=== PATIENT | male | born 1950 | race Caucasian/White ===

== ENCOUNTER 2017-11-21 17:46 | Inpatient (IN) | payer MEDICARE, OTHER ==
[2017-11-21] MEDS ORDERED: Metoprolol Tartrate 5 MG/5 ML VIAL ONE (17:58)
[2017-11-21 18:24] LABS: INR-International Normal Ratio 1.1; PTT 35.6 SEC (22.9-36.1)
[2017-11-21] MEDS ORDERED: Diltiazem 125 MG/25 ML ONE ×2 (18:25→18:27)
--- NOTE | 2017-11-21 18:33 | RAD ---
PORTABLE CHEST: 11/21/17 COMPARISON: 08/02/10 study. HISTORY: Chest pain. Heart size is upper limits of normal. There are atherosclerotic changes of the aorta. The lungs are c lear of infiltrates. IMPRESSION: No active intrathoracic disease. POS: [facility]
[2017-11-21 18:38] LABS: ALT (SGPT) 19 U/L (8-55); AST (SGOT) 17 U/L (5-34); Albumin 3.7 g/dL (3.4-4.8); Alkaline Phosphatase 105 U/L (40-150); Anion Gap 19 mmol/L (10-20); BUN (Urea Nitrogen) 19 mg/dL (8.4-25.7); Bilirubin, Total 0.6 mg/dL (0.2-1.2); CK (CPK) 73 U/L (30-200); Calc. Creatinine Clearance 0 mL/min (70-130); Calcium 9.2 mg/dL (7.8-10.44); Carbon Dioxide 23 mmol/L (23-31); Chloride 102 mmol/L (98-107); Estimated GFR-MDRD 56; Globulin 3.7 g/dL (2.4-3.5); Glucose 327 mg/dL (80-115); Lipase 14 U/L (8-78); Protein, Total 7.4 g/dL (5.8-8.1); Sodium 140 mmol/L (136-145)
[2017-11-21 18:39] LABS: CKMB 3.2 ng/mL (0-6.6); Troponin I 0.228 ng/mL (< 0.028)
[2017-11-21 18:54] LABS: #Basophils 0.1 thou/uL (0.0-0.2); #Lymphocytes 1.1 thou/uL (1.20-3.40); #Monocytes 0.7 thou/uL (0.11-0.59); #Neutrophils 6.7 thou/uL (1.40-6.50); %Basophils 0.7 % (0.0-1.0); %Eosinophils 0.1 % (0.0-10.0); %Lymphocytes 12.4 % (21.0-51.0); %Monocytes 7.9 % (0.0-10.0); %Neutrophils 78.8 % (42.0-75.0); Hemoglobin 12.4 g/dL (14.0-18.0); Mean Corpuscular HGB CONC 30.5 g/dL (32.0-36.0); Mean Corpuscular Hemoglobin 25.6 pg (27.0-31.0); Mean Corpuscular Volume 83.7 fl (80.0-94.0); Mean Platelet Volume 9.3 fL (7.4-10.4); Platelet Count 277 thou/uL (130-400); Red Blood Cell (RBC) Count 4.87 mill/uL (4.70-6.10); White Blood Cell (WBC) Count 8.5 thou/uL (4.8-10.8)
[2017-11-21] MEDS ORDERED: Enoxaparin Sodium 100 MG/ML SYRINGE ONE (19:31)
[2017-11-21] MEDS ORDERED: Diltiazem HCl 125 MG, Admixture Fee 1 EACH in Sodium Chloride 0.9% 100 ML IVPB SCH (21:30)
[2017-11-21] MEDS ORDERED: Ondansetron ODT 4 MG TAB SL PRN (21:31)
[2017-11-21] MEDS ORDERED: Acetaminophen 325 MG TAB PO PRN (21:31)
[2017-11-21] MEDS ORDERED: Ondansetron HCl/PF 4 MG/2 ML Vial IVP PRN (21:31)
[2017-11-21] MEDS ORDERED: Digoxin 0.5 MG/2 ML AMP SLOW IVP SCH ×2 (21:45→22:03)
[2017-11-21] MEDS ORDERED: Dextrose 50% Abboject 50 ML SYRINGE SLOW IVP PRN (22:03)
[2017-11-21] MEDS ORDERED: cloNIDine 0.1 MG TAB PO PRN (22:03)
[2017-11-21] MEDS ORDERED: hydrALAZINE 20 MG/ML VIAL SLOW IVP PRN (22:03)
[2017-11-21] MEDS ORDERED: Diltiazem 125 MG in Sodium Chloride 0.9% 100 ML IVPB SCH (22:03)
[2017-11-21] MEDS ORDERED: Ondansetron ODT 4 MG TAB PO PRN (22:03)
[2017-11-21] MEDS ORDERED: Furosemide 40 MG/4 ML VIAL SLOW IVP SCH (22:03)
[2017-11-21] MEDS ORDERED: Dextrose 5% in Water 1,000 ML IV PRN (22:03)
[2017-11-22] MEDS ORDERED: Digoxin 0.5 MG/2 ML AMP SLOW IVP SCH (00:15)
--- NOTE | 2017-11-22 03:04 | HP ---
DATE OF ADMISSION: 11/21/2017 PRIMARY CARE PHYSICIAN: Dr. Augusto Mcwilliams. CHIEF COMPLAINT: Shortness of breath and leg swelling. HISTORY OF PRESENT ILLNESS: This is a 67-year-old male who presented to the [facility] and transferred from Urgent Care after presenting with increasing shortness of br eath over the last 3 days. Patient states this began on 11/19/2017, progressing and worse with lying flat or ambulating. Patient admits to a CHF exacerbation approximately 12 years prior to this evalu ation with lower extremity swelling treated with IV Lasix. Patient states no specific cause was note d, but did not undergo any coronary angiogram at that time. Patient was treated with carvedilol, diu retic therapy, and aspirin and has been doing fairly well since this time. Patient does state he mohamud es aspirin 81 mg daily, but denied any other change to his chronic medication regimen. Patient denie d any fever, chills, or exposure history. Increased alcohol intake or recent surgeries. Patient den ied any specific chest pain, but does admit to a dry cough and shortness of breath with some wheezing . Patient attempted to relieve the symptoms by resting, but when the shortness of breath increased, his prompted him to seek medical attention. In the emergency room, patient underwent general ev aluation with chest imaging showing evidence of pulmonary edema. EKG showed atrial fibrillation with rapid ventricular response with heart rates in the 160s. Patient received subcutaneous Lovenox in a ddition initiated on the Cardizem infusion at 15 mg per hour. Patient also received Lopressor 5 mg x 1 dose, intravenous normal saline, and aspirin 324 mg. Patient was transferred to the intermediate c are unit for further evaluation. PAST MEDICAL HISTORY: 1. Diabetes mellitus, type 2. 2. Hypertension. 3. History of questionable congestive heart failure, unknown type. 4. Question of hyperthyroidism. 5. Arthritis. PAST SURGICAL HISTORY: 1. Status post appendectomy. 2. Status post left knee surgery. CURRENT MEDICATIONS: List will need to be obtained by family, patient is unsure of all the medicatio ns. ALLERGIES: No known drug allergies. FAMILY HISTORY: Multiple family members with coronary artery disease and congestive heart failure wi th 4 brothers requiring pacemakers. SOCIAL HISTORY: Patient is and resides in [place], [place]. Retired. Drinks socially approxima tely 2 times per month. No smoking or illicit drug use. REVIEW OF SYSTEMS: The following complete review of systems was otherwise negative, except as stated per HPI: Constitutional: Weight loss or gain, ability to conduct usual activities. Skin: Rash, itching. Eyes: Double vision, pain. ENT/Mouth: Nose bleeding, neck stiffness, pain, tenderness. Cardiovascular: Palpitations, dyspnea on exertion, orthopnea. Respiratory: Shortness of breath, wheezing, cough, hemoptysis, fever, or night sweats. Gastrointestinal: Poor appetite, abdominal pain, heartburn, nausea, vomiting, constipation, or diarr hea. Genitourinary: Urgency, frequency, dysuria, nocturia. Musculoskeletal: Pain, swelling. Neurologic/Psychiatric: Anxiety, depression. Allergy/Immunologic: Skin rash, bleeding tendency. PHYSICAL EXAMINATION: VITAL SIGNS: At the time of admission, blood pressure 124/74, pulse 166, respiratory rate 22, temper ature 97.8 degrees Fahrenheit, O2 saturation 99% on 2 liters per minute by nasal cannula. GENERAL APPEARANCE: This is a 67-year-old male, alert and oriented x3, pleasant, in mild-t o-moderate respiratory distress. HEENT: Pupils are equal, round, and reactive to light and accommodation. Extraocular muscles are in tact. No scleral icterus, no conjunctival injection. Nares patent. OP is clear. Teeth in good rep air. NECK: Supple. No cervical adenopathy, no thyromegaly, no carotid bruits, no JVD appreciated. Cervi nba spine with full active and passive range of motion. No meningeal signs noted. CHEST: Basilar crackles noted. CARDIOVASCULAR: S1, S2 with irregular rate and rhythm. Heart sounds distant. ABDOMEN: Rounded, soft, nontender, nondistended. Bowel sounds are positive in all four quadrants. There is no hepatosplenomegaly, no abdominal bruits, no rebound or guarding appreciated. EXTREMITIES: Warm and dry with fair turgor. Pitting edema to the mid shins bilaterally. Pulses are palpable distally at the dorsalis pedis, posterior tibial, and popliteal arteries bilaterally. Capi llary refill less than 2 seconds. NEUROLOGIC: Cranial nerves II-XII are grossly intact. No focal or lateralizing signs appreciated. PERTINENT LABORATORY AND X-RAY FINDINGS: Basic metabolic profile within normal limits. Glucose rang ed between 221-327, calcium 9.2. LFTs within normal limits. Troponin I ranged between 0.220 to 0.22 8. BNP 556. TSH 0.27. CBC showed a white blood cell count of 8.5, hemoglobin 12, hematocrit 41, pl atelet count 277 with 79% neutrophils. PT 14.0, INR 1.1. Portable chest x-ray dated 11/21/2017 show ed mild pulmonary edema. EKG dated 11/21/2017 by my interpretation shows atrial fibrillation with ra pid ventricular response, heart rates in the 160s. Attenuated R waves noted in the precordial leads. Normal axis. No acute ST-T wave changes appreciated. ASSESSMENT AND PLAN: 1. New-onset atrial fibrillation with rapid ventricular response. Patient will be admitted to the i ntermediate care unit. Continue Cardizem infusion at 15 mg per hour. Add digoxin 0.5 mg IV x1 now, may repeat 0.25 mg if heart rate remains greater than 120. Consider amiodarone infusion if rate is n ot controlled on prior regimen. Check 2D transthoracic echocardiogram. Consult Cardiology service i n the a.m. Check magnesium and free T4 level. Continue Lovenox 100 mg subcutaneously q.12 hours. I nitial Lovenox dose given in the emergency room. Continue aspirin 81 mg p.o. daily. 2. Acute congestive heart failure secondarily to #1. Exact type unclear. Check 2D transthoracic ec hocardiogram for ejection fraction and valvular function. See #1 above. Continue Lasix 40 mg IV q.1 2 hours with an additional 40 mg IV x1 now. 3. Elevated troponin I, suspect secondarily to #1 and a demand ischemic state. Continue serial trop onin I evaluation. Consult Cardiology Service in the a.m. Continue aspirin 81 mg p.o. daily. 4. Diabetes mellitus, type 2. Confirm home diabetic regimen. Insulin sliding scale for reflexive c overage. ADA diet. 5. Question of hyperthyroidism. Check free T4 level in the a.m. Confirm home regimen of exogenous thyroid replacement. 6. Prophylaxis. Sequential compression devices while in bed. Pepcid 20 mg p.o. b.i.d. 7. Code status is FULL. Surrogate medical decision maker is patient's spouse.
[2017-11-22] MEDS ORDERED: Amiodarone HCl 150 MG, Admixture Fee 1 EACH in Dextrose 5% in Water 100 ML IVPB SCH ×3 (04:00)
[2017-11-22] MEDS: Amiodarone In Dextrose 200 ML IVPB SCH ×3 (04:11→22:00)
[2017-11-22 04:12] LABS: Troponin I 0.221 ng/mL (< 0.028)
[2017-11-22 04:48] LABS: ALT (SGPT) 17 U/L (8-55); AST (SGOT) 13 U/L (5-34); Albumin 3.5 g/dL (3.4-4.8); Alkaline Phosphatase 83 U/L (40-150); Anion Gap 11 mmol/L (10-20); BUN (Urea Nitrogen) 17 mg/dL (8.4-25.7); Bilirubin, Total 0.6 mg/dL (0.2-1.2); Calc. Creatinine Clearance 112 mL/min (70-130); Calcium 9.1 mg/dL (7.8-10.44); Carbon Dioxide 26 mmol/L (23-31); Chloride 105 mmol/L (98-107); Estimated GFR-MDRD 72; Globulin 3.5 g/dL (2.4-3.5); Glucose 122 mg/dL (80-115); Magnesium 1.9 mg/dL (1.6-2.6); Sodium 138 mmol/L (136-145)
[2017-11-22 05:26] LABS: Band 2 % (5-11); Hemoglobin 11.9 g/dL (14.0-18.0); Lymphocytes 5 % (21-51); MDiff Complete? YES; Mean Corpuscular HGB CONC 32.3 g/dL (32.0-36.0); Mean Corpuscular Hemoglobin 27.5 pg (27.0-31.0); Mean Platelet Volume 8.9 fL (7.4-10.4); Monocytes 8 % (0-10); Neutrophil 84 % (42-75); PLT Morphology Comment Appears Adequate; Platelet Count 242 thou/uL (130-400); RBC Distribution Width 15.8 % (11.5-14.5); RBC Morphology Normal; Red Blood Cell (RBC) Count 4.34 mill/uL (4.70-6.10); White Blood Cell (WBC) Count 6.7 thou/uL (4.8-10.8)
[2017-11-22] MEDS: Ondansetron HCl/PF 4 MG/2 ML Vial IVP PRN ×2 (06:05→18:20)
[2017-11-22] MEDS: Furosemide 40 MG/4 ML VIAL SLOW IVP SCH ×2 (06:05→13:30)
[2017-11-22] MEDS: Levothyroxine Sodium 100 MCG TAB PO SCH (08:15)
[2017-11-22] MEDS: Aspirin 81 mg Enteric Coated Tablet PO SCH (08:15)
[2017-11-22] MEDS: metFORMIN XR 500 MG TAB PO SCH ×2 (08:15→18:14)
[2017-11-22] MEDS: Liothyronine Sodium 5 MCG TAB PO SCH ×2 (08:16→20:28)
[2017-11-22] MEDS: Pregabalin 75 MG CAP PO SCH ×2 (08:26→20:28)
[2017-11-22] MEDS ORDERED: FLU VACC TS2017-18 (>65YR) 0.5 ML SYRINGE IM ONE (09:00)
[2017-11-22] MEDS ORDERED: Enoxaparin Sodium 100 MG/ML SYRINGE SC SCH (09:00)
[2017-11-22] MEDS: Glimepiride 2 MG TAB PO SCH (09:12)
[2017-11-22] MEDS: Pioglitazone HCl 15 MG TAB PO SCH (09:14)
[2017-11-22] MEDS: Famotidine 20 MG TAB PO SCH ×2 (09:14→20:28)
[2017-11-22] MEDS: Anastrozole 1 MG TAB PO SCH (09:14)
--- NOTE | 2017-11-22 12:53 | PDOC.PN ---
- Subjective Encounter Start Date: 11/22/17 Encounter Start Time: 12:51 Subjective: seen and examined with no new complaint - Objective Resuscitation Status: Resuscitation Status FULL:Full Resuscitation Vital Signs & Weight: Vital Signs (12 hours) Temp Pulse Resp BP Pulse Ox 11/22/17 12:00 149 H 159/93 H 100 11/22/17 11:00 99.4 F 131 H 21 H 150/102 H 95 11/22/17 10:00 141 H 168/95 H 11/22/17 09:00 148 H 130/70 11/22/17 08:13 136 H 154/110 H 11/22/17 08:00 100.9 F H 137 H 20 174/68 H 97 11/22/17 03:33 99.7 F H 134 H 18 142/74 H 97 Weight Weight 245 lb 9.6 oz I&O: 11/21/17 11/22/17 11/23/17 06:59 06:59 06:59 Intake Total 968 Output Total 980 350 Balance -12 350 Result Diagrams: 11/22/17 04:10 11/22/17 04:10 Additional Labs: Accuchecks 11/22/17 11/22/17 11/21/17 10:49 05:42 21:11 POC Glucose 112 H 115 H 221 H Phys Exam - Physical Examination Constitutional: NAD HEENT: PERRLA, moist MMs, sclera anicteric, TM's clear Neck: no nodes, no JVD, supple, full ROM Respiratory: no wheezing, no rales, no rhonchi, clear to auscultation bilateral Cardiovascular: RRR, no significant murmur, no rub, irregular Gastrointestinal: non-tender, no distention, positive bowel sounds Musculoskeletal: pulses present, edema present Dx/Plan (1) New onset a-fib Code(s): I48.91 - UNSPECIFIED ATRIAL FIBRILLATION Status: Acute (2) CHF (congestive heart failure) Code(s): I50.9 - HEART FAILURE, UNSPECIFIED Status: Acute (3) Hypothyroidism Code(s): E03.9 - HYPOTHYROIDISM, UNSPECIFIED Status: Acute (4) Hypertension Code(s): I10 - ESSENTIAL (PRIMARY) HYPERTENSION Status: Acute - Plan plan discussed w/ family, PT/OT, social work lecturer Cardiology eval pending -: On cardizem gtt -: Pulmonary eval pending * .
[2017-11-22] MEDS ORDERED: Furosemide 100 MG/10 ML VIAL SLOW IVP SCH (13:45)
[2017-11-22] MEDS ORDERED: Furosemide 40 MG/4 ML VIAL SLOW IVP SCH (14:00)
[2017-11-22] MEDS ORDERED: Diltiazem 125 MG in Sodium Chloride 0.9% 100 ML IVPB SCH (14:15)
[2017-11-22] MEDS ORDERED: Metoprolol Tartrate 5 MG/5 ML VIAL IVP SCH ×2 (14:45→16:30)
--- NOTE | 2017-11-22 15:41 | RAD ---
CHEST ONE VIEW: History: Chest pain. Comparison: 11-21-17 FINDINGS: Cardiac silhouette is magnified and upper limits of normal in size. Pulmonary vasculature is now engo rged with patchy bilateral perihilar and bibasilar infiltrates. Mediastinum is midline with aortic c alcifications. No evidence of pneumothorax. php developer leads overlie the chest. IMPRESSION: Developing pulmonary edema. POS: [facility]
--- NOTE | 2017-11-22 18:18 | CON ---
DATE OF CONSULTATION: 11/22/2017 SUBJECTIVE: Jose Carlos Villatoro is a 67-year-old gentleman who was admitted last night with shortness of breath for several days duration. He was found to be in congestive heart failure and SVT, he is on an amiodarone drip. Here in the MICU for consult, long-term smoker, a pack a day, quit smoking 25 years ago. He had a sl eep study done in 2005 which I reviewed on the computer which showed sleep apnea. He has never had a machine. Most of his doctors are at [facility]. This morning, he said he is feeling better. There is no fever or chills. No prior history of TB, pn eumonia or bronchial asthma. PAST MEDICAL HISTORY: History of apparently diabetes, hyperlipidemia, high cholesterol, hypertension , CHF, appendix, orthopedic surgery, left knee surgery, and appears he has no significant etiol ogy in the past. MEDICATIONS: His list of medicine from home includes metformin twice a day, Lyrica, losartan 50, mox ifloxacin 200, insulin, Amaryl, Lasix, Zetia, Trulicity, Invokana, anastrozole. ALLERGIES: None. 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 REVIEW OF SYSTEMS: Ten point negative. PHYSICAL EXAMINATION: VITAL SIGNS: On examination, blood pressure 130/70, pulse 130, temperature 100.9, respirations 20. CHEST: Reveals decreased breath sounds, minimal crackles. CARDIAC: Normal S1-S2. No gallops. ABDOMEN: Soft. No masses. LABORATORY DATA AND IMAGING DATA: White count 6, hemoglobin and hematocrit 11 and 37, platelet count is normal, 84 segs. X-ray shows cardiomegaly, CHF. His troponin is elevated. His BNP is 555. Thyroid function was normal. IMPRESSION: 1. Dyspnea secondary to congestive heart failure. 2. Diabetes. 3. Sleep apnea, noncompliance. 4. Hypertension. 5. Hypothyroidism. PLAN: Agree with present treatment. Continue amiodarone. Await input from Cardiology. He probably needs a cardiac catheterization. Supportive care. We will follow while in the MICU.
--- NOTE | 2017-11-22 18:43 | PRG ---
DATE OF SERVICE: 11/22/2017 Mr. Villatoro remains short of breath. His heart rate is still 110/130. He has some expiratory wheezing. ASSESSMENT: 1. Congestive heart failure, likely systolic, acute on chronic. 2. Atrial fibrillation, extremely difficult to control rate. PLAN: We will need to proceed to cardioversion tomorrow. Hopefully can do a transesophageal echo fi rst, but he may not be able to tolerate the MANA due to the shortness of breath. If that is the case, we are going to have to go ahead and proceed with cardioversion if the patient is not tolerating atr ial fibrillation. The family understands there is some risk of stroke.
[2017-11-22] MEDS: Enoxaparin Sodium 120 MG/0.8 ML SYRINGE SC SCH (20:27)
[2017-11-22] MEDS: Cefepime 1 GM, Admixture Fee 1 EACH in Sterile Water 10 ML SLOW IVP SCH (20:27)
[2017-11-22] MEDS: Ezetimibe 10 MG TAB PO SCH (20:28)
[2017-11-22] MEDS: Acetaminophen 500 MG TAB PO PRN (20:32)
[2017-11-22] MEDS ORDERED: Losartan Potassium 25 MG TAB PO SCH (21:00)
[2017-11-22] MEDS ORDERED: Cefepime 1 GM in Sodium Chloride 0.9% 100 ML IVPB SCH (21:00)
--- NOTE | 2017-11-22 22:20 | CON ---
DATE OF CONSULTATION: 11/22/2017 REASON FOR CONSULTATION: Atrial fibrillation with a rapid rate. HISTORY OF PRESENT ILLNESS: Mr. Villatoro is a 67-year-old gentleman. He states he has a history of c ongestive heart failure. The patient states that about 10-12 years ago, he has told he had heart failure and was maintained on losartan and furosemide. He said Dr. Patterson was his physician at that point. The patient states that he was doing well up until just after Grandin started having shortness of b reath, came here to the emergency room yesterday, found to be in atrial fibrillation with a rapid rat e. He was started on intravenous Cardizem, but it did not control the rate well. This morning, he w as changed to intravenous amiodarone, but still rate was very rapid. The patient was extremely short of breath, currently no chest pain. The patient, as far as he knows, did not have blockage in his c oronary arteries at the time of the initial diagnosis. PAST MEDICAL HISTORY: 1. Diabetes. 2. Hypertension. 3. History of congestive heart failure, unknown type. PAST SURGICAL HISTORY: Appendectomy, knee surgery. MEDICATIONS: He is taking losartan and diuretic. ALLERGIES: None known. FAMILY HISTORY: Coronary disease and congestive heart failure. SOCIAL HISTORY: , resides in [place]. REVIEW OF SYSTEMS: CONSTITUTIONAL: No significant weight gain or loss. VISION: No changes. HEARING: No changes. PULMONARY: No cough or wheezing. GASTROINTESTINAL: No nausea, vomiting, diarrhea. SKIN: No rashes. NEUROLOGIC: No unilateral weakness or numbness. PSYCHIATRIC: No unusual depression or anxiety. HEMATOLOGIC: No unusual bruising. GENITOURINARY: No burning with urination. MUSCULOSKELETAL: No unusual joint pains. PHYSICAL EXAMINATION: GENERAL: A critically ill-appearing gentleman. VITAL SIGNS: On my arrival, his heart rate was 150, blood pressure was 140 systolic, respiratory rat e 30-40. Patient is in some distress. EYES: Sclerae nonicteric. Mouth mucous membranes moist. NECK: Supple, no lymphadenopathy. LUNGS: Expiratory wheezing and rales posteriorly. CARDIAC: Tachycardic and irregular. ABDOMEN: Soft, nontender. EXTREMITIES: No clubbing, cyanosis. There is some mild to moderate edema. SKIN: Warm and dry. PERTINENT LABORATORY: Creatinine 1.04. Troponin 0.221, glucose 115. The EKG revealed atrial fibrillation with a rapid ventricular response. Chest x-ray showed pulmonary vascular congestion. ASSESSMENT: 1. Congestive heart failure, probably systolic, acute on chronic. 2. Atrial fibrillation with a rapid rate. Rate as fast as 160 yesterday, still 150 even on amiodaro ne. PLAN: 1. Consider cardioversion, but the patient just ate and therefore cannot be done in a semi elective state. 2. Intravenous Cardizem was given. 3. Intravenous beta camilo given 4. Patient is beginning to feel better, heart rates close to 100, ultimately consideration for trans esophageal echo and cardioversion.
[2017-11-23] MEDS: Acetaminophen 500 MG TAB PO PRN (03:57)
[2017-11-23 04:38] LABS: Hemoglobin 11.2 g/dL (14.0-18.0); Platelet Count 229 thou/uL (130-400)
[2017-11-23] MEDS: Furosemide 40 MG/4 ML VIAL SLOW IVP SCH ×2 (05:35→14:40)
[2017-11-23] MEDS ORDERED: Diprivan 40 ML ONE (08:50)
[2017-11-23] MEDS ORDERED: Furosemide 20 MG/2 ML VIAL ONE (09:26)
[2017-11-23] MEDS ORDERED: Amiodarone 200 MG TAB PO SCH ×2 (09:30→10:00)
[2017-11-23] MEDS ORDERED: Losartan Potassium 25 MG TAB PO SCH (09:32)
[2017-11-23] MEDS ORDERED: Carvedilol 3.125 MG TAB PO SCH ×2 (09:45→10:00)
--- NOTE | 2017-11-23 09:59 | PRG ---
DATE OF SERVICE: 11/23/2017 SUBJECTIVE: Mr. Villatoro underwent cardioversion this morning, he is feeling better, his breathing be tter, still wheezing. PHYSICAL EXAMINATION: VITAL SIGNS: Blood pressure 121/77 before cardioversion, pulse is now in the 70s and sinus. LUNGS: Expiratory wheezing. CARDIAC: Normal S1 and normal S2. ABDOMEN: Soft, nontender. EXTREMITIES: No edema. ASSESSMENT: 1. Congestive heart failure with ejection fraction estimated in the 20s on transesophageal echocardi ography. Transthoracic echo is still pending. 2. Atrial fibrillation converted to sinus rhythm. PLAN: 1. Stop Cardizem. 2. Continue diuretics. 3. Increase losartan to 100 mg a day. 4. Transition to oral amiodarone. 5. [place] low dose carvedilol.
[2017-11-23] MEDS ORDERED: Furosemide 40 MG/4 ML VIAL SLOW IVP SCH (10:00)
[2017-11-23 10:38] LABS: Base Excess (BEa) -2.4 mEq/L (0 (+/-) 2.5); CO2 Tension 48.7 mmHg (35.0-45.0); Calcium, Ionized 1.1 mmol/L (1.12-1.30); Hemoglobin (Hb) 11.4 g/dL (14.0-18.0); O2 Tension (PaO2) 78.4 mmHg (80.0-100.0); pH, Arterial 7.31 (7.35-7.45)
[2017-11-23 10:39] LABS: ALV-art Gradient 119.565 (0-20); Puncture Site RRA
--- NOTE | 2017-11-23 10:53 | ECHO ---
TRANSESOPHAGEAL ECHOCARDIOGRAM DATE: 11/23/2017 INDICATION FOR PROCEDURE: A 67-year-old patient with new onset atrial fibrillation and congestive he art failure with decompensation, severe symptomatic atrial fibrillation with rapid ventricular respon se. He was advised to undergo a transesophageal echocardiogram to rule out evidence of intracardiac thrombi in the left atrium or left atrial appendage in anticipation of early electrical cardioversion . PROCEDURE: He was taken to the recovery area where he underwent short acting propofol without diffic ulties or complications. The transesophageal probe was easily passed down the distal esophagus. IMPRESSIONS: 1. No evidence of left atrial or left atrial appendage thrombus. He did have smoke formation in the left atrium and right atrium and also the left ventricle at times, but no evidence of left atrial or left atrial appendage thrombus. 2. Severe decrease in left ventricular systolic function. Ejection fraction is estimated at 20-25%. 3. Mild tricuspid valve regurgitation. 4. Mild to moderate mitral valve regurgitation. 5. Mild to moderate left atrial dilatation. The left atrium is estimated at approximately 4.5 cm. 6. Good flow in the left atrial appendage of approximately 0.5 meters per second. There were no difficulties or complications encountered. The patient tolerated the procedure well, a nd we will then proceed with a cardioversion of the patient. POS: [facility]
--- NOTE | 2017-11-23 10:57 | OP ---
DATE OF PROCEDURE: 11/23/2017 PROCEDURE: Cardioversion. DESCRIPTION OF PROCEDURE: The patient was brought to the recovery room in the fasting state. He was sedated. Transesophageal echo revealed no evidence of intracardiac thrombus. He was given 150 joul es direct current synchronized energy, did not convert to sinus rhythm, therefore he was given 200 kaushik ules direct current synchronized energy and converted to normal sinus rhythm. CONCLUSION: Successful cardioversion.
[2017-11-23] MEDS: Pioglitazone HCl 15 MG TAB PO SCH (11:20)
[2017-11-23] MEDS: Famotidine 20 MG TAB PO SCH ×2 (11:22→20:14)
[2017-11-23] MEDS: Levothyroxine Sodium 100 MCG TAB PO SCH (11:23)
[2017-11-23] MEDS: Liothyronine Sodium 5 MCG TAB PO SCH ×2 (11:23→20:13)
[2017-11-23] MEDS: metFORMIN XR 500 MG TAB PO SCH ×2 (11:24→16:35)
[2017-11-23] MEDS: Cefepime 1 GM, Admixture Fee 1 EACH in Sterile Water 10 ML SLOW IVP SCH ×2 (11:25→20:12)
[2017-11-23] MEDS: Anastrozole 1 MG TAB PO SCH (11:25)
[2017-11-23] MEDS: Aspirin 81 mg Enteric Coated Tablet PO SCH (11:25)
[2017-11-23] MEDS: Glimepiride 2 MG TAB PO SCH (11:25)
[2017-11-23] MEDS: Enoxaparin Sodium 120 MG/0.8 ML SYRINGE SC SCH ×2 (11:26→20:12)
[2017-11-23] MEDS: Pregabalin 75 MG CAP PO SCH ×2 (11:30→20:13)
[2017-11-23] MEDS ORDERED: Amiodarone HCl 450 MG, Admixture Fee 1 EACH in Dextrose 5% in Water 250 ML IVPB SCH ×3 (11:30)
--- NOTE | 2017-11-23 12:02 | PRG ---
DATE OF SERVICE: 11/23/2017 SUBJECTIVE: This patient underwent cardioversion earlier this morning afterwards he has developed so me respiratory distress. He is now back on the BiPAP machine. He is having some wheezing. PHYSICAL EXAMINATION: VITAL SIGNS: Temperature 97.5, pulse 107, respirations 21, blood pressure 176/83. HEENT: Unremarkable. NECK: No JVD. LUNGS: He has bilateral end expiratory wheezing. He has no crackles at the bases. CARDIAC: S1, S2 now regular, no murmur. ABDOMEN: Soft, nontender. EXTREMITIES: Trace edema. LABORATORY DATA: Hemoglobin 11, hematocrit 36.8, platelet count 229. Chemistry not done. ABG: pH 7.31, pCO2 of 48, pO2 78. Chest x-ray interpreted by myself shows flattened diaphragms, cardiomegaly . ASSESSMENT: 1. Acute respiratory failure, probably secondary to some congestive heart failure. 2. Question of reactive airway disease. 3. Sleep apnea. 4. Hypothyroidism. 5. Paroxysmal atrial fibrillation. PLAN: 1. Continue BiPAP. 2. Agree with the dose of steroids. 3. Start nebulization treatments.
[2017-11-23] MEDS ORDERED: Insulin Detemir 100 UNITS/ML 40 UNITS in Pre-Filled Syringe 1 EACH SC SCH (12:45)
--- NOTE | 2017-11-23 15:16 | RAD ---
UPRIGHT PORTABLE CHEST ONE VIEW: HISTORY: A 67-year-old male with congestive heart failure. COMPARISON: 11/22/2017 FINDINGS: Monitor leads overly the chest. Heart size is within normal limits. There is some mild bilateral va scular congestion with increased markings in the basis and costophrenic angle blunting. These change appear to be stable when compared to the 11/22/2017 study but are new when compared to the 8 study. There appears to be some potential minimal air density over the right costophrenic angle re gion, within the chest wall. this area has overlying artifact. This was raise concern for possible subcutaneous emphysema. There is no associated pneumothorax. IMPRESSION: Persistent bilateral vascular congestion with persistent bibasilar interstitial and alveolar pulmonar y parenchymal changes and costophrenic angle blunting, showing little change from 11/22/2017, evidenc e for lower lobe asymmetric edema or possibly bibasilar pneumonia or pneumonitis. Minimal air densit y overlying the right chest wall, near the costophrenic angle, possibly representing some subcutaneou s emphysema. No evidence of pneumothorax or other acute process. Followup of this is suggested. Findings were discussed with the patient's nurse (Nora), who indicated she would contact Dr. Powell in this regard at 11:18 a.m. CODE CR POS: [facility]
--- NOTE | 2017-11-23 15:37 | PDOC.PN ---
- Subjective Encounter Start Date: 11/23/17 Encounter Start Time: 15:00 Pt seen for followup re: atrial fibrillation. Reports SOBOE. Denies chest pain , palpitations, fever or chills. - Objective Resuscitation Status: Resuscitation Status FULL:Full Resuscitation MAR Reviewed: Yes Vital Signs & Weight: Vital Signs (12 hours) Temp Pulse Resp BP Pulse Ox 11/23/17 14:00 93 153/77 H 11/23/17 13:30 94 161/78 H 11/23/17 13:13 92 18 93 L 11/23/17 13:00 95 152/72 H 11/23/17 12:30 95 148/67 H 11/23/17 12:00 99 24 H 156/65 H 91 L 11/23/17 11:51 107 H 187/80 H 11/23/17 11:15 92 22 H 154/61 H 99 11/23/17 11:00 89 157/62 H 11/23/17 10:47 94 21 H 176/83 H 100 11/23/17 10:33 97.5 F L 107 H 30 H 162/92 H 99 11/23/17 10:31 107 H 11/23/17 10:15 114 H 32 H 142/86 H 89 L 11/23/17 07:55 132 H 121/77 11/23/17 07:38 97.8 F 114 H 24 H 96 11/23/17 07:00 97.8 F 114 H 24 H 143/70 H 96 11/23/17 03:53 100.1 F H 126 H 20 131/61 97 Weight Weight 250 lb 3.2 oz I&O: 11/22/17 11/23/17 11/24/17 06:59 06:59 06:59 Intake Total 968 2248.3 Output Total 980 2520 Balance -12 -912.7 Result Diagrams: 11/23/17 04:21 11/23/17 04:21 Additional Labs: Accuchecks 11/23/17 11/23/17 11/22/17 10:36 05:37 20:52 POC Glucose 166 H 176 H 235 H 11/22/17 16:31 POC Glucose 119 H EKG Reviewed by me: Yes (Tele: NSR) Phys Exam - Physical Examination Constitutional: NAD HEENT: moist MMs Neck: supple Respiratory: clear to auscultation bilateral Cardiovascular: RRR Gastrointestinal: soft Musculoskeletal: edema present Neurological: moves all 4 limbs Psychiatric: normal affect Dx/Plan (1) New onset a-fib Code(s): I48.91 - UNSPECIFIED ATRIAL FIBRILLATION Status: Acute (2) CHF (congestive heart failure) Code(s): I50.9 - HEART FAILURE, UNSPECIFIED Status: Chronic (3) Hypertension Code(s): I10 - ESSENTIAL (PRIMARY) HYPERTENSION Status: Chronic (4) Hypothyroidism Code(s): E03.9 - HYPOTHYROIDISM, UNSPECIFIED Status: Chronic - Plan out of bed/ambulate * . s/p cardioversion (after MANA). Monitor vital signs, titrate antihypertensives as needed. Continue synthroid. Review of Systems - Review of Systems Respiratory: SOB with Excertion. negative: Cough, Dry, Shortness of Breath, Hemoptysis, Pleuritic Pain, Sputum, Wheezing Cardiovascular: negative: chest pain, palpitations, orthopnea, paroxysmal nocturnal dyspnea, edema, light headedness - Medications/Allergies Allergies/Adverse Reactions: Allergies Allergy/AdvReac Type Severity Reaction Status Date / Time No Allergy Information Allergy Verified 11/21/17 21:57 Available Medications: Current Medications Acetaminophen (Tylenol) 1,000 mg PO Q6H PRN PRN Reason: Headache/Fever or Mild Pain Last Admin: 11/23/17 03:57 Dose: 1,000 mg Albuterol/Ipratropium (Duoneb) 3 ml NEB [id number] [facility] Last Admin: 11/23/17 13:13 Dose: 3 ml Amiodarone HCl (Cordarone) [address] [facility] Anastrozole (Arimidex) [address] [facility] Last Admin: 11/23/17 11:25 Dose: 1 mg Aspirin (Ecotrin) [address] [facility] Last Admin: 11/23/17 11:25 Dose: 81 mg Carvedilol (Coreg) 3.125 mg PO BID-WM [facility] Clonidine (Catapres) 0.1 mg PO Q4H PRN PRN Reason: Systolic BP > 180 Dextrose/Water (Dextrose 50%) 25 gm SLOW IVP PRN PRN PRN Reason: Hypoglycemia Ezetimibe (Zetia) [address] [facility] Last Admin: 11/22/17 20:28 Dose: 10 mg Enoxaparin Sodium (Lovenox) 120 mg SC 0900,2100 [facility] Last Admin: 11/23/17 11:26 Dose: 120 mg Famotidine (Pepcid) [address] [facility] Last Admin: 11/23/17 11:22 Dose: 20 mg Furosemide (Lasix) 40 mg SLOW IVP 0600,1400 [facility] Last Admin: 11/23/17 14:40 Dose: 40 mg Glimepiride (Amaryl) 2 mg PO DAILY-AC [facility] Last Admin: 11/23/17 11:25 Dose: 2 mg Glucagon (Glucagon) 1 mg IM PRN PRN PRN Reason: Hypoglycemia Hydralazine HCl (Apresoline) 10 mg SLOW IVP Q4H PRN PRN Reason: Systolic BP > 180 Dextrose/Water (D5w) 1,000 mls @ 0 mls/hr IV .Q0M PRN; As Directed PRN Reason: Hypoglycemia Cefepime HCl 1 gm/Miscellaneous Medication 1 each/ Sterile Water 10 mls @ 120 mls/hr SLOW IVP BID [facility] Last Admin: 11/23/17 11:25 Dose: 10 mls Insulin Detemir 40 units/ (Miscellaneous Medication) 0.4 mls @ 0 mls/hr SC DAILY [facility] Insulin Human Lispro (Humalog) 0 units SC .MODERATE SLIDING SC PRN PRN Reason: Moderate Correctional Scale Insulin Human Lispro (Humalog) 0 units SC .BEDTIME SLIDING SC PRN PRN Reason: Bedtime Correctional Scale Levothyroxine Sodium (Synthroid) [address] [facility] Last Admin: 11/23/17 11:23 Dose: 200 mcg Liothyronine Sodium (Cytomel) [address] [facility] Last Admin: 11/23/17 11:23 Dose: 5 mcg Losartan Potassium (Cozaar) [address] [facility] Metformin HCl (Glucophage Xr) 750 mg PO BID-[facility] Last Admin: 11/23/17 11:24 Dose: 750 mg Methylprednisolone Sodium Succinate (Solu-Medrol) [address] [facility] Last Admin: 11/23/17 10:48 Dose: 40 mg Ondansetron HCl (Zofran Odt) 4 mg PO Q6H PRN PRN Reason: Nausea/Vomiting Ondansetron HCl (Zofran) 4 mg IVP Q6H PRN PRN Reason: Nausea/Vomiting Last Admin: 11/22/17 18:20 Dose: 4 mg Canagliflozin [ Invokana] 300 Mg Tablet [address] [facility] Last Admin: 11/23/17 11:30 Dose: 1 each Pregabalin (Lyrica) [address] [facility] Last Admin: 11/23/17 11:30 Dose: Not Given
[2017-11-23] MEDS: Carvedilol 3.125 MG TAB PO SCH (16:36)
[2017-11-23] MEDS: HumaLOG 300 UNITS/3 ML VIAL SC PRN ×2 (16:36→20:24)
[2017-11-23] MEDS: Amiodarone 200 MG TAB PO SCH (20:14)
[2017-11-23] MEDS: Ezetimibe 10 MG TAB PO SCH (20:14)
[2017-11-24] MEDS: Levothyroxine Sodium 100 MCG TAB PO SCH (05:44)
[2017-11-24] MEDS: Furosemide 40 MG/4 ML VIAL SLOW IVP SCH (05:44)
[2017-11-24] MEDS: HumaLOG 300 UNITS/3 ML VIAL SC PRN ×4 (05:44→20:45)
[2017-11-24] MEDS: Glimepiride 2 MG TAB PO SCH (08:29)
[2017-11-24] MEDS: Carvedilol 3.125 MG TAB PO SCH ×2 (08:30→16:59)
[2017-11-24] MEDS: metFORMIN XR 500 MG TAB PO SCH ×2 (08:31→16:58)
[2017-11-24] MEDS: Amiodarone 200 MG TAB PO SCH ×2 (08:32→19:58)
[2017-11-24] MEDS: Anastrozole 1 MG TAB PO SCH (08:33)
[2017-11-24] MEDS: Aspirin 81 mg Enteric Coated Tablet PO SCH (08:33)
[2017-11-24] MEDS: Cefepime 1 GM, Admixture Fee 1 EACH in Sterile Water 10 ML SLOW IVP SCH ×2 (08:33→19:59)
[2017-11-24] MEDS: Liothyronine Sodium 5 MCG TAB PO SCH ×2 (08:34→19:58)
[2017-11-24] MEDS: Famotidine 20 MG TAB PO SCH ×2 (08:34→19:58)
[2017-11-24] MEDS: Pregabalin 75 MG CAP PO SCH ×2 (08:36→19:57)
[2017-11-24] MEDS: Enoxaparin Sodium 120 MG/0.8 ML SYRINGE SC SCH (08:44)
[2017-11-24] MEDS ORDERED: Furosemide 40 MG TAB PO SCH (09:00)
[2017-11-24] MEDS ORDERED: Insulin Detemir 100 UNITS/ML 40 UNITS in Pre-Filled Syringe 1 EACH SC SCH (09:00)
--- NOTE | 2017-11-24 09:51 | PRG ---
DATE OF SERVICE: 11/24/2017 SUBJECTIVE: Mr. Villatoro is feeling better today. Still having some trouble breathing, but it is imp roved. His creatinine yesterday was 1.22. PHYSICAL EXAMINATION: VITAL SIGNS: Blood pressure today is still high at 156/73 and pulse is 76, it is sinus, it is 80 on the monitor. LUNGS: Clear of any rales. He does have expiratory wheezing. CARDIAC: Normal S1 and S2. ASSESSMENT: 1. Congestive heart failure, ejection fraction 25%-30%. 2. Atrial fibrillation, maintaining sinus rhythm. 3. Hypertension. PLAN: 1. We will change from losartan to lisinopril. Continue diuretic therapy. 2. He is on low dose Coreg due to wheezing. 3. We will likely need a LifeVest before he goes home. 4. We will likely need cardiac catheterization before he goes home to see if he has coronary disease and if he does so, consideration for this being done radially should be given in view of his anticoa gulation.
[2017-11-24] MEDS: Sacubitril 49 MG/Valsartan 51 MG TABLET PO SCH ×2 (10:07→19:58)
--- NOTE | 2017-11-24 11:47 | PRG ---
DATE OF SERVICE: 11/24/2017 SUBJECTIVE: He feels better today. He has not used the BiPAP earlier this morning. OBJECTIVE: VITAL SIGNS: Temperature 97.1, pulse 76, respirations 22, 100% on 3 liters, blood pressure 156/73. HEENT: Unremarkable. NECK: No JVD. CHEST: Clear. No wheezing audible. Few crackles in the bases. CARDIAC: S1 and S2 regular. ABDOMEN: Soft. EXTREMITIES: No edema. ASSESSMENT: 1. Acute respiratory failure, probably related to congestive heart failure. 2. Question of concurrent reactive airway disease. 3. Obstructive sleep apnea. 4. Hypothyroidism. 5. Paroxysmal atrial fibrillation. PLAN: 1. Continue nebulization treatments. 2. Hopefully, he is over his need for BiPAP. 3. Currently on low dose steroids that hopefully can be stopped in the next day or two.
--- NOTE | 2017-11-24 13:03 | PDOC.PN ---
- Subjective Encounter Start Date: 11/24/17 Encounter Start Time: 09:20 Pt seen for followup re: shortness of breath. Reports SOB at rest and with exertion. Denies chest pain. No fever, chills or cough. - Objective Resuscitation Status: Resuscitation Status FULL:Full Resuscitation Vital Signs & Weight: Vital Signs (12 hours) Temp Pulse Resp BP Pulse Ox 11/24/17 11:56 97.3 F L 80 20 138/65 97 11/24/17 08:08 80 16 11/24/17 07:59 97.1 F L 76 20 100 11/24/17 07:49 97.1 F L 76 20 156/73 H 97 11/24/17 06:00 79 18 143/64 H 100 11/24/17 04:00 98.0 F 75 16 127/55 L 99 11/24/17 02:00 81 17 123/53 L 99 Weight Weight 242 lb 6 oz I&O: 11/23/17 11/24/17 11/25/17 06:59 06:59 06:59 Intake Total 2248.3 3044.8 Output Total 2520 4325 Balance -271.7 -1280.2 Result Diagrams: 11/23/17 04:21 11/23/17 04:21 Additional Labs: Accuchecks 11/24/17 11/23/17 11/23/17 05:44 20:20 16:26 POC Glucose 229 H 246 H 338 H Phys Exam - Physical Examination Constitutional: NAD HEENT: moist MMs Neck: supple Bibasal crackles Cardiovascular: RRR Gastrointestinal: soft Neurological: moves all 4 limbs Psychiatric: normal affect Skin: no rash Dx/Plan (1) Shortness of breath Code(s): R06.02 - SHORTNESS OF BREATH Status: Acute (2) CHF (congestive heart failure) Code(s): I50.9 - HEART FAILURE, UNSPECIFIED Status: Chronic (3) Hypertension Code(s): I10 - ESSENTIAL (PRIMARY) HYPERTENSION Status: Chronic (4) Hypothyroidism Code(s): E03.9 - HYPOTHYROIDISM, UNSPECIFIED Status: Chronic (5) New onset a-fib Code(s): I48.91 - UNSPECIFIED ATRIAL FIBRILLATION Status: Resolved - Plan out of bed/ambulate * . Continue IV diuretics. Plan for possible cardiac cath noted. Plan for Life Vest prior to discharge. Continue steroids, bronchodilators. s/p cardioversion. Review of Systems - Review of Systems Respiratory: Shortness of Breath, SOB with Excertion. negative: Cough, Dry, Hemoptysis, Pleuritic Pain, Sputum, Wheezing Cardiovascular: negative: chest pain, palpitations, orthopnea, paroxysmal nocturnal dyspnea, edema, light headedness - Medications/Allergies Allergies/Adverse Reactions: Allergies Allergy/AdvReac Type Severity Reaction Status Date / Time No Allergy Information Allergy Verified 11/21/17 21:57 Available Medications: Current Medications Acetaminophen (Tylenol) 1,000 mg PO Q6H PRN PRN Reason: Headache/Fever or Mild Pain Last Admin: 11/23/17 03:57 Dose: 1,000 mg Albuterol/Ipratropium (Duoneb) 3 ml NEB [id number] [facility] Last Admin: 11/24/17 08:08 Dose: 3 ml Amiodarone HCl (Cordarone) 400 mg PO BID [facility] Last Admin: 11/24/17 08:32 Dose: 400 mg Anastrozole (Arimidex) 1 mg PO DAILY [facility] Last Admin: 11/24/17 08:33 Dose: 1 mg Aspirin (Ecotrin) 81 mg PO DAILY [facility] Last Admin: 11/24/17 08:33 Dose: 81 mg Carvedilol (Coreg) 3.125 mg PO BID-WM [facility] Last Admin: 11/24/17 08:30 Dose: 3.125 mg Clonidine (Catapres) 0.1 mg PO Q4H PRN PRN Reason: Systolic BP > 180 Dextrose/Water (Dextrose 50%) 25 gm SLOW IVP PRN PRN PRN Reason: Hypoglycemia Ezetimibe (Zetia) 10 mg PO HS [facility] Last Admin: 11/23/17 20:14 Dose: 10 mg Enoxaparin Sodium (Lovenox) 100 mg SC 0900,2100 [facility] Famotidine (Pepcid) 20 mg PO BID [facility] Last Admin: 11/24/17 08:34 Dose: 20 mg Furosemide (Lasix) 40 mg PO 0900,1400 [facility] Glimepiride (Amaryl) 2 mg PO DAILY-AC [facility] Last Admin: 11/24/17 08:29 Dose: 2 mg Glucagon (Glucagon) 1 mg IM PRN PRN PRN Reason: Hypoglycemia Hydralazine HCl (Apresoline) 10 mg SLOW IVP Q4H PRN PRN Reason: Systolic BP > 180 Dextrose/Water (D5w) 1,000 mls @ 0 mls/hr IV .Q0M PRN; As Directed PRN Reason: Hypoglycemia Cefepime HCl 1 gm/Miscellaneous Medication 1 each/ Sterile Water 10 mls @ 120 mls/hr SLOW IVP BID [facility] Last Admin: 11/24/17 08:33 Dose: 10 mls Insulin Detemir 40 units/ (Miscellaneous Medication) 0.4 mls @ 0 mls/hr SC DAILY [facility] Last Admin: 11/24/17 08:40 Dose: 0.4 mls Insulin Human Lispro (Humalog) 0 units SC .MODERATE SLIDING SC PRN PRN Reason: Moderate Correctional Scale Last Admin: 11/24/17 12:37 Dose: 6 unit Insulin Human Lispro (Humalog) 0 units SC .BEDTIME SLIDING SC PRN PRN Reason: Bedtime Correctional Scale Last Admin: 11/23/17 20:24 Dose: 2 unit Levothyroxine Sodium (Synthroid) 200 mcg PO 0600 [facility] Last Admin: 11/24/17 05:44 Dose: 200 mcg Liothyronine Sodium (Cytomel) 5 mcg PO BID [facility] Last Admin: 11/24/17 08:34 Dose: 5 mcg Metformin HCl (Glucophage Xr) 750 mg PO BID-[facility] Last Admin: 11/24/17 08:31 Dose: 750 mg Methylprednisolone Sodium Succinate (Solu-Medrol) 40 mg IVP DAILY [facility] Last Admin: 11/24/17 08:35 Dose: 40 mg Ondansetron HCl (Zofran Odt) 4 mg PO Q6H PRN PRN Reason: Nausea/Vomiting Ondansetron HCl (Zofran) 4 mg IVP Q6H PRN PRN Reason: Nausea/Vomiting Last Admin: 11/22/17 18:20 Dose: 4 mg Canagliflozin [ Invokana] 300 Mg Tablet 1 each PO QAM [facility] Last Admin: 11/24/17 08:36 Dose: 1 each Pregabalin (Lyrica) 150 mg PO BID [facility] Last Admin: 11/24/17 08:36 Dose: 150 mg Sacubitril/Valsartan (Entresto 49 Mg-51 Mg Tablet) 1 tab PO BID [facility] Last Admin: 11/24/17 10:07 Dose: 1 tab
[2017-11-24] MEDS: Furosemide 40 MG TAB PO SCH (14:19)
[2017-11-24] MEDS: Ezetimibe 10 MG TAB PO SCH (19:58)
[2017-11-24] MEDS: Enoxaparin Sodium 100 MG/ML SYRINGE SC SCH (19:58)
[2017-11-25 04:20] LABS: Hemoglobin 11.2 g/dL (14.0-18.0); Platelet Count 250 thou/uL (130-400)
[2017-11-25 04:52] LABS: Anion Gap 13 mmol/L (10-20); BUN (Urea Nitrogen) 30 mg/dL (8.4-25.7); Calc. Creatinine Clearance 110 mL/min (70-130); Calcium 8.8 mg/dL (7.8-10.44); Carbon Dioxide 30 mmol/L (23-31); Chloride 101 mmol/L (98-107); Estimated GFR-MDRD 72; Glucose 155 mg/dL (80-115); Potassium 3.6 mmol/L (3.5-5.1); Sodium 140 mmol/L (136-145)
[2017-11-25] MEDS: Levothyroxine Sodium 100 MCG TAB PO SCH (05:19)
[2017-11-25] MEDS: metFORMIN XR 500 MG TAB PO SCH ×2 (08:38→16:55)
[2017-11-25] MEDS: Glimepiride 2 MG TAB PO SCH (08:38)
[2017-11-25] MEDS: Carvedilol 3.125 MG TAB PO SCH (08:38)
[2017-11-25] MEDS: Anastrozole 1 MG TAB PO SCH (08:39)
[2017-11-25] MEDS: Aspirin 81 mg Enteric Coated Tablet PO SCH (08:39)
[2017-11-25] MEDS: Cefepime 1 GM, Admixture Fee 1 EACH in Sterile Water 10 ML SLOW IVP SCH (08:39)
[2017-11-25] MEDS: Amiodarone 200 MG TAB PO SCH ×2 (08:39→20:41)
[2017-11-25] MEDS: Furosemide 40 MG TAB PO SCH ×2 (08:40→16:27)
[2017-11-25] MEDS: Enoxaparin Sodium 100 MG/ML SYRINGE SC SCH ×2 (08:40→20:41)
[2017-11-25] MEDS: Liothyronine Sodium 5 MCG TAB PO SCH ×2 (08:40→20:41)
[2017-11-25] MEDS: Famotidine 20 MG TAB PO SCH ×2 (08:40→20:41)
[2017-11-25] MEDS: INSULIN GLARGINE SC SCH (08:41)
[2017-11-25] MEDS: Pregabalin 75 MG CAP PO SCH ×2 (08:42→20:41)
[2017-11-25] MEDS ORDERED: Lisinopril 20 MG TAB PO SCH (09:00)
[2017-11-25] MEDS: Sacubitril 49 MG/Valsartan 51 MG TABLET PO SCH ×2 (11:09→20:41)
[2017-11-25] MEDS ORDERED: guaiFENesin ER 600 MG TAB PO SCH (12:00)
[2017-11-25] MEDS: HumaLOG 300 UNITS/3 ML VIAL SC PRN ×2 (12:00→16:59)
--- NOTE | 2017-11-25 13:19 | PRG ---
DATE OF SERVICE: 11/25/2017 SUBJECTIVE: He feels better today. He had no acute complaints. OBJECTIVE: VITAL SIGNS: Temperature 98.5, pulse 80, respirations 20, O2 sat 98% on 2 liters, and blood pressure 150/65. HEENT: Unremarkable. NECK: No JVD. CHEST: Clear. CARDIAC: S1 and S2, regular and sinus. ABDOMEN: Soft. EXTREMITIES: No edema. LABORATORY DATA: Hematocrit 36.5, platelet count 250. Sodium 140, potassium 3.6, chloride 101, CO2 of 30, BUN 30, creatinine 1.0, and glucose 155. ASSESSMENT: 1. Paroxysmal atrial fibrillation, now status post cardioversion. 2. Bronchospasm, which is improved. 3. Obstructive sleep apnea. 4. Hypothyroidism. PLAN: He can be transferred out to the telemetry floor. I will go ahead and stop his steroids, sinc e it seems to be adversely affecting his blood sugars, and he is no longer experiencing bronchospasm. Hopefully, he can go home soon.
--- NOTE | 2017-11-25 14:39 | PDOC.PN ---
- Subjective Encounter Start Date: 11/25/17 Encounter Start Time: 10:20 Pt seen for followup re: shortness of berath. Reports dyspnea is bstter. Cough +, minimal sputum. - Objective Resuscitation Status: Resuscitation Status FULL:Full Resuscitation MAR Reviewed: Yes Vital Signs & Weight: Vital Signs (12 hours) Temp Pulse Resp BP Pulse Ox 11/25/17 12:02 80 20 98 11/25/17 12:00 98.5 F 84 18 150/65 H 93 L 11/25/17 08:37 74 16 11/25/17 08:00 98.2 F 68 17 143/74 H 99 11/25/17 07:51 97.9 F 70 20 95 11/25/17 04:00 97.9 F 70 20 150/73 H 98 Weight Weight 241 lb 8 oz I&O: 11/24/17 11/25/17 11/26/17 06:59 06:59 06:59 Intake Total 3044.8 2610 Output Total 4325 2850 Balance -1280.2 -240 Result Diagrams: 11/25/17 03:28 11/25/17 03:28 Additional Labs: Accuchecks 11/25/17 11/25/17 11/24/17 11:40 05:03 20:39 POC Glucose 388 H 146 H 324 H 11/24/17 11/24/17 16:59 10:42 POC Glucose 356 H 271 H EKG Reviewed by me: Yes (Tele: NSR) Phys Exam - Physical Examination Constitutional: NAD HEENT: moist MMs Neck: supple Respiratory: wheezing present Cardiovascular: RRR Gastrointestinal: soft Neurological: moves all 4 limbs Psychiatric: normal affect, A&O x 3 Skin: no rash Dx/Plan (1) Shortness of breath Code(s): R06.02 - SHORTNESS OF BREATH Status: Acute (2) CHF (congestive heart failure) Code(s): I50.9 - HEART FAILURE, UNSPECIFIED Status: Chronic (3) Hypertension Code(s): I10 - ESSENTIAL (PRIMARY) HYPERTENSION Status: Chronic (4) Hypothyroidism Code(s): E03.9 - HYPOTHYROIDISM, UNSPECIFIED Status: Chronic (5) New onset a-fib Code(s): I48.91 - UNSPECIFIED ATRIAL FIBRILLATION Status: Resolved - Plan * . Continue bronchodilators. Continue IV furosemide. Pt will likely need Life Vest and/or cardiac cath prior to discharge. Add guaifenesin. Review of Systems - Review of Systems Respiratory: Cough, Sputum. negative: Dry, Shortness of Breath, Hemoptysis, SOB with Excertion, Pleuritic Pain, Wheezing Cardiovascular: negative: chest pain, palpitations, orthopnea, paroxysmal nocturnal dyspnea, edema, light headedness - Medications/Allergies Allergies/Adverse Reactions: Allergies Allergy/AdvReac Type Severity Reaction Status Date / Time No Allergy Information Allergy Verified 11/21/17 21:57 Available Medications: Current Medications Acetaminophen (Tylenol) 1,000 mg PO Q6H PRN PRN Reason: Headache/Fever or Mild Pain Last Admin: 11/23/17 03:57 Dose: 1,000 mg Albuterol/Ipratropium (Duoneb) 3 ml NEB [id number] [facility] Last Admin: 11/25/17 12:02 Dose: 3 ml Amiodarone HCl (Cordarone) 400 mg PO BID [facility] Last Admin: 11/25/17 08:39 Dose: 400 mg Anastrozole (Arimidex) 1 mg PO DAILY [facility] Last Admin: 11/25/17 08:39 Dose: 1 mg Aspirin (Ecotrin) 81 mg PO DAILY [facility] Last Admin: 11/25/17 08:39 Dose: 81 mg Carvedilol (Coreg) 3.125 mg PO BID-[facility] Last Admin: 11/25/17 08:38 Dose: 3.125 mg Clonidine (Catapres) 0.1 mg PO Q4H PRN PRN Reason: Systolic BP > 180 Dextrose/Water (Dextrose 50%) 25 gm SLOW IVP PRN PRN PRN Reason: Hypoglycemia Ezetimibe (Zetia) 10 mg PO HS [facility] Last Admin: 11/24/17 19:58 Dose: 10 mg Enoxaparin Sodium (Lovenox) 100 mg SC 0900,2100 [facility] Last Admin: 11/25/17 08:40 Dose: 100 mg Famotidine (Pepcid) 20 mg PO BID [facility] Last Admin: 11/25/17 08:40 Dose: 20 mg Furosemide (Lasix) 40 mg PO 0900,1400 [facility] Last Admin: 11/25/17 08:40 Dose: 40 mg Glimepiride (Amaryl) 2 mg PO DAILY-AC [facility] Last Admin: 12/31/17 08:38 Dose: 2 mg Glucagon (Glucagon) 1 mg IM PRN PRN PRN Reason: Hypoglycemia Guaifenesin (Mucinex) 600 mg PO Q12H PRN PRN Reason: congestion Hydralazine HCl (Apresoline) 10 mg SLOW IVP Q4H PRN PRN Reason: Systolic BP > 180 Dextrose/Water (D5w) 1,000 mls @ 0 mls/hr IV .Q0M PRN; As Directed PRN Reason: Hypoglycemia Cefepime HCl 1 gm/Miscellaneous Medication 1 each/ Sterile Water 10 mls @ 120 mls/hr SLOW IVP BID [facility] Last Admin: 11/25/17 08:39 Dose: 10 mls Insulin Human Lispro (Humalog) 0 units SC .MODERATE SLIDING SC PRN PRN Reason: Moderate Correctional Scale Last Admin: 11/25/17 12:00 Dose: 10 unit Insulin Human Lispro (Humalog) 0 units SC .BEDTIME SLIDING SC PRN PRN Reason: Bedtime Correctional Scale Last Admin: 11/24/17 20:45 Dose: 4 unit Levothyroxine Sodium (Synthroid) 200 mcg PO 0600 [facility] Last Admin: 11/25/17 05:19 Dose: 200 mcg Liothyronine Sodium (Cytomel) 5 mcg PO BID [facility] Last Admin: 11/25/17 08:40 Dose: 5 mcg Metformin HCl (Glucophage Xr) 750 mg PO BID-[facility] Last Admin: 11/25/17 08:38 Dose: 750 mg Ondansetron HCl (Zofran Odt) 4 mg PO Q6H PRN PRN Reason: Nausea/Vomiting Ondansetron HCl (Zofran) 4 mg IVP Q6H PRN PRN Reason: Nausea/Vomiting Last Admin: 11/22/17 18:20 Dose: 4 mg Canagliflozin [ Invokana] 300 Mg Tablet 1 each PO QAM [facility] Last Admin: 11/25/17 08:41 Dose: 1 each Dulaglutide [ (Trulicity]) 0 each SC Sa [facility] Last Admin: 11/24/17 19:59 Dose: 1 each Insulin Glargine [ (Toujeo Solostar]) 0 each SC QAM [facility] Last Admin: 11/25/17 08:41 Dose: 40 each Pregabalin (Lyrica) 150 mg PO BID [facility] Last Admin: 11/25/17 08:42 Dose: 150 mg Sacubitril/Valsartan (Entresto 49 Mg-51 Mg Tablet) 1 tab PO BID [facility] Last Admin: 11/25/17 11:09 Dose: 1 tab
[2017-11-25] MEDS: Carvedilol 6.25 MG TAB PO SCH (16:28)
[2017-11-25] MEDS: Ezetimibe 10 MG TAB PO SCH (20:41)
[2017-11-26] MEDS: Levothyroxine Sodium 100 MCG TAB PO SCH (05:58)
[2017-11-26] MEDS: HumaLOG 300 UNITS/3 ML VIAL SC PRN ×3 (05:58→17:03)
[2017-11-26] MEDS: Glimepiride 2 MG TAB PO SCH (09:05)
[2017-11-26] MEDS: Carvedilol 6.25 MG TAB PO SCH ×2 (09:05→17:01)
[2017-11-26] MEDS: metFORMIN XR 500 MG TAB PO SCH ×2 (09:05→17:02)
[2017-11-26] MEDS: Anastrozole 1 MG TAB PO SCH (09:06)
[2017-11-26] MEDS: Amiodarone 200 MG TAB PO SCH ×2 (09:06→20:08)
[2017-11-26] MEDS: Aspirin 81 mg Enteric Coated Tablet PO SCH (09:06)
[2017-11-26] MEDS: Cefdinir 300 MG CAP PO SCH (09:06)
[2017-11-26] MEDS: Liothyronine Sodium 5 MCG TAB PO SCH ×2 (09:07→20:09)
[2017-11-26] MEDS: INSULIN GLARGINE SC SCH (09:07)
[2017-11-26] MEDS: Furosemide 40 MG TAB PO SCH ×2 (09:07→15:41)
[2017-11-26] MEDS: Famotidine 20 MG TAB PO SCH ×2 (09:07→20:08)
[2017-11-26] MEDS: Enoxaparin Sodium 100 MG/ML SYRINGE SC SCH ×2 (09:07→20:08)
[2017-11-26] MEDS: Pregabalin 75 MG CAP PO SCH ×2 (09:08→20:09)
[2017-11-26] MEDS: Sacubitril 49 MG/Valsartan 51 MG TABLET PO SCH ×2 (09:09→20:08)
[2017-11-26] MEDS: guaiFENesin ER 600 MG TAB PO PRN ×2 (09:15→20:08)
--- NOTE | 2017-11-26 15:55 | PDOC.PN ---
- Subjective Encounter Start Date: 11/26/17 Encounter Start Time: 11:20 Pt seen for followup re: Dyspnea. Reports feeling better. No chest pain. Slept better. - Objective Resuscitation Status: Resuscitation Status FULL:Full Resuscitation MAR Reviewed: Yes Vital Signs & Weight: Vital Signs (12 hours) Temp Pulse Resp BP Pulse Ox 11/26/17 13:10 72 15 11/26/17 12:00 98.6 F 86 20 161/89 H 91 L 11/26/17 08:55 99 11/26/17 08:52 69 16 99 11/26/17 07:55 97.9 F 66 18 170/73 H 99 11/26/17 07:18 97.4 F L 67 20 98 11/26/17 04:00 97.4 F L 67 20 155/76 H 100 Weight Weight 238 lb 6.4 oz I&O: 11/25/17 11/26/17 11/27/17 06:59 06:59 06:59 Intake Total 2610 2320 Output Total 2850 4100 Balance -240 -1780 Result Diagrams: 11/28/17 04:33 11/29/17 04:47 Additional Labs: Accuchecks 11/26/17 11/26/17 11/25/17 11:17 05:58 20:23 POC Glucose 253 H 285 H 200 H 11/25/17 16:28 POC Glucose 422 H EKG Reviewed by me: Yes (Tele: NSR) Phys Exam - Physical Examination Obese HEENT: moist MMs Neck: supple Respiratory: clear to auscultation bilateral Cardiovascular: RRR Gastrointestinal: soft Neurological: moves all 4 limbs Psychiatric: normal affect Skin: no rash Dx/Plan (1) Shortness of breath Code(s): R06.02 - SHORTNESS OF BREATH Status: Acute (2) CHF (congestive heart failure) Code(s): I50.9 - HEART FAILURE, UNSPECIFIED Status: Chronic (3) Hypertension Code(s): I10 - ESSENTIAL (PRIMARY) HYPERTENSION Status: Chronic (4) Hypothyroidism Code(s): E03.9 - HYPOTHYROIDISM, UNSPECIFIED Status: Chronic (5) New onset a-fib Code(s): I48.91 - UNSPECIFIED ATRIAL FIBRILLATION Status: Resolved - Plan * . Dyspnea better. Continue diuretics. Plan for Life Vest +/- cath study prior to discharge. Review of Systems - Review of Systems Respiratory: SOB with Excertion. negative: Cough, Dry, Shortness of Breath, Hemoptysis, Pleuritic Pain, Sputum, Wheezing Cardiovascular: negative: chest pain, palpitations, orthopnea, paroxysmal nocturnal dyspnea, edema, light headedness - Medications/Allergies Allergies/Adverse Reactions: Allergies Allergy/AdvReac Type Severity Reaction Status Date / Time No Known Allergies Allergy Unverified 11/28/17 03:05 Medications: Current Medications Acetaminophen (Tylenol) 1,000 mg PO Q6H PRN PRN Reason: Headache/Fever or Mild Pain Last Admin: 11/23/17 03:57 Dose: 1,000 mg Albuterol/Ipratropium (Duoneb) 3 ml NEB [id number] [facility] Last Admin: 11/26/17 13:10 Dose: 3 ml Amiodarone HCl (Cordarone) 400 mg PO BID [facility] Last Admin: 11/26/17 09:06 Dose: 400 mg Anastrozole (Arimidex) 1 mg PO DAILY [facility] Last Admin: 11/26/17 09:06 Dose: 1 mg Aspirin (Ecotrin) 81 mg PO DAILY [facility] Last Admin: 11/26/17 09:06 Dose: 81 mg Carvedilol (Coreg) 6.25 mg PO BID-WM [facility] Last Admin: 11/26/17 09:05 Dose: 6.25 mg Cefdinir (Omnicef) 600 mg PO DAILY [facility] Last Admin: 11/26/17 09:06 Dose: 600 mg Clonidine (Catapres) 0.1 mg PO Q4H PRN PRN Reason: Systolic BP > 180 Dextrose/Water (Dextrose 50%) 25 gm SLOW IVP PRN PRN PRN Reason: Hypoglycemia Ezetimibe (Zetia) 10 mg PO HS [facility] Last Admin: 11/25/17 20:41 Dose: 10 mg Enoxaparin Sodium (Lovenox) 100 mg SC 0900,2100 [facility] Last Admin: 11/26/17 09:07 Dose: 100 mg Famotidine (Pepcid) 20 mg PO BID [facility] Last Admin: 11/26/17 09:07 Dose: 20 mg Furosemide (Lasix) 40 mg PO 0900,1400 [facility] Last Admin: 11/26/17 15:41 Dose: 40 mg Glimepiride (Amaryl) 2 mg PO DAILY-AC [facility] Last Admin: 11/26/17 09:05 Dose: 2 mg Glucagon (Glucagon) 1 mg IM PRN PRN PRN Reason: Hypoglycemia Guaifenesin (Mucinex) 600 mg PO Q12H PRN PRN Reason: congestion Last Admin: 11/26/17 09:15 Dose: 600 mg Hydralazine HCl (Apresoline) 10 mg SLOW IVP Q4H PRN PRN Reason: Systolic BP > 180 Dextrose/Water (D5w) 1,000 mls @ 0 mls/hr IV .Q0M PRN; As Directed PRN Reason: Hypoglycemia Insulin Human Lispro (Humalog) 0 units SC .BEDTIME SLIDING SC PRN PRN Reason: Bedtime Correctional Scale Last Admin: 11/24/17 20:45 Dose: 4 unit Insulin Human Lispro (Humalog) 0 units SC .AGGRESSIVE SLIDING PRN; Protocol PRN Reason: AGGRESSIVE SLIDING SCALE Last Admin: 11/26/17 11:21 Dose: 9 unit Levothyroxine Sodium (Synthroid) 200 mcg PO 0600 [facility] Last Admin: 11/26/17 05:58 Dose: 200 mcg Liothyronine Sodium (Cytomel) 5 mcg PO BID [facility] Last Admin: 11/26/17 09:07 Dose: 5 mcg Metformin HCl (Glucophage Xr) 750 mg PO BID-[facility] Last Admin: 11/26/17 09:05 Dose: 750 mg Ondansetron HCl (Zofran Odt) 4 mg PO Q6H PRN PRN Reason: Nausea/Vomiting Ondansetron HCl (Zofran) 4 mg IVP Q6H PRN PRN Reason: Nausea/Vomiting Last Admin: 11/22/17 18:20 Dose: 4 mg Canagliflozin [ Invokana] 300 Mg Tablet 1 each PO QAM [facility] Last Admin: 11/26/17 09:07 Dose: 1 each Dulaglutide [ (Trulicity]) 0 each SC Sa [facility] Last Admin: 11/24/17 19:59 Dose: 1 each Insulin Glargine [ (Toujeo Solostar]) 0 each SC QAM [facility] Last Admin: 11/26/17 09:07 Dose: 1 each Pregabalin (Lyrica) 150 mg PO BID [facility] Last Admin: 11/26/17 09:08 Dose: 150 mg Sacubitril/Valsartan (Entresto 49 Mg-51 Mg Tablet) 1 tab PO BID [facility] Last Admin: 11/26/17 09:09 Dose: 1 tab
--- NOTE | 2017-11-26 17:26 | PDOC.CTH ---
<Lisa Edward - Last Filed: 11/26/17 17:53> Cardiology Progress Note - Subjective The pt seen and examined. No overnight events. No cardiac complaints. The pt exercises without any difficulties with RA. - Objective Vital Signs Temp Pulse Resp BP Pulse Ox 11/26/17 15:53 97.6 F 70 20 150/74 H 90 L 11/26/17 13:10 72 15 11/26/17 12:00 98.6 F 86 20 161/89 H 91 L 11/26/17 08:55 99 11/26/17 08:52 69 16 99 11/26/17 07:55 97.9 F 66 18 170/73 H 99 11/26/17 07:18 97.4 F L 67 20 98 Weight 238 lb 6.4 oz 11/25/17 11/26/17 11/27/17 06:59 06:59 06:59 Intake Total 2610 2320 Output Total 2850 4100 Balance -240 -1780 - Physical Examination General/Neuro: alert & oriented x3 Neck: no JVD present Lungs: other: (diminished at bases; intermittent product cough) Heart: RRR Abdomen: soft Extremities: other: (No edema) - Telemetry Telemetry Rhythm: SR 60s - Labs Result Diagrams: 11/25/17 03:28 11/25/17 03:28 Troponin/CKMB CK-MB (CK-2) 3.2 ng/mL (0-6.6) 11/21/17 18:00 Troponin I 0.221 ng/mL (< 0.028) H 11/22/17 00:30 - Assessment/Plan 1. New onset Afib with RVR w/ S/p MANA and Cardioversion on 11/23/17 - remains SR with Amiodarone 400mg PO BID; 2. Chronic systolic HF - EF 20-25%; on Entresto 49/51mg BID; stable with RA; cont. monitor; Prior to Discharge, the pt may undergo cardiac cath for decreased EF and Afib; The pt will d/c home with LifeVest 3. HTN - stable with current medication 4. DM type 2 - managed by PCP 5. Hypothyroidism - TSH showed Hyperthyroidism; may beneficial to adjust thyroid medication; managed by PCP MAR reviewed * Plan for Life Vest +/- cath study prior to discharge Review of Systems - Review of Systems Constitutional: reports: no symptoms reported EENTM: reports: no symptoms reported Respiratory: reports: cough, other (productive cough) ABD/GI: reports: no symptoms reported : reports: no symptoms reported Musculoskeletal: reports: no symptoms reported <Estiven Koehler - Last Filed: 11/26/17 19:53> Cardiology Progress Note - Objective Vital Signs Temp Pulse Resp BP Pulse Ox 11/26/17 19:30 97.5 F L 73 22 H 159/84 H 92 L 11/26/17 19:13 71 16 11/26/17 15:53 97.6 F 70 20 150/74 H 90 L 11/26/17 13:10 72 15 11/26/17 12:00 98.6 F 86 20 161/89 H 91 L 11/26/17 08:55 99 11/26/17 08:52 69 16 99 11/26/17 07:55 97.9 F 66 18 170/73 H 99 Weight 238 lb 6.4 oz 11/25/17 11/26/17 11/27/17 06:59 06:59 06:59 Intake Total 2610 2320 1500 Output Total 2850 4100 2300 Balance -240 -1780 -800 - Labs Result Diagrams: 11/25/17 03:28 11/25/17 03:28 Troponin/CKMB CK-MB (CK-2) 3.2 ng/mL (0-6.6) 11/21/17 18:00 Troponin I 0.221 ng/mL (< 0.028) H 11/22/17 00:30 - Assessment/Plan Pt. was seen and eval. by me. I agree with the A/P by the TRAFFIC POLICE OFFICER. Pt. prob. should have a cardiac cath prior to d/c. The pulmonary status is still not back to his baseline. I suspect he will be able to undergo a cath in the next few days.
[2017-11-26] MEDS ORDERED: Furosemide 20 MG/2 ML VIAL SLOW IVP SCH (19:15)
[2017-11-26] MEDS: Ezetimibe 10 MG TAB PO SCH (20:08)
--- NOTE | 2017-11-26 22:59 | PRG ---
DATE OF SERVICE: 11/26/2017 SERVICE: Pulmonary Medicine. INTERVAL HISTORY: The patient is breathing comfortably this afternoon. He denies any current fevers , chills, nausea or vomiting. He does have a coughing and brings up a little bit of pale yellow sput um. Outside of this, he feels that his breathing is much improved. He is using BiPAP on a nightly b asis, but last night, he can only tolerate for roughly 2-3 hours before he had to rip the thing off b ecause of dry mouth. Outside of this, there has been no interval change in his condition. He remain s in normal sinus rhythm. PHYSICAL EXAMINATION: VITAL SIGNS: Afebrile, pulse 70, blood pressure 150/74, respirations 20, saturation 90% on 2 liters nasal cannula. GENERAL: Patient is awake, alert, in no apparent distress. LUNGS: Decreased air entry. There are crackles present. I do not appreciate any rhonchi, but there is a prolonged expiratory phase. No wheezing. HEART: Normal rate, regular. ABDOMEN: Soft, nontender, nondistended. Bowel sounds are positive. MUSCULOSKELETAL: No cyanosis or clubbing. There is trace pitting in the bilateral lower extremities . NEUROLOGIC: Grossly nonfocal. LABORATORY DATA: Blood sugars ranged from 201-422. ASSESSMENT: 1. Acute hypoxic respiratory failure. 2. Atrial fibrillation, paroxysmal, return in normal sinus rhythm. 3. Obstructive sleep apnea. 4. Hypothyroidism. PLAN: The patient remains stable for transition out of [facility] to the telemetry unit. We will continue his nebulized medication. I will provide him with one dose of Lasix. His volume overload may be co ntributing to his bronchoconstriction. From a purely respiratory perspective, if he is off oxygen to , it would be reasonable to transition him home if Cardiology signs off.
[2017-11-27] MEDS: Levothyroxine Sodium 100 MCG TAB PO SCH (05:44)
[2017-11-27] MEDS: HumaLOG 300 UNITS/3 ML VIAL SC PRN ×2 (05:46→16:57)
[2017-11-27 05:56] LABS: #Lymphocytes 1.3 thou/uL (1.20-3.40); #Monocytes 0.6 thou/uL (0.11-0.59); #Neutrophils 2.5 thou/uL (1.40-6.50); %Basophils 0.3 % (0.0-1.0); %Eosinophils 0.3 % (0.0-10.0); %Lymphocytes 29.9 % (21.0-51.0); %Monocytes 14.1 % (0.0-10.0); %Neutrophils 55.4 % (42.0-75.0); Hemoglobin 12.1 g/dL (14.0-18.0); Mean Corpuscular HGB CONC 30.8 g/dL (32.0-36.0); Mean Corpuscular Hemoglobin 26.2 pg (27.0-31.0); Mean Platelet Volume 9.2 fL (7.4-10.4); Platelet Count 235 thou/uL (130-400); RBC Distribution Width 15.1 % (11.5-14.5); Red Blood Cell (RBC) Count 4.63 mill/uL (4.70-6.10); White Blood Cell (WBC) Count 4.5 thou/uL (4.8-10.8)
[2017-11-27 06:13] LABS: Anion Gap 13 mmol/L (10-20); BUN (Urea Nitrogen) 21 mg/dL (8.4-25.7); Calc. Creatinine Clearance 95 mL/min (70-130); Calcium 8.9 mg/dL (7.8-10.44); Carbon Dioxide 34 mmol/L (23-31); Chloride 95 mmol/L (98-107); Estimated GFR-MDRD 63; Glucose 382 mg/dL (80-115); Potassium 3.6 mmol/L (3.5-5.1); Sodium 138 mmol/L (136-145)
[2017-11-27] MEDS: Glimepiride 2 MG TAB PO SCH (08:22)
[2017-11-27] MEDS: Anastrozole 1 MG TAB PO SCH (08:23)
[2017-11-27] MEDS: Carvedilol 6.25 MG TAB PO SCH ×2 (08:23→16:53)
[2017-11-27] MEDS: Amiodarone 200 MG TAB PO SCH ×2 (08:23→20:46)
[2017-11-27] MEDS: metFORMIN XR 500 MG TAB PO SCH ×2 (08:23→16:53)
[2017-11-27] MEDS: Aspirin 81 mg Enteric Coated Tablet PO SCH (08:23)
[2017-11-27] MEDS: Famotidine 20 MG TAB PO SCH ×2 (08:24→20:46)
[2017-11-27] MEDS: Cefdinir 300 MG CAP PO SCH (08:24)
[2017-11-27] MEDS: Liothyronine Sodium 5 MCG TAB PO SCH ×2 (08:24→20:46)
[2017-11-27] MEDS: Enoxaparin Sodium 100 MG/ML SYRINGE SC SCH ×2 (08:24→20:46)
[2017-11-27] MEDS: Furosemide 40 MG TAB PO SCH ×2 (08:24→14:37)
[2017-11-27] MEDS: INSULIN GLARGINE SC SCH (08:25)
[2017-11-27] MEDS: guaiFENesin ER 600 MG TAB PO PRN (08:26)
[2017-11-27] MEDS: Sacubitril 49 MG/Valsartan 51 MG TABLET PO SCH ×2 (08:26→21:16)
[2017-11-27] MEDS: Pregabalin 75 MG CAP PO SCH ×2 (08:26→20:46)
--- NOTE | 2017-11-27 08:50 | PDOC.CTH ---
<Lisa Edward - Last Filed: 11/27/17 13:21> Cardiology Progress Note - Subjective The pt seen and examined. No overnight events. No cardiac complaints. He reported that he can take deep breath better without coughing. - Objective Vital Signs Temp Pulse Resp BP Pulse Ox 11/27/17 08:07 88 16 11/27/17 08:00 97.7 F 69 22 H 154/71 H 91 L 11/27/17 07:33 98.0 F 78 20 92 L 11/27/17 03:50 98.0 F 78 20 155/86 H 93 L 11/27/17 00:30 72 17 Weight 235 lb 1 oz 11/26/17 11/27/17 11/28/17 06:59 06:59 06:59 Intake Total 2320 2700 Output Total 4100 6150 Balance -1780 -3450 - Physical Examination General/Neuro: alert & oriented x3 Neck: no JVD present Lungs: other: (exp. wheezing ) Heart: RRR Abdomen: soft Extremities: other: (No edema) - Telemetry Telemetry Rhythm: SR - Labs Result Diagrams: 11/27/17 04:28 11/27/17 04:28 Troponin/CKMB CK-MB (CK-2) 3.2 ng/mL (0-6.6) 11/21/17 18:00 Troponin I 0.221 ng/mL (< 0.028) H 11/22/17 00:30 - Assessment/Plan 1. New onset Afib with RVR w/ S/p MANA and Cardioversion on 11/23/17 - remains SR with Amiodarone 400mg PO BID; 2. Chronic systolic HF - EF 20-25%; on Entresto 49/51mg BID; stable with RA; cont. monitor; Another Echo was taking and the result is pending at this moment ; Prior to Discharge, the pt may undergo cardiac cath for decreased EF and Afib ; The pt will d/c home with LifeVest 3. HTN - stable with current medication 4. DM type 2 - managed by PCP 5. Hypothyroidism - TSH showed Hyperthyroidism; managed by PCP MAR reviewed * Plan for Life Vest prior to discharge * Cardiac cath tomorrow; The pt was explained about the procedure and the risk of the procedures, including, but not limited to hemorrhage, infection, thrombosis, perforation of the catheter, CVA, VA, and . The pt reported that he is not allergic to Iodine. After the explanation, the pt voiced understanding and agreed to proceed the procedure possible tomorrow. Review of Systems - Review of Systems Constitutional: reports: no symptoms reported EENTM: reports: no symptoms reported Respiratory: reports: no symptoms reported Cardiac (ROS): reports: no symptoms reported ABD/GI: reports: no symptoms reported : reports: no symptoms reported <Estiven Koehler - Last Filed: 11/27/17 16:21> Cardiology Progress Note - Objective Vital Signs Temp Pulse Resp BP BP Pulse Ox 11/27/17 13:33 68 15 11/27/17 12:00 97.9 F 66 20 132/69 94 L 11/27/17 08:07 88 16 11/27/17 08:00 97.7 F 69 22 H 154/71 H 91 L 11/27/17 07:33 98.0 F 78 20 92 L Weight 235 lb 1 oz 11/26/17 11/27/17 11/28/17 06:59 06:59 06:59 Intake Total 2320 2700 Output Total 4100 6150 Balance -1780 -3450 - Labs Result Diagrams: 11/27/17 04:28 11/27/17 04:28 Troponin/CKMB CK-MB (CK-2) 3.2 ng/mL (0-6.6) 11/21/17 18:00 Troponin I 0.221 ng/mL (< 0.028) H 11/22/17 00:30 - Assessment/Plan Pt. seen and eval. by me. I agree with the A/P by the ENVIRONMENTAL PROGRAMS SPECIALIST.I discussed the cath procedure indication and risks. plan for AM.
[2017-11-27] MEDS ORDERED: Communication Order-Pharmacy FS SCH (13:30)
--- NOTE | 2017-11-27 19:14 | PDOC.PN ---
- Subjective Encounter Start Date: 11/27/17 Encounter Start Time: 10:00 Pt seen for followup re: shortness of breath. Reports feeling better. No chest pain. Shortness of breath is better. - Objective Resuscitation Status: Resuscitation Status FULL:Full Resuscitation MAR Reviewed: Yes Vital Signs & Weight: Vital Signs (12 hours) Temp Pulse Resp BP BP Pulse Ox 11/27/17 13:33 68 15 11/27/17 12:00 97.9 F 66 20 132/69 94 L 11/27/17 08:07 88 16 11/27/17 08:00 97.7 F 69 22 H 154/71 H 91 L 11/27/17 07:33 98.0 F 78 20 92 L Weight Weight 235 lb 1 oz I&O: 11/26/17 11/27/17 11/28/17 06:59 06:59 06:59 Intake Total 2320 2700 1400 Output Total 4100 6150 2700 Balance -1780 -3450 -1300 Result Diagrams: 11/27/17 04:28 11/27/17 04:28 Additional Labs: Accuchecks 11/27/17 11/27/17 11/27/17 16:51 11:25 05:46 POC Glucose 285 H 119 H 359 H 11/26/17 20:08 POC Glucose 174 H EKG Reviewed by me: Yes (Tele: NSR) Phys Exam - Physical Examination Obese HEENT: moist MMs, oral pharynx no lesions Neck: supple Respiratory: clear to auscultation bilateral Cardiovascular: RRR Gastrointestinal: soft Neurological: moves all 4 limbs Psychiatric: normal affect Dx/Plan (1) Shortness of breath Code(s): R06.02 - SHORTNESS OF BREATH Status: Acute (2) CHF (congestive heart failure) Code(s): I50.9 - HEART FAILURE, UNSPECIFIED Status: Chronic (3) Hypertension Code(s): I10 - ESSENTIAL (PRIMARY) HYPERTENSION Status: Chronic (4) Hypothyroidism Code(s): E03.9 - HYPOTHYROIDISM, UNSPECIFIED Status: Chronic (5) New onset a-fib Code(s): I48.91 - UNSPECIFIED ATRIAL FIBRILLATION Status: Resolved - Plan * . Continue diuretics. For cath tomorrow. Will likely need Life Vest prior to discharge. Awaiting Tele bed. Review of Systems - Review of Systems Respiratory: SOB with Excertion. negative: Cough, Dry, Shortness of Breath, Hemoptysis, Pleuritic Pain, Sputum, Wheezing Cardiovascular: negative: chest pain, palpitations, orthopnea, paroxysmal nocturnal dyspnea, edema, light headedness - Medications/Allergies Allergies/Adverse Reactions: Allergies Allergy/AdvReac Type Severity Reaction Status Date / Time No Allergy Information Allergy Verified 11/21/17 21:57 Available Medications: Current Medications Acetaminophen (Tylenol) 1,000 mg PO Q6H PRN PRN Reason: Headache/Fever or Mild Pain Last Admin: 11/23/17 03:57 Dose: 1,000 mg Albuterol/Ipratropium (Duoneb) 3 ml NEB [id number] [facility] Last Admin: 11/27/17 13:33 Dose: 3 ml Amiodarone HCl (Cordarone) 400 mg PO BID [facility] Last Admin: 11/27/17 08:23 Dose: 400 mg Anastrozole (Arimidex) 1 mg PO DAILY [facility] Last Admin: 11/27/17 08:23 Dose: 1 mg Aspirin (Ecotrin) 81 mg PO DAILY [facility] Last Admin: 11/27/17 08:23 Dose: 81 mg Carvedilol (Coreg) 6.25 mg PO BID-[facility] Last Admin: 11/27/17 16:53 Dose: 6.25 mg Cefdinir (Omnicef) 600 mg PO DAILY [facility] Last Admin: 11/27/17 08:24 Dose: 600 mg Clonidine (Catapres) 0.1 mg PO Q4H PRN PRN Reason: Systolic BP > 180 Dextrose/Water (Dextrose 50%) 25 gm SLOW IVP PRN PRN PRN Reason: Hypoglycemia Ezetimibe (Zetia) 10 mg PO HS [facility] Last Admin: 11/26/17 20:08 Dose: 10 mg Enoxaparin Sodium (Lovenox) 100 mg SC 0900,2100 [facility] Stop: 11/27/17 23:59 Last Admin: 11/27/17 08:24 Dose: 100 mg Famotidine (Pepcid) 20 mg PO BID [facility] Last Admin: 11/27/17 08:24 Dose: 20 mg Furosemide (Lasix) 40 mg PO 0900,1400 [facility] Last Admin: 11/27/17 14:37 Dose: 40 mg Glimepiride (Amaryl) 2 mg PO DAILY-AC [facility] Last Admin: 11/27/17 08:22 Dose: 2 mg Glucagon (Glucagon) 1 mg IM PRN PRN PRN Reason: Hypoglycemia Guaifenesin (Mucinex) 600 mg PO Q12H PRN PRN Reason: congestion Last Admin: 11/27/17 08:26 Dose: 600 mg Hydralazine HCl (Apresoline) 10 mg SLOW IVP Q4H PRN PRN Reason: Systolic BP > 180 Dextrose/Water (D5w) 1,000 mls @ 0 mls/hr IV .Q0M PRN; As Directed PRN Reason: Hypoglycemia Insulin Human Lispro (Humalog) 0 units SC .BEDTIME SLIDING SC PRN PRN Reason: Bedtime Correctional Scale Last Admin: 11/24/17 20:45 Dose: 4 unit Insulin Human Lispro (Humalog) 0 units SC .AGGRESSIVE SLIDING PRN; Protocol PRN Reason: AGGRESSIVE SLIDING SCALE Last Admin: 11/27/17 16:57 Dose: 9 unit Levothyroxine Sodium (Synthroid) 200 mcg PO 0600 [facility] Last Admin: 11/27/17 05:44 Dose: 200 mcg Liothyronine Sodium (Cytomel) 5 mcg PO BID [facility] Last Admin: 11/27/17 08:24 Dose: 5 mcg Metformin HCl (Glucophage Xr) 750 mg PO BID-[facility] Last Admin: 11/27/17 16:53 Dose: 750 mg Miscellaneous Information (Communication Order-Pharmacy) 0 each FS ONE [facility] Stop: 11/27/17 23:59 Ondansetron HCl (Zofran Odt) 4 mg PO Q6H PRN PRN Reason: Nausea/Vomiting Ondansetron HCl (Zofran) 4 mg IVP Q6H PRN PRN Reason: Nausea/Vomiting Last Admin: 11/22/17 18:20 Dose: 4 mg Canagliflozin [ Invokana] 300 Mg Tablet 1 each PO QAM [facility] Last Admin: 11/27/17 08:25 Dose: 1 each Dulaglutide [ (Trulicity]) 0 each SC Sa [facility] Last Admin: 11/24/17 19:59 Dose: 1 each Insulin Glargine [ (Toujeo Solostar]) 0 each SC QAM [facility] Last Admin: 11/27/17 08:25 Dose: 1 each Pregabalin (Lyrica) 150 mg PO BID [facility] Last Admin: 11/27/17 08:26 Dose: 150 mg Sacubitril/Valsartan (Entresto 49 Mg-51 Mg Tablet) 1 tab PO BID [facility] Last Admin: 11/27/17 08:26 Dose: 1 tab
[2017-11-27] MEDS: Ezetimibe 10 MG TAB PO SCH (20:46)
[2017-11-28 05:06] LABS: #Lymphocytes 1.6 thou/uL (1.20-3.40); #Monocytes 0.7 thou/uL (0.11-0.59); #Neutrophils 3.7 thou/uL (1.40-6.50); %Basophils 0.3 % (0.0-1.0); %Eosinophils 0.8 % (0.0-10.0); %Lymphocytes 26.4 % (21.0-51.0); %Monocytes 11.2 % (0.0-10.0); %Neutrophils 61.2 % (42.0-75.0); Hemoglobin 12.3 g/dL (14.0-18.0); Mean Corpuscular HGB CONC 31.8 g/dL (32.0-36.0); Mean Corpuscular Hemoglobin 26.9 pg (27.0-31.0); Mean Corpuscular Volume 84.6 fl (80.0-94.0); Mean Platelet Volume 8.9 fL (7.4-10.4); Platelet Count 248 thou/uL (130-400); RBC Distribution Width 14.9 % (11.5-14.5); Red Blood Cell (RBC) Count 4.57 mill/uL (4.70-6.10)
[2017-11-28 05:21] LABS: ALT (SGPT) 22 U/L (8-55); AST (SGOT) 19 U/L (5-34); Albumin 2.8 g/dL (3.4-4.8); Alkaline Phosphatase 68 U/L (40-150); Anion Gap 15 mmol/L (10-20); BUN (Urea Nitrogen) 23 mg/dL (8.4-25.7); Bilirubin, Total 0.3 mg/dL (0.2-1.2); Calc. Creatinine Clearance 84 mL/min (70-130); Calcium 9.3 mg/dL (7.8-10.44); Carbon Dioxide 31 mmol/L (23-31); Chloride 96 mmol/L (98-107); Estimated GFR-MDRD 55; Globulin 3.3 g/dL (2.4-3.5); Glucose 400 mg/dL (80-115); Potassium 4.2 mmol/L (3.5-5.1); Protein, Total 6.1 g/dL (5.8-8.1); Sodium 138 mmol/L (136-145)
[2017-11-28] MEDS: Sacubitril 49 MG/Valsartan 51 MG TABLET PO SCH ×2 (06:28→21:23)
[2017-11-28] MEDS: Aspirin 81 mg Enteric Coated Tablet PO SCH (06:28)
[2017-11-28] MEDS: Levothyroxine Sodium 100 MCG TAB PO SCH (06:28)
[2017-11-28] MEDS: Famotidine 20 MG TAB PO SCH ×2 (06:29→21:23)
[2017-11-28] MEDS: Carvedilol 6.25 MG TAB PO SCH ×2 (06:29→16:27)
[2017-11-28] MEDS: Furosemide 40 MG TAB PO SCH ×2 (06:29→14:30)
[2017-11-28] MEDS: Cefdinir 300 MG CAP PO SCH (06:29)
[2017-11-28] MEDS: Amiodarone 200 MG TAB PO SCH ×2 (06:29→21:23)
[2017-11-28] MEDS: Anastrozole 1 MG TAB PO SCH (06:29)
[2017-11-28] MEDS: Liothyronine Sodium 5 MCG TAB PO SCH ×2 (06:30→21:23)
[2017-11-28] MEDS: Pregabalin 75 MG CAP PO SCH ×2 (06:30→21:24)
[2017-11-28] MEDS ORDERED: Verapamil 5 MG/2 ML VIAL ONE (07:47)
[2017-11-28] MEDS ORDERED: Heparin 10,000 UNITS/1 ML VIAL ONE (07:47)
[2017-11-28] MEDS ORDERED: Nitroglycerin 100MG/250ML BOT 250 ML ONE (07:47)
[2017-11-28] MEDS: metFORMIN XR 500 MG TAB PO SCH ×2 (07:57→15:17)
[2017-11-28] MEDS ORDERED: DULAGLUTIDE SC SCH (09:00)
[2017-11-28] MEDS ORDERED: traMADol HCl 50 MG TAB PO PRN (09:18)
[2017-11-28] MEDS ORDERED: Acetaminophen/Codeine 30-300mg Tablet PO PRN ×2 (09:18)
[2017-11-28] MEDS ORDERED: Nitroglycerin 0.4 MG TAB (25 Tab Bottle) SL PRN (09:18)
[2017-11-28] MEDS ORDERED: Sodium Chloride 0.9% 200 ML IV SCH (09:18)
[2017-11-28] MEDS: Glimepiride 2 MG TAB PO SCH (10:04)
[2017-11-28] MEDS: INSULIN GLARGINE SC SCH (10:05)
--- NOTE | 2017-11-28 10:31 | PDOC.PN ---
- Subjective Encounter Start Date: 11/28/17 Encounter Start Time: 10:30 Subjective: resting comfortably, denies cp or sob - Objective Resuscitation Status: Resuscitation Status FULL:Full Resuscitation MAR Reviewed: Yes Vital Signs & Weight: Vital Signs (12 hours) Temp Pulse Resp BP BP BP Pulse Ox 11/28/17 08:00 97.8 F 74 18 149/73 H 90 L 11/28/17 06:29 150/75 H 11/28/17 04:50 98.1 F 72 20 150/75 H 92 L 11/28/17 01:30 74 16 Weight Weight 232 lb 6 oz I&O: 11/27/17 11/28/17 11/29/17 06:59 06:59 06:59 Intake Total 2700 2240 Output Total 4281 4730 Balance -9732 -3286 Result Diagrams: 11/28/17 04:33 11/28/17 04:33 Additional Labs: Accuchecks 11/28/17 11/27/17 11/27/17 06:32 20:46 16:51 POC Glucose 290 H 129 H 285 H 11/27/17 11:25 POC Glucose 119 H Phys Exam - Physical Examination Constitutional: NAD HEENT: PERRLA, moist MMs, sclera anicteric Neck: supple, full ROM Respiratory: no wheezing, no rhonchi, clear to auscultation bilateral Cardiovascular: RRR Gastrointestinal: soft, non-tender, no distention Musculoskeletal: no edema, pulses present Neurological: non-focal, moves all 4 limbs Psychiatric: normal affect, A&O x 3 Skin: no rash Dx/Plan (1) CHF (congestive heart failure) Code(s): I50.9 - HEART FAILURE, UNSPECIFIED Status: Chronic (2) Hypertension Code(s): I10 - ESSENTIAL (PRIMARY) HYPERTENSION Status: Chronic (3) New onset a-fib Code(s): I48.91 - UNSPECIFIED ATRIAL FIBRILLATION Status: Resolved - Plan cont current plan of care s/p cardioversion. possible cath today per cards. awaiting lifevest. * .
[2017-11-28] MEDS ORDERED: Iopamidol 370 76% 100 ML VIAL ONE (11:12)
[2017-11-28] MEDS: HumaLOG 300 UNITS/3 ML VIAL SC PRN ×2 (11:51→18:07)
[2017-11-28] MEDS: Ezetimibe 10 MG TAB PO SCH (21:23)
[2017-11-29] MEDS: Levothyroxine Sodium 100 MCG TAB PO SCH (05:58)
[2017-11-29] MEDS: HumaLOG 300 UNITS/3 ML VIAL SC PRN ×2 (06:02→11:25)
[2017-11-29 06:31] LABS: Anion Gap 14 mmol/L (10-20); BUN (Urea Nitrogen) 19 mg/dL (8.4-25.7); Calc. Creatinine Clearance 96 mL/min (70-130); Calcium 9.1 mg/dL (7.8-10.44); Carbon Dioxide 30 mmol/L (23-31); Chloride 97 mmol/L (98-107); Estimated GFR-MDRD 64; Glucose 247 mg/dL (80-115); Potassium 3.3 mmol/L (3.5-5.1); Sodium 138 mmol/L (136-145)
[2017-11-29] MEDS: Sacubitril 49 MG/Valsartan 51 MG TABLET PO SCH (08:12)
[2017-11-29] MEDS: Liothyronine Sodium 5 MCG TAB PO SCH (08:12)
[2017-11-29] MEDS: metFORMIN XR 500 MG TAB PO SCH (08:12)
[2017-11-29] MEDS: Aspirin 81 mg Enteric Coated Tablet PO SCH (08:12)
[2017-11-29] MEDS: Carvedilol 6.25 MG TAB PO SCH (08:12)
[2017-11-29] MEDS: Cefdinir 300 MG CAP PO SCH (08:13)
[2017-11-29] MEDS: Pregabalin 75 MG CAP PO SCH (08:13)
[2017-11-29] MEDS: Furosemide 40 MG TAB PO SCH ×2 (08:14→14:27)
[2017-11-29] MEDS: Famotidine 20 MG TAB PO SCH (08:14)
[2017-11-29] MEDS: Anastrozole 1 MG TAB PO SCH (08:14)
[2017-11-29] MEDS: Amiodarone 200 MG TAB PO SCH (08:14)
[2017-11-29] MEDS: Glimepiride 2 MG TAB PO SCH (08:14)
[2017-11-29] MEDS: INSULIN GLARGINE SC SCH (08:19)
--- NOTE | 2017-11-29 08:53 | PDOC.CTH ---
<Lisa Edward - Last Filed: 11/29/17 09:37> Cardiology Progress Note - Subjective The pt seen and examined. No overnight events. No cardiac complaints. He denied SOB, dizziness, or other cardiac complaints. - Objective Vital Signs Temp Pulse Resp BP BP Pulse Ox 11/29/17 08:12 152/76 H 11/29/17 07:52 97.9 F 76 20 155/76 H 93 L 11/29/17 04:00 97.8 F 70 18 154/76 H 92 L 11/29/17 00:22 72 18 90 L 11/29/17 00:00 97.3 F L 68 18 149/71 H 94 L Weight 232 lb 6 oz 11/28/17 11/29/17 11/30/17 06:59 06:59 06:59 Intake Total 2240 550 Output Total 4725 1250 Balance -2485 -700 - Physical Examination General/Neuro: alert & oriented x3 Lungs: CTA Heart: RRR Abdomen: soft Extremities: other: (No edema) - Telemetry Telemetry Rhythm: SR - Labs Result Diagrams: 11/28/17 04:33 11/29/17 04:47 Troponin/CKMB CK-MB (CK-2) 3.2 ng/mL (0-6.6) 11/21/17 18:00 Troponin I 0.221 ng/mL (< 0.028) H 11/22/17 00:30 - Assessment/Plan 1. New onset Afib with RVR w/ S/p MANA and Cardioversion on 11/23/17 - remains SR with Amiodarone 400mg PO BID since 11/23/17; Change Amiodarone to 200mg BID from tonight; cont. monitor 2. Chronic systolic HF - EF 20-25%; on Entresto 49/51mg BID; stable with RA; S/ p cardiac cath on 11/28/17; the result is not up to the pt's medical record at this moment; cont. monitor; The pt will d/c home with LifeVest 3. HTN - stable with current medication 4. DM type 2 - managed by PCP 5. Hypothyroidism - TSH showed Hyperthyroidism; managed by PCP MAR reviewed * Plan for LifeVest prior to discharge * Change Amiodarone to 200mg BID from tonight * From Cardiac standpoint, the pt is stable to d/c home with LifeVest. The pt will f/u with Dr Powell's office within 1-2 wks. Review of Systems - Review of Systems Constitutional: reports: no symptoms reported EENTM: reports: no symptoms reported Respiratory: reports: no symptoms reported Cardiac (ROS): reports: no symptoms reported ABD/GI: reports: no symptoms reported : reports: no symptoms reported Musculoskeletal: reports: no symptoms reported Skin: reports: no symptoms reported <Estiven Koehler - Last Filed: 11/29/17 10:08> Cardiology Progress Note - Objective Vital Signs Temp Pulse Resp BP BP Pulse Ox 11/29/17 08:12 152/76 H 11/29/17 07:52 97.9 F 76 20 155/76 H 93 L 11/29/17 04:00 97.8 F 70 18 154/76 H 92 L 11/29/17 00:22 72 18 90 L 11/29/17 00:00 97.3 F L 68 18 149/71 H 94 L Weight 224 lb 11/28/17 11/29/17 11/30/17 06:59 06:59 06:59 Intake Total 2240 550 Output Total 4725 1250 Balance -2485 -700 - Labs Result Diagrams: 11/28/17 04:33 11/29/17 04:47 Troponin/CKMB CK-MB (CK-2) 3.2 ng/mL (0-6.6) 11/21/17 18:00 Troponin I 0.221 ng/mL (< 0.028) H 11/22/17 00:30 - Assessment/Plan Pt. seen and eval. I agree with the A/P by the CARPET WEAVER. He was found to have CAD by cath yesterday. He will continue medical treatment and f/u with Dr. Powell in the next couple weeks to discuss possible PTCA/ stent to the Lcx-OM branch. This is not the etiiology of his decr. EF and CMY. He has a nonischemic CMY. It is possible this may be related to the earlier afib. and RVR. Hopefully the EF will improve with medical management.
[2017-11-29] MEDS ORDERED: Clopidogrel Bisulfate 75 MG TAB PO SCH (11:15)
[2017-11-29 11:43] VITALS: BP 129/73; TEMP 97.7
[2017-11-29 13:43] VITALS: BMI 36.1
[2017-11-29] MEDS ORDERED: Amiodarone 200 MG TAB PO SCH (21:00)
--- NOTE | 2017-11-30 06:17 | DIS ---
DATE OF ADMISSION: 11/21/2017 DATE OF DISCHARGE: 11/29/2017 DIAGNOSES AT THE TIME OF ADMISSION: 1. New onset atrial fibrillation with rapid ventricular response. 2. Acute congestive heart failure secondary to new onset atrial fibrillation with rapid ventricular response. 3. Elevated troponin I, felt to be demand ischemia state. 4. Diabetes mellitus type 2. DIAGNOSES AT THE TIME OF DISCHARGE: 1. New onset atrial fibrillation with rapid ventricular response with status post transesophageal ec hocardiography and cardioversion on 11/23/2017. 2. Chronic systolic congestive heart failure with ejection fraction of 20% to 25% of the left ventri greyson, status post cardiac catheterization on 11/28/2017. 3. Hypertension. 4. Diabetes mellitus type 2. 5. Hypothyroidism. 6. Two-vessel coronary artery disease. 7. Arthritis. CONSULTANTS: 1. Dr. Gracia Powell, Cardiology Service. 2. Dr. Koehler, Cardiology Service. 3. Dr. Raman Frazier, Pulmonary Service. 4. Dr. Neumann, Pulmonary Service. PROCEDURE: Cardiac catheterization and cardioversion. HOSPITAL COURSE: The patient was a 67-year-old male, who presented to the [facility] from urgent care after presenting with increased shortness of breath over the last 3 days prior to this admission. The problems started approximately 11/19/2017 and progressively got worse with lying flat or ambulation. Apparently, he had CHF exacerbation approximately 12 years ago, but he did not have coronary angiogram at that time. The patient denied any fever, chills, exposure history, increased alcohol intake or recent surgeries. He denied any specific chest pain. In the e mergency room, he was evaluated and chest imaging showed evidence of pulmonary edema. EKG showed atr ial fibrillation with rapid ventricular response with heart rates in the 160s. The patient received Lovenox and he was started on Cardizem infusion at 15 mg per hour. Also, he received Lopressor 5 mg 1 dose intravenous fluids of normal saline and aspirin 324 mg. He was transferred to [facility]. The digo elaina was added to control his rate and 2D echo was requested along with cardiac consultation. The pat ient was seen by position classification specialist, Dr. Powell, who recommended cardioversion since he was tried on multip le medications including amiodarone and he did not convert to normal sinus rhythm, so cardioversion w as done. He was continued on amiodarone and stayed in normal sinus rhythm. Prior to the cardioversi on, he had MANA, which showed left ventricular ejection fraction down to 20% to 25% with no evidence o f left atrial or left atrial appendage thrombus. He did have smoke formation in the left atrium and right atrium and also the left ventricle at times, but no evidence of left atrial or left atrial appe ndage thrombus. Because of congestive heart failure, his was stopped and he was started on Ent alena and he was continued on amiodarone. Also, because of some suspicion of infectious process in h is lungs, he was seen by deaf interpreter, who decided to put him on Omnicef 600 mg once a day. He was getting diuresed with Lasix and was given Coreg 6.25 mg twice a day. Also, he underwent cardiac cath eterization, which showed 2-vessel coronary artery disease, mild plaque in the proximal LAD, no steno sis in RCA which is small and nondominant and as I mentioned above, his LVEF was estimated 20% to 25% . He stayed in sinus rhythm post-cardioversion. Today, he was fitted with LifeVest and he is doing well. He was seen, examined and evaluated before his discharge. His blood pressure is 129/73, pulse is 99, temperature is 97.7, respiratory rate is 21, and O2 saturation is 98% on room air. He is dis charged home. MEDICATIONS AT THE TIME OF DISCHARGE: Amiodarone 200 mg twice a day, carvedilol 6.25 mg twice a day, cefdinir 600 mg 6 capsules, clopidogrel 75 mg once a day, Combivent 2 puffs q.i.d., and Entresto 49/ 51 mg tablets 1 tablet twice a day. Also, he will continue his anastrozole 1 mg once a day, aspirin 81 mg once a day, Invokana 300 mg tablet once a day. He will be on Plavix 75 mg once a day, Trulicit y 1.5 mg/0.5 mL pen one dose every 7 days, Zetia 10 mg once a day, furosemide 40 mg once a day, Amary l 1 mg once a day, Toujeo 40 units subcutaneously daily, levothyroxine 200 mcg every morning, liothyr onine 5 mcg twice a day, metformin will be resumed at 750 twice a day extended release formulation. Also, he will be on pregabalin, which is Lyrica 150 mg twice a day and Entresto as mentioned above. He is going to follow up with Dr. Powell in 2 weeks and with his primary care physician in 1 week. Justin estevez is going to wear the LifeVest and the patient was seen and examined before his discharge. Discharge time is more than 30 minutes.
[2017-11-30] MEDS ORDERED: Clopidogrel Bisulfate 75 MG TAB PO SCH (09:00)
== END 2017-11-29 16:58 | disposition home or self-care (01) | DRG 286 ==
LOC: SCSER 17:46 → IMCU/EMU 19:17 → UNDODISIN 11-29 16:07
PROVIDERS: ADMIT Family Medicine; ATTEND Family Medicine
PROC: 5A2204Z Restoration of Cardiac Rhythm, Single (ICD-10-PCS; 2017-11-23)
PROC: 4A023N7 Measurement of Cardiac Sampling and Pressure, Left Heart, Percutaneous Approach (ICD-10-PCS; principal; 2017-11-28)
PROC: B2111ZZ Fluoroscopy of Multiple Coronary Arteries using Low Osmolar Contrast (ICD-10-PCS; 2017-11-28)
PROC: B2161ZZ Fluoroscopy of Right and Left Heart using Low Osmolar Contrast (ICD-10-PCS; 2017-11-28)
DX: I48.0 Paroxysmal atrial fibrillation (principal); J96.01 Acute respiratory failure with hypoxia; I50.23 Acute on chronic systolic (congestive) heart failure; I24.8 Other forms of acute ischemic heart disease; I47.1 Supraventricular tachycardia; I11.0 Hypertensive heart disease with heart failure; E03.9 Hypothyroidism, unspecified; E11.9 Type 2 diabetes mellitus without complications; M19.90 Unspecified osteoarthritis, unspecified site; G47.33 Obstructive sleep apnea (adult) (pediatric); I25.10 Atherosclerotic heart disease of native coronary artery without angina pectoris; J98.01 Acute bronchospasm; Z79.82 Long term (current) use of aspirin; Z91.19 Patient's noncompliance with other medical treatment and regimen; Z82.49 Family history of ischemic heart disease and other diseases of the circulatory system
CPT/HCPCS: 36415; 36416; 71010; 80048; 80053; 82550; 82553; 82565; 82805; 83690; 83735; 83880; 84439; 84443; 84484; 85007; 85014; 85018; 85025; 85027; 85049; 85610; 85730; 90471; 90682; 92960; 93005; 93306; 93312; 93458; 93798; 94640; 94660; 94760; 96365; 96366; 96372; 96375; A4216; C1769; G0008; J0282; J0692; J1644; J1650; J1815; J1940; J2704; J7050; J7070; J7620; Q2036

== ENCOUNTER 2017-12-17 04:45 | Inpatient (IN) | payer MEDICARE ==
[2017-12-17] MEDS ORDERED: Dextrose 50% Abboject 50 ML SYRINGE ONE (04:55)
[2017-12-17] MEDS ORDERED: Ondansetron HCl/PF 4 MG/2 ML Vial ONE (04:57)
[2017-12-17] MEDS ORDERED: Lorazepam 2 MG/ML VIAL ONE (04:57)
[2017-12-17] MEDS ORDERED: Fentanyl 100 MCG/2 ML VIAL ONE (04:57)
[2017-12-17 06:10] LABS: #Eosinphils 0.2 thou/uL (0.0-0.7); #Monocytes 0.6 thou/uL (0.11-0.59); #Neutrophils 6.3 thou/uL (1.40-6.50); %Basophils 0.4 % (0.0-1.0); %Eosinophils 2.3 % (0.0-10.0); %Lymphocytes 12.5 % (21.0-51.0); %Monocytes 7.3 % (0.0-10.0); %Neutrophils 77.4 % (42.0-75.0); Hemoglobin 12.6 g/dL (14.0-18.0); Mean Corpuscular HGB CONC 31.5 g/dL (32.0-36.0); Mean Corpuscular Hemoglobin 26.5 pg (27.0-31.0); Mean Corpuscular Volume 84.2 fl (80.0-94.0); Mean Platelet Volume 9.1 fL (7.4-10.4); Platelet Count 239 thou/uL (130-400); RBC Distribution Width 15.5 % (11.5-14.5); Red Blood Cell (RBC) Count 4.75 mill/uL (4.70-6.10); White Blood Cell (WBC) Count 8.2 thou/uL (4.8-10.8)
[2017-12-17 06:25] LABS: INR-International Normal Ratio 0.9; PTT 31.6 SEC (22.9-36.1); Prothrombin Time 12.6 SEC (12.0-14.7)
[2017-12-17] MEDS ORDERED: Dextrose 5% in Water 1,000 ML IV PRN ×2 (06:28→15:22)
[2017-12-17] MEDS ORDERED: Dextrose 50% Abboject 50 ML SYRINGE SLOW IVP PRN ×2 (06:28→15:22)
[2017-12-17] MEDS ORDERED: HYDROcodone/Acetaminophen 10/325 mg Tablet PO PRN ×2 (06:28)
[2017-12-17 06:33] LABS: ALT (SGPT) 15 U/L (8-55); AST (SGOT) 14 U/L (5-34); Albumin 3.3 g/dL (3.4-4.8); Alkaline Phosphatase 69 U/L (40-150); Anion Gap 14 mmol/L (10-20); BUN (Urea Nitrogen) 17 mg/dL (8.4-25.7); Bilirubin, Total 0.5 mg/dL (0.2-1.2); Calc. Creatinine Clearance 0 mL/min (70-130); Calcium 8.9 mg/dL (7.8-10.44); Carbon Dioxide 24 mmol/L (23-31); Chloride 105 mmol/L (98-107); Estimated GFR-MDRD 69; Globulin 3.1 g/dL (2.4-3.5); Glucose 147 mg/dL (80-115); Lipase 32 U/L (8-78); Potassium 4.4 mmol/L (3.5-5.1); Protein, Total 6.4 g/dL (5.8-8.1); Sodium 139 mmol/L (136-145)
[2017-12-17 06:34] LABS: CKMB 1.2 ng/mL (0-6.6); Troponin I Less than 0.010 ng/mL (< 0.028)
[2017-12-17] MEDS ORDERED: traMADol HCl 50 MG TAB PO PRN (07:05)
[2017-12-17] MEDS ORDERED: Acetaminophen 325 MG TAB PO SCH (07:15)
--- NOTE | 2017-12-17 07:44 | HP ---
DATE OF SERVICE: 12/17/2017 TRAUMA ACTIVATION: Not applicable. HISTORY OF PRESENT ILLNESS: This is a 67-year-old male with recent hospitalization at our facility f or new onset atrial fibrillation with RVR, CHF exacerbation and cardiomyopathy who presented to [facility] ER status post fall. Per patient, he felt as though he was hypoglycemic and tried to walk into the kitchen, at which point he thinks he tripped and fell. The patient was found by spouse lying on the floor. He had immediate onset of right ankle pain and deformity. He was evaluated in the emerg ency room and found to have a right trimalleolar fracture. Additionally, he was hypoglycemic with a blood sugar of 68. Per family, the patient has been "not acting right" since his previous hospitaliz ation. They state that at times he appears more fatigued than usual and is having intermittent confu fuad. There are no aggravating or alleviating factors. They do not know what his blood sugars are a t this time. They deny any evidence of any focal deficit. PAST MEDICAL HISTORY: Significant for cardiomyopathy, CHF, diabetes, atrial fibrillation with RVR, h ypertension, hyperlipidemia, and hypothyroidism. HOME MEDICATIONS: Include amiodarone 200 mg p.o. b.i.d., anastrozole 1 tab p.o. daily, aspirin 81 mg p.o. daily, Invokana 1 tab p.o. daily, Coreg 6.25 p.o. b.i.d., Plavix 75 mg p.o. daily, Trulicity, Z etia, Lasix, glimepiride, insulin Glargine 40 units daily, Combivent q.i.d., Synthroid 200 mcg p.o. d aily, metformin dose unknown b.i.d., Lyrica b.i.d., Entresto 49 mg/51 mg tab p.o. b.i.d. PAST SURGICAL HISTORY: Significant for appendectomy and left knee surgery as a child. SOCIAL HISTORY: Lives at home with . Ambulates independently. Endorses occasional alcohol use. Remote tobacco history, quit approximately 25 years ago. Denies illicit drug use. REVIEW OF SYSTEMS: Negative except as indicated in the HPI. PHYSICAL EXAMINATION: VITAL SIGNS: On evaluation, heart rate 61, blood pressure 115/68, respiratory rate 14, O2 sat 95% on 2 liters. GENERAL: Well-built male in no acute distress, resting in bed, somewhat drowsy, recently received co nscious sedation for procedure. HEAD: Normocephalic, atraumatic. EYES: Pupils were PERRL. Extraocular movements were intact. NECK: Supple. Trachea is midline. CHEST/PULMONARY: Atraumatic. No tenderness to palpation. Normal work of breathing, symmetric rise. The patient is wearing a LifeVest. LUNGS: Sounds distant, but clear to auscultation bilaterally. CARDIOVASCULAR: Regular rate and rhythm, no obvious murmurs, rubs or gallops. GASTROINTESTINAL: Abdomen is soft, nontender, nondistended. BACK: Being reported as within normal limits. EXTREMITIES: Bilateral upper extremities within normal limits. Right lower extremity splint clean, dry, and intact. Neurovascularly intact distal to the side of his injury. Left lower extremity with in normal limits. Pulses are 2+ in bilateral upper extremities and left lower extremity. NEUROLOGIC: GCS is 15. No focal deficit is noted. LABORATORY DATA: Sodium 139, potassium 4.4, chloride 105, carbon dioxide 24, BUN 17, creatinine 1.08 , glucose 147. AST and ALT within normal limits. Troponin less than 0.010. BNP 120.5, INR 0.9. WB C 8.2, hemoglobin 12.6, hematocrit 40.0, platelet count 239. RADIOGRAPHIC FINDINGS: EKG, sinus rhythm with a first degree heart block and nonspecific ST changes. ASSESSMENT: 1. Status post mechanical fall. 2. Right ankle fracture. 3. Acute traumatic pain. 4. Cardiomyopathy with an EF of 20%-25%. 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 5. Recent hospitalization for new onset atrial fibrillation with rapid ventricular response, current ly in sinus rhythm. 6. Diabetes with hypoglycemia. 7. History of hypertension. 8. History of hyperlipidemia. 9. Hypothyroidism. PLAN: Admit to Trauma Services. Case discussed with the ER physician who has talked to Orthopedic S urgery. Patient had an appointment with Cardiology this a.m. We will obtain Cardiology consult for followup given patient's LifeVest status. The patient should be n.p.o. for now. We will add urinaly sis and CT of the head, given patient's and family's concern for altered mental status and possible h ead trauma earlier this morning. Perioperative pain management. Postoperative PT and OT. Plans for admission were discussed with the patient and family who were at bedside. All questions were answer ed at the time of this dictation. Trauma attending to be notified of admission.
--- NOTE | 2017-12-17 08:04 | RAD ---
SINGLE VIEW OF THE CHEST: COMPARISON: 11/23/17. HISTORY: Preoperative radiograph. FINDINGS: A single view of the chest shows an enlarged but stable cardiomediastinal silhouette. There is no ev idence of consolidation, mass, or pleural effusion. IMPRESSION: No evidence of acute cardiopulmonary disease. POS: OFF
--- NOTE | 2017-12-17 08:05 | RAD ---
TWO VIEWS OF THE RIGHT ANKLE: COMPARISON: 12/17/17 at 4:55 a.m. HISTORY: Fracture dislocation of the right ankle. FINDINGS: Two views of the right ankle show reduction of the previously seen dislocation of the tibiotalar join t. There are fractures of the medial malleolus and distal fibula. An overlying splint obscures fine bony and soft tissue detail. IMPRESSION: Bimalleolar right ankle fracture. POS: OFF
--- NOTE | 2017-12-17 08:42 | RAD ---
TWO VIEWS OF THE RIGHT ANKLE: COMPARISON: None. HISTORY: Trauma to the right ankle with pain and deformity. FINDINGS: Two views of the right ankle show a spiral fracture of the distal fibula. There is subluxation of th e tibiotalar joint. There is a fracture of the medial malleolus. Surrounding soft tissue swelling i s seen. Vascular calcifications are present. IMPRESSION: Bimalleolar fracture dislocation of the right ankle as above. POS: OFF
--- NOTE | 2017-12-17 10:19 | CON ---
DATE OF CONSULTATION: 12/17/2017 CARDIOLOGY CONSULTATION REASON FOR CONSULTATION: Preoperative evaluation. HISTORY OF PRESENT ILLNESS: Mr. Jose Carlos Villatoro is a pleasant 67-year-old gentleman with history of a trial fibrillation, cardiomyopathy and single vessel coronary disease. Mr. Villatoro is 67 years of age. He was recently admitted to the hospital with congestive heart failu re. At this time, he was found to have severely depressed left ventricular function and atrial fibri llation with a rapid ventricular response. Ultimately, he was cardioverted after transesophageal ech o showed no thrombus. Cardiac catheterization was done, which showed single vessel coronary disease, but did not appear to be the etiology of his cardiomyopathy. The patient was released home on aspir in and Plavix as well as amiodarone. Unfortunately, the patient apparently got hypoglycemic, early t his morning got up and stumbled and fell and broke his ankle. He will need his ankle repaired. He i s not having chest pain or pressure. He is breathing fine now, otherwise has been doing well. MEDICATIONS PRIOR TO ADMISSION: He is on, 1. Insulin. 2. Aspirin. 3. Plavix. 4. Coreg 6.25 mg twice a day. 5. Trulicity. 6. Zetia. 7. Lasix. 8. Combivent. 9. Entresto. The patient is not on anticoagulants. PAST SURGICAL HISTORY: Previous appendectomy. SOCIAL HISTORY: Lives at home with his . Occasional alcohol. REVIEW OF SYSTEMS: CONSTITUTIONAL: No significant weight gain or loss. VISION: No changes. HEARING: No changes. PULMONARY: No cough or wheezing. GASTROINTESTINAL: No nausea, vomiting, diarrhea. SKIN: No rashes. NEUROLOGIC: No unilateral weakness or numbness. PSYCHIATRIC: No unusual depression or anxiety. PHYSICAL EXAMINATION: GENERAL: A pleasant 67-year-old man in no distress. VITAL SIGNS: Blood pressure was recorded 115/68 and pulse was 60. HEENT: Eyes, sclerae nonicteric. Mouth mucous branch moist. NECK: Supple. No lymphadenopathy. LUNGS: Clear, no wheezing, rales or rhonchi. CARDIAC: Normal S1, normal S2. There is no murmur, rub or gallop. ABDOMEN: Soft, nontender. EXTREMITIES: No clubbing, cyanosis or edema. SKIN: Warm and dry. PERTINENT LABORATORY AND X-RAY FINDINGS: Troponin less than 0.010, potassium is 4.4; glucose was 68, but he says his blood sugar was in the 30s last night apparently after he fell; BNP 120. Chest x-ra y shows no evidence of congestive heart failure. EKG, sinus rhythm. ASSESSMENT: 1. Atrial fibrillation, now in sinus rhythm. 2. Diabetes with episodes of hypoglycemia. 3. Coronary artery disease, single vessel. 4. Congestive heart failure as mentioned is stable, does not appear to be in heart failure. PLAN: 1. Okay to proceed to surgery. I would recommend taking the LifeVest off intraoperatively and repla cing it postoperatively. 2. Continue other medications unchanged. The patient is in acceptable risk for surgery, does not ap pear to be in heart failure and is in normal sinus rhythm. 3. Also recommend consultation with the Hospitalist Sound Service to see if the medicines can be adj usted for his diabetes as he is having hypoglycemic episodes.
--- NOTE | 2017-12-17 10:31 | CT ---
PRELIMINARY REPORT/[facility]/EMERGENCY AFTER HOURS PROCEDURE: EXAM: CT Head Without Intravenous Contrast CLINICAL HISTORY: 67 years old, male; Injury or trauma; Fall; Initial encounter; Concussion / head injury; Consciousnes s not specified; Additional info: Additional history obtained from ems, 67 yo m presents to ed C/O r ankle pain. Pt states that he felt his blood sugar getting low this morning so was walking to kitchen to get juice and rolled his r ankle. Ems reports obvious deformity to r ankle on their arrival so pl aced splint. Initial blood sugar in low 40s then increased to 75 after pt drank juice. Pt states he w ears a life vest for chf. Last po yesterday evening. TECHNIQUE: Axial computed tomography images of the head/brain without intravenous contrast. COMPARISON: No relevant prior studies available. FINDINGS: Brain: Mild volume loss No hemorrhage. Mild white matter disease. No edema. Ventricles: Unremarkable. No ventriculomegaly. Bones/joints: Unremarkable. No acute fracture. Soft tissues: Unremarkable. Sinuses: Unremarkable as visualized. No acute sinusitis. Mastoid air cells: Unremarkable as visualized. No mastoid effusion. IMPRESSION: No intracranial hemorrhage.Please see discussion above. Thank you for allowing us to participate in the care of your patient. Dictated and Authenticated by: Raymond Gee MD 12/17/2017 6:58 AM Central Time ([place] & [place]) FINAL REPORT NONCONTRAST CT OF THE BRAIN: INDICATION: A 67-year-old male status post fall with head injury. FINDINGS: Agree with the preliminary report provided. No acute intracranial hemorrhage is evident. There are areas of paraventricular and subcortical white matter hypodensity likely related to mild chronic smal l-vessel white matter ischemic change. Septum pellucidum and third ventricle are midline. The skull and extracranial soft tissues are within normal limits. IMPRESSION: No acute intracranial abnormality. POS: TPC
--- NOTE | 2017-12-17 10:31 | CON ---
DATE OF CONSULTATION: 12/17/2017 CHIEF COMPLAINT: Right ankle pain. HISTORY OF PRESENT ILLNESS: Jose Carlos is a 67-year-old male, who became hypoglycemic late last night. He was trying to go to the kitchen to get orange juice when he lost balance and fell. He twisted his ankle. He sustained a fracture dislocation of the right ankle. [facility] He was in the hospital recently for atrial fibrillation with RVR as well as CHF exacer bation. He was started on a blood thinner. He was also placed on a LifeVest. Since admission, he h as had several episodes of hypoglycemia. Usually orange juice has corrected these, but this time he did fall. His ankle was reduced in the emergency department. He has been splinted. PAST MEDICAL HISTORY: Cardiomyopathy, CHF, atrial fibrillation, hypertension, hyperlipidemia, diabet es, hypothyroidism. PAST SURGICAL HISTORY: Appendectomy, previous left knee arthroscopic surgery. SOCIAL HISTORY: The patient lives independently. He denies tobacco, alcohol, or drug use. REVIEW OF SYSTEMS: Positive for right ankle pain, otherwise negative for 10-point review of systems. PHYSICAL EXAMINATION: VITAL SIGNS: Stable. Patient is afebrile. GENERAL: He is alert and oriented, in no apparent distress. HEENT: Normocephalic, atraumatic. RESPIRATORY: Breathing comfortably. ABDOMEN: Soft, nontender, and nondistended. MUSCULOSKELETAL: The right ankle was splinted. He has 2 second capillary refill. He is able flex a nd extend the foot and toes. Sensation is intact in the foot. IMAGES: X-rays of the right ankle demonstrate a displaced bimalleolar ankle fracture, dislocation yuen s been reduced into a good position. IMPRESSION: Right ankle fracture dislocation in a patient with recent atrial fibrillation and multip le cardiac problems. PLAN: At this point, the patient will be admitted to the hospital. He will need cardiac consultatio n for preoperative management. He will need to have his diabetes medications addressed given that he has sustained the injury from a hypoglycemic episode. He will elevate the limb. He will have pain control. He will be n.p.o. at midnight with plans for surgery tomorrow. We will give him today to stephanie estevez medically optimized for surgery. Risks have been reviewed in detail. Risks do include complicatio ns with anesthesia as well as complications from the ankle including wound dehiscence, infection, georgiana dware failure, nonunion, malunion, and others. He wants to proceed.
[2017-12-17] MEDS: Acetaminophen 500 MG TAB PO SCH ×2 (10:53→15:19)
[2017-12-17] MEDS: Famotidine/PF 20 mg/2ml Vial SLOW IVP SCH ×2 (10:54→20:56)
[2017-12-17] MEDS: traMADol HCl 50 MG TAB PO PRN ×2 (11:10→16:54)
[2017-12-17] MEDS: Sodium Chloride 0.9% 1,000 ML IV SCH (11:14)
[2017-12-17] MEDS ORDERED: CEFAZOLIN/Water 2 GM/20 ML SYRINGE SLOW IVP SCH (12:00)
[2017-12-17] MEDS: Morphine 5 MG/ML SYRINGE SLOW IVP PRN ×3 (12:33→20:49)
[2017-12-17] MEDS: HumaLOG 300 UNITS/3 ML VIAL SC PRN ×2 (12:42→16:56)
[2017-12-17] MEDS ORDERED: DULAGLUTIDE 1.5 MG/0.5 ML SC SCH (15:45)
[2017-12-17] MEDS ORDERED: Furosemide 40 MG TAB PO SCH (16:30)
[2017-12-17] MEDS: Carvedilol 6.25 MG TAB PO SCH (16:54)
--- NOTE | 2017-12-17 16:54 | PRG ---
DATE OF SERVICE: 12/17/2017 SUBJECTIVE: The patient is hospital day #1 status post ground level fall in which he sustained the r ight trimalleolar fracture with significant displacement which was subsequently reduced in the emerge ncy room. The patient was evaluated by Orthopedics and the plan will be to make the patient n.p.o. a fter midnight and take him to the operating room tomorrow. The patient was also reviewed by Dr. Marlen hair, the patient's primary pest control worker and he was given medical clearance with his recommendations an d was consulted for preoperative and postoperative recommendations. PHYSICAL EXAMINATION: GENERAL: The patient is resting comfortably in the emergency room bed. He is alert and oriented x3. Lowber coma scale is 15. HEENT: Unremarkable. LUNGS: Clear to auscultation bilaterally. HEART: Regular rate and rhythm. LUNGS: Clear to auscultation bilaterally. ABDOMEN: Soft, flat, and nontender with active bowel sounds. EXTREMITIES: Neurovascularly intact x4. Right lower extremity is in a clean, dry splint. Capillary refill is less than 3 seconds. LABORATORY DATA: There are no new labs or radiographs reviewed this morning. ASSESSMENT AND PLAN: 1. Status post ground level fall. 2. Right trimalleolar fracture. 3. Acute traumatic pain. 4. Cardiomyopathy with ejection fraction of 20-25%. 5. Multiple comorbidities. Plan will be to admit the patient to the surgical floor. We will have the patient have a diet tonigh t, in the midnight he will be made n.p.o. Postoperatively, we will plan on discharging the patient m ost likely to rehabilitation considering his comorbidities. The evaluation and examination was done with Dr. Kenney this morning during rounds.
[2017-12-17] MEDS: Ondansetron HCl/PF 4 MG/2 ML Vial IVP PRN (16:58)
[2017-12-17 17:30] VITALS: BMI 37.1
[2017-12-17] MEDS: Scopolamine 1.5 mg/72 hour Patch TD SCH (20:52)
[2017-12-17] MEDS: Liothyronine Sodium 5 MCG TAB PO SCH (20:56)
[2017-12-17] MEDS: Amiodarone 200 MG TAB PO SCH (20:56)
[2017-12-17] MEDS ORDERED: Pregabalin 75 MG CAP PO PRN (21:00)
[2017-12-17] MEDS: Metoclopramide HCl 10 MG/2 ML VIAL IVP PRN (21:51)
[2017-12-17] MEDS: Sacubitril 49 MG/Valsartan 51 MG TABLET PO SCH (22:50)
[2017-12-18] MEDS: Morphine 5 MG/ML SYRINGE SLOW IVP PRN ×2 (01:02→06:07)
[2017-12-18] MEDS: Ondansetron HCl/PF 4 MG/2 ML Vial IVP PRN (01:22)
--- NOTE | 2017-12-18 02:08 | PRG ---
DATE OF SERVICE: 12/17/2017 SUBJECTIVE: This is a 67-year-old male status post ground-level fall with right ankle fracture. The patient was cleared by Cardiology for surgery earlier today, plans for operative intervention to his injury tomorrow. Upon my evaluation, the patient's only complaint was nausea which occurred after p atient was transitioned from the lying position to the sitting position. OBJECTIVE: Vital signs, reviewed and stable. The patient is afebrile. The patient is resting in bed, in no acu te distress. Breathing is nonlabored. Orthopedic dressing is clean, dry and intact. ASSESSMENT AND PLAN: As documented in daily progress note. Continue care as ordered. Continue to m onitor. N.p.o. after midnight. We will add Reglan for nausea not controlled with Zofran as well as a scopolamine patch given nausea associated with movement status post fall.
[2017-12-18] MEDS: Sodium Chloride 0.9% 1,000 ML IV SCH ×2 (02:21→12:23)
[2017-12-18] MEDS: Acetaminophen 500 MG TAB PO SCH ×4 (02:26→17:02)
[2017-12-18] MEDS: Levothyroxine Sodium 100 MCG TAB PO SCH (05:28)
[2017-12-18 05:36] LABS: #Basophils 0.1 thou/uL (0.0-0.2); #Eosinphils 0.1 thou/uL (0.0-0.7); #Lymphocytes 1.1 thou/uL (1.20-3.40); #Monocytes 0.9 thou/uL (0.11-0.59); #Neutrophils 4.6 thou/uL (1.40-6.50); %Basophils 0.8 % (0.0-1.0); %Eosinophils 0.8 % (0.0-10.0); %Monocytes 13.6 % (0.0-10.0); %Neutrophils 68.9 % (42.0-75.0); Hemoglobin 11.4 g/dL (14.0-18.0); Mean Corpuscular HGB CONC 30.8 g/dL (32.0-36.0); Mean Corpuscular Hemoglobin 26.3 pg (27.0-31.0); Mean Corpuscular Volume 85.4 fl (80.0-94.0); Platelet Count 206 thou/uL (130-400); RBC Distribution Width 15.7 % (11.5-14.5); Red Blood Cell (RBC) Count 4.35 mill/uL (4.70-6.10); White Blood Cell (WBC) Count 6.7 thou/uL (4.8-10.8)
[2017-12-18 05:54] LABS: Anion Gap 12 mmol/L (10-20); BUN (Urea Nitrogen) 14 mg/dL (8.4-25.7); Calc. Creatinine Clearance 98 mL/min (70-130); Calcium 8.5 mg/dL (7.8-10.44); Carbon Dioxide 28 mmol/L (23-31); Chloride 101 mmol/L (98-107); Estimated GFR-MDRD 66; Glucose 162 mg/dL (80-115); Magnesium 2.1 mg/dL (1.6-2.6); Phosphorus 4.3 mg/dL (2.3-4.7); Potassium 4.7 mmol/L (3.5-5.1); Sodium 136 mmol/L (136-145)
[2017-12-18] MEDS: Metoclopramide HCl 10 MG/2 ML VIAL IVP PRN (06:08)
[2017-12-18 06:15] LABS: Bilirubin Negative (Negative); Blood, Urine Negative (Negative); Clarity CLEAR (Clear); Glucose, Urine (Dipstick) >=1000 mg/dL (Negative); Leukocyte Negative (Negative); Nitrite Negative (Negative); Protein, Urine (Dipstick) Negative (Neg-Trace); Urobilinogen 0.2 mg/dL (0.2-1.0); pH, Urine 6.5 (5.0-9.0)
[2017-12-18] MEDS: Anastrozole 1 MG TAB PO SCH (08:27)
[2017-12-18] MEDS: Ezetimibe 10 MG TAB PO SCH (08:27)
[2017-12-18] MEDS: Amiodarone 200 MG TAB PO SCH ×2 (08:27→21:53)
[2017-12-18] MEDS: CANAGLIFLOZIN 300 MG PO SCH (08:28)
[2017-12-18] MEDS: Liothyronine Sodium 5 MCG TAB PO SCH ×2 (08:28→21:52)
[2017-12-18] MEDS: Glimepiride 2 MG TAB PO SCH (08:28)
[2017-12-18] MEDS: Sacubitril 49 MG/Valsartan 51 MG TABLET PO SCH ×2 (08:29→21:52)
[2017-12-18] MEDS ORDERED: FLU VACC TS2017-18 (>65YR) 0.5 ML SYRINGE IM ONE (09:00)
[2017-12-18] MEDS ORDERED: Prevnar 13-Val Conj/PF 0.5 ML SYRINGE IM ONE (09:00)
[2017-12-18] MEDS ORDERED: Fentanyl 100 MCG/2 ML VIAL SLOW IVP PRN (09:26)
[2017-12-18] MEDS: Carvedilol 6.25 MG TAB PO SCH ×2 (09:52→18:11)
[2017-12-18] MEDS: Furosemide 40 MG TAB PO SCH (09:52)
[2017-12-18] MEDS: Acetaminophen 1,000 MG in Premix Bag 1 BAG IVPB SCH ×2 (12:22→18:11)
[2017-12-18] MEDS: Famotidine/PF 20 mg/2ml Vial SLOW IVP SCH ×2 (12:28→21:52)
[2017-12-18] MEDS ORDERED: Bupivacaine HCl 0.5%/Epinephrine 1:200,000/PF 30 ml Vial ONE (12:29)
[2017-12-18] MEDS ORDERED: Bupivacaine PF 0.5% 30 ML VIAL ONE (12:29)
[2017-12-18] MEDS ORDERED: Ropivacaine 0.5% HCl/PF (150 MG/30 ML VIAL) ONE (12:29)
[2017-12-18] MEDS ORDERED: Ondansetron HCl/PF 4 MG/2 ML Vial ONE (12:34)
[2017-12-18] MEDS ORDERED: ePHEDrine/0.9% NaCl/PF SYRINGE 50 mg/10 ml ONE (12:34)
[2017-12-18] MEDS ORDERED: Succinylcholine Chloride 20 MG/ML 10 ml SYRINGE FS ONE (12:34)
[2017-12-18] MEDS ORDERED: Propofol 200 MG/20 ML VIAL ONE (12:34)
[2017-12-18] MEDS ORDERED: Fentanyl 100 MCG/2 ML VIAL ONE ×3 (13:06→13:42)
[2017-12-18] MEDS ORDERED: Ropivacaine 0.2% HCl/PF 20 ML ONE (13:37)
[2017-12-18] MEDS ORDERED: Midazolam HCl 2 mg/2 ml Vial ONE (13:37)
[2017-12-18] MEDS ORDERED: traMADol HCl 50 MG TAB PO PRN (14:46)
[2017-12-18] MEDS ORDERED: Promethazine HCl 25 MG/ML VIAL IM PRN (14:46)
[2017-12-18] MEDS ORDERED: Ondansetron HCl/PF 4 MG/2 ML Vial IVP PRN ×2 (14:46→16:39)
[2017-12-18] MEDS ORDERED: Ketorolac Tromethamine 30 MG/ML VIAL IVP PRN (14:46)
[2017-12-18] MEDS ORDERED: Ropivacaine 0.2% 550 ML 550 ML NERVE BLCK SCH (14:46)
[2017-12-18] MEDS ORDERED: Fentanyl 100 MCG/2 ML VIAL IV PRN (14:46)
[2017-12-18] MEDS ORDERED: CEFAZOLIN/Water 2 GM/20 ML SYRINGE SLOW IVP SCH (15:45)
--- NOTE | 2017-12-18 15:48 | OP ---
DATE OF OPERATION: 12/18/2017 OPERATION: Open reduction internal fixation of right trimalleolar ankle of right. PREOPERATIVE DIAGNOSIS: Displaced right trimalleolar ankle fracture. POSTOPERATIVE DIAGNOSIS: Displaced right trimalleolar ankle fracture. COMPLICATIONS: None. ESTIMATED BLOOD LOSS: Minimal. SURGEON: Truman Rodriguez M.D. SPRAY UNIT FEEDER: Paco Ying PA-C. ANESTHESIA: General. IMPLANTS: One-third tubular Synthes plate with multiple nonlocking screws. INDICATIONS: Mr. Villatoro is a 67-year-old male who fell. He sustained a fracture of the right ankle . He was indicated for open reduction internal fixation of the right ankle to restore stability, pro mote healing, and prevent complications. Risks have been reviewed and have been deemed to be accepta ble. He wanted to proceed. Mr. Villatoro was identified in the preoperative holding area. His correct extremity was marked. He w as carried to the operating room. He was positioned supine. General anesthesia was induced. A mult idisciplinary timeout was performed. The right lower extremity was prepped and draped in sterile fas hion. We began the procedure with a lateral approach to the distal fibula. We dissected down through the s ubcutaneous tissues to the bony level. The bone was exposed including the underlying fracture. The fracture was reduced using reduction clamp and held with a K-wire. We then placed a one-third tubula r plate along the lateral cortex of the bone. Multiple screws were placed proximal and distal to the fracture applying rigid fixation. We took x-ray images confirming reduction and placement. At this point, we moved to the medial ankle. We dissected down through the subcutaneous tissues and exposed the medial malleolar fracture. At this point, we again held this with a K-wire. We then rikki jeanne two 4.0 mm cancellous screws across the fracture site at the medial malleolus. This held our fra cture in a reduced position. At this point, we took final images including lateral view and stress view. We took final x-rays and then irrigated. We closed with 0 Vicryl, 2-0 Vicryl, and nylon for the skin. A sterile dressing wa s applied. A splint was placed. The patient was taken to the recovery room in good condition withou t complication.
--- NOTE | 2017-12-18 16:23 | RAD ---
INTRAOPERATIVE FLUOROSCOPY: History: Ankle fracture. Comparison: 12-17-17 FINDINGS: Intraoperative fluoroscopy provided for surgeon. There is interval placement of side plate and screws at the distal tibia as well as two screws involving the medial malleolus. Alignment in near anatomic . IMPRESSION: Intraoperative fluoroscopy as above. POS: SANTANA
[2017-12-18] MEDS ORDERED: Non-Formulary Medication 1 EACH PO PRN (16:39)
[2017-12-18] MEDS ORDERED: Promethazine HCl 25 MG/ML VIAL IM/IV PRN (16:39)
[2017-12-18] MEDS: Hydrocortisone Sod Succ/PF 100 mg/2 ml Vial IVP SCH ×2 (17:02→18:11)
[2017-12-18] MEDS ORDERED: Docusate 100 MG CAP PO SCH (18:00)
[2017-12-18] MEDS ORDERED: Senokot 8.6 MG TAB PO SCH (18:00)
--- NOTE | 2017-12-18 18:48 | PRG ---
DATE OF SERVICE: 12/18/2017 ATTENDING PHYSICIAN: Dr. Lv Kenney. This is Franca Yi, nurse practitioner dictating a daily progress note for Dr. Lv Kenney. SUBJECTIVE: The patient is hospital day #2, status post ground level fall in which he sustained a ri ght trimalleolar fracture. That fracture was reduced in the emergency room and he was admitted to [facility] surgical floor. There are plans for him to go to surgery for fixation of the fracture today. He w as seen on rounds this morning, sitting in bed. Family is at bedside. He states that the pain has b een moderately well controlled. He has been n.p.o. after midnight. He was cleared by his cardiologi st to go to the operating room today. OBJECTIVE: VITAL SIGNS: Temperature 98.0, pulse 66, respirations 18, O2 sat 99% on 2 liters, blood pressure 107 /67. GENERAL: Well-nourished, well-appearing male in no acute distress, lying in bed. HEENT: Atraumatic, normocephalic. LUNGS: Respirations even and unlabored. No respiratory distress. CARDIOVASCULAR: Regular rate and rhythm. ABDOMEN: Soft, nontender, nondistended. EXTREMITIES: Right lower extremity with splint in place. Cap refill brisk in all extremities. Neur ovascular intact all extremities. LABORATORY DATA: CBC: WBC 6.7, RBC 4.35, hemoglobin 11.4, hematocrit 37.1, platelets 206. Chemistr y: Sodium 136, potassium 4.7, chloride 101, carbon dioxide 28, BUN 14, creatinine 1.11, glucose 162. ASSESSMENT: 1. Status post ground level fall. 2. Right trimalleolar fracture. 3. Acute traumatic pain. 4. History of cardiomyopathy with ejection fraction of 20% to 25%. 5. Current use of LifeVest. PLAN: 1. Continue n.p.o. this morning. 2. To operating room today with Orthopedics. 3. Continue IV Tylenol. 4. Deep venous thrombosis prophylaxis when cleared by Orthopedic Surgery. 5. Physical and Occupational Therapy consult. 6. Case management for discharge planning. The patient was seen and examined with Dr. Kenney, who ag claude with the assessment and plan.
[2017-12-18] MEDS ORDERED: Acetaminophen 500 MG TAB PO PRN (20:38)
--- NOTE | 2017-12-18 22:53 | PRG ---
DATE OF SERVICE: 12/18/2017 SUBJECTIVE: This is 67-year-old male, status post ground level fall with right ankle fracture. The patient was cleared by Cardiology. For surgery, he is postop day #0 from ORIF, right trimalleolar fr acture of the ankle. OBJECTIVE: At this time, vitals are stable. Patient is resting comfortably. He is afebrile. ASSESSMENT AND PLAN: As documented in daily progress note. Continue care as ordered. Continue to m onitor at this time and tomorrow, we will recheck deep venous thrombosis prophylaxis, PT/OT and disch arge planning.
[2017-12-19] MEDS: Hydrocortisone Sod Succ/PF 100 mg/2 ml Vial IVP SCH ×3 (00:30→12:12)
[2017-12-19] MEDS: HumaLOG 300 UNITS/3 ML VIAL SC PRN ×4 (00:30→18:02)
[2017-12-19] MEDS: Acetaminophen 500 MG TAB PO SCH ×5 (00:30→23:07)
[2017-12-19] MEDS: Levothyroxine Sodium 100 MCG TAB PO SCH (06:58)
[2017-12-19] MEDS: Amiodarone 200 MG TAB PO SCH ×2 (08:24→21:59)
[2017-12-19] MEDS: Furosemide 40 MG TAB PO SCH (08:24)
[2017-12-19] MEDS: Carvedilol 6.25 MG TAB PO SCH ×2 (08:24→17:57)
[2017-12-19] MEDS: Ezetimibe 10 MG TAB PO SCH (08:24)
[2017-12-19] MEDS: Liothyronine Sodium 5 MCG TAB PO SCH ×2 (08:24→21:59)
[2017-12-19] MEDS: Anastrozole 1 MG TAB PO SCH (08:25)
[2017-12-19] MEDS: Famotidine/PF 20 mg/2ml Vial SLOW IVP SCH (08:25)
[2017-12-19] MEDS: Glimepiride 2 MG TAB PO SCH (08:26)
[2017-12-19] MEDS: CANAGLIFLOZIN 300 MG PO SCH (08:27)
[2017-12-19] MEDS: Sacubitril 49 MG/Valsartan 51 MG TABLET PO SCH ×2 (08:27→21:59)
[2017-12-19] MEDS: HYDROcodone/Acetaminophen 10/325 mg Tablet PO PRN ×3 (08:45→22:09)
[2017-12-19] MEDS ORDERED: Senokot 8.6 MG TAB PO SCH (09:00)
[2017-12-19] MEDS ORDERED: Docusate 100 MG CAP PO SCH (09:00)
[2017-12-19] MEDS ORDERED: Insulin Glargine,Hum.Rec.Anlog [Toujeo Solostar] SC SCH (12:00)
[2017-12-19] MEDS ORDERED: Hydrocortisone Sod Succ/PF 100 mg/2 ml Vial IVP SCH (12:00)
--- NOTE | 2017-12-19 12:02 | PRG ---
DATE OF SERVICE: 12/19/2017 SUBJECTIVE: Mr. Villatoro is postoperative day #1, status post open reduction internal fixation of rig ht trimalleolar ankle fracture. The patient reports adequate pain control. His blood glucose has been quite labile overnight ranging from a little hypoglycemic to suprahypoglycemic. The patient denies any nausea or vomiting. Denies any syncope, dyspnea, or chest pain. He has remained with a Sacha coma scale of 15 through this a dmission. OBJECTIVE: VITAL SIGNS: Current vital signs includes blood pressure 132/70, pulse 71, respiratory rate is 16, m aximum temperature in the last 24 hours is 98.5 degrees Fahrenheit, oxygen saturation is 96% on room air. HEENT: Reveals normocephalic and atraumatic. Pupils equal, round, react to light and accommodation. CARDIOVASCULAR: Heart reveals regular rate and rhythm. No murmurs or gallops auscultated. LUNGS: Clear to auscultation bilaterally. Breathing is regular and unlabored. ABDOMEN: Soft, nontender, nondistended. Bowel sounds in all four quadrants appear normoactive. [facility] lower extremity is immobilized in a long splint. EXTREMITIES: Otherwise, the patient has a 2+ radial and pedal pulses present. NEUROLOGIC: Reveals no focal deficits present. PERTINENT LABORATORY FINDINGS: Includes fingerstick blood glucose, which has ranged between upper 90 s to high 390. IMPRESSION: 1. Postoperative day #1, status post open reduction and internal fixation right ankle fracture. 2. Acute hypoglycemia. 3. History of type 2 diabetes mellitus. PLAN: 1. We will resume prehospitalization insulin regimen. Continue to monitor the patient's glucose. 2. Initiate physical and occupational therapy in anticipation for discharge once the patient is hemo dynamically stable and pain is adequately controlled.
[2017-12-19] MEDS: traMADol HCl 50 MG TAB PO PRN (12:13)
[2017-12-19] MEDS: Famotidine 20 MG TAB PO SCH ×2 (12:17→21:59)
[2017-12-20] MEDS: HumaLOG 300 UNITS/3 ML VIAL SC PRN ×4 (00:55→21:07)
[2017-12-20] MEDS: Hydrocortisone Sod Succ/PF 100 mg/2 ml Vial IVP SCH ×2 (00:55→12:06)
--- NOTE | 2017-12-20 06:31 | PRG ---
DATE OF SERVICE: 12/19/2017 SUBJECTIVE: This is a 67-year-old male status post ground-level fall with right ankle fracture. The patient was cleared by Cardiology for surgery. He is postop day #1 from ORIF, right trimalleolar fr acture of the ankle. OBJECTIVE: At this time, vitals are stable. The patient is resting comfortably. He is afebrile. He has had wide swings in his post-op glucose checks. ASSESSMENT AND PLAN: Continue care as detailed in the progress note in the a.m. Continue to monitor . We will reassess in a.m., discharge planning.
[2017-12-20] MEDS: Acetaminophen 500 MG TAB PO SCH ×3 (06:45→17:32)
[2017-12-20] MEDS: Levothyroxine Sodium 100 MCG TAB PO SCH (06:46)
[2017-12-20] MEDS: HYDROcodone/Acetaminophen 10/325 mg Tablet PO PRN ×2 (06:46→21:04)
[2017-12-20] MEDS ORDERED: Ibuprofen 600 MG TAB PO PRN (08:25)
[2017-12-20] MEDS: Anastrozole 1 MG TAB PO SCH (09:37)
[2017-12-20] MEDS: Sacubitril 49 MG/Valsartan 51 MG TABLET PO SCH ×2 (09:37→21:06)
[2017-12-20] MEDS: Amiodarone 200 MG TAB PO SCH ×2 (09:37→21:05)
[2017-12-20] MEDS: Clopidogrel Bisulfate 75 MG TAB PO SCH (09:37)
[2017-12-20] MEDS: metFORMIN XR 500 MG TAB PO SCH ×2 (09:37→17:32)
[2017-12-20] MEDS: Famotidine 20 MG TAB PO SCH ×2 (09:37→21:05)
[2017-12-20] MEDS: Senokot 8.6 MG TAB PO SCH (09:38)
[2017-12-20] MEDS: Ezetimibe 10 MG TAB PO SCH (09:39)
[2017-12-20] MEDS: Docusate 100 MG CAP PO SCH (09:39)
[2017-12-20] MEDS: Glimepiride 2 MG TAB PO SCH (09:39)
[2017-12-20] MEDS: Carvedilol 6.25 MG TAB PO SCH ×2 (09:39→17:32)
[2017-12-20] MEDS: Liothyronine Sodium 5 MCG TAB PO SCH ×2 (09:39→21:06)
[2017-12-20] MEDS: Furosemide 40 MG TAB PO SCH (09:39)
[2017-12-20] MEDS: Insulin Glargine,Hum.Rec.Anlog [Toujeo Solostar] SC SCH (09:46)
[2017-12-20] MEDS: CANAGLIFLOZIN 300 MG PO SCH (09:46)
[2017-12-20] MEDS: traMADol HCl 50 MG TAB PO PRN (17:31)
--- NOTE | 2017-12-20 18:32 | PRG ---
DATE OF SERVICE: 12/20/2017 ATTENDING PHYSICIAN: Dr. Lv Kenney. SUBJECTIVE: Mr. Villatoro is a 67-year-old male postoperative day #2 status post ORIF of right trimall eolar ankle fracture. He has remained stable on the surgical floor. The pain has been well controll ed. Blood glucose was elevated yesterday significantly; however, with a change in medication yesterd ay, his blood pressure has returned to a more normal level. OBJECTIVE: VITAL SIGNS: Blood pressure 122/66, pulse 61, respirations 14, O2 sat 95%, temperature 98.1. GENERAL: Well-developed, well-nourished male, lying in bed, in no acute distress. HEENT: Atraumatic, normocephalic. CARDIOVASCULAR: Regular rate and rhythm. Heart sounds normal. PULMONARY: Bilateral breath sounds clear. No respiratory distress. ABDOMEN: Soft, nontender, nondistended. EXTREMITIES: Right lower extremity with a splint in place. Cap refill brisk. Neurovascular intact in all extremities. NEUROLOGIC: GCS 15. Alert and oriented x3. PERTINENT LABORATORY DATA: Fingerstick blood glucose high of 473 yesterday, down to 146 this morning . ASSESSMENT: 1. A 67-year-old male status post ground level fall. 2. Right ankle fracture. 3. Status post open reduction internal fixation right ankle fracture. 4. History of type 2 diabetes with blood sugar fluctuation. PLAN: 1. Continue prehospitalization insulin regimen. 2. Ensure consistent carbohydrate diet. 3. Continue physical and occupational therapy. 4. Case management consulted for discharge planning. The patient has been screened for rehab; [facility], we are pending insurance approval. 5. Continue regular aspirin and Plavix. 6. Pepcid for peptic ulcer disease prophylaxis. The patient was seen and examined with Dr. Kenney, who agrees with the assessment and plan.
[2017-12-20] MEDS: Scopolamine 1.5 mg/72 hour Patch TD SCH (21:06)
[2017-12-21] MEDS: Hydrocortisone Sod Succ/PF 100 mg/2 ml Vial IVP SCH ×3 (00:01→23:43)
--- NOTE | 2017-12-21 01:01 | PRG ---
DATE OF SERVICE: 12/20/2017 ATTENDING PHYSICIAN: Lv Kenney DO SUBJECTIVE: A 67-year-old male postoperative day #2 status post ORIF of right ankle fracture. No ne w complaint. Fever remained stable at this time, but I was concerned his glucose is elevated and is irregular on point of care testing. OBJECTIVE: VITAL SIGNS: Stable. Glucose has remained erratic. Physical exam is unremarkable as detailed in previous progress note. ASSESSMENT AND PLAN: Continue with care plan as stated in the progress note in the morning. Continu e to monitor. Continue care plan. Discharge planning is pending.
[2017-12-21] MEDS: Levothyroxine Sodium 100 MCG TAB PO SCH (05:48)
[2017-12-21] MEDS: HumaLOG 300 UNITS/3 ML VIAL SC PRN ×4 (05:49→21:56)
[2017-12-21] MEDS: Acetaminophen 500 MG TAB PO SCH ×5 (05:49→23:43)
[2017-12-21] MEDS ORDERED: Bisacodyl 10 MG SUPP PR PRN (08:15)
[2017-12-21] MEDS: Carvedilol 6.25 MG TAB PO SCH ×2 (08:33→16:33)
[2017-12-21] MEDS: metFORMIN XR 500 MG TAB PO SCH ×2 (08:33→16:32)
[2017-12-21] MEDS: Amiodarone 200 MG TAB PO SCH ×2 (08:34→20:40)
[2017-12-21] MEDS: Clopidogrel Bisulfate 75 MG TAB PO SCH (08:34)
[2017-12-21] MEDS: Furosemide 40 MG TAB PO SCH (08:35)
[2017-12-21] MEDS: Famotidine 20 MG TAB PO SCH ×2 (08:35→20:40)
[2017-12-21] MEDS: Senokot 8.6 MG TAB PO SCH (08:35)
[2017-12-21] MEDS: Docusate 100 MG CAP PO SCH (08:35)
[2017-12-21] MEDS: Ezetimibe 10 MG TAB PO SCH (08:36)
[2017-12-21] MEDS: Liothyronine Sodium 5 MCG TAB PO SCH ×2 (08:36→20:39)
[2017-12-21] MEDS: Glimepiride 2 MG TAB PO SCH (08:36)
[2017-12-21] MEDS: CANAGLIFLOZIN 300 MG PO SCH (08:36)
[2017-12-21] MEDS: Sacubitril 49 MG/Valsartan 51 MG TABLET PO SCH ×2 (08:38→20:39)
[2017-12-21] MEDS: Anastrozole 1 MG TAB PO SCH (08:38)
[2017-12-21] MEDS: Insulin Glargine,Hum.Rec.Anlog [Toujeo Solostar] SC SCH (08:45)
--- NOTE | 2017-12-21 17:44 | PRG ---
DATE OF SERVICE: 12/21/2017 SUBJECTIVE: Mr. Villatoro is postoperative day #3 status post ORIF of right trimalleolar ankle fractur e. The patient reports adequate pain control. Nerve block pump remains in place. Blood glucose con tinues to remain elevated and varying significantly at times. Home insulin regimen was added 2 days ago. The patient reports noncompliance with a diabetic diet. OBJECTIVE: VITAL SIGNS: Temperature 98.7, pulse 59, respirations 16, O2 sat 96%, blood pressure 139/73. GENERAL: Well-developed, well-nourished male, lying in bed, in no acute distress. HEENT: Atraumatic, normocephalic. CARDIOVASCULAR: Regular rate and rhythm. Heart sounds normal. CHEST: Lungs clear bilaterally. RESPIRATORY: Even unlabored. ABDOMEN: Soft, nontender, nondistended. EXTREMITIES: Right lower leg and foot with a splint in place. No trauma noted in other three extrem ities. Neurovascularly intact. Cap refill brisk in all extremities. NEUROLOGIC: GCS 15. Alert and oriented x3. LABORATORY DATA: Glucose on a.m. labs 162, point of care testing ranges from 177-317. ASSESSMENT: 1. Postoperative day #2, status post open reduction internal fixation right ankle fracture. 2. Labile blood glucose. Home insulin regimen restarted. PLAN: 1. Continue physical and occupational therapy. 2. Continue to monitor the patient's blood glucose. Ensure that the patient is on consistent carboh ydrate diet. Record any food brought in from outside. 3. Case management for discharge planning. Anticipate patient will discharge to rehabilitation. In surance pending. The patient was seen and examined with Dr. Kenney who agrees with the assessment and plan.
[2017-12-21] MEDS: HYDROcodone/Acetaminophen 10/325 mg Tablet PO PRN (20:42)
--- NOTE | 2017-12-21 23:40 | PRG ---
DATE OF SERVICE: 12/21/2017 SUBJECTIVE: Mr. Villatoro is doing well postoperatively. Still having some trouble ambulating, but ot herwise okay. OBJECTIVE: VITAL SIGNS: Blood pressure 129/71, pulse 70 and regular. LUNGS: Clear. CARDIAC: Normal S1, normal S2. ABDOMEN: Soft, nontender. EXTREMITIES: No edema. ASSESSMENT: 1. Previous atrial fibrillation, rhythm remains regular. 2. Cardiomyopathy, has LifeVest in place. 3. Single vessel coronary artery disease. 4. Recent fracture. PLAN: He really should be anticoagulated with his history of paroxysmal atrial fibrillation, which r equired cardioversion. We will start Eliquis, stop Plavix. We will wait until Sunday to start him o n the Eliquis. He is being monitored now for the LifeVest. I have not been informed of any dysrhyth mias at home anytime from a cardiac standpoint.
--- NOTE | 2017-12-22 00:16 | PRG ---
DATE OF SERVICE: 12/21/2017 ATTENDING PHYSICIAN: Lv Kenney DO SUBJECTIVE: A 67-year-old male postoperative day #3 status post ORIF of the right ankle fracture. N o new complaint. He is having erratic blood sugar counts that we are attempting to control. Dischar ge disposition pending right now. OBJECTIVE: VITAL SIGNS: Stable. Glucose has remained up and down. Physical exam is unremarkable from daytime progress note. ASSESSMENT AND PLAN: Continue with care plan as stated in the progress note. Continue to monitor. Discharge planning is pending.
[2017-12-22] MEDS: Acetaminophen 500 MG TAB PO SCH ×3 (06:22→16:43)
[2017-12-22] MEDS: Levothyroxine Sodium 100 MCG TAB PO SCH (06:23)
[2017-12-22] MEDS: HumaLOG 300 UNITS/3 ML VIAL SC PRN ×3 (06:24→16:37)
[2017-12-22] MEDS: Ezetimibe 10 MG TAB PO SCH (08:31)
[2017-12-22] MEDS: metFORMIN XR 500 MG TAB PO SCH ×2 (08:31→16:36)
[2017-12-22] MEDS: Carvedilol 6.25 MG TAB PO SCH ×2 (08:32→16:37)
[2017-12-22] MEDS: Liothyronine Sodium 5 MCG TAB PO SCH ×2 (08:32→20:52)
[2017-12-22] MEDS: Famotidine 20 MG TAB PO SCH ×2 (08:32→20:52)
[2017-12-22] MEDS: Amiodarone 200 MG TAB PO SCH ×2 (08:32→20:52)
[2017-12-22] MEDS: Furosemide 40 MG TAB PO SCH (08:32)
[2017-12-22] MEDS: CANAGLIFLOZIN 300 MG PO SCH (08:33)
[2017-12-22] MEDS: Docusate 100 MG CAP PO SCH (08:33)
[2017-12-22] MEDS: Insulin Glargine,Hum.Rec.Anlog [Toujeo Solostar] SC SCH (08:35)
[2017-12-22] MEDS: Sacubitril 49 MG/Valsartan 51 MG TABLET PO SCH ×2 (08:37→20:52)
[2017-12-22] MEDS: Senokot 8.6 MG TAB PO SCH (08:38)
[2017-12-22] MEDS: traMADol HCl 50 MG TAB PO PRN (08:45)
[2017-12-22] MEDS: Anastrozole 1 MG TAB PO SCH (08:47)
[2017-12-22] MEDS: Glimepiride 2 MG TAB PO SCH (10:13)
[2017-12-22] MEDS: HYDROcodone/Acetaminophen 10/325 mg Tablet PO PRN ×3 (11:22→20:51)
[2017-12-22] MEDS: Hydrocortisone Sod Succ/PF 100 mg/2 ml Vial IVP SCH (11:23)
--- NOTE | 2017-12-22 15:15 | EKG ---
Test Reason : PRE OP Blood Pressure : / mmHG Vent. Rate : 061 BPM Atrial Rate : 061 BPM P-R Int : 202 ms QRS Dur : 112 ms QT Int : 464 ms P-R-T Axes : 062 021 067 degrees QTc Int : 467 ms Normal sinus rhythm Low voltage QRS Cannot rule out Anterior infarct , age undetermined Abnormal ECG Confirmed by JEREMY ACE, ESTELA ([id number]), news assignment editor KELLY GUY ([id number]) on 12/22/2017 3:14:40 PM Referred By: Confirmed By:ESTELA LUNA MD
--- NOTE | 2017-12-22 15:35 | PRG ---
DATE OF SERVICE: 12/22/2017 ATTENDING PHYSICIAN: Dr. Lv Kenney. SUBJECTIVE: Mr. Villatoro is postoperative day #4 status post ORIF of right trimalleolar ankle fracture. The patient reports adequate pain control. Nerve block pump had been now removed. Blood glucose has remained elevated, but is trending down slightly. Blood glucose in last 24 hours ranged from 177-273. OBJECTIVE: VITAL SIGNS: Blood pressure 150/71, temperature 98.3, pulse 63, respirations 16 , O2 sat 96%. GENERAL: Well-developed, well-nourished male sitting on the edge of bed. No acute distress. PULMONARY: Bilateral breath sounds clear. No respiratory distress. CARDIOVASCULAR: Heart sounds normal. Regular rate and rhythm. ABDOMEN: Soft, nontender, nondistended. EXTREMITIES: Right lower leg and foot with splint in place. Neurovascularly intact. Cap refill brisk. NEUROLOGIC: GCS of 15. Awake, alert and oriented x3. ASSESSMENT AND PLAN: 1. Postoperative day #4, status post open reduction and internal fixation right ankle fracture. 2. Dr. Powell following for Cardiology. The patient to start on Eliquis tomorrow. 3. Case management following for discharge planning. Patient reports that [facility] has called him and stated he is accepted to rehabilitation. PLAN: 1. Continue physical and occupational therapy. 2. Start Eliquis as per Dr. Powell's orders. 3. Case management following discharge planning. We will discharge to rehab when bed available. The patient was reviewed with Dr. Kenney who agrees with the assessment and plan of care. [facility] HOSPITALFrancesco
--- NOTE | 2017-12-23 00:44 | PRG ---
DATE OF SERVICE: 12/17/2017 SUBJECTIVE: This is a 67-year-old male post op day #4, status post ORIF with right ankle fracture. No new complaints . Discharge disposition pending right now. OBJECTIVE: VITAL SIGNS: Stable. Physical exam is unremarkable from daytime progress note. ASSESSMENT AND PLAN: Continue with care plan as stated in the progress note. Continue to monitor pe nding discharge plan. We will resume on Sunday.
[2017-12-23] MEDS: Acetaminophen 500 MG TAB PO SCH ×4 (00:49→17:12)
[2017-12-23] MEDS: Hydrocortisone Sod Succ/PF 100 mg/2 ml Vial IVP SCH ×2 (00:50→12:39)
[2017-12-23] MEDS: HYDROcodone/Acetaminophen 10/325 mg Tablet PO PRN ×5 (00:54→21:42)
[2017-12-23] MEDS: Levothyroxine Sodium 100 MCG TAB PO SCH (05:27)
[2017-12-23] MEDS: Carvedilol 6.25 MG TAB PO SCH ×2 (07:48→17:15)
[2017-12-23] MEDS: metFORMIN XR 500 MG TAB PO SCH ×2 (07:48→17:15)
[2017-12-23] MEDS: Anastrozole 1 MG TAB PO SCH (08:10)
[2017-12-23] MEDS: Amiodarone 200 MG TAB PO SCH ×2 (08:10→21:42)
[2017-12-23] MEDS: Apixaban 5 MG TAB PO SCH ×2 (08:10→21:42)
[2017-12-23] MEDS: Docusate 100 MG CAP PO SCH (08:10)
[2017-12-23] MEDS: Liothyronine Sodium 5 MCG TAB PO SCH ×2 (08:11→21:42)
[2017-12-23] MEDS: Ezetimibe 10 MG TAB PO SCH (08:11)
[2017-12-23] MEDS: Glimepiride 2 MG TAB PO SCH (08:11)
[2017-12-23] MEDS: Famotidine 20 MG TAB PO SCH ×2 (08:11→21:42)
[2017-12-23] MEDS: Furosemide 40 MG TAB PO SCH (08:11)
[2017-12-23] MEDS: Senokot 8.6 MG TAB PO SCH (08:12)
[2017-12-23] MEDS: Sacubitril 49 MG/Valsartan 51 MG TABLET PO SCH ×2 (08:12→21:42)
[2017-12-23] MEDS: CANAGLIFLOZIN 300 MG PO SCH (08:17)
[2017-12-23] MEDS: Insulin Glargine,Hum.Rec.Anlog [Toujeo Solostar] SC SCH (08:18)
[2017-12-23] MEDS: HumaLOG 300 UNITS/3 ML VIAL SC PRN ×3 (15:10→21:39)
--- NOTE | 2017-12-23 16:32 | PRG ---
DATE OF SERVICE: 12/23/2017 ATTENDING PHYSICIAN: Dr. Lv Kenney. SUBJECTIVE: Mr. Villatoro is postoperative day #5, status post open reduction and internal fixation of right trimalleolar ankle fracture. ON-Q nerve block was discontinued one day ago. The patient repo rts adequate pain control. Blood glucose has remained elevated ranging from 151-255 over the past 24 hours. OBJECTIVE: VITAL SIGNS: Temperature 97.7, pulse 59, respirations 18, O2 sat 96%, blood pressure 137/70. GENERAL: Well-developed, well-nourished male lying in bed. No acute distress. HEENT: Atraumatic, normocephalic. PULMONARY: Bilateral breath sounds clear. No respiratory distress. CARDIOVASCULAR: Regular rate and rhythm. ABDOMEN: Soft, nontender, and nondistended. EXTREMITIES: Right lower leg and foot with splint in place. Neurovascularly intact. Cap refill cristian sk. NEUROLOGIC: GCS of 15. Awake, alert, and oriented x3. ASSESSMENT: 1. Postoperative day #5, status post open reduction and internal fixation of right ankle fracture. 2. Dr. Powell following for Cardiology. The patient was started on Eliquis per Dr. Powell's daughte rs. 3. Case management is following for discharge planning. We will discharge to rehab when bed is [facility]. The patient was reviewed with Dr. Kenney who agrees with the assessment and plan of care.
[2017-12-23] MEDS: Scopolamine 1.5 mg/72 hour Patch TD SCH (21:41)
[2017-12-24] MEDS: Acetaminophen 500 MG TAB PO SCH ×5 (01:34→22:19)
[2017-12-24] MEDS: Hydrocortisone Sod Succ/PF 100 mg/2 ml Vial IVP SCH (01:34)
[2017-12-24] MEDS: HYDROcodone/Acetaminophen 10/325 mg Tablet PO PRN ×4 (03:36→22:22)
[2017-12-24] MEDS: Levothyroxine Sodium 100 MCG TAB PO SCH (06:50)
[2017-12-24] MEDS: CANAGLIFLOZIN 300 MG PO SCH (09:31)
[2017-12-24] MEDS: Docusate 100 MG CAP PO SCH (09:32)
[2017-12-24] MEDS: Senokot 8.6 MG TAB PO SCH (09:32)
[2017-12-24] MEDS: Ezetimibe 10 MG TAB PO SCH (09:32)
[2017-12-24] MEDS: Amiodarone 200 MG TAB PO SCH ×2 (09:32→22:20)
[2017-12-24] MEDS: Sacubitril 49 MG/Valsartan 51 MG TABLET PO SCH ×2 (09:32→22:20)
[2017-12-24] MEDS: Apixaban 5 MG TAB PO SCH ×2 (09:32→22:19)
[2017-12-24] MEDS: Liothyronine Sodium 5 MCG TAB PO SCH ×2 (09:32→22:19)
[2017-12-24] MEDS: Glimepiride 2 MG TAB PO SCH (09:32)
[2017-12-24] MEDS: Famotidine 20 MG TAB PO SCH ×2 (09:32→22:20)
[2017-12-24] MEDS: metFORMIN XR 500 MG TAB PO SCH ×2 (09:33→16:28)
[2017-12-24] MEDS: Anastrozole 1 MG TAB PO SCH (09:33)
[2017-12-24] MEDS: Furosemide 40 MG TAB PO SCH (09:33)
[2017-12-24] MEDS: Carvedilol 6.25 MG TAB PO SCH ×2 (09:33→16:27)
[2017-12-24] MEDS: Bisacodyl 10 MG SUPP PR SCH (09:34)
[2017-12-24] MEDS: Insulin Glargine,Hum.Rec.Anlog [Toujeo Solostar] SC SCH (09:34)
--- NOTE | 2017-12-24 10:37 | PRG-2 ---
DATE OF SERVICE: 12/24/2017 ATTENDING PHYSICIAN: Dr. Lv Kenney SUBJECTIVE: Mr. Villatoro is postop day #6 status post ORIF of a right ankle fracture. The patient reports pain control is adequate. Blood glucoses since admission have been elevated as high as 473 on 12/19/2017, however, as of the last 24 hours, blood glucose has been 160-220. On further discussion with the patient he is typically not controlled while he does take normally glyburide, Toujeo, Trulicity and metformin. While here he has only been on glimepiride and metformin and his Toujeo as he Trulicity is not available here. He did miss his most recent dose which he typically takes on . However, the patient states he has been out for some time due to insurance issues. His blood pressures have been generally controlled, 130s/70s with a few blood pressures 140s/70s. OBJECTIVE: VITAL SIGNS: Temperature is 98.1, pulse is 60, respiratory rate is 18, O2 sat is 96 on room air, blood pressure 148/76. GENERAL: Well-developed, well-nourished, lying in bed in no acute distress. HEENT: Atraumatic, normocephalic. RESPIRATORY: Breath sounds are clear. No respiratory distress. CARDIOVASCULAR: Regular rate and rhythm. ABDOMEN: Soft, nontender, nondistended. EXTREMITIES: Right lower leg with a splint in place. Neurovascularly intact. Cap refill is brisk. NEUROLOGIC: GCS of 15. Awake, alert and oriented x3. ASSESSMENT: 1. Postop day #6 status post open reduction internal fixation right ankle. 2. Dr. Powell is following for Cardiology. The patient has been started on Eliquis. 3. Case management is following for discharge planning. Currently the patient is stable for discharge; however, pending placement at rehab. The plan has been reviewed with Dr. Kenney and he agrees with the assessment and plan. [facility]
[2017-12-24] MEDS: HumaLOG 300 UNITS/3 ML VIAL SC PRN ×2 (12:11→17:40)
[2017-12-25] MEDS: Levothyroxine Sodium 100 MCG TAB PO SCH (06:36)
[2017-12-25] MEDS: HumaLOG 300 UNITS/3 ML VIAL SC PRN ×3 (06:36→21:36)
[2017-12-25] MEDS: Acetaminophen 500 MG TAB PO SCH ×3 (07:22→18:36)
[2017-12-25] MEDS: CANAGLIFLOZIN 300 MG PO SCH ×2 (10:40→10:44)
[2017-12-25] MEDS: Senokot 8.6 MG TAB PO SCH (10:44)
[2017-12-25] MEDS: Insulin Glargine,Hum.Rec.Anlog [Toujeo Solostar] SC SCH ×2 (10:44→14:40)
[2017-12-25] MEDS: Sacubitril 49 MG/Valsartan 51 MG TABLET PO SCH ×2 (10:44→21:33)
[2017-12-25] MEDS: Liothyronine Sodium 5 MCG TAB PO SCH ×2 (10:44→21:33)
[2017-12-25] MEDS: Docusate 100 MG CAP PO SCH (10:45)
[2017-12-25] MEDS: Ezetimibe 10 MG TAB PO SCH (10:45)
[2017-12-25] MEDS: Glimepiride 2 MG TAB PO SCH (10:45)
[2017-12-25] MEDS: Famotidine 20 MG TAB PO SCH ×2 (10:45→21:45)
[2017-12-25] MEDS: Furosemide 40 MG TAB PO SCH ×2 (10:45→10:49)
[2017-12-25] MEDS: Anastrozole 1 MG TAB PO SCH (10:46)
[2017-12-25] MEDS: Apixaban 5 MG TAB PO SCH ×3 (10:46→21:33)
[2017-12-25] MEDS: Bisacodyl 10 MG SUPP PR SCH (10:46)
[2017-12-25] MEDS: Amiodarone 200 MG TAB PO SCH ×2 (10:46→21:33)
[2017-12-25] MEDS: metFORMIN XR 500 MG TAB PO SCH ×2 (10:46→18:06)
[2017-12-25] MEDS: Carvedilol 6.25 MG TAB PO SCH ×2 (10:46→18:07)
[2017-12-25] MEDS ORDERED: Magnesium Citrate 300 ML BOT PO SCH (12:00)
[2017-12-25] MEDS: HYDROcodone/Acetaminophen 10/325 mg Tablet PO PRN ×2 (14:47→21:35)
--- NOTE | 2017-12-25 15:08 | PRG-2 ---
DATE OF SERVICE: 12/25/2017 ATTENDING PHYSICIAN: Lv Kenney DO SUBJECTIVE: Mr. Villatoro is postop day #7 status post ORIF of right trimalleolar ankle fracture. The patient reports pain control is adequate. Blood glucoses on admission have been elevated into the 4 70s. Most recently, blood glucose has been 180s to 210. He is not currently taking all the medicati ons he is written for, specifically Trulicity; however, he has been out of his home as well. Blood p ressures have been generally controlled since admission, into the 140s. OBJECTIVE: VITAL SIGNS: Temperature 98.0, pulse 64, respiratory rate 16, oxygen saturation 95% on room air, blo od pressure 148/82. GENERAL: Well-developed and well-nourished, no acute distress. HEENT: Atraumatic, normocephalic. RESPIRATORY: Breath sounds clear. No respiratory distress. CARDIOVASCULAR: Regular rate and rhythm. ABDOMEN: Soft, tender, nondistended. EXTREMITIES: Right lower leg has a splint in place. Neurovascularly intact. Capillary refill is br isk. NEUROLOGIC: Awake, alert, and oriented x3. GCS 15. ASSESSMENT: 1. Postop day 7, status post open reduction internal fixation of right ankle. 2. Constipation. 3. Paroxysmal atrial fibrillation. 4. Cardiomyopathy. PLAN: 1. Cardiology continue followup for atrial fibrillation and cardiac history. The patient has LifeVe st in place. The patient has been started on Eliquis. 2. Constipation. We will start magnesium citrate today. 3. Case management is following for discharge planning. Was denied placement into rehab due to insu florencio. We will attempt to get placement in a senior living facility. This patient was seen with and reviewed by Dr. Kenney who agrees with the assessment and plan.
--- NOTE | 2017-12-25 22:44 | PRG ---
DATE OF SERVICE: 12/25/2017 SUBJECTIVE: This is a 67-year-old gentleman with multiple medical comorbidities postop day 7 status post ORIF of the right ankle. The patient states pain has been controlled. He localizes no complaints this evening. OBJECTIVE: VITAL SIGNS: Reviewed and stable. The patient is afebrile. GENERAL: Resting in bed in on acute distress. LUNGS: Breathing is nonlabored. EXTREMITIES: Orthopedics dressing is clean, dry and intact. ASSESSMENT AND PLAN: As documented in daily progress note. Currently, waiting senior living facility acceptance. Continue care as ordered. Continue to monitor. Await eventual disposition. KHALIF
[2017-12-26] MEDS: Acetaminophen 500 MG TAB PO SCH ×2 (00:21→05:25)
[2017-12-26] MEDS: Levothyroxine Sodium 100 MCG TAB PO SCH (05:25)
[2017-12-26 08:36] VITALS: BP 117/74; TEMP 98.3
[2017-12-26] MEDS: Famotidine 20 MG TAB PO SCH (09:41)
[2017-12-26] MEDS: Senokot 8.6 MG TAB PO SCH (09:41)
[2017-12-26] MEDS: Sacubitril 49 MG/Valsartan 51 MG TABLET PO SCH (09:41)
[2017-12-26] MEDS: Furosemide 40 MG TAB PO SCH (09:41)
[2017-12-26] MEDS: Anastrozole 1 MG TAB PO SCH (09:41)
[2017-12-26] MEDS: Docusate 100 MG CAP PO SCH (09:41)
[2017-12-26] MEDS: Ezetimibe 10 MG TAB PO SCH (09:41)
[2017-12-26] MEDS: metFORMIN XR 500 MG TAB PO SCH (09:41)
[2017-12-26] MEDS: Glimepiride 2 MG TAB PO SCH (09:41)
[2017-12-26] MEDS: Carvedilol 6.25 MG TAB PO SCH (09:42)
[2017-12-26] MEDS: Apixaban 5 MG TAB PO SCH (09:42)
[2017-12-26] MEDS: Amiodarone 200 MG TAB PO SCH (09:42)
[2017-12-26] MEDS: CANAGLIFLOZIN 300 MG PO SCH (09:42)
[2017-12-26] MEDS: Liothyronine Sodium 5 MCG TAB PO SCH (09:42)
[2017-12-26] MEDS: Insulin Glargine,Hum.Rec.Anlog [Toujeo Solostar] SC SCH (09:46)
--- NOTE | 2017-12-27 14:45 | DIS ---
DATE OF ADMISSION: 12/17/2017 DATE OF DISCHARGE: 12/26/2017 ADMISSION DIAGNOSES: 1. Status post ground level fall. 2. Right trimalleolar fracture. 3. Acute traumatic pain. 4. Cardiomyopathy with ejection fraction of 20-25%. 5. Diabetes with hypoglycemia. 6. History of hypertension. 7. History of hyperlipidemia. 8. Hypothyroidism. CONSULTATIONS: Orthopedics, Dr. Rodriguez. PROCEDURES: Open reduction internal fixation of right ankle fracture. SUMMARY: The patient is a 67-year-old man who was reportedly at home when he tripped and e xperienced immediate right ankle pain. Patient was brought to the Emergency Department, evaluated, e xamined and noted to have the above injuries. Patient would require cardiac clearance due to his sig nificant cardiac history to include requiring to wear a LifeVest. The patient would be cleared for s urgery, he would undergo his above orthopedic procedure and tolerate this well. The patient will spe nd the next several days awaiting insurance approval for rehab placement which eventually would ha [facility]. At time of discharge, the patient was cardiovascularly stable. He was tolerating a diet. His pa in was controlled and he was working with physical and occupational therapy. The patient will follow up with his cardiovascular invasive specialist as directed and will follow up with Orthopedics in 2 weeks, sooner as jerica erickson
== END 2017-12-26 11:30 | DRG 493 ==
LOC: ERS 04:45 → ERHOLD 05:53 → SURG B 10:46
PROVIDERS: ADMIT Specialist; ATTEND Specialist
PROC: 0QSJ04Z Reposition Right Fibula with Internal Fixation Device, Open Approach (ICD-10-PCS; principal; 2017-12-18)
PROC: 0QSG04Z Reposition Right Tibia with Internal Fixation Device, Open Approach (ICD-10-PCS; 2017-12-18)
PROC: 3E0T3BZ Introduction of Anesthetic Agent into Peripheral Nerves and Plexi, Percutaneous Approach (ICD-10-PCS; 2017-12-18)
PROC: 3E0T33Z Introduction of Anti-inflammatory into Peripheral Nerves and Plexi, Percutaneous Approach (ICD-10-PCS; 2017-12-18)
DX: S82.851A Displaced trimalleolar fracture of right lower leg, initial encounter for closed fracture (principal); I42.9 Cardiomyopathy, unspecified; E11.649 Type 2 diabetes mellitus with hypoglycemia without coma; I48.91 Unspecified atrial fibrillation; W18.30XA Fall on same level, unspecified, initial encounter; Y92.010 Kitchen of single-family (private) house as the place of occurrence of the external cause; I10 Essential (primary) hypertension; E78.5 Hyperlipidemia, unspecified; E03.9 Hypothyroidism, unspecified; Z79.01 Long term (current) use of anticoagulants; Z79.4 Long term (current) use of insulin; K59.00 Constipation, unspecified; I48.0 Paroxysmal atrial fibrillation; I25.10 Atherosclerotic heart disease of native coronary artery without angina pectoris; E11.65 Type 2 diabetes mellitus with hyperglycemia
CPT/HCPCS: 27818; 36415; 36416; 70450; 71045; 76001; 80048; 80053; 81003; 82533; 82553; 83690; 83735; 83880; 84100; 84484; 85025; 85610; 85730; 93005; 96361; 96374; 96375; J2270; A4306; C1713; G0390; G8978-GP-CM; G8979-GP-CK; G8987-GO-CK; G8988-GO-CI; J0131; J0670; J1720; J1885; J2060; J2250; J2405; J2550; J2704; J2765; J2795; J3010; P9045; S0020; S0028

== ENCOUNTER 2018-03-21 06:16 | Day surgery (SDC) | payer MEDICARE ==
[2018-03-20 13:39] VITALS: BMI 33.5
[2018-03-21] MEDS ORDERED: PROPOFOL 20 ML ONE (07:07)
[2018-03-21 08:12] LABS: Hemoglobin 7.2 g/dL (14.0-18.0); Mean Corpuscular HGB CONC 30.2 g/dL (32.0-36.0); Mean Corpuscular Hemoglobin 21.2 pg (27.0-31.0); Mean Corpuscular Volume 70.1 fl (80.0-94.0); Mean Platelet Volume 9.6 fL (7.4-10.4); Platelet Count 324 thou/uL (130-400); RBC Distribution Width 16.4 % (11.5-14.5); Red Blood Cell (RBC) Count 3.39 mill/uL (4.70-6.10); White Blood Cell (WBC) Count 4.7 thou/uL (4.8-10.8)
[2018-03-21 08:31] LABS: Anion Gap 11 mmol/L (10-20); BUN (Urea Nitrogen) 25 mg/dL (8.4-25.7); Calc. Creatinine Clearance 80 mL/min (70-130); Calcium 8.7 mg/dL (7.8-10.44); Carbon Dioxide 28 mmol/L (23-31); Chloride 105 mmol/L (98-107); Estimated GFR-MDRD 57; Glucose 226 mg/dL (80-115); Potassium 4.6 mmol/L (3.5-5.1); Sodium 139 mmol/L (136-145)
[2018-03-21] MEDS ORDERED: Sodium Ferric Gluconate 250 MG, Admixture Fee 1 EACH in Sodium Chloride 0.9% 250 ML 250 ML IVPB SCH (09:15)
--- NOTE | 2018-03-21 10:08 | PRG ---
DATE OF SERVICE: 03/21/2018 SUBJECTIVE: Mr. Villatoro underwent transesophageal echo today. There is no evidence of thrombus at t he left ventricular apex. However, it was noted that he has severe anemia which is a new finding. H emoglobin 7.2. The patient is on Plavix as well as Eliquis. Fortunately, he is maintaining sinus rhythm. ASSESSMENT: 1. Cardiomyopathy, scheduled for defibrillator implantation next week. 2. No evidence of any thrombus. 3. Paroxysmal atrial fibrillation with maintaining sinus rhythm. 4. Iron deficiency anemia, almost certainly gastrointestinal blood loss. MCV is extremely low at 70 . PLAN: 1. Give intravenous iron. 2. Start oral iron. 3. We will stop Eliquis. 4. Continue Plavix. 5. At some point, we will likely need stent implantation in the obtuse marginal branch. We will hol d off on that for now. Would like him to have the defibrillator implantation and improve the anemia. At some point, we will need upper endoscopy prior to intervention to make sure dual antiplatelet dr hidalgo are okay.
--- NOTE | 2018-03-21 12:51 | ECHO ---
TRANSESOPHAGEAL ECHOCARDIOGRAM: DATE OF PROCEDURE: 03/21/18 INDICATION: This is a 67-year-old gentleman with cardiomyopathy and mitral regurgitation. DESCRIPTION OF PROCEDURE: The patient was taken to the PACU. The patient was sedated by anesthesiology. A transesophageal probe was placed in the distal esophagus and stomach. Echocardiographic images were obtained. The transesophageal probe was removed. FINDINGS: 1. Severe decrease in left systolic function. 2. Left ventricle is moderately dilated. 3. Left atrial enlargement. 4. Moderate mitral regurgitation. 5. Mild tricuspid regurgitation. 6. No thrombus is noted in the left ventricular apex. 7. Atherosclerotic debris in the descending aorta. IMPRESSION: No formed thrombus in the left atrial appendage.
[2018-03-21] MEDS ORDERED: PROPOFOL 200 MG/20 ML VIAL ONE (13:02)
== END 2018-03-21 12:17 | disposition home or self-care (01) ==
LOC: CCL 06:16
PROVIDERS: ATTEND Internal Medicine Cardiovascular Disease
PROC: B24BZZ4 Ultrasonography of Heart with Aorta, Transesophageal (ICD-10-PCS; principal; 2018-03-21)
DX: I25.10 Atherosclerotic heart disease of native coronary artery without angina pectoris (principal); I11.0 Hypertensive heart disease with heart failure; I50.22 Chronic systolic (congestive) heart failure; I48.0 Paroxysmal atrial fibrillation; I42.9 Cardiomyopathy, unspecified; I34.0 Nonrheumatic mitral (valve) insufficiency; D50.9 Iron deficiency anemia, unspecified; E03.9 Hypothyroidism, unspecified; E78.00 Pure hypercholesterolemia, unspecified; E11.9 Type 2 diabetes mellitus without complications; Z95.1 Presence of aortocoronary bypass graft; Z79.4 Long term (current) use of insulin; Z79.02 Long term (current) use of antithrombotics/antiplatelets; Z79.01 Long term (current) use of anticoagulants; Z79.899 Other long term (current) drug therapy
CPT/HCPCS: 36415; 36416; 80048; 85027; 93312; 96374; J2704; J2916; J7050

== ENCOUNTER 2018-05-01 20:50 | Inpatient (IN) | payer MEDICARE ==
--- NOTE | 2018-05-01 21:32 | RAD ---
CHEST ONE VIEW: 05/01/18 HISTORY: Congestion and dyspnea. COMPARISON: 11/27/17. FINDINGS: Atherosclerosis of the aorta. Normal cardiac silhouette. The pulmonary vessels and hilum are normal. The visualized costophrenic angles are clear. Lungs are hyperinflated. Chronic changes are suspected. Bibasilar infiltrates may be present. No pneumothorax or osseous abnormalities. IMPRESSION: 1. Hyperinflation. COPD. 2. Bibasilar interstitial opacities which may represent infiltrate. Continued surveillance is re commended. POS: SANTANAH
[2018-05-01 21:39] LABS: #Monocytes 0.4 thou/uL (0.11-0.59); #Neutrophils 1.8 thou/uL (1.40-6.50); %Basophils 0.8 % (0.0-1.0); %Eosinophils 0.9 % (0.0-10.0); %Lymphocytes 30.6 % (21.0-51.0); %Monocytes 11.7 % (0.0-10.0); %Neutrophils 56.1 % (42.0-75.0); Anisocytosis SLIGHT = 6-15 cells (100X) (0-5/hpf); Elliptocytes SLIGHT = 2-5 cells (100X) (0-1/hpf); MDiff Complete? YES; Mean Corpuscular HGB CONC 31.1 g/dL (32.0-36.0); Mean Corpuscular Volume 80.2 fl (80.0-94.0); Mean Platelet Volume 10.8 fL (7.4-10.4); Platelet Count 209 thou/uL (130-400); RBC Distribution Width 23.2 % (11.5-14.5); Red Blood Cell (RBC) Count 4.41 mill/uL (4.70-6.10); White Blood Cell (WBC) Count 3.2 thou/uL (4.8-10.8)
[2018-05-01 21:43] LABS: ALT (SGPT) 12 U/L (8-55); AST (SGOT) 15 U/L (5-34); Albumin 3.8 g/dL (3.4-4.8); Alkaline Phosphatase 106 U/L (40-150); Anion Gap 13 mmol/L (10-20); BUN (Urea Nitrogen) 17 mg/dL (8.4-25.7); Bilirubin, Total 0.2 mg/dL (0.2-1.2); Calc. Creatinine Clearance 0 mL/min (70-130); Calcium 8.7 mg/dL (7.8-10.44); Carbon Dioxide 28 mmol/L (23-31); Chloride 103 mmol/L (98-107); Estimated GFR-MDRD 57; Globulin 3.1 g/dL (2.4-3.5); Glucose 280 mg/dL (80-115); Potassium 3.9 mmol/L (3.5-5.1); Protein, Total 6.9 g/dL (5.8-8.1); Sodium 140 mmol/L (136-145)
[2018-05-01 21:55] LABS: CKMB 1.7 ng/mL (0-6.6); Troponin I Less than 0.010 ng/mL (< 0.028)
[2018-05-01] MEDS ORDERED: cefTRIAXone\\ROCEPHIN 1 GM VIAL ONE (22:04)
--- NOTE | 2018-05-02 00:34 | PDOC.FPRHP ---
- History of Present Illness Chief Complaint: SOB History of Present Illness: Patient comes in with SOB that has been worsening for about 3 days. He has had orthopnea during this time as well as a non-productive cough. He states he has had subjective fever as well as chills. He got acutely worse last night, he states he was coughing more frequently and could not sleep. He denies dyspnea on exertion, states he could walk around the grocery store w/o difficulty. He has been participating in cardiac rehab without complications. He states Dr. Powell recommended the patient have a defibrillator placed, but he canceled the procedure because he wanted to work with cardiac rehab to strengthen his heart first. ED Course: duoneb, steroids rocephin - Allergies/Adverse Reactions Allergies Allergy/AdvReac Type Severity Reaction Status Date / Time No Known Allergies Allergy Verified 05/02/18 01:23 - Home Medications Medication Instructions Recorded Confirmed Type Anastrozole 1 tab PO DAILY 11/21/17 05/02/18 History Canagliflozin [Invokana] 1 tab PO QAM 11/21/17 05/02/18 History Ezetimibe 1 tab PO DAILY 11/21/17 05/02/18 History Furosemide 1 tab PO DAILY 11/21/17 05/02/18 History Glimepiride [Amaryl] 1 tab PO DAILY 11/21/17 05/02/18 History Insulin Glargine,Hum.Rec.Anlog 40 units SC DAILY 11/21/17 05/02/18 History [Toujeannieo Solostar] Levothyroxine Sodium 200 mcg PO DAILY 11/21/17 05/02/18 History Liothyronine Sodium 5 mcg PO BID 11/21/17 05/02/18 History Pregabalin [Lyrica] 1 capsule PO BID PRN 11/21/17 05/02/18 History Amiodarone [Cordarone] 200 mg PO BID #60 tab 11/29/17 05/02/18 Rx Carvedilol [Coreg] 6.25 mg PO BID-WM #60 tab 11/29/17 05/02/18 Rx Clopidogrel Bisulfate [Plavix] 75 mg PO DAILY #30 tab 11/29/17 05/02/18 Rx Sacubitril/Valsartan 49/51 1 tab PO BID #60 tab 11/29/17 05/02/18 Rx [Entresto 49 mg-51 mg Tablet] metFORMIN HCl [Metformin HCl ER] 1 tab PO BID #0 11/29/17 05/02/18 Rx Insulin Lispro Protamin/Lispro 10 units SC PRN PRN 12/17/17 05/02/18 History [HumaLOG Mix 50/50 Vial] Apixaban [Eliquis] 5 mg PO BID tab 12/26/17 05/02/18 Rx - History PMHx: CHF, DM, hypothyroidism, HLD, HTN, a fib PSHx: Knee, appendectomy FHx: non- contributory Social: 25 pack -year history, quit 20 years ago, no alcohol or drugs - Review of Systems General: reports: fever/chills, night sweats, fatigue ENT: reports: nasal congestion Respiratory: reports: cough, shortness of breath Cardiovascular: denies: chest pain, palpitation Gastrointestinal: denies: nausea, vomiting, diarrhea Genitourinary: denies: dysuria Skin: denies: rashes, itching Musculoskeletal: denies: pain, arthritis/arthralgias Neurological: denies: numbness, weakness Psychological: denies: anxiety, depression - Vital signs BP: 160/77 HR: 77 RR: 20 Tmax: 99.5 Pox: 94% on RA Wt: 103.3 kg - Physical Exam Constitutional: NAD, awake, alert and oriented HEENT: normocephalic and atraumatic, PERRLA Neck: supple Heart: RRR, normal S1/S2 Lungs: no respiratory distress -Lungs: diffuse expiratory wheezes, considerable wheezes on forced expiration, mild rales throughout, no retractions, no increased respiratory rate Abdomen: soft, non-tender, bowel sounds present Musculoskeletal: normal structure, ROM grossly normal Neurological: no focal deficit, CN II-XII intact Skin: no rash/lesions, capillary refill <2 seconds Heme/Lymphatic: no unusual bruising or bleeding FMR H&P: Results - Labs Result Diagrams: 05/02/18 02:54 05/02/18 02:54 Lab results: WBC 3.2 thou/uL (4.8-10.8) L 05/01/18 21:05 Hgb 11.0 g/dL (14.0-18.0) L 05/01/18 21:05 Hct 35.4 % (42.0-52.0) L 05/01/18 21:05 MCV 80.2 fl (80.0-94.0) 05/01/18 21:05 Plt Count 209 thou/uL (130-400) 05/01/18 21:05 Neutrophils % 56.1 % (42.0-75.0) 05/01/18 21:05 Sodium 140 mmol/L (136-145) 05/01/18 21:05 Potassium 3.9 mmol/L (3.5-5.1) 05/01/18 21:05 Chloride 103 mmol/L (98-107) 05/01/18 21:05 Carbon Dioxide 28 mmol/L (23-31) 05/01/18 21:05 BUN 17 mg/dL (8.4-25.7) 05/01/18 21:05 Creatinine 1.27 mg/dL (0.6-1.3) 05/01/18 21:05 Glucose 280 mg/dL (80-115) H 05/01/18 21:05 Calcium 8.7 mg/dL (7.8-10.44) 05/01/18 21:05 Total Bilirubin 0.2 mg/dL (0.2-1.2) 05/01/18 21:05 AST 15 U/L (5-34) 05/01/18 21:05 ALT 12 U/L (8-55) 05/01/18 21:05 Alkaline Phosphatase 106 U/L (40-150) 05/01/18 21:05 CK-MB (CK-2) 1.7 ng/mL (0-6.6) 05/01/18 21:05 B-Natriuretic Peptide 254.0 pg/mL (0-100) H 05/01/18 21:05 Serum Total Protein 6.9 g/dL (5.8-8.1) 05/01/18 21:05 Albumin 3.8 g/dL (3.4-4.8) 05/01/18 21:05 FMR H&P: A/P - Problem List (1) Atrial fibrillation Current Visit: Yes Status: Acute Code(s): I48.91 - UNSPECIFIED ATRIAL FIBRILLATION (2) Shortness of breath Current Visit: No Status: Acute Code(s): R06.02 - SHORTNESS OF BREATH (3) CHF (congestive heart failure) Current Visit: No Status: Chronic Code(s): I50.9 - HEART FAILURE, UNSPECIFIED (4) Hypertension Current Visit: No Status: Chronic Code(s): I10 - ESSENTIAL (PRIMARY) HYPERTENSION (5) Hypothyroidism Current Visit: No Status: Chronic Code(s): E03.9 - HYPOTHYROIDISM, UNSPECIFIED - Plan # Bilateral CAP - CXR shows hyperinflation indicative of COPD, interstitial infiltrates bilaterally - Rocephin, azithromycin - O2 as needed for O2 >90% - prednisone 40mg PO - Duoneb q4 PRN - check procal # CHF - Cath Oct 2017 shows EF 20-25% - Cards recs from February rec defibrillator and eventual stent - does not seem to be fluid overloaded at this time - check [facility], home dose of lasix 40 PO - consider courtesy call to Dr. Powell to let him know patient is here # Prolonged Qtc - 501 in Ed - placing patient on Azithromycin - patient is on Amio at home - check EKG in AM # DM - home meds - SSI # HTN - home meds # Hx of CAD - Home ASA and plavix # Anemia - Hgb much improved from february - 7.2-11.0 - GI bleed was strong consideration at that time - not complaining of darkened or blood stools Dispo: > 48 hours FMR H&P: Upper Level - Pertinent history 67 yo M with PMH of DM2, HTN, HLD, CHF presenting with 3 days of worsening cough. Denies any fevers/chills, but states his cough has been getting worse recently. Has been productive of clear-whitish sputum. Endorses rhinorrhea and congestion. No known sick contacts. - Pertinent findings PE: T: 99.0 P: 71 BP: 147/70 RR: 20 93% on RA Gen: [place] male in NAD HEENT: PERRL, EOMI, MMM, no lymphadenopathy or thyromegaly CV: RRR no murmurs, distal pulses intact Pulm: scattered rhonchi in bilateral lung de santiago Abd: soft, NT/ND, BS present, no masses or distention Ext: no cyanosis or edema MSK: ZHONG well, no joint or muscle pain or swelling Neuro: CN 2-12 intact, normal sensation Skin: no rashes or lesions Psych: A&O x3, appropriate in conversation - Plan Date/Time: 05/02/18 0034 67 yo M here with cough. 1) Bilateral CAP: Admit to medical, continue broad spectrum abx. F/u blood cultures. Continue duonebs prn, O2 prn. Check procal. 2) CHF: euvolemic currently, monitor I/Os, continue coreg. 3) HTN: continue amlodipine 4) DM2: continue metformin, glimepiride, invokana, humalog 5) CAD: continue plavix 6) hypothroid: continue levothyroxine 7) anemia: likely 2/2 chronic disease I, [Mario Velarde], have evaluated this patient and agree with findings/plan as outlined by manager of internal resident. Pertinent changes/additions are listed here. Attending Addendum - Attending Addendum Date/Time: 05/02/18 1031 I personally evaluated the patient and discussed the management with Dr. Long. I agree with the History, Examination, Assessment and Plan documented above with any addition or exceptions noted below. The patient presented with a 3 day history of cough and shortness of breath. Pt was admitted for community acquired pneumonia. Patient has a mildly elevated bnp and known CHF. He also has a 25 pack year smoking history though he did quit many years ago. On physical exam the patient has diffuse wheezing with decreased air movement. He is tachypnic and O2 sats on room air during my exam were 88%. He is being treat with rocephin and azithromycin. Will repeat 2 view chest xr this afternoon to better evaluate for pneumonia. Current cxr suggests pneumonia and copd. He will be treated with steroids and duonebs as well. May also give additional lasix as he has some lower extremity pitting edema as well.
[2018-05-02 01:28] VITALS: BMI 35.6
[2018-05-02] MEDS ORDERED: Ondansetron ODT 4 MG TAB PO PRN (01:57)
[2018-05-02] MEDS ORDERED: Pregabalin 75 MG CAP PO PRN (02:19)
[2018-05-02] MEDS ORDERED: Dextrose 50% Abboject 50 ML SYRINGE SLOW IVP PRN (02:21)
[2018-05-02] MEDS ORDERED: Dextrose 5% in Water 1,000 ML IV PRN (02:21)
[2018-05-02] MEDS: Acetaminophen 325 MG TAB PO PRN ×2 (02:54→21:13)
[2018-05-02] MEDS: Azithromycin 500 MG in Sodium Chloride 0.9% 250 ML 250 ML IVPB SCH (03:25)
[2018-05-02 03:49] LABS: Anion Gap 14 mmol/L (10-20); BUN (Urea Nitrogen) 17 mg/dL (8.4-25.7); Calc. Creatinine Clearance 122 mL/min (70-130); Calcium 8.4 mg/dL (7.8-10.44); Carbon Dioxide 23 mmol/L (23-31); Chloride 107 mmol/L (98-107); Estimated GFR-MDRD 87; Glucose 112 mg/dL (80-115); Potassium 3.9 mmol/L (3.5-5.1); Sodium 140 mmol/L (136-145)
[2018-05-02 04:11] LABS: #Eosinphils 0.1 thou/uL (0.0-0.7); #Lymphocytes 0.7 thou/uL (1.20-3.40); #Monocytes 0.6 thou/uL (0.11-0.59); #Neutrophils 3.2 thou/uL (1.40-6.50); %Basophils 0.3 % (0.0-1.0); %Eosinophils 1.2 % (0.0-10.0); %Lymphocytes 15.9 % (21.0-51.0); %Monocytes 12.7 % (0.0-10.0); %Neutrophils 69.9 % (42.0-75.0); Anisocytosis SLIGHT = 6-15 cells (100X) (0-5/hpf); Elliptocytes SLIGHT = 2-5 cells (100X) (0-1/hpf); Hemoglobin 10.8 g/dL (14.0-18.0); MDiff Complete? YES; Mean Corpuscular HGB CONC 30.9 g/dL (32.0-36.0); Mean Corpuscular Hemoglobin 25.3 pg (27.0-31.0); Mean Corpuscular Volume 81.7 fl (80.0-94.0); Mean Platelet Volume 10.9 fL (7.4-10.4); Ovalocytes SLIGHT = 2-5 cells (100X) (0-1/hpf); Platelet Count 205 thou/uL (130-400); RBC Distribution Width 23.4 % (11.5-14.5); Red Blood Cell (RBC) Count 4.28 mill/uL (4.70-6.10); White Blood Cell (WBC) Count 4.6 thou/uL (4.8-10.8)
[2018-05-02] MEDS: Levothyroxine Sodium 100 MCG TAB PO SCH (05:42)
[2018-05-02] MEDS ORDERED: INSULIN GLARGINE HUM REC ANLOG 40 UNIT SC SCH (09:00)
[2018-05-02] MEDS ORDERED: CANAGLIFLOZIN 300 MG PO SCH (09:00)
[2018-05-02] MEDS ORDERED: cefTRIAXone\\ROCEPHIN 1 GM in Sodium Chloride 0.9% 100 ML IVPB SCH (10:00)
--- NOTE | 2018-05-02 10:36 | PQF ---
CLINICAL DOCUMENTATION IMPROVEMENT CLARIFICATION FORM: ICD-10 Updated PLEASE DO AN ADDENDUM TO THE PROGRESS NOTE WITH ANY DOCUMENTATION UPDATES OR ADDITIONS AND CARRY THROUGH TO DC SUMMARY. THANK YOU. DATE: 05/03/18 ATTN : DR. VENTURA Please exercise your independent, professional judgment in responding to the clarification form. Clinical indicators are provided on the bottom of this form for your review Please check appropriate box(s): CHRONIC HEART FAILURE: A. TYPE: [ ] Systolic / HFrEF [ ] Diastolic / HFpEF [ ] Combined Systolic / Diastolic [ ] Other diagnosis [ ] Unable to determine For continuity of documentation, please document condition throughout progress notes and discharge summary. Thank You. CLINICAL INDICATORS - SIGNS / SYMPTOMS / LABS H&P: "CHF. CATH OCT 2017 SHOWS EF 20-25%" BNP 254 RISKS: H/O CHF H/O HTN AFIB TREATMENT: TELEMETRY MONITORING COREG LASIX THANK YOU, PETE (This form is maintained as a part of the permanent medical record) 2014 [employer] All Rights Reserved CLAUDIA [email or web address] Office: [phone] [facility] [facility]IVERSIDE HOSPITALFrancesco
[2018-05-02] MEDS: predniSONE 20 MG TAB PO SCH (10:41)
[2018-05-02] MEDS: Amiodarone 200 MG TAB PO SCH ×2 (10:42→21:01)
[2018-05-02] MEDS: Carvedilol 6.25 MG TAB PO SCH ×2 (10:42→17:42)
[2018-05-02] MEDS: metFORMIN XR 500 MG TAB PO SCH ×3 (10:42→21:01)
[2018-05-02] MEDS: Clopidogrel Bisulfate 75 MG TAB PO SCH (10:42)
[2018-05-02] MEDS: Apixaban 5 MG TAB PO SCH ×2 (10:42→21:01)
[2018-05-02] MEDS: Furosemide 40 MG TAB PO SCH (10:43)
[2018-05-02] MEDS: Sacubitril 49 MG/Valsartan 51 MG TABLET PO SCH ×2 (10:43→21:01)
[2018-05-02] MEDS: Insulin Glargine 40 UNITS in Pre-Filled Syringe 1 EACH SC SCH (11:12)
--- NOTE | 2018-05-02 13:19 | RAD ---
CHEST 2 VIEWS: HISTORY: Chest pain. COMPARISON: 05/01/18. FINDINGS: Cardiac silhouette and pulmonary vasculature are unremarkable. Lungs are hyperinflated. Ill-defined infiltrate at the left base partially obscures the left hemidiaphragm. Blunting of each costophreni c angle. Mediastinum midline with aortic calcification. IMPRESSION: 1. Left basilar infiltrate. Clinical correlation regarding other signs and symptoms of left basilar pneumonitis is required. Small bilateral pleural effusions. 2. Chronic obstructive pulmonary disease. 3. Atherosclerosis. POS: [facility]
[2018-05-02] MEDS ORDERED: Furosemide 20 MG TAB PO SCH (14:15)
[2018-05-02] MEDS ORDERED: Furosemide 40 MG TAB PO SCH (14:15)
[2018-05-02] MEDS: HumaLOG 300 UNITS/3 ML VIAL SC PRN ×2 (17:43→21:55)
--- NOTE | 2018-05-02 20:19 | PDOC.EVN ---
Event Note - Event Note Event Note: stopped by to check on patient NAD, Patient states he is feeling well now, occassionally gets short of breath at end of neb interval On exam, very mild expiratory wheezes, moving air well Will switch nebs to q4 scheduled q2 PRN jenna
[2018-05-02] MEDS: cefTRIAXone\\ROCEPHIN 1 GM in Sodium Chloride 0.9% 100 ML IVPB SCH (21:03)
[2018-05-03] MEDS: Azithromycin 500 MG in Sodium Chloride 0.9% 250 ML 250 ML IVPB SCH (04:15)
[2018-05-03 04:57] LABS: Anion Gap 16 mmol/L (10-20); BUN (Urea Nitrogen) 18 mg/dL (8.4-25.7); Calc. Creatinine Clearance 93 mL/min (70-130); Carbon Dioxide 24 mmol/L (23-31); Chloride 102 mmol/L (98-107); Estimated GFR-MDRD 66; Glucose 308 mg/dL (80-115); Potassium 3.8 mmol/L (3.5-5.1); Sodium 138 mmol/L (136-145)
--- NOTE | 2018-05-03 05:34 | PDOC.FM ---
- Subjective Subjective: Patient is again feeling SOB this morning. Yesterday morning was switched to Q2H duonebs due to worsening SOB and tachypnea. He did much better during the afternoon and into the night. Night team checked on him and switched duonebs back to Q4H due to his improvement. Again this morning is SOB with spacing out duonebs. He is still requiring oxygen this am. He denies fever/chills and continues to have an appetite with normal urination. - Objective MAR Reviewed: Yes Vital Signs & Weight: Vital Signs (12 hours) Temp Pulse Resp BP BP BP Pulse Ox 05/03/18 04:00 97.8 F 97 17 138/65 94 L 05/03/18 03:44 94 26 H 92 L 05/03/18 01:59 84 22 H 05/02/18 23:31 98.4 F 77 13 119/59 L 91 L 05/02/18 22:16 79 16 05/02/18 21:00 98.7 F 71 21 H 144/70 H 95 05/02/18 20:00 98.7 F 71 21 H 95 05/02/18 18:29 83 16 93 L Weight Weight 100.346 kg I&O: 05/01/18 05/02/18 05/03/18 06:59 06:59 06:59 Intake Total 700 Balance 700 Result Diagrams: 05/03/18 03:58 05/03/18 03:58 <Cassia Vigil - Last Filed: 05/03/18 16:03> - Objective Vital Signs & Weight: Vital Signs (12 hours) Temp Pulse Resp BP Pulse Ox 05/04/18 08:00 97.8 F 75 19 05/04/18 07:50 97.8 F 75 12 151/73 H 95 05/04/18 07:35 95 05/04/18 07:30 75 12 05/04/18 05:02 16 05/04/18 04:00 98.0 F 75 20 145/72 H 93 L 05/04/18 03:00 74 16 05/04/18 00:42 75 12 05/04/18 00:00 98.4 F 80 18 123/58 L 91 L 05/03/18 22:38 70 16 Weight Weight 102.285 kg I&O: 05/03/18 05/04/18 05/05/18 06:59 06:59 06:59 Intake Total 970 1960 Output Total 4000 Balance 970 -2039 Result Diagrams: 05/04/18 03:52 05/04/18 03:52 <Aide Martinez - Last Filed: 05/04/18 09:27> Phys Exam - Physical Examination Constitutional: NAD HEENT: moist MMs facial flushing inspiratory and expiratory wheezing throughout, poor air movement Cardiovascular: RRR, no significant murmur Gastrointestinal: soft, non-tender Musculoskeletal: pulses present trace edema Neurological: moves all 4 limbs Psychiatric: A&O x 3 <Cassia Vigil - Last Filed: 05/03/18 16:03> Dx/Plan (1) Shortness of breath Code(s): R06.02 - SHORTNESS OF BREATH Status: Acute (2) COPD exacerbation Code(s): J44.1 - CHRONIC OBSTRUCTIVE PULMONARY DISEASE W (ACUTE) EXACERBATION Status: Acute (3) Community acquired pneumonia Code(s): J18.9 - PNEUMONIA, UNSPECIFIED ORGANISM Status: Acute (4) CHF (congestive heart failure) Code(s): I50.9 - HEART FAILURE, UNSPECIFIED Status: Chronic (5) Diabetes mellitus Code(s): E11.9 - TYPE 2 DIABETES MELLITUS WITHOUT COMPLICATIONS Status: Acute (6) Afib Code(s): I48.91 - UNSPECIFIED ATRIAL FIBRILLATION Status: Acute (7) Hyperlipidemia Code(s): E78.5 - HYPERLIPIDEMIA, UNSPECIFIED Status: Acute (8) Hypertension Code(s): I10 - ESSENTIAL (PRIMARY) HYPERTENSION Status: Chronic (9) Hypothyroidism Code(s): E03.9 - HYPOTHYROIDISM, UNSPECIFIED Status: Chronic - Plan Plan: Acute Hypoxic Respiratory Failure - likely multifactorial cause. - Evidence of PNA on CXR being treated with Rocephin and Azithromycin, will d/c Azithromycin d/t QT prolongation and start Doxycycline. Blood cx and sputum cx pending. - Hx of CHF, elevated BNP, but clinically not overloaded. Received extra dose of lasix yesterday afternoon d/t CXR showing possible effusion - 25 pack year smoking hx, no formal dx of COPD, but likely d/t CXR and improvement with duonebs - continue duonevs q2h, prednisone and Abx - strict IO's - with possible PNA and technically meeting Sepsis criteria, will give gentle 500ml bolus - continue O2 as needed COPD, possible - will add ICS - will need PFT's on an outpatient basis to confirm dx CHF - last echo with EF 20-25% - follows with Dr. Powell - continue home lasix and coreg Afib - apparently was suggested to him to get internal defibrillator but wanted to try cardiac rehab first - on eliquis, continue - rate controlled with amiodarone, continue QT prolongation - EKG with recent QTc of 408 - d/c azithromycin Hypothyroidism - continue home synthroid HLD - not currently on statin per my records - check FLP DM - takes Invokana and Metformin at home, continue Metformin - will give lantus and SSI here - BS wnl Code Status: Full DVT PPx: Eliquis <Cassia Vigil - Last Filed: 05/03/18 16:03> (1) Atrial fibrillation Code(s): I48.91 - UNSPECIFIED ATRIAL FIBRILLATION Status: Acute (2) Shortness of breath Code(s): R06.02 - SHORTNESS OF BREATH Status: Acute (3) CHF (congestive heart failure) Code(s): I50.9 - HEART FAILURE, UNSPECIFIED Status: Chronic (4) Hypertension Code(s): I10 - ESSENTIAL (PRIMARY) HYPERTENSION Status: Chronic (5) Hypothyroidism Code(s): E03.9 - HYPOTHYROIDISM, UNSPECIFIED Status: Chronic <Aide Martinez - Last Filed: 05/04/18 09:27> Attending Addendum - Attending Addendum Date/Time: 05/03/18 [id number] I personally evaluated the patient and discussed the management with Dr. Vigil. I agree with the History, Examination, Assessment and Plan documented above with any addition or exceptions noted below. The patient is still hypoxic off oxygen. Will continue nebs q 2hrs. Will continue IV rocephin and change azithromycin to doxycycline due to prolonged QTc. Consulting pulmonology for additional recommendations. <Aide Martinez - Last Filed: 05/04/18 09:27>
[2018-05-03 05:40] LABS: #Lymphocytes 0.9 thou/uL (1.20-3.40); #Monocytes 0.6 thou/uL (0.11-0.59); #Neutrophils 4.7 thou/uL (1.40-6.50); %Basophils 0.1 % (0.0-1.0); %Eosinophils 0.3 % (0.0-10.0); %Lymphocytes 14.8 % (21.0-51.0); %Monocytes 9.8 % (0.0-10.0); %Neutrophils 75.1 % (42.0-75.0); Anisocytosis SLIGHT = 6-15 cells (100X) (0-5/hpf); Hemoglobin 12.2 g/dL (14.0-18.0); Hypochromia SLIGHT = 6-15 cells (100X) (0-5/hpf); MDiff Complete? YES; Mean Corpuscular HGB CONC 29.7 g/dL (32.0-36.0); Mean Corpuscular Hemoglobin 24.4 pg (27.0-31.0); Mean Platelet Volume 6.3 fL (7.4-10.4); Microcytosis SLIGHT = 6-15 cells (100X) (0-5/hpf); Platelet Count 191 thou/uL (130-400); RBC Distribution Width 23.3 % (11.5-14.5); Red Blood Cell (RBC) Count 5.02 mill/uL (4.70-6.10); White Blood Cell (WBC) Count 6.3 thou/uL (4.8-10.8)
[2018-05-03] MEDS: Levothyroxine Sodium 100 MCG TAB PO SCH (06:07)
[2018-05-03] MEDS: Amiodarone 200 MG TAB PO SCH ×2 (08:45→19:50)
[2018-05-03] MEDS: predniSONE 20 MG TAB PO SCH (08:45)
[2018-05-03] MEDS: Furosemide 40 MG TAB PO SCH (08:45)
[2018-05-03] MEDS: Apixaban 5 MG TAB PO SCH ×2 (08:45→19:50)
[2018-05-03] MEDS: metFORMIN XR 500 MG TAB PO SCH ×3 (08:45→19:51)
[2018-05-03] MEDS: Carvedilol 6.25 MG TAB PO SCH ×2 (08:45→16:44)
[2018-05-03] MEDS: Insulin Glargine 40 UNITS in Pre-Filled Syringe 1 EACH SC SCH (08:46)
[2018-05-03] MEDS: Sacubitril 49 MG/Valsartan 51 MG TABLET PO SCH ×2 (08:46→19:50)
[2018-05-03] MEDS: Clopidogrel Bisulfate 75 MG TAB PO SCH (08:49)
[2018-05-03] MEDS: Benzonatate 100 MG CAP PO PRN ×3 (09:56→19:50)
[2018-05-03] MEDS: Acetaminophen 325 MG TAB PO PRN (10:07)
[2018-05-03] MEDS ORDERED: Sodium Chloride 0.9% 500 ML IV SCH (10:30)
[2018-05-03] MEDS: HumaLOG 300 UNITS/3 ML VIAL SC PRN ×2 (11:39→17:23)
--- NOTE | 2018-05-03 11:55 | CON ---
DATE OF CONSULTATION: 05/03/2018 This is a pleasant 67-year-old gentleman who was admitted to the hospital with shortness of breath. He was admitted on 05/01/2018. He has been using neb treatments every 2 hours because of marked coug justin, wheezing and dyspnea. Pulmonary was consulted. His symptoms have been getting progressively worse ever since October. He has a known history of cardiomyopathy. He says on most days prior to his recent illness, he could walk at least half a block without getting markedly short of breath. He smoked a pack a day for 20 years, though he quit smoking almost 25 years ago. He has a previous history of pneumonia, but no hi story of TB or asthma. 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 PAST MEDICAL HISTORY: Cardiomyopathy, diabetes, hyperlipidemia, high cholesterol, hypertension, hypo thyroidism. PAST SURGICAL HISTORY: Appendix, orthopedic surgery, left knee, recent broken ankle. ALCOHOL: Alcohol minimal. TOBACCO: Tobacco as noted. ALLERGIES: None. MEDICATIONS FROM HOME: Includes Eliquis 5 twice a day, anastrozole 1 tablet a day, amiodarone 200 tw ice a day, Zetia 1 a day, Plavix 75, Coreg 6.25 twice a day, Invokana 1 a day, insulin Amaryl 1 table t, Lasix 1, Synthroid 200 a day, Lyrica 1 capsule and metformin 1 a day. REVIEW OF SYSTEMS: Otherwise unremarkable. PHYSICAL EXAMINATION: VITAL SIGNS: Sats are 95 on 2 liters, temperature 99, pulse 80, respiration 24, blood pressure is 14 6/69. CHEST: Chest revealed decreased breath sounds without any wheezing. CARDIAC: Normal S1, S2, no gallops. ABDOMEN: Soft. LABORATORY: Unremarkable. Chest x-ray was unremarkable. IMPRESSION: 1. 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 2. Former smoker, probably chronic obstructive pulmonary disease. 3. Atrial fibrillation. PLAN: He is on adequate medication. I have added Dulera and Pulmicort. I will follow. Consider non-invasive ventilation at night time. We will discuss and follow.
[2018-05-03] MEDS: Budesonide 0.5 MG/2 ML NEB INH SCH (18:14)
[2018-05-03] MEDS: Mometasone/Formoterol 120 PUFF INHALER INH SCH (18:32)
[2018-05-03] MEDS: Doxycycline 100 MG CAP PO SCH (19:50)
[2018-05-03] MEDS: cefTRIAXone\\ROCEPHIN 1 GM in Sodium Chloride 0.9% 100 ML IVPB SCH (21:13)
[2018-05-04 04:33] LABS: #Lymphocytes 1.1 thou/uL (1.20-3.40); #Monocytes 0.5 thou/uL (0.11-0.59); %Eosinophils 0.2 % (0.0-10.0); %Lymphocytes 29.2 % (21.0-51.0); %Monocytes 14.5 % (0.0-10.0); %Neutrophils 55.2 % (42.0-75.0); Hemoglobin 10.9 g/dL (14.0-18.0); Mean Corpuscular HGB CONC 30.6 g/dL (32.0-36.0); Mean Corpuscular Volume 81.6 fl (80.0-94.0); Platelet Count 198 thou/uL (130-400); RBC Distribution Width 22.9 % (11.5-14.5); Red Blood Cell (RBC) Count 4.36 mill/uL (4.70-6.10); White Blood Cell (WBC) Count 3.6 thou/uL (4.8-10.8)
[2018-05-04 04:58] LABS: Anion Gap 11 mmol/L (10-20); BUN (Urea Nitrogen) 16 mg/dL (8.4-25.7); Calc. Creatinine Clearance 117 mL/min (70-130); Calcium 8.5 mg/dL (7.8-10.44); Carbon Dioxide 28 mmol/L (23-31); Chloride 103 mmol/L (98-107); Estimated GFR-MDRD 86; Glucose 285 mg/dL (80-115); Potassium 3.5 mmol/L (3.5-5.1); Sodium 138 mmol/L (136-145)
--- NOTE | 2018-05-04 05:03 | PDOC.FM ---
- Subjective Subjective: Patient again is doing about the same. He does report breathing improved with q2h duonebs but continues to have SOB and wheezing all the time. He denies pain. No acute events overnight. He has been weaned off O2. - Objective MAR Reviewed: Yes Vital Signs & Weight: Vital Signs (12 hours) Temp Pulse Resp BP Pulse Ox 05/04/18 04:00 98.0 F 75 20 145/72 H 93 L 05/04/18 03:00 74 16 05/04/18 00:42 75 12 05/04/18 00:00 98.4 F 80 18 123/58 L 91 L 05/03/18 22:38 70 16 05/03/18 21:00 69 16 05/03/18 20:00 97.6 F 70 16 05/03/18 19:48 97.6 F 70 16 149/70 H 92 L 05/03/18 18:32 85 12 92 L 05/03/18 18:12 75 16 93 L Weight Weight 100.346 kg I&O: 05/02/18 05/03/18 05/04/18 06:59 06:59 06:59 Intake Total 232 207 5154 Output Total 3000 Balance 700 970 -1540 Result Diagrams: 05/04/18 03:52 05/04/18 03:52 <Cassia Vigil - Last Filed: 05/04/18 09:37> - Objective Vital Signs & Weight: Vital Signs (12 hours) Temp Pulse Resp BP Pulse Ox 05/04/18 08:00 97.8 F 75 19 05/04/18 07:50 97.8 F 75 12 151/73 H 95 05/04/18 07:35 95 05/04/18 07:30 75 12 05/04/18 05:02 16 05/04/18 04:00 98.0 F 75 20 145/72 H 93 L 05/04/18 03:00 74 16 05/04/18 00:42 75 12 05/04/18 00:00 98.4 F 80 18 123/58 L 91 L 05/03/18 22:38 70 16 Weight Weight 102.285 kg I&O: 05/03/18 05/04/18 05/05/18 06:59 06:59 06:59 Intake Total 970 1960 Output Total 4000 Balance 970 -2040 Result Diagrams: 05/04/18 03:52 05/04/18 03:52 <Aide Martinez - Last Filed: 05/04/18 10:02> Phys Exam - Physical Examination Constitutional: NAD sitting up in bed, speaking in short sentences HEENT: moist MMs wheezing throughout, increased work of breathing, poor air movement Cardiovascular: RRR, no significant murmur Gastrointestinal: soft, non-tender 1+ pitting edema in b/l legs to mid calf Neurological: moves all 4 limbs Psychiatric: normal affect, A&O x 3 Skin: cap refill <2 seconds <Cassia Vigil - Last Filed: 05/04/18 09:37> Dx/Plan (1) Shortness of breath Code(s): R06.02 - SHORTNESS OF BREATH Status: Acute (2) COPD exacerbation Code(s): J44.1 - CHRONIC OBSTRUCTIVE PULMONARY DISEASE W (ACUTE) EXACERBATION Status: Acute (3) Community acquired pneumonia Code(s): J18.9 - PNEUMONIA, UNSPECIFIED ORGANISM Status: Acute (4) CHF (congestive heart failure) Code(s): I50.9 - HEART FAILURE, UNSPECIFIED Status: Chronic (5) Diabetes mellitus Code(s): E11.9 - TYPE 2 DIABETES MELLITUS WITHOUT COMPLICATIONS Status: Acute (6) Afib Code(s): I48.91 - UNSPECIFIED ATRIAL FIBRILLATION Status: Acute (7) Hyperlipidemia Code(s): E78.5 - HYPERLIPIDEMIA, UNSPECIFIED Status: Acute (8) Hypertension Code(s): I10 - ESSENTIAL (PRIMARY) HYPERTENSION Status: Chronic (9) Hypothyroidism Code(s): E03.9 - HYPOTHYROIDISM, UNSPECIFIED Status: Chronic - Plan Plan: Acute Hypoxic Respiratory Failure - likely multifactorial cause. - Evidence of PNA on CXR being treated with Rocephin and Doxycycline. Blood cx and sputum cx pending. - Hx of CHF, elevated BNP, but clinically not overloaded. CXR pending - 25 pack year smoking hx, no formal dx of COPD, but likely d/t CXR and improvement with duonebs - continue duonebs q2h, prednisone and Abx - strict IO's - pending CXR, consider another small bolus - continue O2 as needed COPD, possible - continue ICS and dulera - will need PFT's on an outpatient basis to confirm dx - Pulm following, appreciate recs CHF - last echo with EF 20-25% - follows with Dr. Powell - continue home lasix and coreg Afib - apparently was suggested to him to get internal defibrillator but wanted to try cardiac rehab first - on eliquis, continue - rate controlled with amiodarone, continue QT prolongation - EKG with recent QTc of 408 - d/c azithromycin (05/03) Hypothyroidism - continue home synthroid HLD - not currently on statin per my records - check FLP DM - takes Invokana and Metformin at home, continue Metformin - will give lantus and SSI here - BS elevated, change to aggressive SSI Code Status: Full DVT PPx: Eliquis <Cassia Vigil - Last Filed: 05/04/18 09:37> (1) Atrial fibrillation Code(s): I48.91 - UNSPECIFIED ATRIAL FIBRILLATION Status: Acute (2) Shortness of breath Code(s): R06.02 - SHORTNESS OF BREATH Status: Acute (3) CHF (congestive heart failure) Code(s): I50.9 - HEART FAILURE, UNSPECIFIED Status: Chronic (4) Hypertension Code(s): I10 - ESSENTIAL (PRIMARY) HYPERTENSION Status: Chronic (5) Hypothyroidism Code(s): E03.9 - HYPOTHYROIDISM, UNSPECIFIED Status: Chronic <Aide Martinez - Last Filed: 05/04/18 10:02> Attending Addendum - Attending Addendum Date/Time: 05/04/18 1001 I personally evaluated the patient and discussed the management with Dr. Vigil. I agree with the History, Examination, Assessment and Plan documented above with any addition or exceptions noted below. The patient notes that he feels better with his frequent duonebs however he still have shortness of breath and wheezing. Will continue antibiotics, nebs, steroids. <Aide Martinez - Last Filed: 05/04/18 10:02>
[2018-05-04] MEDS: Levothyroxine Sodium 100 MCG TAB PO SCH (05:15)
[2018-05-04] MEDS: Budesonide 0.5 MG/2 ML NEB INH SCH ×2 (07:30→19:22)
[2018-05-04] MEDS: Mometasone/Formoterol 120 PUFF INHALER INH SCH ×2 (07:50→19:20)
[2018-05-04] MEDS: predniSONE 20 MG TAB PO SCH (07:53)
[2018-05-04] MEDS: Benzonatate 100 MG CAP PO PRN ×3 (07:54→21:15)
[2018-05-04] MEDS: Carvedilol 6.25 MG TAB PO SCH ×2 (07:54→17:17)
[2018-05-04] MEDS: Doxycycline 100 MG CAP PO SCH ×2 (09:23→21:15)
[2018-05-04] MEDS: Clopidogrel Bisulfate 75 MG TAB PO SCH (09:23)
[2018-05-04] MEDS: Apixaban 5 MG TAB PO SCH ×2 (09:23→21:15)
[2018-05-04] MEDS: Sacubitril 49 MG/Valsartan 51 MG TABLET PO SCH ×2 (09:23→21:15)
[2018-05-04] MEDS: metFORMIN XR 500 MG TAB PO SCH ×3 (09:23→21:15)
[2018-05-04] MEDS: Amiodarone 200 MG TAB PO SCH ×2 (09:23→21:15)
[2018-05-04] MEDS: Ezetimibe 10 MG TAB PO SCH (09:23)
[2018-05-04] MEDS: Insulin Glargine 40 UNITS in Pre-Filled Syringe 1 EACH SC SCH (09:24)
[2018-05-04] MEDS: Furosemide 40 MG TAB PO SCH (09:24)
[2018-05-04] MEDS: HumaLOG 300 UNITS/3 ML VIAL SC PRN ×2 (11:37→17:16)
[2018-05-04] MEDS ORDERED: guaiFENesin 100 MG/5 ML UDCUP PO PRN (12:53)
--- NOTE | 2018-05-04 13:35 | RAD ---
CHEST 2 VIEWS: HISTORY: Chest pain. Pneumonia. COMPARISON: 05/02/18. FINDINGS: Cardiac silhouette unremarkable. Mediastinum midline with aortic calcification. Lungs are hyperinfl ated with flattening of each hemidiaphragm. Minimal atelectasis at the lung bases. No lobar consoli dation, pneumothorax, or pleural fluid. teletypesetter monitor leads overlie the chest. IMPRESSION: 1. Interval clearing of left basilar infiltrate. No new abnormalities. 2. Chronic obstructive pulmonary disease. POS: [facility]
[2018-05-04] MEDS: Diabetic Tussin 200 MG/10 ML UDCUP PO PRN ×3 (13:36→21:15)
--- NOTE | 2018-05-04 14:02 | PRG ---
DATE OF SERVICE: 05/04/2018 SUBJECTIVE: This morning, he said he is still short of breath, coughing, still no Cardiology input. OBJECTIVE: VITAL SIGNS: Sats are 90% on room air, respirations 18, temperature 98, blood pressure 150/73. CHEST: Reveals there is no wheezing. CARDIAC: Normal S1, S2, no gallops. ABDOMEN: Soft, without any masses. LABORATORY DATA: White count 3.6, H&H is 10 and 35, platelet count is 198. Electrolytes are normal. IMPRESSION: Dyspnea, most of it appears to be cardiac asthma, baseline bronchospasm. PLAN: Continue Dulera, neb treatments, steroids. Decrease the frequency of his nebs to q.4 hours. Await input from Cardiology.
[2018-05-04] MEDS: Acetaminophen 325 MG TAB PO PRN (19:18)
[2018-05-04] MEDS: cefTRIAXone\\ROCEPHIN 1 GM in Sodium Chloride 0.9% 100 ML IVPB SCH (21:14)
[2018-05-05] MEDS: Diabetic Tussin 200 MG/10 ML UDCUP PO PRN ×4 (03:44→22:51)
[2018-05-05 04:29] LABS: #Lymphocytes 1.2 thou/uL (1.20-3.40); #Monocytes 0.4 thou/uL (0.11-0.59); #Neutrophils 2.1 thou/uL (1.40-6.50); %Basophils 0.3 % (0.0-1.0); %Eosinophils 0.5 % (0.0-10.0); %Lymphocytes 31.6 % (21.0-51.0); %Monocytes 11.7 % (0.0-10.0); %Neutrophils 55.9 % (42.0-75.0); Hemoglobin 11.3 g/dL (14.0-18.0); Mean Corpuscular HGB CONC 30.6 g/dL (32.0-36.0); Mean Corpuscular Hemoglobin 25.4 pg (27.0-31.0); Mean Corpuscular Volume 82.9 fl (80.0-94.0); Mean Platelet Volume 11.7 fL (7.4-10.4); Platelet Count 198 thou/uL (130-400); RBC Distribution Width 22.8 % (11.5-14.5); Red Blood Cell (RBC) Count 4.46 mill/uL (4.70-6.10); White Blood Cell (WBC) Count 3.7 thou/uL (4.8-10.8)
[2018-05-05 05:17] LABS: Anion Gap 12 mmol/L (10-20); BUN (Urea Nitrogen) 14 mg/dL (8.4-25.7); Calc. Creatinine Clearance 116 mL/min (70-130); Calcium 8.7 mg/dL (7.8-10.44); Carbon Dioxide 25 mmol/L (23-31); Chloride 103 mmol/L (98-107); Estimated GFR-MDRD 83; Glucose 364 mg/dL (80-115); Potassium 3.8 mmol/L (3.5-5.1); Sodium 136 mmol/L (136-145)
[2018-05-05] MEDS: Levothyroxine Sodium 100 MCG TAB PO SCH (05:26)
[2018-05-05] MEDS: HumaLOG 300 UNITS/3 ML VIAL SC PRN ×3 (05:51→22:59)
[2018-05-05] MEDS: Budesonide 0.5 MG/2 ML NEB INH SCH ×2 (06:37→18:54)
[2018-05-05] MEDS: Mometasone/Formoterol 120 PUFF INHALER INH SCH ×2 (06:37→18:55)
--- NOTE | 2018-05-05 06:39 | PDOC.FM ---
- Subjective Subjective: Patient reports he is doing better this morning although still has audible wheezing and some respiratory difficulty. Overall, though, has made much improvement, tolerating q4h duonebs. No acute events overnight. - Objective MAR Reviewed: Yes Vital Signs & Weight: Vital Signs (12 hours) Temp Pulse Resp BP Pulse Ox 05/05/18 04:04 92 L 05/05/18 03:40 97.6 F 73 18 137/67 92 L 05/05/18 00:10 93 L 05/04/18 20:00 97.7 F 69 16 05/04/18 19:23 93 L 05/04/18 19:22 93 L 05/04/18 19:20 97.7 F 69 16 131/67 93 L Weight Weight 103.982 kg I&O: 05/03/18 05/04/18 05/05/18 06:59 06:59 06:59 Intake Total 970 1960 1510 Output Total 4000 4200 Balance 970 -2039 Result Diagrams: 05/05/18 03:51 05/05/18 03:51 <Cassia Vigil - Last Filed: 05/05/18 09:33> - Objective Vital Signs & Weight: Vital Signs (12 hours) Temp Pulse Resp BP Pulse Ox 05/05/18 14:13 76 16 92 L 05/05/18 12:20 98.1 F 73 16 150/74 H 90 L 05/05/18 10:10 74 16 94 L 05/05/18 08:00 97.7 F 76 16 163/81 H 94 L 05/05/18 06:36 75 14 95 05/05/18 04:04 92 L Weight Weight 103.982 kg I&O: 05/04/18 05/05/18 05/06/18 06:59 06:59 06:59 Intake Total 1960 1510 Output Total 4000 4200 Balance -2039 Result Diagrams: 05/05/18 03:51 05/05/18 03:51 <Aide Martinez - Last Filed: 05/05/18 15:52> Phys Exam - Physical Examination Constitutional: NAD diffuse wheezing Cardiovascular: RRR systolic murmur trace edema Neurological: moves all 4 limbs Psychiatric: A&O x 3 <Cassia Vigil - Last Filed: 05/05/18 09:33> Dx/Plan (1) Shortness of breath Code(s): R06.02 - SHORTNESS OF BREATH Status: Acute (2) COPD exacerbation Code(s): J44.1 - CHRONIC OBSTRUCTIVE PULMONARY DISEASE W (ACUTE) EXACERBATION Status: Acute (3) Community acquired pneumonia Code(s): J18.9 - PNEUMONIA, UNSPECIFIED ORGANISM Status: Acute (4) CHF (congestive heart failure) Code(s): I50.9 - HEART FAILURE, UNSPECIFIED Status: Chronic (5) Diabetes mellitus Code(s): E11.9 - TYPE 2 DIABETES MELLITUS WITHOUT COMPLICATIONS Status: Acute (6) Afib Code(s): I48.91 - UNSPECIFIED ATRIAL FIBRILLATION Status: Acute (7) Hyperlipidemia Code(s): E78.5 - HYPERLIPIDEMIA, UNSPECIFIED Status: Acute (8) Hypertension Code(s): I10 - ESSENTIAL (PRIMARY) HYPERTENSION Status: Chronic (9) Hypothyroidism Code(s): E03.9 - HYPOTHYROIDISM, UNSPECIFIED Status: Chronic - Plan Plan: Acute Hypoxic Respiratory Failure - likely multifactorial cause. - Evidence of PNA on CXR being treated with Rocephin and Doxycycline. Blood cx and sputum cx negative at 48h - Hx of CHF, elevated BNP, but clinically not overloaded. CXR with no signs of fluid overload. Continue home lasix - 25 pack year smoking hx, no formal dx of COPD, but likely d/t CXR and improvement with duonebs - continue duonebs q4h, prednisone and Abx - strict IO's - continue O2 as needed COPD, possible - continue ICS and dulera - will need PFT's on an outpatient basis to confirm dx - Pulm following, appreciate recs CHF - last echo with EF 20-25% - follows with Dr. Powell - continue home lasix and coreg Afib - apparently was suggested to him to get internal defibrillator but wanted to try cardiac rehab first - on eliquis, continue - rate controlled with amiodarone, continue QT prolongation - EKG with recent QTc of 408 - d/c azithromycin (05/03) Hypothyroidism - continue home synthroid HLD - not currently on statin per my records - check FLP DM - Takes toujeo at home as well as Metformin, invokana, and glymepiride - continue lantus, metformin, and SSI - restart home glymepiride with BS being quite elevated - elevation liekly 2/2 steroid treatment Code Status: Full DVT PPx: Eliquis <Cassia Vigil - Last Filed: 05/05/18 09:33> (1) Atrial fibrillation Code(s): I48.91 - UNSPECIFIED ATRIAL FIBRILLATION Status: Acute (2) Shortness of breath Code(s): R06.02 - SHORTNESS OF BREATH Status: Acute (3) CHF (congestive heart failure) Code(s): I50.9 - HEART FAILURE, UNSPECIFIED Status: Chronic (4) Hypertension Code(s): I10 - ESSENTIAL (PRIMARY) HYPERTENSION Status: Chronic (5) Hypothyroidism Code(s): E03.9 - HYPOTHYROIDISM, UNSPECIFIED Status: Chronic <Aide Martinez - Last Filed: 05/05/18 15:52> Attending Addendum - Attending Addendum Date/Time: 05/05/18 1551 I personally evaluated the patient and discussed the management with Dr. Vigil. I agree with the History, Examination, Assessment and Plan documented above with any addition or exceptions noted below. The patient is slowly improving. He is off O2 this morning. Will continue steroids and antibiotics. Anticipate discharge in next 1-2 days. <Aide Martinez - Last Filed: 05/05/18 15:52>
[2018-05-05] MEDS: Sacubitril 49 MG/Valsartan 51 MG TABLET PO SCH ×2 (08:03→22:50)
[2018-05-05] MEDS: Liothyronine Sodium 5 MCG TAB PO SCH ×2 (08:03→22:50)
[2018-05-05] MEDS: Insulin Glargine 40 UNITS in Pre-Filled Syringe 1 EACH SC SCH (08:03)
[2018-05-05] MEDS: Apixaban 5 MG TAB PO SCH ×2 (08:04→22:49)
[2018-05-05] MEDS: predniSONE 20 MG TAB PO SCH (08:04)
[2018-05-05] MEDS: Amiodarone 200 MG TAB PO SCH ×2 (08:04→22:49)
[2018-05-05] MEDS: Clopidogrel Bisulfate 75 MG TAB PO SCH (08:05)
[2018-05-05] MEDS: Doxycycline 100 MG CAP PO SCH ×2 (08:05→22:50)
[2018-05-05] MEDS: Carvedilol 6.25 MG TAB PO SCH ×2 (08:05→17:40)
[2018-05-05] MEDS: Ferrous Sulfate 325 MG TAB PO SCH ×2 (08:05→22:50)
[2018-05-05] MEDS: Ezetimibe 10 MG TAB PO SCH (08:05)
[2018-05-05] MEDS: Glimepiride 2 MG TAB PO SCH (08:05)
[2018-05-05] MEDS: Furosemide 40 MG TAB PO SCH (08:05)
[2018-05-05] MEDS: metFORMIN XR 500 MG TAB PO SCH ×3 (08:06→22:53)
[2018-05-05] MEDS ORDERED: FERROUS SULFATE PO SCH (09:00)
[2018-05-05] MEDS ORDERED: Glimepiride 2 MG TAB PO SCH (09:00)
[2018-05-05] MEDS: Benzonatate 100 MG CAP PO PRN ×3 (09:58→22:57)
--- NOTE | 2018-05-05 12:17 | PRG ---
DATE OF SERVICE: 05/05/2018 SUBJCETIVE: This morning, he is doing better, less cough, less shortness of breath. OBJECTIVE: VITAL SIGNS: Sats are 90% on room air, respiration 16, temperature 97, blood pressure is 163/81. CHEST: Still minimal wheezing. CARDIAC: Normal S1, S2, no gallops. ABDOMEN: Soft, no masses. LABORATORY DATA: White count is normal at 3.7, H&H is 11 and 37. Electrolytes are normal. IMPRESSION: 1. Congestive heart failure. 2. Chronic obstructive pulmonary disease. 2. Bronchitis. PLAN: I agree with oral antibiotics, oral steroids. If he appears stable, he can be discharged home on present medication. X-ray looks relatively stable.
[2018-05-06] MEDS: metFORMIN XR 500 MG TAB PO SCH ×3 (03:51→15:39)
[2018-05-06] MEDS: Diabetic Tussin 200 MG/10 ML UDCUP PO PRN ×3 (04:00→13:30)
--- NOTE | 2018-05-06 06:13 | PDOC.FM ---
- Subjective Subjective: Patient is feeling much better although still is not able to talk in long sentences without getting winded. No acute events overnight. - Objective MAR Reviewed: Yes Vital Signs & Weight: Vital Signs (12 hours) Temp Pulse Resp BP Pulse Ox 05/06/18 04:00 97.7 F 67 18 151/83 H 94 L 05/06/18 03:40 95 05/06/18 01:00 78 16 91 L 05/05/18 23:16 95 05/05/18 21:00 98.8 F 74 18 152/76 H 91 L 05/05/18 20:00 98.8 F 74 18 92 L 05/05/18 18:55 95 05/05/18 18:53 95 Weight Weight 103.982 kg I&O: 05/04/18 05/05/18 05/06/18 06:59 06:59 06:59 Intake Total 1960 1510 1080 Output Total 4000 4200 8107 Balance -6548 -0470 -9757 Result Diagrams: 05/05/18 03:51 05/05/18 03:51 Phys Exam - Physical Examination Constitutional: NAD cannot speak in full sentences, but appearing much better HEENT: moist MMs rhonchi at R base and scatter wheezing, improved from yesterday Cardiovascular: RRR, no significant murmur Gastrointestinal: soft trace edema Neurological: moves all 4 limbs Dx/Plan (1) Shortness of breath Code(s): R06.02 - SHORTNESS OF BREATH Status: Acute (2) COPD exacerbation Code(s): J44.1 - CHRONIC OBSTRUCTIVE PULMONARY DISEASE W (ACUTE) EXACERBATION Status: Acute (3) Community acquired pneumonia Code(s): J18.9 - PNEUMONIA, UNSPECIFIED ORGANISM Status: Acute (4) CHF (congestive heart failure) Code(s): I50.9 - HEART FAILURE, UNSPECIFIED Status: Chronic (5) Diabetes mellitus Code(s): E11.9 - TYPE 2 DIABETES MELLITUS WITHOUT COMPLICATIONS Status: Acute (6) Afib Code(s): I48.91 - UNSPECIFIED ATRIAL FIBRILLATION Status: Acute (7) Hyperlipidemia Code(s): E78.5 - HYPERLIPIDEMIA, UNSPECIFIED Status: Acute (8) Hypertension Code(s): I10 - ESSENTIAL (PRIMARY) HYPERTENSION Status: Chronic (9) Hypothyroidism Code(s): E03.9 - HYPOTHYROIDISM, UNSPECIFIED Status: Chronic - Plan Plan: Acute Hypoxic Respiratory Failure - likely multifactorial cause. - Evidence of PNA on CXR. Transition to PO Cefdinir and Doxycycline. Blood cx and sputum cx negative at 48h - Hx of CHF, elevated BNP, but clinically not overloaded. Today exhibits 1kg weight gain and lung sounds with rhonchi, will give extra dose of lasix. - 25 pack year smoking hx, no formal dx of COPD, but likely d/t CXR and improvement with duonebs - continue duonebs q4h, prednisone and Abx - strict IO's - continue O2 as needed - overall improving, will likely d/c today or tomorrow COPD, possible - continue ICS and dulera - will need PFT's on an outpatient basis to confirm dx - Pulm following, appreciate recs CHF - last echo with EF 20-25% - follows with Dr. Powell - continue home lasix and coreg Afib - apparently was suggested to him to get internal defibrillator but wanted to try cardiac rehab first - on eliquis, continue - rate controlled with amiodarone, continue QT prolongation - EKG with recent QTc of 408 - d/c azithromycin (05/03) Hypothyroidism - continue home synthroid HLD - continue home ezetimibe DM - Takes toujeo at home as well as Metformin, invokana, and glymepiride - continue lantus, metformin, and SSI - continue glymepiride with BS being quite elevated - elevation liekly 2/2 steroid treatment Code Status: Full DVT PPx: Eliquis Dispo: likely d/c home later today or tomorrow on PO abx and steroids with COPD meds and close F/U
[2018-05-06] MEDS: Glimepiride 2 MG TAB PO SCH (06:15)
[2018-05-06] MEDS: Levothyroxine Sodium 100 MCG TAB PO SCH (06:15)
[2018-05-06] MEDS ORDERED: cefTRIAXone\\ROCEPHIN 1 GM in Sodium Chloride 0.9% 100 ML IVPB SCH (06:30)
[2018-05-06] MEDS: Budesonide 0.5 MG/2 ML NEB INH SCH ×2 (06:41→19:21)
[2018-05-06] MEDS: Mometasone/Formoterol 120 PUFF INHALER INH SCH ×2 (06:42→19:19)
[2018-05-06] MEDS: Furosemide 40 MG TAB PO SCH (08:32)
[2018-05-06] MEDS: Doxycycline 100 MG CAP PO SCH (08:32)
[2018-05-06] MEDS: Amiodarone 200 MG TAB PO SCH (08:32)
[2018-05-06] MEDS: Liothyronine Sodium 5 MCG TAB PO SCH (08:32)
[2018-05-06] MEDS: Ezetimibe 10 MG TAB PO SCH (08:32)
[2018-05-06] MEDS: Clopidogrel Bisulfate 75 MG TAB PO SCH (08:32)
[2018-05-06] MEDS: Apixaban 5 MG TAB PO SCH (08:32)
[2018-05-06] MEDS: Ferrous Sulfate 325 MG TAB PO SCH (08:32)
[2018-05-06] MEDS: predniSONE 20 MG TAB PO SCH (08:32)
[2018-05-06] MEDS: Carvedilol 6.25 MG TAB PO SCH ×2 (08:32→17:13)
[2018-05-06] MEDS: Sacubitril 49 MG/Valsartan 51 MG TABLET PO SCH (08:33)
[2018-05-06] MEDS: Insulin Glargine 40 UNITS in Pre-Filled Syringe 1 EACH SC SCH (08:42)
[2018-05-06] MEDS: Benzonatate 100 MG CAP PO PRN ×2 (08:42→13:30)
[2018-05-06] MEDS: Acetaminophen 325 MG TAB PO PRN (08:46)
[2018-05-06] MEDS ORDERED: Furosemide 20 MG TAB PO SCH (09:15)
--- NOTE | 2018-05-06 09:21 | PRG ---
DATE OF SERVICE: 05/06/2018 This morning he is much better, less short of breath, less cough and wheezing. PHYSICAL EXAMINATION: VITAL SIGNS: Sats are 92% on room air, temperature 98, pulse 75, respirations 18, blood pressure 150 /81. CHEST: Chest revealed occasional wheeze. CARDIAC: Normal S1, S2, no gallops. ABDOMEN: Soft, no masses. IMPRESSION: 1. Chronic obstructive pulmonary disease exacerbation. 2. Bronchitis. PLAN: He can be discharged home on present treatment and Dulera, treatment with the steroids. We will follow while in the hospital.
[2018-05-06] MEDS: HumaLOG 300 UNITS/3 ML VIAL SC PRN ×2 (11:49→17:13)
--- NOTE | 2018-05-06 14:35 | ADD-PRG ---
DATE OF SERVICE: 05/06/2018 This is an addendum to the note of Dr. Cassia Vigil. Mr. Villatoro is a pleasant 67-year-old white male patient with a history of heart failure and EF of 20 %-25%. Over the last several days, he had become progressively more short of breath and has been adm itted for possible mild exacerbation of his heart failure versus COPD. He does not carry a formal di agnosis of COPD, but has a 25-30 pack year history of smoking, which he quit doing 2 decades ago. In the event, with some medication adjustments, he feels better, although he still cannot speak in comp lete sentences without becoming short of breath. We will readjust medications, continue to monitor a nd likely discharge tomorrow. Overall, he feels improved.
[2018-05-06 17:19] VITALS: BP 144/72; TEMP 98
[2018-05-06] MEDS ORDERED: Cefdinir 300 MG CAP PO SCH (21:00)
--- NOTE | 2018-05-08 14:50 | PQF ---
REGAN FOY KEN KARIMI [id number] [facility]256 [id number] CLINICAL DOCUMENTATION CLARIFICATION FORM: POST DISCHARGE Addendum to original discharge summary date: ____ Late entry note date: __ Please exercise your independent, professional judgment in responding to the clarification form. Clinical indicators are provided on the bottom of this form for your review Please check appropriate box(s): [ ] Aspiration Pneumonia [ ] Aspiration Bronchitis [ ] Empirically treating Gram Negative Pneumonia [ ] Empirically treating Anaerobic Pneumonia [ ] Pneumonia secondary to (specify organism / underlying disease) [ ] Simple Pneumonia (community acquired - nosocomial) [ ] Bronchopneumonia [ ] Pneumonia of unknown etiology [ ] Other diagnosis [ ] Unable to determine In addition, please specify: Present on Admission (POA): [ ] Yes [ ] No [ ] Unable to determine For continuity of documentation, please document condition throughout progress notes and discharge summary. Thank You. CLINICAL INDICATORS - SIGNS / SYMPTOMS / LABS , Chest pain, expectoration Elevated WBC SOB, Hypoxia, ABGs, O2 sats Pulmonary infiltrate / CXR results RISK FACTORS GERD Chronic lung disease Tobacco abuse HISTORY TREATMENTS: Antibiotics/antifungals Rocephin and azithromycin O2 therapy-nasal cannula Pulmonary consult (This form is maintained as a part of the permanent medical record) 2014 [employer]. All Rights Reserved Cyndee [email or web address] [phone] MTDFrancesco
== END 2018-05-06 19:57 | disposition home or self-care (01) | DRG 193 ==
LOC: ERS 20:50 → 2NO 22:59 → ERS 05-02 00:33
PROVIDERS: ADMIT Student in an Organized Health Care Education/Training Program; ATTEND Student in an Organized Health Care Education/Training Program
DX: J18.9 Pneumonia, unspecified organism (principal); J96.01 Acute respiratory failure with hypoxia; J44.0 Chronic obstructive pulmonary disease with (acute) lower respiratory infection; J44.1 Chronic obstructive pulmonary disease with (acute) exacerbation; I42.9 Cardiomyopathy, unspecified; I50.1 Left ventricular failure, unspecified; E11.9 Type 2 diabetes mellitus without complications; E78.5 Hyperlipidemia, unspecified; I45.81 Long QT syndrome; E03.9 Hypothyroidism, unspecified; I48.91 Unspecified atrial fibrillation; I11.0 Hypertensive heart disease with heart failure; I50.9 Heart failure, unspecified; I25.10 Atherosclerotic heart disease of native coronary artery without angina pectoris; D63.8 Anemia in other chronic diseases classified elsewhere; E11.65 Type 2 diabetes mellitus with hyperglycemia; T38.0X5A Adverse effect of glucocorticoids and synthetic analogues, initial encounter; Y92.239 Unspecified place in hospital as the place of occurrence of the external cause; Z90.49 Acquired absence of other specified parts of digestive tract; Z79.84 Long term (current) use of oral hypoglycemic drugs; Z87.891 Personal history of nicotine dependence; Z87.39 Personal history of other diseases of the musculoskeletal system and connective tissue; Z87.81 Personal history of (healed) traumatic fracture; Z79.82 Long term (current) use of aspirin; Z79.899 Other long term (current) drug therapy; Z79.02 Long term (current) use of antithrombotics/antiplatelets
CPT/HCPCS: 36415; 36416; 71045; 71046; 80048; 80053; 82553; 83735; 83880; 84145; 84484; 85025; 87040; 87070; 87205; 93005; 93010; 94640; 96374; J0456; J0696; J7050; J7506; J7620; J7626

== ENCOUNTER 2018-08-19 08:05 | Outpatient (CLI) | payer MEDICARE ==
[2018-08-19 09:22] LABS: ALT (SGPT) 15 U/L (8-55); AST (SGOT) 13 U/L (5-34); Albumin 3.6 g/dL (3.4-4.8); Alkaline Phosphatase 90 U/L (40-150); Anion Gap 11 mmol/L (10-20); BUN (Urea Nitrogen) 19 mg/dL (8.4-25.7); Bilirubin, Total 0.6 mg/dL (0.2-1.2); Calc. Creatinine Clearance 0 mL/min (70-130); Calcium 8.8 mg/dL (7.8-10.44); Carbon Dioxide 30 mmol/L (23-31); Chloride 104 mmol/L (98-107); Estimated GFR-MDRD 61; Globulin 3.2 g/dL (2.4-3.5); Glucose 89 mg/dL (80-115); Potassium 3.8 mmol/L (3.5-5.1); Protein, Total 6.8 g/dL (5.8-8.1); Sodium 141 mmol/L (136-145)
[2018-08-19 09:50] LABS: #Eosinphils 0.1 thou/uL (0.0-0.7); #Lymphocytes 0.8 thou/uL (1.20-3.40); #Monocytes 0.6 thou/uL (0.11-0.59); #Neutrophils 5.2 thou/uL (1.40-6.50); %Basophils 0.7 % (0.0-1.0); %Eosinophils 1.2 % (0.0-10.0); %Lymphocytes 12.4 % (21.0-51.0); %Monocytes 8.9 % (0.0-10.0); %Neutrophils 76.8 % (42.0-75.0); Anisocytosis SLIGHT = 6-15 cells (100X) (0-5/hpf); Hemoglobin 10.5 g/dL (14.0-18.0); MDiff Complete? YES; Mean Corpuscular Hemoglobin 23.6 pg (27.0-31.0); Mean Corpuscular Volume 78.5 fL (78.0-98.0); Mean Platelet Volume 9.7 fL (7.4-10.4); PLT Morphology Comment Appears Adequate; Platelet Count 288 thou/uL (130-400); Red Blood Cell (RBC) Count 4.46 mill/uL (4.70-6.10); White Blood Cell (WBC) Count 6.7 thou/uL (4.8-10.8)
--- NOTE | 2018-08-19 16:53 | EKG ---
Test Reason : Blood Pressure : / mmHG Vent. Rate : 063 BPM Atrial Rate : 063 BPM P-R Int : 202 ms QRS Dur : 112 ms QT Int : 488 ms P-R-T Axes : 072 055 058 degrees QTc Int : 499 ms Normal sinus rhythm Low voltage QRS Cannot rule out Anterior infarct (cited on or before 21-NOV-2017) Abnormal ECG When compared with ECG of 02-MAY-2018 06:25, No significant change was found Confirmed by NIMCO ACE, SSilvana (4) on 08/19/2018 4:52:58 PM Referred By: KINGS Confirmed By:DR. Maria Ines RINALDI MD
== END 2018-08-19 08:06 | disposition home or self-care (01) ==
LOC: LABBT 08:05
PROVIDERS: ATTEND Internal Medicine Cardiovascular Disease
DX: Z01.818 Encounter for other preprocedural examination (principal); I25.10 Atherosclerotic heart disease of native coronary artery without angina pectoris
CPT/HCPCS: 80053; 85025; 93005; 93010

== ENCOUNTER 2018-08-22 05:56 | Day surgery (SDC) | payer MEDICARE ==
[2018-08-19 08:40] VITALS: BMI 36.0
[2018-08-22] MEDS ORDERED: Diazepam 5 MG TAB ONE (06:32)
[2018-08-22] MEDS ORDERED: Dextrose 50% Abboject 50 ML SYRINGE ONE (06:32)
[2018-08-22] MEDS ORDERED: Heparin 10,000 UNITS/1 ML VIAL ONE (06:34)
[2018-08-22] MEDS ORDERED: Lidocaine 1% (PF) 30 ML VIAL ONE (06:35)
[2018-08-22] MEDS ORDERED: Midazolam HCl 2 mg/2 ml Vial ONE (07:12)
[2018-08-22] MEDS ORDERED: Fentanyl 100 MCG/2 ML VIAL ONE (07:13)
[2018-08-22] MEDS ORDERED: Nitroglycerin 100MG/250ML BOT 250 ML ONE (07:49)
[2018-08-22] MEDS ORDERED: Iopamidol 370 76% 100 ML VIAL ONE (10:53)
[2018-08-22] MEDS ORDERED: Iopamidol 370 76% 50 ML VIAL FS ONE (10:53)
--- NOTE | 2018-08-22 21:54 | DIS ---
Mr. Villatoro underwent cardiac catheterization today that revealed the followin. Left ventricular ejection fraction 20%. 2. LV pressure 126/24. 3. Left main is short, but no obstructive stenosis. 4. LAD 10% plaque. 5. Circumflex, left dominant. There is a marginal branch with a 60%-70% lesion, a long lesion. 6. Right coronary, nondominant. After reviewing the films, I did not think that stenting was appropriate in this situation. He does not have any chest pain and this does not appear to be the etiology of his left ventricular dysfuncti on. The patient previously had refused defibrillator implantation, but after further discussion, he agree d to that. Placing a stent at this point I think would be very problematic. I think the potential r isk outweighs the benefit. It looks to me like it would take at least a 25-mm stent and also the art evonne bends with every systolic contraction where the stenosis is. The patient was seen by Dr. Moreno today. He will arrange for outpatient defibrillator implantation. He will resume apixaban on the . The patient will come back and see me as an outpatient. We would like to increase his carvedilol dos e. For now, the carvedilol cannot be increased as the heart rate is 60 even at this dose. We would increase the carvedilol dose gradually and consider changing to Entresto, although he indicates his f inances are a problem. We asked him to go to some of the medicine website to see if he is a candidat e for patient assistance program.
--- NOTE | 2018-08-23 08:04 | PRG ---
DATE OF SERVICE: 08/22/2018 ELECTROPHYSIOLOGY FOLLOWUP NOTE SUBJECTIVE: Mr. Villatoro is here after a left heart catheterization. He was found to have an obtuse marginal lesion, which eventually was deemed not to be appropriate for revascularization. Rest of the coronary arteries are with minimal plaquing only. LVEF of 20%. Currently recovering well. No angina, no CHF like symptoms, although he is scored [place] [employer] class II-III functional status. No angina. Respiratory system otherwise unremarkable. PAST MEDICAL HISTORY: As above. The patient has a history of chronic CHF with 2D echo in November having LVEF of 20%, paroxysmal atrial fibrillation, currently suppressed with amiodarone, in sinus rhythm and elevated CHADS-VASc score, on Plavix, and hypothyroidism. SOCIAL AND FAMILY HISTORY: Reviewed. OBJECTIVE DATA: VITAL SIGNS: Blood pressure is 140/61, heart rate 64, respirations 12. The patient is afebrile. GENERAL: He is alert and oriented man, in no apparent distress. NECK: Supple. Jugular veins are not distended. CHEST: Coarse without crackles. CARDIOVASCULAR: Heart sounds are regular to rate and rhythm. No murmur or gallop. ABDOMEN: Benign. Bowel sounds positive. EXTREMITIES: Lower extremities without edema, clubbing or cyanosis. Pulses are adequate. NEUROLOGIC: The patient is nonfocal. MUSCULOSKELETAL: No joint deformity. SKIN: Without rash. IMAGING: The EKG telemetry strips reveal sinus rhythm, narrow QRS. LABORATORY DATA: Reviewed, revealing a white cell count of 6.7 on 08/19/2018, hemoglobin 10.5, platelet count is 288. The INR was 0.9 on 12/15/2017. On , sodium 141, potassium 3.8, BUN is 19, creatinine 1.2, glucose 199. AST 13 and ALT 15. ASSESSMENT AND PLAN: Mr. Villatoro is a pleasant 67-year-old man with a history of likely familiar dilated cardiomyopathy with minimal coronary artery disease as noted above on left heart catheterization today. He has had congestive heart failure like symptoms, currently [place] [employer] class II functional status. His LV has been suppressed despite adequate regimen for over 8 months. We discussed the pros and cons about the prophylactic ICD implant. Detailed the benefits also the risks including the pneumothorax, tampenade, edema, ICD function recalls. All questions were answered in the presence of his . At this point, they are agreeable to the procedure. We will schedule him to have this done as an outpatient. KHALIF
== END 2018-08-22 14:45 | disposition home or self-care (01) ==
LOC: CCL 05:56
PROVIDERS: ATTEND Internal Medicine Cardiovascular Disease
PROC: 4A023N7 Measurement of Cardiac Sampling and Pressure, Left Heart, Percutaneous Approach (ICD-10-PCS; principal; 2018-08-22)
PROC: B2111ZZ Fluoroscopy of Multiple Coronary Arteries using Low Osmolar Contrast (ICD-10-PCS; 2018-08-22)
DX: I25.10 Atherosclerotic heart disease of native coronary artery without angina pectoris (principal); E11.9 Type 2 diabetes mellitus without complications; I11.0 Hypertensive heart disease with heart failure; I50.22 Chronic systolic (congestive) heart failure; I48.0 Paroxysmal atrial fibrillation; E03.9 Hypothyroidism, unspecified; E78.00 Pure hypercholesterolemia, unspecified; Z79.4 Long term (current) use of insulin; Z79.01 Long term (current) use of anticoagulants; Z79.02 Long term (current) use of antithrombotics/antiplatelets; Z79.899 Other long term (current) drug therapy
CPT/HCPCS: 76942; 82962; 93458; C1769; 36416; 99152; 99153; J1644; J2001; J2250; J3010

== ENCOUNTER 2018-10-04 14:38 | Outpatient (CLI) | payer MEDICARE ==
--- NOTE | 2018-10-04 15:43 | ULT ---
BILATERAL TESTICULAR ULTRASOUND: HISTORY: Bilateral hydrocele. COMPARISON: FINDINGS: The right testicle measured 4.2 x 3.1 x 2.9 cm and the left testicle measures 4.3 x 3 x 2.5 cm. Both epididymi are normal. Left partially calcified epididymal appendix is seen measuring 6 mm. Moderate bilateral hydroceles. Adequate vascular flow to both testicles. No mass. IMPRESSION: Moderate bilateral hydroceles. POS: [facility]
== END 2018-10-04 14:39 | disposition home or self-care (01) ==
LOC: BICULT 14:38
PROVIDERS: ATTEND Urology
DX: N43.3 Hydrocele, unspecified (principal)
CPT/HCPCS: 76870; 93976

== ENCOUNTER 2018-10-14 11:06 | Outpatient (CLI) | payer MEDICARE ==
[2018-10-14 14:25] LABS: Hemoglobin 5.8 g/dL (14.0-18.0); INR-International Normal Ratio 1.2; Mean Corpuscular HGB CONC 28.3 g/dL (32.0-36.0); Mean Corpuscular Hemoglobin 19.6 pg (27.0-31.0); Mean Corpuscular Volume 69.1 fL (78.0-98.0); PTT 33.6 SEC (22.9-36.1); Platelet Count 273 thou/uL (130-400); Prothrombin Time 15.2 SEC (12.0-14.7); RBC Distribution Width 18.5 % (11.5-14.5); Red Blood Cell (RBC) Count 2.96 mill/uL (4.70-6.10); White Blood Cell (WBC) Count 4.7 thou/uL (4.8-10.8)
[2018-10-14 14:44] LABS: Bilirubin Negative (Negative); Blood, Urine Negative (Negative); Clarity CLEAR (Clear); Glucose, Urine (Dipstick) >=1000 mg/dL (Negative); Leukocyte Negative (Negative); Nitrite Negative (Negative); Protein, Urine (Dipstick) Negative (Neg-Trace); Specific Gravity, Urine 1.018 (1.002-1.036); Urobilinogen 0.2 mg/dL (0.2-1.0)
[2018-10-14 14:45] LABS: Anion Gap 14 mmol/L (10-20); BUN (Urea Nitrogen) 22 mg/dL (8.4-25.7); Calc. Creatinine Clearance 0 mL/min (70-130); Calcium 8.7 mg/dL (7.8-10.44); Carbon Dioxide 28 mmol/L (23-31); Chloride 101 mmol/L (98-107); Estimated GFR-MDRD 43; Glucose 336 mg/dL (80-115); Sodium 139 mmol/L (136-145)
[2018-10-14 14:48] LABS: Bacteria/HPF None Seen HPF (None Seen); Hyaline Casts/LPF 0-3 HYALINE CAST LPF (0-3 Hyaline); RBC/HPF 0-3 HPF (0-3); Squamous Epithelial None Seen HPF (0-3); WBC/HPF None Seen HPF (0-3)
== END 2018-10-14 11:07 | disposition home or self-care (01) ==
LOC: LABBT 11:06
PROVIDERS: ATTEND Urology
DX: Z01.818 Encounter for other preprocedural examination (principal); N43.3 Hydrocele, unspecified; N40.1 Benign prostatic hyperplasia with lower urinary tract symptoms; N52.01 Erectile dysfunction due to arterial insufficiency; I50.9 Heart failure, unspecified
CPT/HCPCS: 80048; 81001; 85027; 85610; 85730; 87086; 93005; 93010

== ENCOUNTER 2018-10-15 13:04 | Inpatient (IN) | payer MEDICARE ==
[2018-10-15 13:59] LABS: #Monocytes 0.6 thou/uL (0.11-0.59); #Neutrophils 4.8 thou/uL (1.40-6.50); %Basophils 0.6 % (0.0-1.0); %Eosinophils 0.7 % (0.0-10.0); %Lymphocytes 15.1 % (21.0-51.0); %Monocytes 8.8 % (0.0-10.0); %Neutrophils 74.9 % (42.0-75.0); Hemoglobin 5.8 g/dL (14.0-18.0); Mean Corpuscular HGB CONC 28.4 g/dL (32.0-36.0); Mean Corpuscular Hemoglobin 19.4 pg (27.0-31.0); Mean Corpuscular Volume 68.2 fL (78.0-98.0); Mean Platelet Volume 11.2 fL (7.4-10.4); Platelet Count 272 thou/uL (130-400); RBC Distribution Width 18.6 % (11.5-14.5); White Blood Cell (WBC) Count 6.4 thou/uL (4.8-10.8)
[2018-10-15 14:22] LABS: ALT (SGPT) 13 U/L (8-55); AST (SGOT) 12 U/L (5-34); Albumin 3.8 g/dL (3.4-4.8); Alkaline Phosphatase 78 U/L (40-150); Anion Gap 16 mmol/L (10-20); BUN (Urea Nitrogen) 26 mg/dL (8.4-25.7); Bilirubin, Total 0.3 mg/dL (0.2-1.2); CK (CPK) 60 U/L (30-200); Calc. Creatinine Clearance 0 mL/min (70-130); Calcium 8.6 mg/dL (7.8-10.44); Carbon Dioxide 27 mmol/L (23-31); Chloride 99 mmol/L (98-107); Estimated GFR-MDRD 36; Globulin 3.2 g/dL (2.4-3.5); Glucose 429 mg/dL (80-115); Sodium 138 mmol/L (136-145)
[2018-10-15 14:26] LABS: CKMB 1.9 ng/mL (0-6.6); Troponin I Less than 0.010 ng/mL (< 0.028)
[2018-10-15 16:37] LABS: Reticulocyte Count 1.7 % (0.5-1.5)
[2018-10-15 16:50] LABS: Iron Binding Capacity, Total 430 mcg/dL (261-462)
[2018-10-15 16:51] LABS: Iron 10 ug/dL (65-175)
[2018-10-15] MEDS ORDERED: Acetaminophen 325 MG TAB PO PRN (16:54)
[2018-10-15] MEDS ORDERED: Acetaminophen 650 MG Suppository PR PRN (16:54)
[2018-10-15] MEDS ORDERED: Dextrose 50% Abboject 50 ML SYRINGE SLOW IVP PRN (16:56)
[2018-10-15] MEDS ORDERED: Dextrose 5% in Water 1,000 ML IV PRN (16:56)
[2018-10-15] MEDS ORDERED: Sodium Chloride 0.9% 1,000 ML IV SCH (17:00)
--- NOTE | 2018-10-15 17:15 | HP ---
DATE OF ADMISSION: 10/15/2018 PRIMARY CARE PROVIDER: Augusto Mcwilliams M.D. CHIEF COMPLAINT: Generalized weakness. HISTORY OF PRESENT ILLNESS: Mr. Villatoro is a pleasant 67-year-old gentleman who was seen at [facility] on 10/15/2018. He was hospitalized at this facility towards the end of 10/2017. At that time, he was diagnosed with new onset atrial fibrillation and acute congestive heart failure. He was hospitalized again in 11/2017 for right ankle fracture following a fall. In 05/2018, he was admitted by the [facility] Resident Service for acute hypoxic respiratory failure secondary to bacterial pneumonia. He was subsequently seen by Cardiology Service in 07/2018. He had cardiac catheterization at that time and was found to have left ventricular ejection fraction of 20%. He did not receive a stent. He reports that he has been taking Plavix at least for the last year. He was supposed to follow up with Electrophysiology Service for an AICD placement and he says that the matter is still in the discussion. He was recently diagnosed with hydrocele. He was supposed to have surgery next week. He had blood work done as part of preop eval. He was found to have low hemoglobin and was advised by his primary care provider to go to the emergency room. He reports that he has been feeling tired over the last few weeks. He endorses shortness of breath with exertion and occasional lightheadedness. He denies any chest pain. He denies any fevers or chills. REVIEW OF SYSTEMS: All other systems reviewed and found to be negative. PAST MEDICAL HISTORY: Congestive heart failure, diabetes mellitus type 2, dyslipidemia, hypertension, hydrocele, atrial fibrillation, cardiomyopathy and hypothyroidism. PAST SURGICAL HISTORY: Appendectomy, left knee surgery and right ankle surgery. FAMILY HISTORY: Significant for prostate cancer in his father. SOCIAL HISTORY: He is an ex-smoker, having quit several years ago. He drinks alcohol occasionally. He denies any recreational drug use. He lives with his and son. ALLERGIES: No known drug allergies. CURRENT MEDICATIONS: Invokana 300 mg daily, glimepiride 2 mg daily, levothyroxine 200 mcg daily, anastrozole 1 mg daily, Lasix 40 mg daily, Plavix 75 mg daily, metformin 750 mg 2 times a day, Coreg 6.25 mg 2 times a day, amiodarone 200 mg 2 times a day, Lyrica 150 mg 2 times a day and Humalog 50/50 insulin 10 units 3 times a day. PHYSICAL EXAMINATION: GENERAL: Mr. Villatoro is awake and alert, not in acute distress. VITAL SIGNS: Blood pressure is 132/61, pulse 83, respiratory rate 18 and oxygen saturation 98% on room air. He is afebrile. EYES: No scleral icterus. The patient has conjunctival pallor. Lower eyelids are puffy. ENT: Moist mucosal membranes. No oropharyngeal erythema or exudates. NECK: Supple, nontender, trachea is midline. RESPIRATORY: Accessory muscles of breathing are not active. Chest wall movements are symmetric bilaterally. LUNGS: Clear to auscultation without wheeze, rhonchi or crepitations. CARDIOVASCULAR: S1 and S2 are heard, regular. Peripheral pulses palpable. No carotid bruit, no pericardial rub. ABDOMEN: Soft, distended, nontender, bowel sounds are heard, no hepatomegaly, no splenomegaly. NEUROLOGIC: Cranial nerves II-XII intact. Deep tendon reflexes are 2+. MUSCULOSKELETAL: Power is 5/5 in all 4 extremities. SKIN: No rashes or subcutaneous nodules. LYMPHATIC: No cervical lymphadenopathy. PSYCHIATRIC: The patient appears tired, oriented to person, place and time. LABORATORY DATA: Mr. Villatoro's labs and investigations were reviewed. He has a white count of 6400, microcytic anemia with hemoglobin 5.8, hemoglobin was 10.5 on 08/19/2018, normal platelet count, normal sodium, normal potassium, elevated blood urea nitrogen of 26, elevated creatinine of 1.90, last known creatinine 1.62 on 10/14/2018 and 1.54 on 10/03/2018 and normal troponin I. LFTs are unremarkable. He also had an echocardiogram, which shows normal sinus rhythm, no ST changes to suggest an acute coronary syndrome. ASSESSMENT AND PLAN: Mr. Villatoro is a pleasant 67-year-old gentleman who was seen at [facility] on 10/15/2018. His problem list includes: 1. Symptomatic anemia: Mr. Villatoro is presenting with symptomatic anemia, etiology unknown at this time. Emergency room physician reports that he did have fecal occult blood test that was negative. He will be admitted to the hospital for further management. He does report having colonoscopies and the last one was 5 years ago and he has been told by his primary care provider that he will likely have another one soon. I will request GI service consultation for opinion and help with management. We will also look for other etiologies of anemia, including iron studies, vitamin B12 and folate levels and TSH level. It is unclear why the patient is actually taking Arimidex. He confirms taking it but does not know why. 2. Diabetes mellitus type 2: We will resume the patient's home medications except nephrotoxic medications and start Accu-Cheks and insulin sliding scale. 3. Acute renal insufficiency: We will hold nephrotoxic medications, we will provide gentle hydration given his history of cardiomyopathy and recheck creatinine level. 4. Atrial fibrillation: Continue amiodarone. 5. Hypothyroidism: Continue Synthroid. Many thanks for allowing me to participate in your patient's care. Please feel free to contact me with any questions or concerns. LEVEL OF RISK: Moderate. LEVEL OF COMPLEXITY: Moderate. MTDD
[2018-10-15 18:00] LABS: Troponin I Less than 0.010 ng/mL (< 0.028)
[2018-10-15] MEDS ORDERED: Sodium Chloride 0.9% 10 ML ONE (20:14)
[2018-10-15] MEDS: HumaLOG 300 UNITS/3 ML VIAL SC PRN (20:59)
[2018-10-15 21:02] LABS: Troponin I Less than 0.010 ng/mL (< 0.028)
[2018-10-15] MEDS ORDERED: Furosemide 20 MG/2 ML VIAL SLOW IVP SCH (21:15)
[2018-10-15 23:22] VITALS: BMI 38.0
[2018-10-16] MEDS ORDERED: Morphine 2 MG/ML SYRINGE SLOW IVP SCH (00:15)
[2018-10-16 05:27] LABS: #Lymphocytes 0.8 thou/uL (1.20-3.40); #Monocytes 0.7 thou/uL (0.11-0.59); #Neutrophils 7.3 thou/uL (1.40-6.50); %Basophils 0.4 % (0.0-1.0); %Eosinophils 0.5 % (0.0-10.0); %Lymphocytes 9.5 % (21.0-51.0); %Monocytes 7.3 % (0.0-10.0); %Neutrophils 82.2 % (42.0-75.0); Mean Corpuscular Hemoglobin 21.8 pg (27.0-31.0); Mean Corpuscular Volume 72.5 fL (78.0-98.0); Mean Platelet Volume 11.4 fL (7.4-10.4); Platelet Count 254 thou/uL (130-400); RBC Distribution Width 20.7 % (11.5-14.5); Red Blood Cell (RBC) Count 3.68 mill/uL (4.70-6.10); White Blood Cell (WBC) Count 8.9 thou/uL (4.8-10.8)
[2018-10-16 05:47] LABS: Anion Gap 13 mmol/L (10-20); BUN (Urea Nitrogen) 19 mg/dL (8.4-25.7); Calc. Creatinine Clearance 100 mL/min (70-130); Calcium 8.6 mg/dL (7.8-10.44); Carbon Dioxide 26 mmol/L (23-31); Chloride 104 mmol/L (98-107); Estimated GFR-MDRD 64; Glucose 136 mg/dL (80-115); Potassium 3.4 mmol/L (3.5-5.1); Sodium 140 mmol/L (136-145)
[2018-10-16] MEDS ORDERED: Sacubitril 49 MG/Valsartan 51 MG TABLET PO SCH ×2 (09:00→09:30)
[2018-10-16] MEDS ORDERED: INSULIN GLARGINE HUM REC ANLOG 40 UNIT SQ SCH (09:00)
[2018-10-16] MEDS ORDERED: Amiodarone 200 MG TAB PO SCH (09:00)
--- NOTE | 2018-10-16 09:05 | CON ---
DATE OF CONSULTATION: 10/16/2018 REASON FOR CONSULTATION: Congestive heart failure, coronary artery disease, severe anemia, atrial fi brillation. HISTORY OF PRESENT ILLNESS: Mr. Villatoro is a very pleasant 67-year-old gentleman with the above list ed problems admitted with severe anemia. Mr. Villatoro recently has been found to have a hydrocele that will need surgery. As part of his evalu ation, he underwent blood testing which showed a severe anemia. He is admitted for therapy and trans fusion and other medical therapy. The patient initially was admitted to the hospital 10/2017. He had new onset atrial fibrillation wit h congestive heart failure. He had extremely rapid ventricular response. Ultimately, we were able to get him out of the atrial fibrillation and he was able to maintain sinus rhythm. He underwent cardiac catheterization and was found to have single vessel coronary disease an d obtuse marginal lesion. The patient wore a LifeVest for some time, then decided he did not wish to further wear the LifeVest. Defibrillator implantation was advised on multiple occasions. He unders tands he is at risk of sudden cardiac , but he has refused defibrillator implantation despite mu ltiple discussions. He underwent repeat catheterization recently and it was found that the obtuse marginal lesion is mode rate. It is a long lesion that would require a relatively long stent. Clearly it is not the source of his left ventricular dysfunction. At the time of catheterization reemphasized the need for defibr illator implantation, which he refuses and stent implantation was not done as it was not clear it wou ld improve his prognosis and he has no chest pain. The patient was found to be severely anemic at the present time as mentioned. He received 2 units of packed red blood cells last night. He said he had a very difficult night. He was up urinating much of the night and then this morning cannot lay down in the bed, he has to sit u p in the chair because he cannot breathe when he tries to lay flat. MEDICATIONS: There is some confusion. He does not know his medicines. The medicines that are list ed in our office are: 1. Amiodarone, it is listed 200 mg twice a day, but I believe he is taking once a day. 2. Entresto 97/103 twice a day. 3. Carvedilol twice a day. 4. Torsemide. 5. Plavix 75 mg a day. 6. Eliquis 5 mg twice a day. 7. He is not on aspirin. Again, there is some confusion. He does not know his medicines. He also has diabetes. He is on med icines for diabetes. ALLERGIES: None known. REVIEW OF SYSTEMS: CONSTITUTIONAL: Positive for some depression. VISION: No changes. HEARING: No changes. PULMONARY: Positive for shortness of breath. CARDIAC: Positive for shortness of breath. GASTROINTESTINAL: No nausea, vomiting, diarrhea. SKIN: No rashes. NEUROLOGIC: No unilateral weakness or numbness. PSYCHIATRIC: He tends to be depressed. PHYSICAL EXAMINATION: GENERAL: This is a pleasant 67-year-old man sitting up in the chair. VITAL SIGNS: Blood pressure is 135/62, pulse 85 regular. HEENT: Eyes; sclerae nonicteric. Mouth; mucous membranes moist. NECK: Supple, no lymphadenopathy. The neck veins are elevated. LUNGS: Bibasilar rales. CARDIOVASCULAR: Normal S1, normal S2. There is no murmur, rub or gallop. ABDOMEN: Soft, nontender. EXTREMITIES: No clubbing or cyanosis. There is mild edema. PERTINENT LABORATORY AND X-RAY FINDINGS: Potassium is 3.4, glucose 393. Hemoglobin has gone from 5. 8 to 8.0. ASSESSMENT: 1. Congestive heart failure, systolic, chronic, ejection fraction 20-25%. Refuses defibrillator imp lantation. 2. Coronary artery disease, single vessel. At this point, I believe medical therapy is his best opt ion in terms of the coronary disease for the reasons outlined above. 3. Anemia, probably slow gastrointestinal blood loss. 4. Paroxysmal atrial fibrillation, none documented that I know of since last October. PLAN: 1. Clarify the medication doses and see how much amiodarone he is actually taking. 2. Stop Eliquis at this point. 3. Stop Plavix at this point. 4. Intravenous furosemide. 5. Continuing Entresto and carvedilol. 6. Recommend waiting until tomorrow if needed for endoscopy, by that time most of the Eliquis will h ave worn off. It will be 4 half-lives. But today, there is still quite a bit of anticoagulation eff ect, by tomorrow the anticoagulant effect should be minimal to gone. 7. Replete potassium. We will follow with you during this admission.
[2018-10-16] MEDS ORDERED: Furosemide 40 MG/4 ML VIAL SLOW IVP SCH (09:30)
[2018-10-16] MEDS ORDERED: Potassium Chloride 20 MEQ TAB PO SCH ×2 (09:30→17:00)
[2018-10-16] MEDS ORDERED: Levothyroxine Sodium 100 MCG TAB PO SCH (09:30)
[2018-10-16] MEDS ORDERED: Insulin Glargine 32 UNITS in Pre-Filled Syringe 1 EACH SC SCH (10:00)
[2018-10-16] MEDS: Liothyronine Sodium 5 MCG TAB PO SCH (10:13)
[2018-10-16] MEDS: Ezetimibe 10 MG TAB PO SCH (10:16)
[2018-10-16] MEDS: Anastrozole 1 MG TAB PO SCH (10:16)
[2018-10-16] MEDS: Glimepiride 2 MG TAB PO SCH (10:17)
[2018-10-16] MEDS: Ipratropium Bromide 2.5 ml Neb NEB SCH ×2 (10:23→18:55)
[2018-10-16] MEDS: HumaLOG 300 UNITS/3 ML VIAL SC SCH ×2 (10:30→16:17)
--- NOTE | 2018-10-16 12:23 | PQF ---
DATE: 10-16-18 ATTN: DR. DIAMOND NOE Please exercise your independent, professional judgment in responding to the clarification form. Clinical indicators are provided on the bottom of this form for your review Please check appropriate box(s): [x ] Acute Renal Failure (ARF) / Acute Kidney Injury (JACEK) [ ] Insignificant Lab Values [ ] Other diagnosis [ ] Unable to determine In addition, please specify: Present on Admission (POA): [ x ] Yes [ ] No [ ] Unable to determine National Kidney Foundation Guidelines for CKD Staging Stage I Kidney damage with normal or increased GFR GFR > 90 Stage II Kidney damage with mildly decreased GFR GFR 60-89 Stage III Kidney damage with moderately decreased GFR GFR 30-59 Stage IV Kidney damage with severely decreased GFR GFR 16-29 Stage V Kidney failure GFR<15 ESRD End Stage Renal Disease On dialysis Acute Renal Failure/Acute Kidney Failure defined as: Increases in SCr by (>) 0.3 mg/dl within 48 hours OR- Increases in SCr by (>) 1.5 times baseline, known or presumed to have occurred within the prior 7 days OR- Urine volume < 0.5 ml/kg/hour for 6 hours (KDIGO supplement 2012 for RIFLE/CLOVIS criteria) For continuity of documentation, please document condition throughout progress notes and discharge summary. Thank You. CLINICAL INDICATORS - SIGNS / SYMPTOMS / LABS H&P: ACUTE RENAL INSUFFICIENCY. WE WILL HOLD NEPHROTOXIC MEDICATION, WE WILL PROVIDE GENTLE HYDRATION GIVEN HIS HISTORY OF CARDIOMYOPATHY AND RECHECK CREATININE LEVEL GFR: 10-15-18: 36 10-16-18: 64 CREATININE: 10-15-18: 1.90 10-16-18: 1.14 BUN: 10-15-18: 26 10-16-18: 19 RISK FACTORS: ER: HOME MEDS LASIX, CLOPIDOGREL, METFORMIN, COREG, AMIODARONE, LYRICA TREATMENTS: MAR: IVF (This form is maintained as a part of the permanent medical record) 2014 [employer]. All Rights Reserved CLAUDIA [email or web address] Office: [phone] KHALIF
--- NOTE | 2018-10-16 13:26 | PDOC.PN ---
- Subjective Encounter Start Date: 10/16/18 Encounter Start Time: 07:40 Pt seen for followup re: symptomatic anemia. Denies chest pain, shortness of breath at rest. Has SOBOE. - Objective Resuscitation Status: Resuscitation Status FULL:Full Resuscitation MAR Reviewed: Yes Vital Signs & Weight: Vital Signs (12 hours) Temp Pulse Resp BP BP Pulse Ox 10/16/18 11:00 97.6 F 82 18 128/61 96 10/16/18 10:23 71 14 97 10/16/18 07:58 99.6 F 85 21 H 135/62 96 10/16/18 04:37 99.2 F 89 20 140/63 95 Weight Weight 241 lb 4.8 oz I&O: 10/15/18 10/16/18 10/17/18 06:59 06:59 06:59 Intake Total 1582 Output Total 3225 Balance -1643 Result Diagrams: 10/16/18 04:41 10/16/18 04:41 Additional Labs: Accuchecks 10/16/18 10/16/18 10/15/18 11:09 05:30 20:38 POC Glucose 220 H 145 H 393 H EKG Reviewed by me: Yes (Tele: NSR) Phys Exam - Physical Examination Obese HEENT: moist MMs, sclera anicteric, oral pharynx no lesions, 2+ tonsils Neck: no nodes, no JVD, supple, full ROM Phillip crackles Cardiovascular: RRR, no rub S1, S2 Gastrointestinal: soft, non-tender, no distention, positive bowel sounds Musculoskeletal: edema present Neurological: moves all 4 limbs Psychiatric: normal affect, A&O x 3 Dx/Plan (1) Symptomatic anemia Code(s): D64.9 - ANEMIA, UNSPECIFIED Status: Acute Comment: workup in progress. Pt has iron deficiency, TIBC is towards the upper end of normal range , will start iron. Retic count mildly elevated. B12/folate normal. (2) Atrial fibrillation Code(s): I48.91 - UNSPECIFIED ATRIAL FIBRILLATION Status: Chronic Comment: hold anticoagulation (3) Diabetes mellitus Code(s): E11.9 - TYPE 2 DIABETES MELLITUS WITHOUT COMPLICATIONS Status: Chronic Comment: continue accuchecks, insulin sliding scale (4) Hyperlipidemia Code(s): E78.5 - HYPERLIPIDEMIA, UNSPECIFIED Status: Chronic Comment: continue statin (5) CHF (congestive heart failure) Code(s): I50.9 - HEART FAILURE, UNSPECIFIED Status: Chronic Qualifiers: Heart failure type: systolic Comment: continue furosemide as needed (6) Hypertension Code(s): I10 - ESSENTIAL (PRIMARY) HYPERTENSION Status: Chronic Comment: controlled (7) Hypothyroidism Code(s): E03.9 - HYPOTHYROIDISM, UNSPECIFIED Status: Chronic Comment: continue synthroid (8) Cardiomyopathy Code(s): I42.9 - CARDIOMYOPATHY, UNSPECIFIED Status: Chronic Comment: continue beta camilo and Entresto. Pt refused ICD. - Plan * . Review of Systems - Review of Systems Constitutional: weakness. negative: fever, chills, sweats, malaise Respiratory: SOB with Excertion. negative: Cough, Shortness of Breath, Pleuritic Pain, Wheezing Cardiovascular: negative: chest pain, palpitations, orthopnea, paroxysmal nocturnal dyspnea, edema, light headedness Gastrointestinal: negative: Nausea, Vomiting, Abdominal Pain, Diarrhea, Constipation, Melena, Hematochezia Genitourinary: negative: Dysuria, Frequency, Incontinence, Hematuria, Retention - Medications/Allergies Allergies/Adverse Reactions: Allergies Allergy/AdvReac Type Severity Reaction Status Date / Time No Known Allergies Allergy Verified 10/15/18 20:14 Medications: Current Medications Acetaminophen (Tylenol) 650 mg PO Q4H PRN PRN Reason: Headache/Fever/Mild Pain (1-3) Acetaminophen (Tylenol) 650 mg NE Q4H PRN PRN Reason: Headache/Fever/Mild Pain (1-3) Anastrozole (Arimidex) 1 mg PO [facility] Last Admin: 10/16/18 10:16 Dose: 1 mg Carvedilol (Coreg) 6.25 mg PO BID-[facility] Dextrose/Water (Dextrose 50%) 25 gm SLOW IVP PRN PRN PRN Reason: Hypoglycemia Ezetimibe (Zetia) 10 mg PO [facility] Last Admin: 10/16/18 10:16 Dose: 10 mg Glimepiride (Amaryl) 2 mg PO [facility] Last Admin: 10/16/18 10:17 Dose: 2 mg Glucagon (Glucagon) 1 mg IM PRN PRN PRN Reason: Hypoglycemia Dextrose/Water (D5w) 1,000 mls @ 0 mls/hr IV .Q0M PRN PRN Reason: Hypoglycemia Insulin Glargine 32 units/ (Miscellaneous Medication) 0.32 mls @ 0 mls/hr SC QAM [facility] Insulin Human Lispro (Humalog) 0 units SC .MILD SLIDING SCALE PRN PRN Reason: Mild Correctional Scale Last Admin: 10/15/18 20:59 Dose: 6 unit Insulin Human Lispro (Humalog) 10 units SC AC [facility] Last Admin: 10/16/18 10:30 Dose: Not Given Ipratropium [place] (Atrovent) 2.5 ml NEB A2DC-IE [facility] Last Admin: 10/16/18 10:23 Dose: 2.5 ml Levothyroxine Sodium (Synthroid) 200 mcg PO 0600 [facility] Liothyronine Sodium (Cytomel) 5 mcg PO QAM [facility] Last Admin: 10/16/18 10:13 Dose: 5 mcg Metformin HCl (Glucophage Xr) 750 mg PO BID-WM [facility] Mometasone Furoate/Formoterol Fumar (Dulera 200 Mcg/5 Mcg Inhaler) 2 puff INH BID-RT [facility] Canagliflozin [ (Invokana] 300 Mg) 0 each PO QAM [facility] Potassium Chloride (K-Dur) 40 meq PO 1700 [facility] Stop: 10/16/18 19:00 Pregabalin (Lyrica) 150 mg PO BID PRN PRN Reason: Pain Sacubitril/Valsartan (Entresto 49 Mg-51 Mg Tablet) 2 tab PO BID [facility] Sodium Chloride (Flush - Normal Saline) 10 ml IVF Q12HR [facility] Last Admin: 10/16/18 10:15 Dose: 10 ml Sodium Chloride (Flush - Normal Saline) 10 ml IVF PRN PRN PRN Reason: Saline Flush Last Admin: 10/16/18 00:37 Dose: 10 ml
[2018-10-16] MEDS ORDERED: Iron Sucrose Complex 200 MG in Sodium Chloride 0.9% 250 ML 250 ML IVPB SCH (13:30)
[2018-10-16] MEDS ORDERED: Iron, Sodium Ferric Gluconate 250 MG in Sodium Chloride 0.9% 100 ML IVPB SCH (14:30)
[2018-10-16] MEDS: metFORMIN XR 500 MG TAB PO SCH (16:02)
[2018-10-16] MEDS: Ferrous Sulfate 325 MG TAB PO SCH (16:02)
[2018-10-16] MEDS: Carvedilol 6.25 MG TAB PO SCH (16:03)
[2018-10-16] MEDS: Mometasone/Formoterol 120 PUFF INHALER INH SCH (19:01)
[2018-10-16] MEDS: Sacubitril 49 MG/Valsartan 51 MG TABLET PO SCH (21:41)
[2018-10-17] MEDS: Ipratropium Bromide 2.5 ml Neb NEB SCH ×4 (00:36→19:47)
--- NOTE | 2018-10-17 00:48 | CON ---
DATE OF CONSULTATION: 10/16/2018 REASON FOR CONSULTATION: Anemia of unknown origin. CONSULTING PHYSICIAN: Vidhya Melissa DO HISTORY OF PRESENT ILLNESS: The patient is a 67-year-old male with past medical history of diabetes, hyperlipidemia, hypertension, hypothyroidism, recent diagnosis of hydrocele, atrial fibrillation on chronic anticoagulation and congestive heart failure with an ejection fraction of approximately 20-25 %, presenting with complaints of increased tiredness and fatigue. The patient states that over the l ast 1-2 months, he has been experiencing increased fatigue and tiredness, associated with mild shortn ess of breath both on exertion and at rest. He was also recently diagnosed with a hydrocele per the Urology Service and as part of the workup related to the preop preparations, he was noted to have a s ignificantly decreased H&H when compared to previous. With this decreased H&H, his primary care orde red him to this and urged him to go to the hospital for further evaluation. Upon evaluation here in the hospital other than these stated symptoms as above, he denies any further symptoms. Currently, h e denies any nausea, vomiting, fevers, chills, abdominal pain, GI bleeding, constipation, diarrhea, o dynophagia, or dysphagia. He also denies any recent weight loss or changes in his medications; howev er, he does take extra strength Excedrin daily as well as a [facility] Arthritis formula roughly every other day in relation to his general aches and pains. He also does endorse some occasional episodes of epistaxis, characterized as minimal spotting on his pillow when he wakes up in the morning, but o jeanettewise denies any significant bleeding episodes. Of note, he states that his last colonoscopy was approximately 5 years ago with normal findings. He was recommended to repeat the colonoscopy in 5 years, primarily related to a family history of colon cancer in his father who was diagnosed at the age of 62 or 63. REVIEW OF SYSTEMS: A 10-category review of systems was obtained with all responses negative except f or the pertinent positives as listed in the HPI. PAST MEDICAL HISTORY: As per HPI. PAST SURGICAL HISTORY: Appendectomy, left knee surgery, right ankle surgery, cardiac catheterization . FAMILY HISTORY: States that his father was diagnosed with colon cancer in his early 60s. SOCIAL HISTORY: Currently denies any tobacco or illicit drug use. He does drink alcohol occasionall y. OUTPATIENT MEDICATIONS: Reviewed. ALLERGIES: No known drug allergies. PHYSICAL EXAMINATION: VITAL SIGNS: Temperature 97.5, pulse 78, blood pressure 133/64, respiratory rate 12, satting 98% on room air. GENERAL: The patient was lying in bed in no acute distress. He is alert and oriented x4. NECK: Supple. No cervical or supraclavicular lymphadenopathy noted. CARDIOVASCULAR: Regular rate and rhythm with no discernible murmurs, gallops, or rubs. LUNGS: Clear to auscultation bilaterally with some diminished breath sounds in the bilateral lower l obes. ABDOMEN: Normoactive bowel sounds, soft, nontender, nondistended. EXTREMITIES: No cyanosis or clubbing. Trace edema noted in the bilateral lower extremities to mid s hin. LABORATORY DATA: CBC with a white blood cell count of 8.9, hemoglobin 8, hematocrit 26.7, platelets 254,000, MCV 72.5, RDW 18.6. Chemistry with a sodium of 140, potassium 3.4, chloride 104, CO2 of 26, BUN 19, creatinine 1.14, glucose 136, AST 12, ALT 13, alkaline phosphatase 78, total bilirubin 0.3. Iron 10, TIBC 430. IMAGING DATA: No current GI imaging is available for review. ASSESSMENT AND PLAN: The patient is a 67-year-old male with past medical history of diabetes, hyperl ipidemia, hypertension, hydrocele, hypothyroidism, atrial fibrillation on chronic anticoagulation and congestive heart failure with an EF of 20-25%, presenting with symptomatic anemia. Symptomatic anemia: The patient is presenting with the progressive worsening of increased tiredness and fatigue that has been present for the last 1-2 months as well as increased shortness of breath on both exertion and mildly at rest. As part of the workup, he was noted to have a significantly decre ased H&H when compared to previous, concerning for possible bleeding source; however, he denies any o vert blood loss other than minimal epistaxis. Upon review of his labs, he does have a low iron, high TIBC, low MCV, and high RDW, all consistent with an iron deficiency anemia. Given his lack of overt blood loss, GI bleeding source is potentially an etiology for the current clinical picture, especial ly in light of active use of Plavix and Eliquis for chronic anticoagulation. He does have a history of colon cancer diagnosed in his father in his early 60s, but this does not an increased risk o f genetic/hereditary colon cancer in this patient primarily because it was diagnosed after the age of 62. Differential could include esophagitis, gastritis, arteriovenous malformation, Dieulafoy lesion , ischemic colitis, peptic ulcer disease, medication-induced gastritis or ulcers and/or possible GI m alignancy. RECOMMENDATIONS: 1. We would continue to trend H&H and transfuse as necessary to maintain an H&H of 06/15. 2. Continue to monitor clinically for signs of active gastrointestinal bleeding. 3. We would hold anticoagulation for now in light of impending upper and lower endoscopy. 4. We will plan for both EGD and colonoscopy on Sunday, given his recent administration of anticoagu lation medication and allow for time to medications to be properly metabolized prior to any int ervention. We will plan for EGD and colonoscopy on Sunday with GoLYTELY prep prior to the procedures . We will continue to follow. Please call with any questions.
[2018-10-17] MEDS: Levothyroxine Sodium 100 MCG TAB PO SCH (04:41)
[2018-10-17 05:11] LABS: Anion Gap 15 mmol/L (10-20); BUN (Urea Nitrogen) 16 mg/dL (8.4-25.7); Calc. Creatinine Clearance 102 mL/min (70-130); Calcium 8.9 mg/dL (7.8-10.44); Carbon Dioxide 22 mmol/L (23-31); Chloride 110 mmol/L (98-107); Estimated GFR-MDRD 66; Glucose 171 mg/dL (80-115); Potassium 3.9 mmol/L (3.5-5.1); Sodium 143 mmol/L (136-145)
[2018-10-17 05:16] LABS: #Eosinphils 0.1 thou/uL (0.0-0.7); #Lymphocytes 0.8 thou/uL (1.20-3.40); #Monocytes 0.7 thou/uL (0.11-0.59); #Neutrophils 5.6 thou/uL (1.40-6.50); %Basophils 0.7 % (0.0-1.0); %Eosinophils 0.9 % (0.0-10.0); %Lymphocytes 11.5 % (21.0-51.0); %Monocytes 9.4 % (0.0-10.0); %Neutrophils 77.6 % (42.0-75.0); Anisocytosis SLIGHT = 6-15 cells (100X) (0-5/hpf); Elliptocytes SLIGHT = 2-5 cells (100X) (0-1/hpf); Hypochromia SLIGHT = 6-15 cells (100X) (0-5/hpf); MDiff Complete? YES; Mean Corpuscular HGB CONC 29.1 g/dL (32.0-36.0); Mean Corpuscular Hemoglobin 21.3 pg (27.0-31.0); Mean Corpuscular Volume 73.2 fL (78.0-98.0); Mean Platelet Volume 11.6 fL (7.4-10.4); Platelet Count 253 thou/uL (130-400); RBC Distribution Width 20.9 % (11.5-14.5); Red Blood Cell (RBC) Count 3.76 mill/uL (4.70-6.10); White Blood Cell (WBC) Count 7.2 thou/uL (4.8-10.8)
[2018-10-17] MEDS: Mometasone/Formoterol 120 PUFF INHALER INH SCH ×2 (07:27→19:47)
[2018-10-17] MEDS: HumaLOG 300 UNITS/3 ML VIAL SC SCH ×3 (08:56→17:21)
[2018-10-17] MEDS: Ezetimibe 10 MG TAB PO SCH (08:57)
[2018-10-17] MEDS: Glimepiride 2 MG TAB PO SCH (08:57)
[2018-10-17] MEDS: Ferrous Sulfate 325 MG TAB PO SCH ×2 (08:57→17:18)
[2018-10-17] MEDS: metFORMIN XR 500 MG TAB PO SCH ×2 (08:57→17:16)
[2018-10-17] MEDS: Anastrozole 1 MG TAB PO SCH (08:58)
[2018-10-17] MEDS: Insulin Glargine 32 UNITS in Pre-Filled Syringe 1 EACH SC SCH (08:59)
[2018-10-17] MEDS: Liothyronine Sodium 5 MCG TAB PO SCH (09:00)
[2018-10-17] MEDS: Carvedilol 6.25 MG TAB PO SCH ×2 (09:01→17:18)
[2018-10-17] MEDS: Sacubitril 49 MG/Valsartan 51 MG TABLET PO SCH ×2 (09:01→20:06)
--- NOTE | 2018-10-17 13:14 | PRG ---
DATE OF SERVICE: 10/17/2018 REASON FOR CONSULTATION: Anemia of unknown origin. SUBJECTIVE: The patient states that he did well overnight with no acute events or problems during th at time. Currently, he is asymptomatic and denies nausea, vomiting, fevers, chills, abdominal pain, GI bleeding, odynophagia, or dysphagia. OBJECTIVE: VITAL SIGNS: Temperature 98, pulse 68, blood pressure 131/60, respiratory rate 16, satting 97% on ro om air. GENERAL: Patient is lying in bed in no acute distress. Alert and oriented x4. CARDIOVASCULAR: Regular rate and rhythm. LUNGS: Clear to auscultation bilaterally. ABDOMEN: Normoactive bowel sounds, soft, nontender, nondistended. EXTREMITIES: No cyanosis, clubbing, or edema. LABORATORY DATA: CBC with a white blood cell count of 7.2, hemoglobin 8, hematocrit 27.5, platelets 253. Chemistry with a sodium of 143, potassium 3.9, chloride 110, CO2 of 22, BUN 16, creatinine 1.12 , glucose 171. IMAGING DATA: No current GI imaging is available for review. ASSESSMENT AND PLAN: The patient is a 67-year-old male with past medical history of diabetes; hyperl ipidemia; hypertension; hydrocele; hypothyroidism; atrial fibrillation, on chronic anticoagulation (o n Plavix and Eliquis); and congestive heart failure with an ejection fraction of 20%-25%; presenting with symptomatic anemia. Symptomatic anemia. The patient is presenting with progressive worsening of increased tiredness and fatigue that had been present over the last 1-2 months that prompted him to seek healthcare assistanc e, related to recent abnormal labs. Upon review of his labs, he does have a low iron, high TIBC, low MCV, and high RDW all consistent with an iron deficiency anemia. The patient does not endorse any o vert gastrointestinal blood loss, but a GI bleeding source cannot be necessarily ruled out at this ti me given the iron deficiency anemia and family history of colon cancer in his father. RECOMMENDATIONS: 1. We would continue to trend H and H and transfuse as necessary to maintain an H and H of 7/21. 2. Continue to monitor clinically for signs of active gastrointestinal bleeding. 3. Continue to hold anticoagulation for now in light of impending upper and lower endoscopy. 4. We will plan for both EGD and colonoscopy tomorrow. The patient to be placed on clear liquid t and n.p.o. at midnight with GoLYTELY administration later on tonight. We will continue to follow. Please call with any questions.
--- NOTE | 2018-10-17 14:28 | PDOC.CTH ---
Cardiology Progress Note - Subjective No new issues. No anginal symptoms. - Objective Vital Signs Temp Pulse Resp BP BP BP BP 10/17/18 13:59 80 16 10/17/18 11:30 98 F 68 16 131/60 10/17/18 09:01 133/64 10/17/18 07:57 98.2 F 83 16 130/60 10/17/18 07:26 76 16 10/17/18 04:00 98.4 F 89 14 128/53 L Pulse Ox 10/17/18 13:59 97 10/17/18 11:30 97 10/17/18 09:01 10/17/18 07:57 93 L 10/17/18 07:26 98 10/17/18 04:00 94 L Weight 238 lb 1.6 oz 10/16/18 10/17/18 10/18/18 06:59 06:59 06:59 Intake Total 1582 1720 240 Output Total 3225 2500 Balance -1643 -780 240 - Physical Examination General/Neuro: alert & oriented x3, NAD Neck: no JVD present Lungs: CTA, unlabored respirations Heart: RRR Abdomen: NT/ND Extremities: + edema B (trace) - Telemetry Telemetry Rhythm: NSR - Labs Result Diagrams: 10/17/18 04:22 10/17/18 04:22 Troponin/CKMB CK-MB (CK-2) 1.9 ng/mL (0-6.6) 10/15/18 13:17 Troponin I Less than 0.010 ng/mL (< 0.028) 10/15/18 20:21 - Assessment/Plan 1. Acute on chronic systolic heart failure. 2. CAD, stable 3. Anemia, suspect slo GI bleed. 4. Paroxysmal afib PLAN: - Continue to hold Eliquis and plavix. - Continue IV lasix - EGD planned for Sunday.
--- NOTE | 2018-10-17 14:59 | PDOC.PN ---
- Subjective Encounter Start Date: 10/17/18 Encounter Start Time: 09:00 Pt seen for followup re: symptomatic anemia. Denies chest pain, shortness of breath, fevers or chills. - Objective Resuscitation Status: Resuscitation Status FULL:Full Resuscitation Vital Signs & Weight: Vital Signs (12 hours) Temp Pulse Resp BP BP BP BP 10/17/18 13:59 80 16 10/17/18 11:30 98 F 68 16 131/60 10/17/18 09:01 133/64 10/17/18 07:57 98.2 F 83 16 130/60 10/17/18 07:26 76 16 10/17/18 04:00 98.4 F 89 14 128/53 L Pulse Ox 10/17/18 13:59 97 10/17/18 11:30 97 10/17/18 09:01 10/17/18 07:57 93 L 10/17/18 07:26 98 10/17/18 04:00 94 L Weight Weight 238 lb 1.6 oz I&O: 10/16/18 10/17/18 10/18/18 06:59 06:59 06:59 Intake Total 1582 1720 240 Output Total 3225 2500 Balance -1643 -780 240 Result Diagrams: 10/17/18 04:22 10/17/18 04:22 Additional Labs: Accuchecks 10/17/18 10/17/18 10/16/18 10:47 05:33 20:29 POC Glucose 356 H 187 H 274 H 10/16/18 17:05 POC Glucose 326 H Phys Exam - Physical Examination Constitutional: NAD HEENT: moist MMs Neck: supple Respiratory: clear to auscultation bilateral Cardiovascular: RRR Gastrointestinal: soft Musculoskeletal: edema present Neurological: moves all 4 limbs Psychiatric: normal affect Dx/Plan (1) Symptomatic anemia Code(s): D64.9 - ANEMIA, UNSPECIFIED Status: Acute Comment: Pt to have bidirectional GI scopes tomorrow. Plavix and Eliquis are on hold. (2) Atrial fibrillation Code(s): I48.91 - UNSPECIFIED ATRIAL FIBRILLATION Status: Chronic Comment: Eliquis is on hold (3) Diabetes mellitus Code(s): E11.9 - TYPE 2 DIABETES MELLITUS WITHOUT COMPLICATIONS Status: Chronic Comment: on accuchecks, insulin sliding scale (4) Hyperlipidemia Code(s): E78.5 - HYPERLIPIDEMIA, UNSPECIFIED Status: Chronic Comment: on statin (5) CHF (congestive heart failure) Code(s): I50.9 - HEART FAILURE, UNSPECIFIED Status: Chronic Qualifiers: Heart failure type: systolic Comment: stable (6) Hypertension Code(s): I10 - ESSENTIAL (PRIMARY) HYPERTENSION Status: Chronic Comment: controlled (7) Hypothyroidism Code(s): E03.9 - HYPOTHYROIDISM, UNSPECIFIED Status: Chronic Comment: continue synthroid (8) Cardiomyopathy Code(s): I42.9 - CARDIOMYOPATHY, UNSPECIFIED Status: Chronic Comment: on beta camilo and Entresto. Pt refused ICD. - Plan * . Review of Systems - Review of Systems Respiratory: negative: Cough, Shortness of Breath, SOB with Excertion, Pleuritic Pain, Wheezing Cardiovascular: negative: chest pain, palpitations, orthopnea, paroxysmal nocturnal dyspnea, edema, light headedness - Medications/Allergies Allergies/Adverse Reactions: Allergies Allergy/AdvReac Type Severity Reaction Status Date / Time No Known Allergies Allergy Verified 10/15/18 20:14 Medications: Current Medications Acetaminophen (Tylenol) 650 mg PO Q4H PRN PRN Reason: Headache/Fever/Mild Pain (1-3) Acetaminophen (Tylenol) 650 mg [place] Q4H PRN PRN Reason: Headache/Fever/Mild Pain (1-3) Anastrozole (Arimidex) 1 mg PO [facility] Last Admin: 10/17/18 08:58 Dose: 1 mg Carvedilol (Coreg) 6.25 mg PO BID-[facility] Last Admin: 10/17/18 09:01 Dose: 6.25 mg Dextrose/Water (Dextrose 50%) 25 gm SLOW IVP PRN PRN PRN Reason: Hypoglycemia Ezetimibe (Zetia) 10 mg PO [facility] Last Admin: 10/17/18 08:57 Dose: 10 mg [facility]ous S[facility] ([facility]) [facility] Last Admin: 10/17/18 08:57 Dose: 325 mg Glimepiride (Amaryl) 2 mg PO [facility] Last Admin: 10/17/18 08:57 Dose: 2 mg Glucagon (Glucagon) 1 mg IM PRN PRN PRN Reason: Hypoglycemia Dextrose/Water (D5w) 1,000 mls @ 0 mls/hr IV .Q0M PRN PRN Reason: Hypoglycemia Insulin Glargine 32 units/ (Miscellaneous Medication) 0.32 mls @ 0 mls/hr SC QAM [facility] Last Admin: 10/17/18 08:59 Dose: Not Given Insulin Human Lispro (Humalog) 0 units SC .MILD SLIDING SCALE PRN PRN Reason: Mild Correctional Scale Last Admin: 10/15/18 20:59 Dose: 6 unit Insulin Human Lispro (Humalog) 10 units SC AC [facility] Last Admin: 10/17/18 11:28 Dose: 10 unit Ipratropium [place] (Atrovent) 2.5 ml NEB Q2GD-IL [facility] Last Admin: 10/17/18 13:59 Dose: 2.5 ml Levothyroxine Sodium (Synthroid) 200 mcg PO 0600 [facility] Last Admin: 10/17/18 04:41 Dose: 200 mcg Liothyronine Sodium (Cytomel) 5 mcg PO QAM [facility] Last Admin: 10/17/18 09:00 Dose: 5 mcg Metformin HCl (Glucophage Xr) 750 mg PO BID-WM [facility] Last Admin: 10/17/18 08:57 Dose: 750 mg Mometasone Furoate/Formoterol Fumar (Dulera 200 Mcg/5 Mcg Inhaler) 2 puff INH BID-RT [facility] Last Admin: 10/17/18 07:27 Dose: 2 puff Canagliflozin [ (Invokana] 300 Mg) 0 each PO QAM [facility] Polyethylene Glycol/Electrolytes (Golytely) 4,000 ml PO 1800 [facility] Stop: 10/17/18 23:59 Pregabalin (Lyrica) 150 mg PO BID PRN PRN Reason: Pain Sacubitril/Valsartan (Entresto 49 Mg-51 Mg Tablet) 2 tab PO BID [facility] Last Admin: 10/17/18 09:01 Dose: 2 tab Sodium Chloride (Flush - Normal Saline) 10 ml IVF Q12HR [facility] Last Admin: 10/17/18 09:02 Dose: 10 ml Sodium Chloride (Flush - Normal Saline) 10 ml IVF PRN PRN PRN Reason: Saline Flush Last Admin: 10/16/18 16:06 Dose: 10 ml
[2018-10-17] MEDS ORDERED: GoLYTELY 4,000 ml Bottle PO SCH (18:00)
[2018-10-18] MEDS: Ipratropium Bromide 2.5 ml Neb NEB SCH ×4 (00:49→19:29)
[2018-10-18] MEDS: Pregabalin 75 MG CAP PO PRN (04:43)
[2018-10-18] MEDS: Levothyroxine Sodium 100 MCG TAB PO SCH (04:43)
[2018-10-18 05:22] LABS: Anion Gap 16 mmol/L (10-20); BUN (Urea Nitrogen) 10 mg/dL (8.4-25.7); Calc. Creatinine Clearance 107 mL/min (70-130); Calcium 8.8 mg/dL (7.8-10.44); Carbon Dioxide 22 mmol/L (23-31); Chloride 105 mmol/L (98-107); Estimated GFR-MDRD 71; Glucose 183 mg/dL (80-115); Potassium 3.8 mmol/L (3.5-5.1); Sodium 139 mmol/L (136-145)
[2018-10-18 05:40] LABS: #Basophils 0.1 thou/uL (0.0-0.2); #Eosinphils 0.1 thou/uL (0.0-0.7); #Lymphocytes 0.9 thou/uL (1.20-3.40); #Monocytes 0.7 thou/uL (0.11-0.59); #Neutrophils 3.5 thou/uL (1.40-6.50); %Basophils 1.3 % (0.0-1.0); %Lymphocytes 17.5 % (21.0-51.0); %Monocytes 13.4 % (0.0-10.0); %Neutrophils 65.8 % (42.0-75.0); Anisocytosis SLIGHT = 6-15 cells (100X) (0-5/hpf); Hemoglobin 8.2 g/dL (14.0-18.0); Hypochromia SLIGHT = 6-15 cells (100X) (0-5/hpf); MDiff Complete? YES; Mean Corpuscular HGB CONC 29.8 g/dL (32.0-36.0); Mean Corpuscular Hemoglobin 21.5 pg (27.0-31.0); Mean Corpuscular Volume 72.4 fL (78.0-98.0); Mean Platelet Volume 11.5 fL (7.4-10.4); Microcytosis SLIGHT = 6-15 cells (100X) (0-5/hpf); Platelet Count 270 thou/uL (130-400); Polychromasia SLIGHT = 2-3 cells (100X) (0-2/hpf); RBC Distribution Width 21.1 % (11.5-14.5); Red Blood Cell (RBC) Count 3.79 mill/uL (4.70-6.10); White Blood Cell (WBC) Count 5.4 thou/uL (4.8-10.8)
[2018-10-18] MEDS: Mometasone/Formoterol 120 PUFF INHALER INH SCH ×2 (07:37→19:30)
[2018-10-18] MEDS: HumaLOG 300 UNITS/3 ML VIAL SC SCH ×3 (08:04→16:46)
[2018-10-18] MEDS: Carvedilol 6.25 MG TAB PO SCH ×2 (08:10→16:46)
[2018-10-18] MEDS: metFORMIN XR 500 MG TAB PO SCH ×2 (08:15→16:45)
[2018-10-18] MEDS: Ferrous Sulfate 325 MG TAB PO SCH ×2 (08:15→16:46)
[2018-10-18] MEDS: Glimepiride 2 MG TAB PO SCH (09:00)
[2018-10-18] MEDS: Insulin Glargine 32 UNITS in Pre-Filled Syringe 1 EACH SC SCH (09:00)
--- NOTE | 2018-10-18 11:29 | OP ---
DATE OF PROCEDURE: 10/18/2018 PROCEDURES PERFORMED: EGD with biopsy, colonoscopy (diagnostic). INDICATION FOR PROCEDURE: Iron deficiency anemia, anemia of unknown origin. DESCRIPTION OF PROCEDURE: After the risks and benefits of the procedures were explained to the patie nt including risk of bleeding, infection, perforation, reactions to anesthesia, aspiration and/or nieves n, informed consent was obtained. The patient was then taken to the endoscopy suite where deep sedat ion was administered via propofol and anesthesia support. Once adequate sedation was achieved, the s tandard gastroscope was introduced into the mouth with intubation of the esophagus, stomach and proxi mal small intestine with the findings listed below. Upon completion of this portion of the procedure , all equipment was removed and the bed was rotated approximately 180 degrees. After a digital recta l examination, the standard colonoscope was introduced into the rectum and advanced to the terminal i leum with some difficulty requiring manual abdominal pressure in order to facilitate passage of the s cope. The quality of the prep was poor in the right colon and with extensive irrigation and suctioni ng was converted to a fair prep, which was adequate for the evaluation of large mucosal lesions and a ctive/recent bleeding, but inadequate for the evaluation of fine mucosal lesions. The patient tolera erin the procedures well with no immediate perioperative complications. After the conclusion of the c olonoscopy, the patient was then taken to PACU in satisfactory condition. EGD FINDINGS: Esophagus: Normal appearing mucosa was seen in the proximal and mid esophagus, an irregular Z-line w as seen in the distal esophagus with small islands of salmon-colored mucosa, but none of them extendi ng more than 1 cm proximally from the GE junction. Per guidelines, these islands were not biopsied g iven the extremely low risk of progression to Brunner's and/or esophageal adenocarcinoma. Otherwise, there was no evidence of erosions, ulcerations, mass lesions or active/recent bleeding. Both the di aphragmatic pinch and GE junction were all seen at approximately 45 cm past the incisors. Stomach: Mild mucosal erythema was seen in the gastric cardia, fundus, body, greater curvature, antr um, and incisura. The erythema was mild and diffuse with no evidence of associated erosions or ulcer ations. Random biopsies were taken from the antrum, incisura, and body for evaluation of H. pylori s tatus. Otherwise, there were no erosions, ulcerations, mass lesions or active/recent bleeding seen d uring this portion of the exam. DUODENUM: Normal appearing mucosa was seen both in the duodenal bulb and second portion of the duode num. There was no evidence of erosions, ulcerations, mass lesions or active/recent bleeding. Random biopsies were taken from the bulb and second portion for evaluation of possible celiac disease. IMPRESSION: 1. Mild mucosal erythema seen throughout the entire stomach concerning for NSAID gastritis versus H. pylori infection. 2. Small mucosal islands of salmon-colored mucosa in the distal esophagus concerning for Brunner muc benito, but does not meet criteria for even biopsy at this time. COLONOSCOPY FINDINGS: Digital rectal exam: Normal external examination. COLON FINDINGS: Normal appearing mucosa was seen in the terminal ileum as well as at the ileocecal v alve and within the cecum. Within the right colon, there was a large amount of retained liquid and s estela-solid stool that despite aggressive irrigation and suctioning with copious amounts of sterile juan luis er was only able to be converted to fair prep. The prep was considered adequate for the evaluation o f large mucosal lesions and/or active/recent bleeding; however, it was inadequate for the evaluation of fine mucosal lesions less than 5 mm in size. Of the colonic mucosa seen (approximately 85%-90%), there was no normal appearing mucosa in the ascending, transverse, descending, sigmoid colons, and re ctum. Small internal hemorrhoids and hypertrophied anal papillae were seen on rectal retroflexion. IMPRESSION: 1. Poor colonic preparation converted to a fair colonic prep, but was still inadequate for the evalu ation of fine mucosal lesions. 2. Small internal hemorrhoids and hypertrophied anal papillae. 3. No etiology for iron deficiency anemia was seen during this examination. RECOMMENDATIONS: 1. We would continue to trend H and H and transfuse as necessary to maintain an H and H of 7/, whi le inpatient. 2. Continue to monitor clinically for signs of active gastrointestinal bleeding. 3. Given the fairly negative examinations today, would consider outpatient evaluation with capsule e ndoscopy for further evaluation of iron-deficiency anemia. 4. Agree with iron supplementation at this time. 5. We will follow up on the biopsy results and treat if H. pylori is positive. 6. Can restart the patient on anticoagulation within the next 24 hours, then can place the patient o n a cardiac diet. We will sign off at this time. Please call with any questions.
[2018-10-18] MEDS: Sacubitril 49 MG/Valsartan 51 MG TABLET PO SCH ×2 (11:53→20:38)
[2018-10-18] MEDS: Liothyronine Sodium 5 MCG TAB PO SCH (11:53)
[2018-10-18] MEDS: Anastrozole 1 MG TAB PO SCH (11:53)
[2018-10-18] MEDS: Ezetimibe 10 MG TAB PO SCH (11:53)
[2018-10-18] MEDS ORDERED: PROPOFOL 200 MG/20 ML VIAL ONE (12:02)
--- NOTE | 2018-10-18 13:22 | PDOC.PN ---
- Subjective Encounter Start Date: 10/18/18 Encounter Start Time: 10:00 Pt seen for followup re: symptomatic anemia. Had EGD and C-scope. Denies chest pain, shortness of breath, fevers or chills. - Objective Resuscitation Status: Resuscitation Status FULL:Full Resuscitation MAR Reviewed: Yes Vital Signs & Weight: Vital Signs (12 hours) Temp Pulse Resp BP BP Pulse Ox 10/18/18 12:22 77 16 94 L 10/18/18 12:00 98 F 80 16 109/51 L 96 10/18/18 07:05 97.9 F 70 16 142/67 H 96 10/18/18 04:00 98.9 F 71 18 151/65 H 95 Weight Weight 237 lb 1.6 oz I&O: 10/17/18 10/18/18 10/19/18 06:59 06:59 06:59 Intake Total 1720 1200 Output Total 2500 1000 Balance -780 200 Result Diagrams: 10/18/18 04:18 10/18/18 04:18 Additional Labs: Accuchecks 10/18/18 10/18/18 10/17/18 11:18 05:29 20:48 POC Glucose 227 H 206 H 215 H 10/17/18 16:33 POC Glucose 234 H EKG Reviewed by me: Yes (Tele: NSR) Phys Exam - Physical Examination Constitutional: NAD HEENT: moist MMs Neck: supple Respiratory: clear to auscultation bilateral Cardiovascular: RRR Gastrointestinal: soft Neurological: moves all 4 limbs Psychiatric: normal affect Dx/Plan (1) Symptomatic anemia Code(s): D64.9 - ANEMIA, UNSPECIFIED Status: Acute Comment: Pt had EGD and colonoscopy today, no significant findings. Plavix and Eliquis are on hold, will resume tomorrow. (2) Atrial fibrillation Code(s): I48.91 - UNSPECIFIED ATRIAL FIBRILLATION Status: Chronic Comment: Eliquis is on hold, will resume tomorrow. (3) Diabetes mellitus Code(s): E11.9 - TYPE 2 DIABETES MELLITUS WITHOUT COMPLICATIONS Status: Chronic Comment: continue accuchecks, insulin sliding scale (4) Hyperlipidemia Code(s): E78.5 - HYPERLIPIDEMIA, UNSPECIFIED Status: Chronic Comment: on statin (5) CHF (congestive heart failure) Code(s): I50.9 - HEART FAILURE, UNSPECIFIED Status: Chronic Qualifiers: Heart failure type: systolic Comment: stable (6) Hypertension Code(s): I10 - ESSENTIAL (PRIMARY) HYPERTENSION Status: Chronic Comment: controlled (7) Hypothyroidism Code(s): E03.9 - HYPOTHYROIDISM, UNSPECIFIED Status: Chronic Comment: on synthroid (8) Cardiomyopathy Code(s): I42.9 - CARDIOMYOPATHY, UNSPECIFIED Status: Chronic Comment: continue beta camilo and Entresto. - Plan * . Review of Systems - Review of Systems Respiratory: negative: Cough, Shortness of Breath, SOB with Excertion, Pleuritic Pain, Wheezing Cardiovascular: negative: chest pain, palpitations, orthopnea, paroxysmal nocturnal dyspnea, edema, light headedness - Medications/Allergies Allergies/Adverse Reactions: Allergies Allergy/AdvReac Type Severity Reaction Status Date / Time No Known Allergies Allergy Verified 10/15/18 20:14 Medications: Current Medications Acetaminophen (Tylenol) 650 mg PO Q4H PRN PRN Reason: Headache/Fever/Mild Pain (1-3) Acetaminophen (Tylenol) 650 mg NM Q4H PRN PRN Reason: Headache/Fever/Mild Pain (1-3) Anastrozole (Arimidex) 1 mg PO [facility] Last Admin: 10/18/18 11:53 Dose: 1 mg [facility] ([facility]) [facility] Last Admin: 10/18/18 08:10 Dose: Not Given Dextrose/Water (Dextrose 50%) 25 gm SLOW IVP PRN PRN PRN Reason: Hypoglycemia Ezetimibe (Zetia) 10 mg PO [facility] Last Admin: 10/18/18 11:53 Dose: 10 mg Ferrous Sulfate ([facility]ol) [facility] Last Admin: 10/18/18 08:15 Dose: Not Given Glimepiride (Amaryl) 2 mg PO [facility] Last Admin: 10/18/18 09:00 Dose: Not Given Glucagon (Glucagon) 1 mg IM PRN PRN PRN Reason: Hypoglycemia Dextrose/Water (D5w) 1,000 mls @ 0 mls/hr IV .Q0M PRN PRN Reason: Hypoglycemia Insulin Glargine 32 units/ (Miscellaneous Medication) 0.32 mls @ 0 mls/hr SC [facility] Last Admin: 10/18/18 09:00 Dose: Not Given Insulin Human Lispro (Humalog) 0 units SC .MILD SLIDING SCALE PRN PRN Reason: Mild Correctional Scale Last Admin: 10/15/18 20:59 Dose: 6 unit Insulin Human Lispro (Humalog) 10 units SC AC [facility] Last Admin: 10/18/18 11:54 Dose: 10 unit Ipratropium [place] (Atrovent) 2.5 ml NEB [id number] [facility] Last Admin: 10/18/18 12:22 Dose: 2.5 ml Levothyroxine Sodium (Synthroid) 200 mcg PO 0600 [facility] Last Admin: 10/18/18 04:43 Dose: 200 mcg Liothyronine Sodium (Cytomel) 5 mcg PO QAM [facility] Last Admin: 10/18/18 11:53 Dose: 5 mcg Metformin HCl (Glucophage Xr) 750 mg PO BID-WM [facility] Last Admin: 10/18/18 08:15 Dose: Not Given Mometasone Furoate/Formoterol Fumar (Dulera 200 Mcg/5 Mcg Inhaler) 2 puff INH BID-RT [facility] Last Admin: 10/18/18 07:37 Dose: Not Given Canagliflozin [ (Invokana] 300 Mg) 0 each PO QAM [facility] Pregabalin (Lyrica) 150 mg PO BID PRN PRN Reason: Pain Last Admin: 10/18/18 04:43 Dose: 150 mg Sacubitril/Valsartan (Entresto 49 Mg-51 Mg Tablet) 2 tab PO BID [facility] Last Admin: 10/18/18 11:53 Dose: 2 tab Sodium Chloride (Flush - Normal Saline) 10 ml IVF Q12HR [facility] Last Admin: 10/18/18 08:15 Dose: Not Given Sodium Chloride (Flush - Normal Saline) 10 ml IVF PRN PRN PRN Reason: Saline Flush Last Admin: 10/16/18 16:06 Dose: 10 ml
--- NOTE | 2018-10-18 14:53 | PDOC.CTH ---
Cardiology Progress Note - Subjective No new issues. - Objective Vital Signs Temp Pulse Resp BP BP Pulse Ox 10/18/18 12:22 77 16 94 L 10/18/18 12:00 98 F 80 16 109/51 L 96 10/18/18 07:05 97.9 F 70 16 142/67 H 96 10/18/18 04:00 98.9 F 71 18 151/65 H 95 Weight 237 lb 1.6 oz 10/17/18 10/18/18 10/19/18 06:59 06:59 06:59 Intake Total 1720 1200 240 Output Total 2500 1000 Balance -780 200 240 - Physical Examination General/Neuro: alert & oriented x3, NAD Neck: no JVD present Lungs: CTA, unlabored respirations Heart: RRR Abdomen: NT/ND Extremities: + edema B (1+) - Telemetry Telemetry Rhythm: NSR - Labs Result Diagrams: 10/18/18 04:18 10/18/18 04:18 Troponin/CKMB CK-MB (CK-2) 1.9 ng/mL (0-6.6) 10/15/18 13:17 Troponin I Less than 0.010 ng/mL (< 0.028) 10/15/18 20:21 - Assessment/Plan 1. Acute on chronic systolic heart failure. 2. CAD, stable 3. Anemia, suspect slo GI bleed. 4. Paroxysmal afib PLAN: - Continue to hold Eliquis and plavix , GI recommends based on their GI findings to restart in 24 hours. - Resume other home meds.
[2018-10-19] MEDS: Ipratropium Bromide 2.5 ml Neb NEB SCH ×4 (00:20→20:23)
[2018-10-19] MEDS: Levothyroxine Sodium 100 MCG TAB PO SCH (04:38)
[2018-10-19] MEDS: Mometasone/Formoterol 120 PUFF INHALER INH SCH ×2 (07:43→20:23)
[2018-10-19] MEDS: Carvedilol 6.25 MG TAB PO SCH ×2 (09:23→16:54)
[2018-10-19] MEDS: Ferrous Sulfate 325 MG TAB PO SCH ×2 (09:23→16:54)
[2018-10-19] MEDS: HumaLOG 300 UNITS/3 ML VIAL SC SCH ×3 (09:23→16:47)
[2018-10-19] MEDS: metFORMIN XR 500 MG TAB PO SCH ×2 (09:23→16:54)
[2018-10-19] MEDS: Insulin Glargine 32 UNITS in Pre-Filled Syringe 1 EACH SC SCH (09:24)
[2018-10-19] MEDS: Anastrozole 1 MG TAB PO SCH (09:24)
[2018-10-19] MEDS: Glimepiride 2 MG TAB PO SCH (09:24)
[2018-10-19] MEDS: Ezetimibe 10 MG TAB PO SCH (09:24)
[2018-10-19] MEDS: Sacubitril 49 MG/Valsartan 51 MG TABLET PO SCH ×2 (09:24→21:27)
[2018-10-19] MEDS ORDERED: Apixaban 5 MG TAB PO SCH (09:45)
[2018-10-19] MEDS: Liothyronine Sodium 5 MCG TAB PO SCH (10:37)
[2018-10-19] MEDS ORDERED: Aspirin 81 mg Enteric Coated Tablet PO SCH (11:00)
[2018-10-19] MEDS ORDERED: Clopidogrel Bisulfate 75 MG TAB PO SCH (11:00)
[2018-10-19] MEDS: HumaLOG 300 UNITS/3 ML VIAL SC PRN (12:16)
--- NOTE | 2018-10-19 14:03 | PDOC.PN ---
- Subjective Encounter Start Date: 10/19/18 Encounter Start Time: 09:00 Pt seen for followup re: anemia. Denies chest pain, shortness of breath, fevers or chills. - Objective Resuscitation Status: Resuscitation Status FULL:Full Resuscitation Vital Signs & Weight: Vital Signs (12 hours) Temp Pulse Resp BP Pulse Ox 10/19/18 12:21 98.1 F 74 18 147/67 H 96 10/19/18 07:47 98.5 F 74 16 148/69 H 95 10/19/18 07:43 71 20 95 10/19/18 07:27 71 20 95 10/19/18 04:00 98.2 F 74 20 121/59 L 95 Weight Weight 242 lb 1.6 oz I&O: 10/18/18 10/19/18 10/20/18 06:59 06:59 06:59 Intake Total 1200 960 480 Output Total 1000 650 Balance 200 310 480 Result Diagrams: 10/18/18 04:18 10/18/18 04:18 Additional Labs: Accuchecks 10/19/18 10/19/18 10/18/18 10:40 05:21 20:38 POC Glucose 399 H 347 H 207 H Phys Exam - Physical Examination Constitutional: NAD HEENT: moist MMs Neck: supple Respiratory: clear to auscultation bilateral Cardiovascular: RRR Gastrointestinal: soft Neurological: moves all 4 limbs Psychiatric: normal affect Dx/Plan (1) Symptomatic anemia Code(s): D64.9 - ANEMIA, UNSPECIFIED Status: Acute Comment: Pt had EGD and colonoscopy yesterday, no significant findings. Resume Plavix and Eliquis. (2) Atrial fibrillation Code(s): I48.91 - UNSPECIFIED ATRIAL FIBRILLATION Status: Chronic Comment: resume Eliquis (3) Diabetes mellitus Code(s): E11.9 - TYPE 2 DIABETES MELLITUS WITHOUT COMPLICATIONS Status: Chronic Comment: on accuchecks, insulin sliding scale (4) Hyperlipidemia Code(s): E78.5 - HYPERLIPIDEMIA, UNSPECIFIED Status: Chronic Comment: on statin (5) CHF (congestive heart failure) Code(s): I50.9 - HEART FAILURE, UNSPECIFIED Status: Chronic Qualifiers: Heart failure type: systolic Comment: stable (6) Hypertension Code(s): I10 - ESSENTIAL (PRIMARY) HYPERTENSION Status: Chronic Comment: controlled (7) Hypothyroidism Code(s): E03.9 - HYPOTHYROIDISM, UNSPECIFIED Status: Chronic Comment: continue synthroid (8) Cardiomyopathy Code(s): I42.9 - CARDIOMYOPATHY, UNSPECIFIED Status: Chronic Comment: on beta camilo and Entresto. - Plan * . Review of Systems - Review of Systems Respiratory: negative: Cough, Shortness of Breath, SOB with Excertion, Pleuritic Pain, Wheezing Cardiovascular: negative: chest pain, palpitations, orthopnea, paroxysmal nocturnal dyspnea, edema, light headedness, other - Medications/Allergies Allergies/Adverse Reactions: Allergies Allergy/AdvReac Type Severity Reaction Status Date / Time No Known Allergies Allergy Verified 10/15/18 20:14 Medications: Current Medications Acetaminophen (Tylenol) 650 mg PO Q4H PRN PRN Reason: Headache/Fever/Mild Pain (1-3) Acetaminophen (Tylenol) 650 mg ID Q4H PRN PRN Reason: Headache/Fever/Mild Pain (1-3) [facility]ole (Arimidex) [facility] Last Admin: 10/19/18 09:24 Dose: 1 mg Apixaban (Eliquis) 5 mg PO BID [facility] Aspirin (Ecotrin) 81 mg PO DAILY [facility] Car[facility] ([facility]) [facility] Last Admin: 10/19/18 09:23 Dose: 6.25 mg Clopidogrel Bisulfate (Plavix) 75 mg PO [facility] Dextrose/Water (Dextrose 50%) 25 gm SLOW IVP PRN PRN PRN Reason: Hypoglycemia Ezetimibe (Zetia) 10 mg PO [facility] Last Admin: 10/19/18 09:24 Dose: 10 mg Ferrous Sulfate ([facility]ol) [facility] Last Admin: 10/19/18 09:23 Dose: 325 mg Glimepiride (Amaryl) 2 mg PO [facility] Last Admin: 10/19/18 09:24 Dose: 2 mg Glucagon (Glucagon) 1 mg IM PRN PRN PRN Reason: Hypoglycemia Dextrose/Water (D5w) 1,000 mls @ 0 mls/hr IV .Q0M PRN PRN Reason: Hypoglycemia Insulin Glargine 32 units/ (Miscellaneous Medication) 0.32 mls @ 0 mls/hr SC [facility] Last Admin: 10/19/18 09:24 Dose: 0.32 mls Insulin Human Lispro (Humalog) 0 units SC .MILD SLIDING SCALE PRN PRN Reason: Mild Correctional Scale Last Admin: 10/19/18 12:16 Dose: 6 unit Insulin Human Lispro (Humalog) 10 units SC AC [facility] Last Admin: 10/19/18 12:15 Dose: 10 unit Ipratropium [place] (Atrovent) 2.5 ml NEB [id number] [facility] Last Admin: 10/19/18 07:27 Dose: 2.5 ml Levothyroxine Sodium (Synthroid) 200 mcg PO 0600 [facility] Last Admin: 10/19/18 04:38 Dose: 200 mcg Liothyronine Sodium (Cytomel) 5 mcg PO QAM [facility] Last Admin: 10/19/18 10:37 Dose: 5 mcg Losartan Potassium (Cozaar) 50 mg PO DAILY [facility] Metformin HCl (Glucophage Xr) 750 mg PO BID-WM [facility] Last Admin: 10/19/18 09:23 Dose: 750 mg Mometasone Furoate/Formoterol Fumar (Dulera 200 Mcg/5 Mcg Inhaler) 2 puff INH BID-RT [facility] Last Admin: 10/19/18 07:43 Dose: 2 puff Canagliflozin [ (Invokana] 300 Mg) 0 each PO QAM [facility] Pregabalin (Lyrica) 150 mg PO BID PRN PRN Reason: Pain Last Admin: 10/18/18 04:43 Dose: 150 mg Sacubitril/Valsartan (Entresto 49 Mg-51 Mg Tablet) 2 tab PO BID [facility] Last Admin: 10/19/18 09:24 Dose: 2 tab Sodium Chloride (Flush - Normal Saline) 10 ml IVF Q12HR [facility] Last Admin: 10/19/18 09:25 Dose: Not Given Sodium Chloride (Flush - Normal Saline) 10 ml IVF PRN PRN PRN Reason: Saline Flush Last Admin: 10/16/18 16:06 Dose: 10 ml Torsemide (Demadex) 20 mg PO 1200 [facility] Torsemide (Demadex) 40 mg PO QAM [facility]
[2018-10-19] MEDS: Apixaban 5 MG TAB PO SCH (21:27)
[2018-10-19] MEDS: Pregabalin 75 MG CAP PO PRN (21:28)
--- NOTE | 2018-10-19 23:04 | PDOC.CTH ---
<Lisa Edward - Last Filed: 10/19/18 23:08> Cardiology Progress Note - Subjective The pt seen and examined. No overnight events. No cardiac complaints. - Objective Vital Signs Temp Pulse Resp BP BP Pulse Ox 10/19/18 20:23 94 L 10/19/18 20:00 98.3 F 68 18 134/61 95 10/19/18 16:52 98.1 F 78 18 150/72 H 97 10/19/18 14:14 72 20 10/19/18 12:21 98.1 F 74 18 147/67 H 96 Weight 242 lb 1.6 oz 10/18/18 10/19/18 10/20/18 06:59 06:59 06:59 Intake Total 5562 463 2713 Output Total 8487 587 9263 Balance 940 970 1443 - Physical Examination General/Neuro: alert & oriented x3 Neck: no JVD present Lungs: CTA Heart: RRR Abdomen: soft Extremities: other: - Telemetry Telemetry Rhythm: SR - Labs Result Diagrams: 10/18/18 04:18 10/18/18 04:18 Troponin/CKMB CK-MB (CK-2) 1.9 ng/mL (0-6.6) 10/15/18 13:17 Troponin I Less than 0.010 ng/mL (< 0.028) 10/15/18 20:21 - Assessment/Plan 1. Acute on chronic systolic HF - stable 2. CAD with 60% stenosis in RCA in 08/2018 - stable with BBlocker, Plavix, and ASA 3. Anemia with normal GI work up - 4. Paroxysmal afib - in SR; on Eliquis; cont. to monitor 5. HTN - stable MAR reviewed Review of Systems - Review of Systems Constitutional: reports: no symptoms reported EENTM: reports: no symptoms reported Respiratory: reports: no symptoms reported Cardiac (ROS): reports: no symptoms reported ABD/GI: reports: no symptoms reported : reports: no symptoms reported Musculoskeletal: reports: no symptoms reported <Estiven Koehler - Last Filed: 10/20/18 12:03> Cardiology Progress Note - Objective Vital Signs Temp Pulse Resp BP BP BP Pulse Ox 10/20/18 11:47 98.6 F 78 18 129/65 98 10/20/18 07:56 98.8 F 76 16 123/60 96 10/20/18 07:55 96 10/20/18 06:29 73 20 96 10/20/18 06:21 73 20 96 10/20/18 03:03 97.8 F 75 14 116/59 L 96 10/20/18 00:04 94 L Weight 242 lb 8 oz 10/19/18 10/20/18 10/21/18 06:59 06:59 06:59 Intake Total 960 3270 Output Total 650 2150 Balance 310 1120 - Labs Result Diagrams: 10/20/18 08:20 10/20/18 08:20 Troponin/CKMB CK-MB (CK-2) 1.9 ng/mL (0-6.6) 10/15/18 13:17 Troponin I Less than 0.010 ng/mL (< 0.028) 10/15/18 20:21 - Assessment/Plan Pt. seen and eval. by me. I agree with the A/P by the DRIER HELPER. Pt. ambulating.
[2018-10-20] MEDS: Ipratropium Bromide 2.5 ml Neb NEB SCH ×4 (00:04→20:18)
[2018-10-20] MEDS: Levothyroxine Sodium 100 MCG TAB PO SCH (05:47)
[2018-10-20] MEDS: Mometasone/Formoterol 120 PUFF INHALER INH SCH ×2 (06:29→20:17)
[2018-10-20] MEDS: HumaLOG 300 UNITS/3 ML VIAL SC PRN ×2 (06:34→21:33)
[2018-10-20] MEDS: Insulin Glargine 32 UNITS in Pre-Filled Syringe 1 EACH SC SCH (08:47)
[2018-10-20] MEDS: HumaLOG 300 UNITS/3 ML VIAL SC SCH ×3 (08:47→17:31)
[2018-10-20] MEDS: Ferrous Sulfate 325 MG TAB PO SCH ×2 (08:48→17:30)
[2018-10-20] MEDS: Carvedilol 6.25 MG TAB PO SCH ×2 (08:48→17:30)
[2018-10-20] MEDS: metFORMIN XR 500 MG TAB PO SCH ×2 (08:48→17:30)
[2018-10-20] MEDS: Apixaban 5 MG TAB PO SCH ×2 (08:49→21:37)
[2018-10-20] MEDS: Ezetimibe 10 MG TAB PO SCH (08:49)
[2018-10-20] MEDS: Clopidogrel Bisulfate 75 MG TAB PO SCH (08:49)
[2018-10-20] MEDS: Liothyronine Sodium 5 MCG TAB PO SCH (08:50)
[2018-10-20] MEDS: Sacubitril 49 MG/Valsartan 51 MG TABLET PO SCH ×2 (08:50→21:36)
[2018-10-20] MEDS: Glimepiride 2 MG TAB PO SCH (08:50)
[2018-10-20] MEDS: Losartan 25 MG TAB PO SCH (08:50)
[2018-10-20] MEDS: Anastrozole 1 MG TAB PO SCH (08:51)
[2018-10-20] MEDS: Torsemide 20 MG TAB PO SCH ×2 (08:51→13:37)
[2018-10-20 08:52] LABS: Anion Gap 11 mmol/L (10-20); BUN (Urea Nitrogen) 11 mg/dL (8.4-25.7); Calc. Creatinine Clearance 111 mL/min (70-130); Calcium 8.4 mg/dL (7.8-10.44); Carbon Dioxide 24 mmol/L (23-31); Chloride 106 mmol/L (98-107); Estimated GFR-MDRD 72; Glucose 309 mg/dL (80-115); Sodium 137 mmol/L (136-145)
[2018-10-20 08:55] LABS: #Eosinphils 0.1 thou/uL (0.0-0.7); #Lymphocytes 0.6 thou/uL (1.20-3.40); #Monocytes 0.5 thou/uL (0.11-0.59); #Neutrophils 3.5 thou/uL (1.40-6.50); %Basophils 0.4 % (0.0-1.0); %Eosinophils 1.7 % (0.0-10.0); %Lymphocytes 13.6 % (21.0-51.0); %Monocytes 9.9 % (0.0-10.0); %Neutrophils 74.3 % (42.0-75.0); Anisocytosis MODERATE=16-30 cells (100X) (0-5/hpf); Hemoglobin 7.7 g/dL (14.0-18.0); Hypochromia SLIGHT = 6-15 cells (100X) (0-5/hpf); MDiff Complete? YES; Mean Corpuscular HGB CONC 30.7 g/dL (32.0-36.0); Mean Corpuscular Hemoglobin 22.3 pg (27.0-31.0); Mean Corpuscular Volume 72.8 fL (78.0-98.0); Mean Platelet Volume 10.9 fL (7.4-10.4); PLT Morphology Comment Appears Adequate; Platelet Count 219 thou/uL (130-400); Poikilocytosis SLIGHT = 6-15 cells (100X) (0-5/hpf); Polychromasia SLIGHT = 2-3 cells (100X) (0-2/hpf); RBC Distribution Width 22.7 % (11.5-14.5); Red Blood Cell (RBC) Count 3.44 mill/uL (4.70-6.10); White Blood Cell (WBC) Count 4.6 thou/uL (4.8-10.8)
[2018-10-20] MEDS ORDERED: Aspirin 81 mg Enteric Coated Tablet PO SCH (09:00)
[2018-10-20] MEDS: Pregabalin 75 MG CAP PO PRN ×2 (09:45→22:48)
[2018-10-20] MEDS: Canagliflozin [Invokana] 300 MG PO SCH (11:49)
--- NOTE | 2018-10-20 12:05 | PDOC.CTH ---
Cardiology Progress Note - Subjective Pt. seen and eval. by me. No new events overnight. - Objective Vital Signs Temp Pulse Resp BP BP BP Pulse Ox 10/20/18 11:47 98.6 F 78 18 129/65 98 10/20/18 07:56 98.8 F 76 16 123/60 96 10/20/18 07:55 96 10/20/18 06:29 73 20 96 10/20/18 06:21 73 20 96 10/20/18 03:03 97.8 F 75 14 116/59 L 96 Weight 242 lb 8 oz 10/19/18 10/20/18 10/21/18 06:59 06:59 06:59 Intake Total 960 3270 Output Total 650 2150 Balance 310 1120 - Physical Examination General/Neuro: alert & oriented x3 Neck: no JVD present Lungs: CTA Heart: RRR Abdomen: soft - Labs Result Diagrams: 10/20/18 08:20 10/20/18 08:20 Troponin/CKMB CK-MB (CK-2) 1.9 ng/mL (0-6.6) 10/15/18 13:17 Troponin I Less than 0.010 ng/mL (< 0.028) 10/15/18 20:21 - Assessment/Plan 1. Acute on chronic systolic HF - stable 2. CAD with 60% stenosis in RCA in 08/2018 - stable with BBlocker, Plavix, and ASA 3. Anemia with normal GI work up - Pt. to have transfusion today. 4. Paroxysmal afib - in SR; on Eliquis; cont. to monitor 5. HTN - stable MAR reviewed
--- NOTE | 2018-10-20 12:10 | PDOC.PN ---
- Subjective Encounter Start Date: 10/20/18 Encounter Start Time: 09:20 Pt seen for followup re; acute blood loss anemia. Denies chest pain, shortness of breath, fevers or chills. - Objective Resuscitation Status: Resuscitation Status FULL:Full Resuscitation MAR Reviewed: Yes Vital Signs & Weight: Vital Signs (12 hours) Temp Pulse Resp BP BP BP Pulse Ox 10/20/18 11:47 98.6 F 78 18 129/65 98 10/20/18 07:56 98.8 F 76 16 123/60 96 10/20/18 07:55 96 10/20/18 06:29 73 20 96 10/20/18 06:21 73 20 96 10/20/18 03:03 97.8 F 75 14 116/59 L 96 Weight Weight 242 lb 8 oz I&O: 10/19/18 10/20/18 10/21/18 06:59 06:59 06:59 Intake Total 960 3270 Output Total 650 2150 Balance 310 1120 Result Diagrams: 10/20/18 08:20 10/20/18 08:20 Additional Labs: Accuchecks 10/20/18 10/20/18 10/20/18 10:59 07:52 06:26 POC Glucose 280 H 338 H 361 H 10/19/18 10/19/18 20:47 16:45 POC Glucose 198 H 185 H EKG Reviewed by me: Yes (Tele: NSR) Phys Exam - Physical Examination Constitutional: NAD HEENT: moist MMs Neck: supple Respiratory: clear to auscultation bilateral Cardiovascular: RRR Gastrointestinal: soft Neurological: moves all 4 limbs Psychiatric: normal affect Dx/Plan (1) Symptomatic anemia Code(s): D64.9 - ANEMIA, UNSPECIFIED Status: Acute Comment: Pt is on Plavix and Eliquis. Hemoglobin dropped to 7.7, will transfuse one unit pRBC and recheck (2) Atrial fibrillation Code(s): I48.91 - UNSPECIFIED ATRIAL FIBRILLATION Status: Chronic Comment: resumed Eliquis (3) Diabetes mellitus Code(s): E11.9 - TYPE 2 DIABETES MELLITUS WITHOUT COMPLICATIONS Status: Chronic Comment: continue accuchecks, insulin sliding scale (4) Hyperlipidemia Code(s): E78.5 - HYPERLIPIDEMIA, UNSPECIFIED Status: Chronic Comment: continue statin (5) CHF (congestive heart failure) Code(s): I50.9 - HEART FAILURE, UNSPECIFIED Status: Chronic Qualifiers: Heart failure type: systolic Comment: stable, continue torsemide (6) Hypertension Code(s): I10 - ESSENTIAL (PRIMARY) HYPERTENSION Status: Chronic Comment: controlled (7) Hypothyroidism Code(s): E03.9 - HYPOTHYROIDISM, UNSPECIFIED Status: Chronic Comment: continue synthroid (8) Cardiomyopathy Code(s): I42.9 - CARDIOMYOPATHY, UNSPECIFIED Status: Chronic Comment: continue beta camilo and Entresto. - Plan * . Review of Systems - Review of Systems Respiratory: negative: Cough, Shortness of Breath, SOB with Excertion, Pleuritic Pain, Wheezing Cardiovascular: negative: chest pain, palpitations, orthopnea, paroxysmal nocturnal dyspnea, edema, light headedness - Medications/Allergies Allergies/Adverse Reactions: Allergies Allergy/AdvReac Type Severity Reaction Status Date / Time No Known Allergies Allergy Verified 10/15/18 20:14 Medications: Current Medications Acetaminophen (Tylenol) 650 mg PO Q4H PRN PRN Reason: Headache/Fever/Mild Pain (1-3) Acetaminophen (Tylenol) 650 mg MD Q4H PRN PRN Reason: Headache/Fever/Mild Pain (1-3) Anastrozole (Arimidex) 1 mg PO [facility] Last Admin: 10/20/18 08:51 Dose: 1 mg Apixaban (Eliquis) 5 mg PO BID [facility] Last Admin: 10/20/18 08:49 Dose: 5 mg Aspirin (Ecotrin) 81 mg PO DAILY [facility] Last Admin: 10/20/18 08:48 Dose: 81 mg [facility] ([facility]) [facility] Last Admin: 10/20/18 08:48 Dose: 6.25 mg Clopidogrel Bisulfate (Plavix) 75 mg PO [facility] Last Admin: 10/20/18 08:49 Dose: 75 mg Dextrose/Water (Dextrose 50%) 25 gm SLOW IVP PRN PRN PRN Reason: Hypoglycemia Ezetimibe (Zetia) 10 mg PO [facility] Last Admin: 10/20/18 08:49 Dose: 10 mg Ferrous Sulfate (Feosol) [facility] Last Admin: 10/20/18 08:48 Dose: 325 mg Glimepiride (Amaryl) 2 mg PO [facility] Last Admin: 10/20/18 08:50 Dose: 2 mg Glucagon (Glucagon) 1 mg IM PRN PRN PRN Reason: Hypoglycemia Dextrose/Water (D5w) 1,000 mls @ 0 mls/hr IV .Q0M PRN PRN Reason: Hypoglycemia Insulin Glargine 32 units/ (Miscellaneous Medication) 0.32 mls @ 0 mls/hr SC QAM [facility] Last Admin: 10/20/18 08:47 Dose: 0.32 mls Insulin Human Lispro (Humalog) 0 units SC .MILD SLIDING SCALE PRN PRN Reason: Mild Correctional Scale Last Admin: 10/20/18 06:34 Dose: 6 unit Insulin Human Lispro (Humalog) 10 units SC AC [facility] Last Admin: 10/20/18 11:41 Dose: 10 unit Ipratropium [place] (Atrovent) 2.5 ml NEB A0MG-FD [facility] Last Admin: 10/20/18 06:21 Dose: 2.5 ml Levothyroxine Sodium (Synthroid) 200 mcg PO 0600 [facility] Last Admin: 10/20/18 05:47 Dose: 200 mcg Liothyronine Sodium (Cytomel) 5 mcg PO QAM [facility] Last Admin: 10/20/18 08:50 Dose: 5 mcg Losartan Potassium (Cozaar) 50 mg PO DAILY [facility] Last Admin: 10/20/18 08:50 Dose: 50 mg Metformin HCl (Glucophage Xr) 750 mg PO BID-WM [facility] Last Admin: 10/20/18 08:48 Dose: 750 mg Mometasone Furoate/Formoterol Fumar (Dulera 200 Mcg/5 Mcg Inhaler) 2 puff INH BID-RT [facility] Last Admin: 10/20/18 06:29 Dose: 2 puff Pregabalin (Lyrica) 150 mg PO BID PRN PRN Reason: Pain Last Admin: 10/20/18 09:45 Dose: 150 mg Sacubitril/Valsartan (Entresto 49 Mg-51 Mg Tablet) 2 tab PO BID [facility] Last Admin: 10/20/18 08:50 Dose: 2 tab Sodium Chloride (Flush - Normal Saline) 10 ml IVF Q12HR [facility] Last Admin: 10/20/18 07:27 Dose: Not Given Sodium Chloride (Flush - Normal Saline) 10 ml IVF PRN PRN PRN Reason: Saline Flush Last Admin: 10/16/18 16:06 Dose: 10 ml Torsemide (Demadex) 20 mg PO 1200 RA Torsemide (Demadex) 40 mg PO QAM RA Last Admin: 10/20/18 08:51 Dose: 40 mg
[2018-10-21] MEDS: Ipratropium Bromide 2.5 ml Neb NEB SCH ×4 (00:45→13:37)
[2018-10-21] MEDS: Canagliflozin [Invokana] 300 MG PO SCH (04:44)
[2018-10-21 05:59] LABS: Anion Gap 16 mmol/L (10-20); BUN (Urea Nitrogen) 13 mg/dL (8.4-25.7); Calc. Creatinine Clearance 105 mL/min (70-130); Calcium 8.5 mg/dL (7.8-10.44); Carbon Dioxide 23 mmol/L (23-31); Chloride 103 mmol/L (98-107); Estimated GFR-MDRD 69; Glucose 311 mg/dL (80-115); Potassium 3.9 mmol/L (3.5-5.1); Sodium 138 mmol/L (136-145)
[2018-10-21] MEDS: Levothyroxine Sodium 100 MCG TAB PO SCH (06:15)
[2018-10-21 06:27] LABS: #Eosinphils 0.1 thou/uL (0.0-0.7); #Lymphocytes 0.9 thou/uL (1.20-3.40); #Monocytes 0.6 thou/uL (0.11-0.59); #Neutrophils 4.6 thou/uL (1.40-6.50); %Basophils 0.7 % (0.0-1.0); %Eosinophils 1.8 % (0.0-10.0); %Lymphocytes 14.8 % (21.0-51.0); %Monocytes 9.4 % (0.0-10.0); %Neutrophils 73.2 % (42.0-75.0); Anisocytosis SLIGHT = 6-15 cells (100X) (0-5/hpf); Elliptocytes SLIGHT = 2-5 cells (100X) (0-1/hpf); Hemoglobin 9.3 g/dL (14.0-18.0); Hypochromia SLIGHT = 6-15 cells (100X) (0-5/hpf); MDiff Complete? YES; Mean Corpuscular Hemoglobin 22.9 pg (27.0-31.0); Mean Corpuscular Volume 76.3 fL (78.0-98.0); Mean Platelet Volume 11.7 fL (7.4-10.4); PLT Morphology Comment Appears Adequate; Platelet Count 230 thou/uL (130-400); Polychromasia SLIGHT = 2-3 cells (100X) (0-2/hpf); Red Blood Cell (RBC) Count 4.06 mill/uL (4.70-6.10); White Blood Cell (WBC) Count 6.3 thou/uL (4.8-10.8)
[2018-10-21 07:49] VITALS: TEMP 97.7
[2018-10-21] MEDS: Mometasone/Formoterol 120 PUFF INHALER INH SCH ×2 (08:08→08:35)
[2018-10-21] MEDS: HumaLOG 300 UNITS/3 ML VIAL SC PRN ×2 (08:44→11:33)
[2018-10-21] MEDS: Insulin Glargine 32 UNITS in Pre-Filled Syringe 1 EACH SC SCH (08:44)
[2018-10-21] MEDS: HumaLOG 300 UNITS/3 ML VIAL SC SCH ×2 (08:44→11:33)
[2018-10-21] MEDS: Clopidogrel Bisulfate 75 MG TAB PO SCH (08:45)
[2018-10-21] MEDS: metFORMIN XR 500 MG TAB PO SCH (08:45)
[2018-10-21] MEDS: Ferrous Sulfate 325 MG TAB PO SCH (08:45)
[2018-10-21] MEDS: Ezetimibe 10 MG TAB PO SCH (08:45)
[2018-10-21] MEDS: Losartan 25 MG TAB PO SCH (08:45)
[2018-10-21] MEDS: Glimepiride 2 MG TAB PO SCH (08:46)
[2018-10-21] MEDS: Carvedilol 6.25 MG TAB PO SCH (08:46)
[2018-10-21] MEDS: Anastrozole 1 MG TAB PO SCH (08:46)
[2018-10-21] MEDS: Torsemide 20 MG TAB PO SCH ×2 (08:46→11:33)
[2018-10-21] MEDS: Liothyronine Sodium 5 MCG TAB PO SCH (08:47)
[2018-10-21] MEDS: Sacubitril 49 MG/Valsartan 51 MG TABLET PO SCH (08:48)
--- NOTE | 2018-10-21 09:40 | PRG ---
DATE OF SERVICE: 10/21/2018 Mr. Villatoro is doing fine today, no complaints. PHYSICAL EXAMINATION: VITAL SIGNS: Blood pressure 155/79, pulse 78. LUNGS: Clear. CARDIAC: Normal S1 and S2. ABDOMEN: Soft, nontender. Hemoglobin is 9.3. ASSESSMENT: 1. Cardiomyopathy, stable. 2. Anemia, severe iron deficiency. 3. No evidence of upper or lower gastrointestinal bleeding, probably a small vessel oozing. PLAN: 1. Would stop antiplatelet drugs as well as anticoagulants for now, he is maintaining sinus rhythm. 2. I do not know if he received aspirin and Eliquis this morning. I discontinued it at 7:45. 3. Would recommend staying off of antiplatelet drugs for now and stopping the Eliquis for now, to re sume next Sunday and have him on Eliquis alone without antiplatelet drugs, and continue to monitor hi s blood counts. 4. Could consider a Watchman device. However, I do not know if he would be interested in that. He has refused multiple procedures including refusing a defibrillator implantation. 5. We will increase Entresto.
--- NOTE | 2018-10-21 09:46 | PQF ---
DATE: 10-21-18 ATTN: DR. DIAMOND NOE Please exercise your independent, professional judgment in responding to the clarification form. Clinical indicators are provided on the bottom of this form for your review Please check appropriate box(s): HEART FAILURE: A. TYPE: [ ] Systolic / HFrEF [ ] Diastolic / HFpEF [ ] Combined Systolic / Diastolic B. ACUITY [ ] Acute [ ] Acute on Chronic [ ] Chronic [ ] Other diagnosis [ ] Unable to determine In addition, please specify: Present on Admission (POA): [ ] Yes [ ] No [ ] Unable to determine For continuity of documentation, please document condition throughout progress notes and discharge summary. Thank You. CLINICAL INDICATORS - SIGNS / SYMPTOMS / LABS ER DX: ACUTE ANEMIA, DYSPNEA, WEAKNESS H&P: HE WAS HOSPITALIZED A THIS FACILITY TOWARDS THE END OF . HE WAS DIAGNOSED WITH NEW ONSET ATRIAL FIBRILLATION AND ACUTE CHF CONSULT NOTE 10-16-18 DR. KU: REASON FOR CONSULT: CHF, CAD, SEVERE ANEMIA, A FIBRILLATION, CONGESTIVE HEART FAILURE, SYSTOLIC, CHRONIC, EF 20-25%. REFUSED DEFIB IMPLANTATION CONSULT NOTE DR. SR 10-17-18: ACUTE ON CHRONIC SYSTOLIC HEART FAILURE CONSULT NOTE DR. MADSEN 10-20-18: ACUTE ON CHRONIC SYSTOLIC HEART FAILURE- STABLE PN DR. NOE 10-20-18: CHRONIC SYSTOLIC CHF RISKS: H&P: HX CHF, DM 2, DYSLIPIDEMIA, HTN, ATRIAL FIBRILLATION, CARDIOMYOPATHY, HYPOTHYROIDISM, EX-SMOKER, TREATMENTS: CONSULT NOTE DR. SR 10-17-18: CONTINUE IV LASIX MAR: DEMADEX, COREG (This form is maintained as a part of the permanent medical record) 2014 [employer]. All Rights Reserved CLAUDIA [email or web address] Office: [phone] [facility]
[2018-10-21] MEDS: Pregabalin 75 MG CAP PO PRN (09:49)
[2018-10-21] MEDS ORDERED: Bisacodyl 5 MG TAB PO SCH (12:45)
[2018-10-21 13:21] VITALS: BP 143/67
--- NOTE | 2018-10-21 21:04 | DIS ---
DATE OF ADMISSION: 10/15/2018 DATE OF DISCHARGE: 10/21/2018 PRIMARY CARE PROVIDER: Augusto Mcwilliams MD DISCHARGE DIAGNOSES: 1. Symptomatic anemia. 2. Acute kidney injury. 3. Chronic systolic congestive heart failure. 4. Iron deficiency anemia. CONDITION OF PATIENT ON THE DAY OF DISCHARGE: Stable. I assessed Mr. Villatoro on the day of discharg e. He denies any chest pain or shortness of breath. Vital signs are stable. S1 and S2 are heard, r egular. Lungs are clear to auscultation bilaterally. CONSULTATIONS DURING THIS HOSPITALIZATION: Cardiology, Dr. Powell and Gastroenterology, Dr. Perez. DISCHARGE MEDICATIONS: Ventolin HFA 1-2 puffs as needed, anastrozole 1 mg daily, Invokana 300 mg fernanda ly, ezetimibe 10 mg daily, glimepiride 2 mg daily, Toujeo 40 units daily, Humalog 50/50 mix 10 units 3 times a day, levothyroxine 200 mcg daily, liothyronine 5 mcg daily, metformin 750 mg 2 times a day, pregabalin 150 mg 2 times a day as needed, Entresto 97/103 mg tablet 1 tablet 2 times a day, Symbico rt inhaler 2 puffs 2 times a day, Spiriva 1 puff daily, torsemide 40 mg in the morning and 20 mg at n oon, Coreg 6.25 mg 2 times a day, ferrous sulfate 325 mg 2 times a day, Lyrica 150 mg 2 times a day a s needed. HOSPITAL COURSE: Mr. Villatoro is a pleasant 67-year-old gentleman who was admitted to [facility] on 10/15/2018 for symptomatic anemia. Please refer to my history and physical not e, dated 10/15/2018 for further details. At the time of admission, he had hemoglobin level of 5.8. He was seen by Gastroenterology Service. He was also seen by Cardiology Service. He underwent bidir ectional scopes on 10/18/2018. He was found to have mild mucosal erythema seen throughout the entire stomach, concerning for nonsteroidal anti-inflammatory agent gastritis versus H. pylori infection. He also had small mucosal islands of salmon-colored mucosa in the distal esophagus, concerning for Ba rrett's mucosa, which did not meet criteria for biopsy at that time. He had poor colonic preparation , which was converted to a fair colonic preparation, but was still inadequate for evaluation of fine mucosal lesions. He has small internal hemorrhoids and hypertrophied anal papillae. There was no et iology for iron deficiency anemia. He was also found to have iron deficiency with a decreased iron l evel of 10. Total iron binding capacity was 430. He has been started on iron supplements. He had a drop in hemoglobin when his Plavix and Eliquis were resumed. Cardiology Service has advised him to stop Plavix and to resume Eliquis in approximately a week's time. He will need to follow up with his primary care provider for hemoglobin checks. On the day of discharge, Mr. Villatoro has white count of 6300, hemoglobin 9.3, platelet count 230,000. Sodium 139, potassium 3.8, and creatinine 1.05. He had a normal TSH of 4.69 during this admission . Many thanks for allowing me to participate in your patient's care. Please feel free to contact me wi th any questions or concerns. DISCHARGE DESTINATION: Home. TOTAL AMOUNT OF TIME SPENT COORDINATING THIS DISCHARGE: 32 minutes.
== END 2018-10-21 14:54 | disposition home or self-care (01) | DRG 812 ==
LOC: ERS 13:04 → 2NO 18:05
PROVIDERS: ADMIT Internal Medicine; ATTEND Internal Medicine
PROC: 30233N1 Transfusion of Nonautologous Red Blood Cells into Peripheral Vein, Percutaneous Approach (ICD-10-PCS; 2018-10-15)
PROC: 0DB78ZX Excision of Stomach, Pylorus, Via Natural or Artificial Opening Endoscopic, Diagnostic (ICD-10-PCS; principal; 2018-10-18)
PROC: 0DB98ZX Excision of Duodenum, Via Natural or Artificial Opening Endoscopic, Diagnostic (ICD-10-PCS; 2018-10-18)
PROC: 0DJD8ZZ Inspection of Lower Intestinal Tract, Via Natural or Artificial Opening Endoscopic (ICD-10-PCS; 2018-10-18)
DX: D50.9 Iron deficiency anemia, unspecified (principal); I42.9 Cardiomyopathy, unspecified; N17.9 Acute kidney failure, unspecified; I50.22 Chronic systolic (congestive) heart failure; I11.0 Hypertensive heart disease with heart failure; E11.9 Type 2 diabetes mellitus without complications; E03.9 Hypothyroidism, unspecified; K64.8 Other hemorrhoids; E78.5 Hyperlipidemia, unspecified; I48.0 Paroxysmal atrial fibrillation; I25.10 Atherosclerotic heart disease of native coronary artery without angina pectoris; N43.3 Hydrocele, unspecified; K29.70 Gastritis, unspecified, without bleeding; Z79.01 Long term (current) use of anticoagulants; Z79.4 Long term (current) use of insulin; Z87.891 Personal history of nicotine dependence; Z80.0 Family history of malignant neoplasm of digestive organs
CPT/HCPCS: 36415; 36416; 36430; 80048; 80053; 81001; 82274; 82553; 82607; 82746; 83540; 83550; 84443; 84484; 85025; 85027; 85046; 85610; 85730; 86850; 86900; 86901; 87086; 88305; 88312; 93005; 93010; 94640; J1940; J2704; J2916; J7050; P9016

== ENCOUNTER → 2018-10-24 | Day surgery (SDC) | payer MEDICARE ==
[2018-10-14 11:33] VITALS: BMI 38.7
[~2018-10-24] MED LIST: Bupivacaine 0.25% HCL 30 ML VIAL ONE
[2018-10-24 13:52] LABS: Hemoglobin 9.9 g/dL (14.0-18.0); Mean Corpuscular HGB CONC 30.1 g/dL (32.0-36.0); Mean Corpuscular Hemoglobin 22.9 pg (27.0-31.0); Mean Platelet Volume 11.5 fL (7.4-10.4); Platelet Count 246 thou/uL (130-400); RBC Distribution Width 23.1 % (11.5-14.5); Red Blood Cell (RBC) Count 4.33 mill/uL (4.70-6.10)
== END ==
LOC: SDC 09:52
PROVIDERS: ATTEND Urology
DX: N43.3 Hydrocele, unspecified (principal); I25.10 Atherosclerotic heart disease of native coronary artery without angina pectoris; E11.9 Type 2 diabetes mellitus without complications; E78.5 Hyperlipidemia, unspecified; I11.0 Hypertensive heart disease with heart failure; I50.9 Heart failure, unspecified; J44.9 Chronic obstructive pulmonary disease, unspecified; G47.30 Sleep apnea, unspecified; E03.9 Hypothyroidism, unspecified; M19.90 Unspecified osteoarthritis, unspecified site; N40.0 Benign prostatic hyperplasia without lower urinary tract symptoms; Z53.8 Procedure and treatment not carried out for other reasons; Z87.891 Personal history of nicotine dependence; Z79.4 Long term (current) use of insulin; Z79.811 Long term (current) use of aromatase inhibitors; Z79.899 Other long term (current) drug therapy
CPT/HCPCS: 36415; 36416; 85027; S0020

== ENCOUNTER 2018-11-07 09:05 | Observation (INO) | payer MEDICARE ==
[2018-11-07] MEDS ORDERED: ePHEDrine/0.9% NaCl/PF SYRINGE 50 mg/10 ml ONE (09:55)
[2018-11-07] MEDS ORDERED: PHENYLEPHRINE-NS 100 MCG/ML 10 ML SYRINGE ONE (09:55)
[2018-11-07] MEDS ORDERED: Lidocaine 1% PF 5 ML VIAL ONE (09:55)
[2018-11-07] MEDS ORDERED: Ondansetron PF 4 MG/2 ML Vial ONE (09:55)
[2018-11-07] MEDS ORDERED: PROPOFOL 200 MG/20 ML VIAL ONE (09:55)
[2018-11-07 11:22] LABS: INR-International Normal Ratio 0.9; Prothrombin Time 12.4 SEC (12.0-14.7)
[2018-11-07 11:23] LABS: PTT 30.3 SEC (22.9-36.1)
[2018-11-07 11:25] LABS: Hemoglobin 10.7 g/dL (14.0-18.0); Mean Corpuscular HGB CONC 29.8 g/dL (32.0-36.0); Mean Corpuscular Hemoglobin 22.8 pg (27.0-31.0); Mean Corpuscular Volume 76.5 fL (78.0-98.0); Mean Platelet Volume 11.4 fL (7.4-10.4); Platelet Count 338 thou/uL (130-400); RBC Distribution Width 23.2 % (11.5-14.5); White Blood Cell (WBC) Count 5.8 thou/uL (4.8-10.8)
[2018-11-07 11:33] LABS: Anion Gap 16 mmol/L (10-20); BUN (Urea Nitrogen) 30 mg/dL (8.4-25.7); Calc. Creatinine Clearance 84 mL/min (70-130); Calcium 8.9 mg/dL (7.8-10.44); Carbon Dioxide 28 mmol/L (23-31); Chloride 103 mmol/L (98-107); Estimated GFR-MDRD 54; Glucose 273 mg/dL (80-115); Potassium 4.8 mmol/L (3.5-5.1); Sodium 142 mmol/L (136-145)
[2018-11-07 11:41] LABS: #Eosinphils 0.1 thou/uL (0.0-0.7); #Lymphocytes 1.1 thou/uL (1.20-3.40); #Monocytes 0.5 thou/uL (0.11-0.59); #Neutrophils 4.2 thou/uL (1.40-6.50); %Eosinophils 1.1 % (0.0-10.0); %Lymphocytes 18.7 % (21.0-51.0); %Monocytes 8.5 % (0.0-10.0); %Neutrophils 71.7 % (42.0-75.0)
[2018-11-07 11:42] LABS: Anisocytosis SLIGHT = 6-15 cells (100X) (0-5/hpf); Hypochromia SLIGHT = 6-15 cells (100X) (0-5/hpf); MDiff Complete? YES; Ovalocytes SLIGHT = 2-5 cells (100X) (0-1/hpf); Poikilocytosis MODERATE=16-30 cells (100X) (0-5/hpf); Target Cells SLIGHT = 2-5 cells (100X) (0-1/hpf)
[2018-11-07] MEDS ORDERED: CEFAZOLIN 2 GM/50 ML BAG ONE (12:11)
[2018-11-07] MEDS ORDERED: Bacitracin Zinc Ointment 30 gm TUBE ONE (13:08)
[2018-11-07] MEDS ORDERED: Bupivacaine 0.25% HCL 30 ML VIAL ONE (13:08)
[2018-11-07] MEDS ORDERED: Fentanyl 100 MCG/2 ML VIAL ONE ×4 (13:10→18:36)
[2018-11-07] MEDS ORDERED: Promethazine HCl 25 MG/ML VIAL ONE (16:13)
[2018-11-07] MEDS ORDERED: Morphine 2 MG/ML SYRINGE ONE ×2 (17:46→18:23)
[2018-11-07] MEDS ORDERED: Morphine 4 MG/ML VIAL SLOW IVP PRN ×2 (19:12)
[2018-11-07] MEDS ORDERED: hydrALAZINE 20 MG/ML VIAL SLOW IVP PRN (19:12)
[2018-11-07] MEDS ORDERED: HYDROcodone/Acetaminophen 7.5/325 mg Tablet PO PRN (19:12)
[2018-11-07] MEDS ORDERED: Mag-Al 1200 mg/1200 mg/30 ML UDCUP PO PRN (19:12)
[2018-11-07] MEDS ORDERED: diphenhydrAMINE 25 MG CAP PO PRN (19:12)
[2018-11-07] MEDS ORDERED: Dextrose 5% in Water 1,000 ML IV PRN (19:12)
[2018-11-07] MEDS ORDERED: Bisacodyl 10 MG SUPP PR PRN (19:12)
[2018-11-07] MEDS ORDERED: Dextrose 50% Abboject 50 ML SYRINGE SLOW IVP PRN (19:12)
[2018-11-07] MEDS ORDERED: Pregabalin 75 MG CAP PO PRN (19:15)
[2018-11-07] MEDS ORDERED: PROVENTIL INHALER 6.7 G (200 INHALATIONS) INH PRN (19:15)
[2018-11-07] MEDS ORDERED: [UNRECOGNIZED DRUG - OTHER] SC PRN (19:15)
[2018-11-07] MEDS ORDERED: LISPRO SC PRN (19:15)
[2018-11-07] MEDS ORDERED: INSULIN LISPRO PROTAMIN SC PRN (19:15)
[2018-11-07] MEDS ORDERED: Insulin NPH/Reg Insulin Hm 300 UNITS/3 ML VIAL SC PRN (19:51)
[2018-11-07 20:32] VITALS: BMI 37.6
[2018-11-07] MEDS ORDERED: SYMBICORT INH SCH (21:00)
[2018-11-07] MEDS ORDERED: Non-Formulary Item 1 EACH (Tiotropium Bromide [Spiriva Respimat] 2 PUFF) INH SCH (21:00)
[2018-11-07] MEDS ORDERED: Torsemide 20 MG TAB PO SCH (21:00)
[2018-11-07] MEDS: Amiodarone 200 MG TAB PO SCH (21:36)
[2018-11-07] MEDS: metFORMIN XR 500 MG TAB PO SCH (21:36)
[2018-11-07] MEDS: Docusate 100 MG CAP PO SCH (21:36)
[2018-11-07] MEDS: Sacubitril 49 MG/Valsartan 51 MG TABLET PO SCH (21:37)
[2018-11-07] MEDS: HumaLOG 300 UNITS/3 ML VIAL SC PRN (21:39)
[2018-11-07] MEDS: HYDROcodone/Acetaminophen 7.5/325 mg Tablet PO PRN (21:42)
--- NOTE | 2018-11-07 22:04 | OP ---
DATE OF PROCEDURE: 11/07/2018 SERVICE: Urology. PREOPERATIVE DIAGNOSIS: Bilateral hydroceles. POSTOPERATIVE DIAGNOSIS: Bilateral noncommunicating hydroceles. PROCEDURE PERFORMED: Bilateral hydrocelectomy in the Lord's fashion. INDICATIONS FOR PROCEDURE: Mr. Villatoro is a 67-year-old white male, who has bilateral hydroceles. He is not happy with these and he states that they are bothersome. He thinks they are getting bigger. He wants them both corrected at the same time. Risks and benefits of hydrocelectomy were discussed and he has agreed to proceed forward. DESCRIPTION OF PROCEDURE: After identification of arm band and verification of consent, the patient was brought back to the operating room, where he underwent general anesthesia with an LMA. He was left in the supine position, prepped and draped in the usual sterile fashion. After appropriate time-out, a vertical incision was made down the median raphe of the scrotum. Attention was first turned towards the right side, which had the larger hydrocele. Dissection was carried up to the spermatic fascia, dartos, up to the tunica vaginalis. The hydrocele was dissected free from the surrounding tissues using blunt dissection and then the hydrocele delivered outside the scrotum. The surrounding tissues were swept back until the stalk of the spermatic cord could be visualized. The hydrocele was then opened anteriorly to avoid injury to the testicle. There was a hydrocele danisha noted within the hydrocele sac, which was excised and removed as it was somewhat adherent to the tunica vaginalis. The testis was inspected and there did appear to be some cysts on the inferior aspect of the testicle, but they looked benign, and the patient's preoperative ultrasound did not demonstrate any concerning solid masses. Satisfied, the hydrocele sac was bunched up in the Lord's fashion on both leaflets of the hydrocele sac on the right side. Once completely bunched up, the vascular integrity of the testicle seemed to be good. A small incision was made on the lower aspect of the scrotum to bring in a Fabio drain, which was secured on the inside with 4-0 Vicryl attached to a very small amount of tissue that could be removed at a later date. The spermatic fascia and dartos were then closed on this side after the scrotum was thoroughly irrigated and a cord block was performed with 0.25% Marcaine plain. Once the dartos was closed, attention was turned to the left hydrocele sac, which was done through the same vertical scrotal incision. The surrounding tissues were dissected free of the spermatic fascia and dartos until the hydrocele sac could be delivered outside. The surrounding spermatic fascias were then dissected away until the spermatic cord could be seen. The hydrocele sac was then incised, releasing a small amount of hydrocele fluid. The hydrocele sac was opened completely and another hydrocele portal was noted on this side. The testicle appeared normal without any concerning findings. The appendix testis was removed on both sides of the testicles. The leaflets of the tunica vaginalis were then bunched up in the Lord's fashion using a 3-0 Vicryl, taking care to avoid any injury to the epididymis. Upon completion, the scrotum was irrigated and a small incision was made on the inferior aspect of the scrotum, where a Fabio was brought in and again anchored to some inside tissue using a very small amount of tissue with a 4-0 Vicryl. The dartos and spermatic fascia were then closed over the testicle after cord block was performed. Once both sides were closed, the skin was then closed using a running 4-0 Monocryl in a running fashion vertically. This was then infiltrated with 0.25% Marcaine plain. Dermabond was applied and once dried, scrotal fluffs and a jockstrap were applied. The patient was then awakened and taken to PACU for recovery in stable condition. COMPLICATIONS: None. ESTIMATED BLOOD LOSS: Less than 10 mL. RETAINED TUBES AND DRAINS: Bilateral quarter-inch [place] drains in the scrotum, secured with a nylon. SPECIMEN: None. DISPOSITION: The patient will be discharged home and follow up with me in approximately one week for drain removal. Job ID: [id number]
[2018-11-08] MEDS: Ipratropium Bromide 2.5 ml Neb NEB SCH ×2 (00:02→08:32)
[2018-11-08] MEDS: HYDROcodone/Acetaminophen 7.5/325 mg Tablet PO PRN ×3 (02:20→11:46)
[2018-11-08] MEDS ORDERED: Levothyroxine Sodium 100 MCG TAB PO SCH (06:00)
[2018-11-08] MEDS ORDERED: Mometasone/Formoterol 120 PUFF INHALER INH SCH (06:30)
[2018-11-08] MEDS ORDERED: Ferrous Sulfate 325 MG TAB PO SCH (08:00)
[2018-11-08] MEDS ORDERED: Carvedilol 6.25 MG TAB PO SCH (08:00)
[2018-11-08] MEDS: Docusate 100 MG CAP PO SCH (08:48)
[2018-11-08] MEDS: Amiodarone 200 MG TAB PO SCH (08:49)
[2018-11-08] MEDS: metFORMIN XR 500 MG TAB PO SCH (08:51)
[2018-11-08] MEDS ORDERED: Canagliflozin [Invokana] 300 MG PO SCH (09:00)
[2018-11-08] MEDS ORDERED: Anastrozole 1 MG TAB PO SCH (09:00)
[2018-11-08] MEDS ORDERED: Ezetimibe 10 MG TAB PO SCH (09:00)
[2018-11-08] MEDS: Sacubitril 49 MG/Valsartan 51 MG TABLET PO SCH (09:00)
[2018-11-08] MEDS ORDERED: INSULIN GLARGINE HUM REC ANLOG 40 UNIT SQ SCH (09:00)
[2018-11-08] MEDS ORDERED: Glimepiride 2 MG TAB PO SCH (09:00)
[2018-11-08] MEDS ORDERED: Insulin Glargine 40 UNITS in Pre-Filled Syringe 1 EACH SC SCH (09:00)
[2018-11-08] MEDS ORDERED: Liothyronine Sodium 5 MCG TAB PO SCH (09:00)
[2018-11-08] MEDS ORDERED: Torsemide 20 MG TAB PO SCH (09:00)
[2018-11-08] MEDS: HumaLOG 300 UNITS/3 ML VIAL SC PRN (09:08)
[2018-11-08 11:38] VITALS: BP 118/71; TEMP 98.5
--- NOTE | 2018-11-08 12:13 | DIS ---
DATE OF ADMISSION: 11/07/2018 DATE OF DISCHARGE: 11/08/2018 DISCHARGE DIAGNOSIS: Status post bilateral hydrocelectomy. BRIEF HOSPITAL COURSE: Mr. Villatoro is a 67-year-old male, who underwent bilateral hydrocelectomy by Dr. Oh yesterday uneventfully. He was kept overnight due to discomfort. He states that he is voiding fine, pain is improved and he feels comfortable going home. On morning rounds, his vital signs are stable. He is afebrile. His incision is clean, dry, with minimal saturation and drainage from his Fabio site with no ecchymoses, no hematoma. Morning labs are stable, unremarkable. DISPOSITION: Home with self-care. FOLLOWUP: followup with Dr. Oh as previously advised. Job ID: [id number]
== END 2018-11-08 14:43 | disposition home or self-care (01) ==
LOC: SDC 09:05 → SURG B 20:14
PROVIDERS: ADMIT Urology; ATTEND Urology
PROC: 0VB60ZZ Excision of Right Tunica Vaginalis, Open Approach (ICD-10-PCS; principal; 2018-11-07)
PROC: 0VB70ZZ Excision of Left Tunica Vaginalis, Open Approach (ICD-10-PCS; 2018-11-07)
DX: N43.3 Hydrocele, unspecified (principal); Z79.4 Long term (current) use of insulin; Z79.01 Long term (current) use of anticoagulants; Z79.899 Other long term (current) drug therapy
CPT/HCPCS: 55041; 80048; 82962 ×2; 85025; 85610; 85730; 94640 ×3; 96374; 96375; 96376 ×2; G0378; 36415; 36416; J2001; J2270; J2405; J2550; J2704; J3010; S0020

== ENCOUNTER 2019-06-29 17:20 | Inpatient (IN) | payer MEDICARE ==
[2019-06-29 18:01] LABS: #Basophils 0.1 thou/uL (0.0-0.2); #Eosinphils 0.2 thou/uL (0.0-0.7); #Lymphocytes 1.4 thou/uL (1.20-3.40); #Monocytes 0.4 thou/uL (0.11-0.59); %Basophils 1.3 % (0.0-1.0); %Eosinophils 3.2 % (0.0-10.0); %Lymphocytes 27.6 % (21.0-51.0); %Neutrophils 59.9 % (42.0-75.0); Hemoglobin 7.3 g/dL (14.0-18.0); Mean Corpuscular HGB CONC 30.2 g/dL (32.0-36.0); Mean Corpuscular Hemoglobin 25.2 pg (27.0-31.0); Mean Corpuscular Volume 83.3 fL (78.0-98.0); Mean Platelet Volume 9.5 fL (7.4-10.4); Platelet Count 201 thou/uL (130-400); RBC Distribution Width 15.9 % (11.5-14.5); Red Blood Cell (RBC) Count 2.91 mill/uL (4.70-6.10); White Blood Cell (WBC) Count 4.9 thou/uL (4.8-10.8)
--- NOTE | 2019-06-29 18:12 | RAD ---
CHEST ONE VIEW: History: Shortness of breath. Comparison: 05-01-18, 02-04-19 FINDINGS: Atherosclerosis of the aortic knob. Normal cardiac silhouette. The pulmonary vessels and hilum are no rmal. Costophrenic angles are clear. No masses or consolidation. Linear opacity in the left lung base likely represents subsegmental atelectasis. No pneumothorax or osseous abnormality. IMPRESSION: No acute cardiopulmonary process. POS: PPP
[2019-06-29 18:23] LABS: ALT (SGPT) 23 U/L (8-55); AST (SGOT) 32 U/L (5-34); Albumin 4.1 g/dL (3.4-4.8); Alkaline Phosphatase 69 U/L (40-150); Anion Gap 15 mmol/L (10-20); BUN (Urea Nitrogen) 43 mg/dL (8.4-25.7); Bilirubin, Total 0.3 mg/dL (0.2-1.2); Calc. Creatinine Clearance 0 mL/min (70-130); Calcium 8.8 mg/dL (7.8-10.44); Carbon Dioxide 30 mmol/L (23-31); Chloride 96 mmol/L (98-107); Estimated GFR-MDRD 30; Globulin 2.9 g/dL (2.4-3.5); Glucose 168 mg/dL (80-115); Potassium 4.3 mmol/L (3.5-5.1); Sodium 137 mmol/L (136-145)
[2019-06-29] MEDS ORDERED: Furosemide 40 MG/4 ML VIAL ONE (20:44)
[2019-06-29] MEDS ORDERED: Acetaminophen 325 MG TAB PO PRN (21:16)
[2019-06-29] MEDS ORDERED: Ondansetron PF 4 MG/2 ML Vial IVP PRN (21:16)
[2019-06-29] MEDS ORDERED: Acetaminophen 650 MG Suppository PR PRN (21:16)
[2019-06-29] MEDS ORDERED: Ondansetron ODT 4 MG TAB PO PRN (21:16)
[2019-06-29 21:52] LABS: Troponin I 0.016 ng/mL (< 0.028)
[2019-06-29 23:40] VITALS: BMI 37.7
[2019-06-29] MEDS ORDERED: Dextrose 50% Abboject 50 ML SYRINGE SLOW IVP PRN (23:49)
[2019-06-29] MEDS ORDERED: Dextrose 5% in Water 1,000 ML IV PRN (23:49)
[2019-06-30 00:24] LABS: Hemoglobin 6.5 g/dL (14.0-18.0)
--- NOTE | 2019-06-30 00:29 | HP ---
CODE STATUS: Full code. TIME OF EVALUATION: 9:00 p.m. CHIEF COMPLAINT: Shortness of breath. HISTORY OF PRESENT ILLNESS: This is a 68-year-old male patient with history of diastolic dysfunction, came to the hospital after having shortness of breath and weight gain of about 30 pounds in the past few weeks. The patient reported that the symptoms started insidiously and have been gradually getting worse to the point that he is unable to function and do his activities of daily living. No clear triggers, no alleviating factors. He is the thinking that this could be just related to CHF exacerbation. Symptoms are generalized. REVIEW OF SYSTEMS: CONSTITUTIONAL: No fever, chills, or generalized weakness. RESPIRATORY: The patient has occasional cough. No sputum production. The patient has shortness of breath. CARDIOVASCULAR: No chest pain or palpitation. GASTROINTESTINAL: No nausea, no vomiting, diarrhea, or abdominal pain. SOLE [employer] MACHINE: No dizziness, headache, or feeling lightheaded. GENITOURINARY: No burning on urination. EXTREMITIES: Bilateral leg swelling. All other systems were reviewed and negative except for the findings mentioned above. PAST MEDICAL HISTORY: Positive for diastolic dysfunction, diabetes type 2, hyperlipidemia, hypertension. PAST SURGICAL HISTORY: Orthopedic surgery of the left knee and left ankle. PSYCHIATRIC HISTORY: No previous psych history. No history of suicidal ideation. No history of homicidal ideation. SOCIAL HISTORY: The patient drinks socially every week, 2 to 3 times per week. The patient is a former tobacco user. He smoked cigarettes, quit smoking more than 10 years ago. Lives at home with family. Lives with his spouse. KNOWN ALLERGIES: No known drug allergies. REPORTED MEDICATIONS: 1. Invokana. 2. Levothyroxine. 3. Anastrozole. 4. Torsemide. 5. Zetia. 6. Metformin. 7. Carvedilol. 8. Entresto. 9. Amiodarone. 10. Lyrica. 11. Humalog. 12. Toujeo. 13. Liothyronine. 14. Eliquis. PHYSICAL EXAMINATION: VITAL SIGNS: On presentation, blood pressure 107/63 with heart rate 71, respiratory rate was 20, temperature 97.7. Pain was 0/10, oxygen saturation was 95% on room air. GENERAL APPEARANCE: The patient is alert, oriented, no acute distress. HEENT: Eyes normal conjunctivae. Moist oral mucosa. Anicteric. No JVD. RESPIRATORY: Bilateral air entry. No rales or wheezes. Symmetric expansion. CARDIOVASCULAR: Normal rate, regular rhythm. No murmurs. No gallop. The patient has bilateral leg edema that is 4+. ABDOMEN: Soft, normal bowel sounds. MUSCULOSKELETAL: Baseline range of motion and tenderness. SKIN: Warm, intact. No pallor. No rash. No redness. Capillary refill seems to be intact. NEURO: No evidence of any new focal weakness. Cranial nerves seem to be intact. PSYCH: The patient has good mood. No anxiety. Optimal judgment. IMAGING DATA: EKG was reviewed. The patient has normal sinus rhythm at the rate of 70 with CA 188, QRS 102, and QT corrected 505. Chest x-ray showed no acute cardiopulmonary process. LABORATORY DATA: Reviewed. The patient has white count 4.9, hemoglobin 7.3, previous hemoglobin was 11, MCV 83.3, platelet count 201. Chemistry, sodium 137, potassium 4.3, chloride 96, carbon dioxide 30, anion gap 15, BUN 43, creatinine 2.19, previous creatinine was the same in April. GFR 30, glucose 168, calcium 9.8, total bilirubin 0.3. LFTs were negative. Troponin was negative x2. Beta-natriuretic peptide 24.7. Serum total protein 7.0, albumin-globulin ratio is 1.4, albumin 4.1. ASSESSMENT AND PLAN: The patient will be placed in the hospital with following medical problems: 1. Diastolic dysfunction. The patient has a weight gain of 30 pounds in the recent weeks. The patient has shortness of breath. The patient has history of diastolic dysfunction. The patient will be placed on Lasix. Kidney function will need to be monitored. If worsening due to diuresis, we will need Nephrology for assistance as outpatient. 2. Uncontrolled diabetes with blood sugar 168. We will place the patient on sliding scale for optimal control. 3. Hyperlipidemia. Low-cholesterol diet is advised. Reconcile home medications. 4. Controlled hypertension, reconcile home medications. 5. Deep venous thrombosis prophylaxis. Job ID: [id number]
[2019-06-30 00:35] LABS: Troponin I 0.011 ng/mL (< 0.028)
[2019-06-30] MEDS ORDERED: Senokot S 8.6-50 MG TAB PO SCH ×2 (01:45→09:00)
[2019-06-30] MEDS ORDERED: Polyethylene Glycol 3350 17 GM Packet PO SCH (01:45)
[2019-06-30] MEDS ORDERED: Pregabalin 75 MG CAP PO SCH (01:45)
[2019-06-30] MEDS ORDERED: Artificial Tear Sol 15 ML BOT EA EYE PRN (02:01)
[2019-06-30 04:49] LABS: #Basophils 0.1 thou/uL (0.0-0.2); #Eosinphils 0.2 thou/uL (0.0-0.7); #Lymphocytes 1.5 thou/uL (1.20-3.40); #Monocytes 0.5 thou/uL (0.11-0.59); #Neutrophils 2.9 thou/uL (1.40-6.50); %Basophils 1.2 % (0.0-1.0); %Eosinophils 4.4 % (0.0-10.0); %Lymphocytes 29.2 % (21.0-51.0); %Monocytes 10.3 % (0.0-10.0); %Neutrophils 54.9 % (42.0-75.0); Hemoglobin 7.8 g/dL (14.0-18.0); Mean Corpuscular HGB CONC 30.8 g/dL (32.0-36.0); Mean Corpuscular Hemoglobin 25.9 pg (27.0-31.0); Mean Corpuscular Volume 84.2 fL (78.0-98.0); Mean Platelet Volume 9.9 fL (7.4-10.4); Platelet Count 182 thou/uL (130-400); RBC Distribution Width 15.8 % (11.5-14.5); Red Blood Cell (RBC) Count 3.02 mill/uL (4.70-6.10); White Blood Cell (WBC) Count 5.2 thou/uL (4.8-10.8)
[2019-06-30 05:12] LABS: Anion Gap 13 mmol/L (10-20); BUN (Urea Nitrogen) 41 mg/dL (8.4-25.7); Calc. Creatinine Clearance 61 mL/min (70-130); Calcium 8.8 mg/dL (7.8-10.44); Carbon Dioxide 33 mmol/L (23-31); Chloride 98 mmol/L (98-107); Estimated GFR-MDRD 31; Glucose 190 mg/dL (80-115); Potassium 4.5 mmol/L (3.5-5.1); Sodium 139 mmol/L (136-145)
[2019-06-30] MEDS: Furosemide 40 MG/4 ML VIAL SLOW IVP SCH ×2 (06:29→14:22)
[2019-06-30] MEDS: Pregabalin 75 MG CAP PO SCH ×2 (09:24→20:36)
[2019-06-30] MEDS: Polyethylene Glycol 3350 17 GM Packet PO SCH ×2 (09:24→20:35)
[2019-06-30 12:20] LABS: Hemoglobin 7.2 g/dL (14.0-18.0)
[2019-06-30] MEDS ORDERED: Magnesium Citrate 300 ML BOT PO SCH (13:15)
[2019-06-30] MEDS ORDERED: Bisacodyl 10 MG SUPP PR SCH (13:15)
--- NOTE | 2019-06-30 14:13 | RAD ---
EXAM: Supine abdomen INDICATIONS: Constipation. Abdominal pain COMPARISON: None. FINDINGS: Large amount of stool throughout colon consistent with history of constipation. Nonspecific small bowel gas. No mass effect or abnormal calcification. IMPRESSION: Large amount of stool throughout colon.
[2019-06-30] MEDS ORDERED: Ipratropium Bromide 2.5 ml Neb NEB PRN (17:29)
[2019-06-30] MEDS ORDERED: Mineral Oil ENEMA PR SCH (17:30)
[2019-06-30] MEDS ORDERED: Methylnaltrexone 12 MG/0.6 ML VIAL SC SCH (17:30)
[2019-06-30] MEDS: HumaLOG 300 UNITS/3 ML VIAL SC PRN ×2 (18:07→21:25)
[2019-06-30] MEDS: Ferrous Sulfate 325 MG TAB PO SCH (18:10)
[2019-06-30] MEDS: Mometasone/Formoterol 120 PUFF INHALER INH SCH (19:04)
[2019-06-30 19:06] LABS: Hemoglobin 7.9 g/dL (14.0-18.0)
--- NOTE | 2019-06-30 19:42 | PDOC.HOSPP ---
- Subjective Subjective: f/u for dyspnea and constipation. Last BM over a week ago. No N/V. - Objective Vital Signs & Weight: Vital Signs (12 hours) Temp Pulse Resp BP BP Pulse Ox 06/30/19 19:04 78 20 93 L 06/30/19 16:25 98.2 F 74 16 130/65 96 06/30/19 12:20 97.6 F 66 18 122/64 98 Weight Weight 278 lb 5 oz I&O: 06/29/19 06/30/19 07/01/19 06:59 06:59 06:59 Intake Total 350 2850 Output Total 3700 Balance 350 -850 Result Diagrams: 06/30/19 18:57 06/30/19 04:27 Additional Labs: Accuchecks 06/30/19 06/30/19 17:01 11:00 POC Glucose 288 H 172 H Laboratory Tests 05/23/19 06/29/19 06/29/19 09:57 17:54 17:54 Hgb 7.3 L Creatinine 2.19 H 2.19 H 06/30/19 06/30/19 06/30/19 00:05 04:27 11:58 Hgb 6.5 L 7.8 L 7.2 L Creatinine Radiology Reviewed by me: Yes (KUB - large amount of retained stool) EKG Reviewed by me: Yes (Tele - SR) ROS - Review of Systems All systems: All other ROS were reviewed and found negative. - Medication Medications: Active Medications Generic Name Dose Route Start Last Admin Trade Name Freq PRN Reason Stop Dose Admin Artificial Tears 2 drop 06/30/19 02:01 06/30/19 02:27 Liquitears 15ml Bottle EA EYE 1 drp QID PRN Administration Dry Eyes Ferrous Sulfate 325 mg 06/30/19 17:00 06/30/19 18:10 Feosol PO 325 mg BID-WM RA Administration Insulin Human Lispro 0 units 06/29/19 23:49 06/30/19 18:07 Humalog SC 4 unit .MILD SLIDING SCALE PRN Administration Mild Correctional Scale Mometasone Furoate/Formoterol Fumar 2 puff 06/30/19 18:30 06/30/19 19:04 Dulera 200 Mcg/5 Mcg Inhaler INH 2 puff BID-RT RA Administration Polyethylene Glycol 17 gm 06/30/19 09:00 06/30/19 09:24 Miralax PO 17 gm BID RA Administration Pregabalin 150 mg 06/30/19 09:00 06/30/19 09:24 Lyrica PO 150 mg BID RA Administration - Exam NAD, awake alert Eye: PERRL, anicteric sclera ENT: normocephalic atraumatic, no oropharyngeal lesions Neck: supple, symmetric, no JVD, no Thyromegaly Heart: RRR, no murmur, no gallops, no rubs, normal peripheral pulses Respiratory: CTAB, no wheezes, no rales, no ronchi Gastrointestinal: normal bowel sounds (mild TTP diffusely, no rebound), distended Extremities: no cyanosis, 1+ LE edema Skin: normal turgor, no lesions Neurological: CN's grossly intact, no focal deficits, no new deficit Musculoskeletal: normal tone Psychiatric: normal behavior, A&O x 3 Hosp A/P (1) Symptomatic anemia Code(s): D64.9 - ANEMIA, UNSPECIFIED Status: Acute Plan: s/p 1u PRBC's, serial H/H monitoring, Protonix 40mg Daily (2) Constipation Code(s): K59.00 - CONSTIPATION, UNSPECIFIED Status: Acute Qualifiers: Constipation type: slow transit constipation Qualified Code(s): K59.01 - Slow transit constipation Plan: Trial Relostor, Senna, Dulcolax supp (3) DM II (diabetes mellitus, type II), controlled Code(s): E11.9 - TYPE 2 DIABETES MELLITUS WITHOUT COMPLICATIONS Status: Chronic Plan: ISS, Lantus, ADA, serial accuchecks (4) Hypothyroidism Code(s): E03.9 - HYPOTHYROIDISM, UNSPECIFIED Status: Chronic Plan: Continue Levothyroxine (5) CKD (chronic kidney disease), stage III Code(s): N18.3 - CHRONIC KIDNEY DISEASE, STAGE 3 (MODERATE) Status: Chronic Plan: Avoid nephrotoxic meds and limit contrast exposure - Plan PT/OT, child welfare social worker, respiratory therapy, DVT proph w/SCDs Stable currently D/C IV Lasix Trial Relistor Trial Senna/Mineral oil enema Continue FeSO4 325mg BID AM lab: H/H, BMP
[2019-06-30] MEDS: Apixaban 5 MG TAB PO SCH (20:35)
[2019-06-30] MEDS: Senokot S 8.6-50 MG TAB PO SCH (20:38)
[2019-06-30] MEDS ORDERED: Magnesium Oxide 400 MG TAB PO SCH (21:00)
[2019-07-01 04:37] LABS: Hemoglobin 7.4 g/dL (14.0-18.0); Platelet Count 169 thou/uL (130-400)
[2019-07-01 04:51] LABS: Anion Gap 12 mmol/L (10-20); BUN (Urea Nitrogen) 36 mg/dL (8.4-25.7); Calc. Creatinine Clearance 67 mL/min (70-130); Calcium 9.1 mg/dL (7.8-10.44); Carbon Dioxide 34 mmol/L (23-31); Chloride 99 mmol/L (98-107); Estimated GFR-MDRD 35; Glucose 211 mg/dL (80-115); Potassium 4.5 mmol/L (3.5-5.1); Sodium 140 mmol/L (136-145)
[2019-07-01] MEDS ORDERED: Levothyroxine Sodium 100 MCG TAB PO SCH (06:00)
[2019-07-01] MEDS: Mometasone/Formoterol 120 PUFF INHALER INH SCH (06:45)
[2019-07-01] MEDS ORDERED: Carvedilol 3.125 MG TAB PO SCH (08:00)
[2019-07-01] MEDS: Senokot S 8.6-50 MG TAB PO SCH (08:56)
[2019-07-01] MEDS: Pregabalin 75 MG CAP PO SCH (08:56)
[2019-07-01] MEDS: Ferrous Sulfate 325 MG TAB PO SCH (08:57)
[2019-07-01] MEDS: Polyethylene Glycol 3350 17 GM Packet PO SCH (08:57)
[2019-07-01] MEDS: Apixaban 5 MG TAB PO SCH (08:57)
[2019-07-01] MEDS ORDERED: INSULIN GLARGINE HUM REC ANLOG 40 UNIT SQ SCH (09:00)
[2019-07-01] MEDS ORDERED: Insulin Glargine 40 UNITS in Pre-Filled Syringe 1 EACH SC SCH (09:00)
[2019-07-01] MEDS ORDERED: Amiodarone 200 MG TAB PO SCH (09:00)
[2019-07-01] MEDS ORDERED: Anastrozole 1 MG TAB PO SCH (09:00)
[2019-07-01] MEDS ORDERED: Canagliflozin [Invokana] 300 MG PO SCH (09:00)
[2019-07-01] MEDS ORDERED: Liothyronine Sodium 5 MCG TAB PO SCH (09:00)
[2019-07-01 12:23] VITALS: BP 120/59; TEMP 97.8
[2019-07-01] MEDS ORDERED: Furosemide 40 MG/4 ML VIAL SLOW IVP SCH (14:00)
--- NOTE | 2019-07-02 02:58 | DIS ---
DATE OF ADMISSION: 06/29/2019 DATE OF DISCHARGE: 07/01/2019 DISCHARGE DIAGNOSES: 1. Symptomatic anemia, status post 1 unit of packed red blood cells. 2. Constipation, improved. 3. Diabetes mellitus type 2, insulin requiring. 4. Hypothyroidism. 5. Morbid obesity. 6. Chronic kidney disease stage 3. 7. Diastolic dysfunction. CONSULTATIONS: None. PERTINENT LABORATORY AND X-RAY FINDINGS: Creatinine ranged between 1.95 to 2.19. Estimated GFR ranged between 30 to 35. LFTs within normal limits. Troponin I negative x3. BNP 24.7. CBC showed a hemoglobin ranging between 6.5 to 7.9. Stool Hemoccult positive x1 on 07/01/2019. Portable chest x-ray dated 06/29/2019, showed no acute cardiopulmonary process. Abdominal radiographs dated 06/30/2019, showed large amount of stool throughout the colon. HOSPITAL COURSE: The patient was initially admitted to the telemetry unit after presenting with increased shortness of breath with abdominal discomfort. The patient underwent initial metabolic screening with a BNP of 25. Chest imaging was unremarkable for pulmonary edema. However, the patient was noted with a hemoglobin of 6.5 and transfused 1 unit of packed red blood cells. Serial H and H monitoring showed overall stable values for the remainder of the hospital course. The patient was also diagnosed with constipation with abdominal radiographs confirming a large amount of stool throughout the colon. The patient received multiple stool softeners in addition to Relistor and magnesium citrate. The patient did have successful bowel movements x2 prior to discharge. Vital signs remained stable throughout the hospital course and the patient tolerated regular oral intake without difficulty. Current recommendations are for outpatient GI followup due to recurrent normocytic anemia. I have examined the patient at the time of discharge and discussed followup instructions. The patient verbalized understanding and agreement, ready for discharge on 07/01/2019. DISCHARGE MEDICATIONS: 1. Ventolin HFA 1-2 puffs inhaled q.6 hours p.r.n. 2. Amiodarone 200 mg p.o. daily. 3. Anastrozole 1 mg p.o. daily. 4. Eliquis 5 mg p.o. b.i.d. 5. Invokana 300 mg p.o. daily. 6. Coreg 3.125 mg p.o. b.i.d. 7. Zetia 10 mg p.o. q.a.m. 8. Glargine insulin 40 units subcutaneously daily. 9. Lispro subcutaneously t.i.d. with meals. 10. Levothyroxine 200 mcg p.o. daily. 11. Liothyronine 5 mcg p.o. daily. 12. Magnesium oxide 400 mg p.o. at bedtime. 13. Metformin extended release 750 mg p.o. b.i.d. 14. Livalo 2 mg p.o. Sunday, Sunday, and Sunday. 15. Lyrica 150 mg p.o. b.i.d. 16. Entresto 24/26 mg 1 tablet p.o. b.i.d. 17. Symbicort 2 puffs inhaled b.i.d. 18. Terbutaline sulfate 10 mg p.o. p.r.n. 19. Spiriva Respimat 2 puffs inhaled at bedtime. 20. Demadex 40 mg p.o. b.i.d. 21. Feosol 325 mg p.o. b.i.d. 22. Senokot-S 2 tablets p.o. daily. FOLLOWUP: The patient will follow up with his primary care provider, Dr. Augusto Mcwilliams within 7 days of discharge. The patient may follow up with Dr. Zeeshan Perez with [facility] and to call his office for appointment time and date. CONDITION ON DISCHARGE: Stable. ACTIVITY: Ad-shahram. DIET: ADA and heart healthy. CODE STATUS: Full. DISPOSITION: Home on 07/01/2019. TIME SPENT: Total time preparing and coordinating discharge, 33 minutes. Job ID: [id number]
== END 2019-07-01 15:37 | disposition home or self-care (01) | DRG 699 ==
LOC: ERS 17:20 → 2NO 20:00
PROVIDERS: ADMIT Hospitalist; ATTEND Hospitalist
PROC: 30233N1 Transfusion of Nonautologous Red Blood Cells into Peripheral Vein, Percutaneous Approach (ICD-10-PCS; principal; 2019-06-30)
DX: E11.22 Type 2 diabetes mellitus with diabetic chronic kidney disease (principal); I13.0 Hypertensive heart and chronic kidney disease with heart failure and stage 1 through stage 4 chronic kidney disease, or unspecified chronic kidney disease; I50.32 Chronic diastolic (congestive) heart failure; E78.00 Pure hypercholesterolemia, unspecified; K59.01 Slow transit constipation; N18.3 Chronic kidney disease, stage 3 (moderate); D63.1 Anemia in chronic kidney disease; E66.01 Morbid (severe) obesity due to excess calories; E03.9 Hypothyroidism, unspecified; Z87.891 Personal history of nicotine dependence; Z79.4 Long term (current) use of insulin; Z79.899 Other long term (current) drug therapy; Z79.01 Long term (current) use of anticoagulants; Z68.38 Body mass index [BMI] 38.0-38.9, adult
CPT/HCPCS: 36415; 36416; 36430; 71045; 74018; 80048; 80053; 82274; 83880; 84484; 85014; 85018; 85025; 85049; 86850; 86900; 86901; 93005; 94760; 96374; J1815; J1940; J2212; P9016

== ENCOUNTER 2019-07-12 08:24 | Inpatient (IN) | payer MEDICARE ==
[2019-07-12 08:58] LABS: #Basophils 0.1 thou/uL (0.0-0.2); #Eosinphils 0.1 thou/uL (0.0-0.7); #Lymphocytes 1.4 thou/uL (1.20-3.40); #Monocytes 0.5 thou/uL (0.11-0.59); #Neutrophils 3.4 thou/uL (1.40-6.50); %Basophils 1.2 % (0.0-1.0); %Eosinophils 2.6 % (0.0-10.0); %Lymphocytes 25.2 % (21.0-51.0); %Monocytes 8.6 % (0.0-10.0); %Neutrophils 62.5 % (42.0-75.0); Hemoglobin 6.2 g/dL (14.0-18.0); Mean Corpuscular HGB CONC 30.5 g/dL (32.0-36.0); Mean Corpuscular Hemoglobin 25.1 pg (27.0-31.0); Mean Corpuscular Volume 82.4 fL (78.0-98.0); Mean Platelet Volume 10.2 fL (7.4-10.4); Platelet Count 251 thou/uL (130-400); RBC Distribution Width 16.7 % (11.5-14.5); Red Blood Cell (RBC) Count 2.45 mill/uL (4.70-6.10); White Blood Cell (WBC) Count 5.5 thou/uL (4.8-10.8)
[2019-07-12 09:12] LABS: ALT (SGPT) 42 U/L (8-55); AST (SGOT) 43 U/L (5-34); Albumin 4.1 g/dL (3.4-4.8); Alkaline Phosphatase 72 U/L (40-150); Anion Gap 14 mmol/L (10-20); BUN (Urea Nitrogen) 40 mg/dL (8.4-25.7); Bilirubin, Total 0.3 mg/dL (0.2-1.2); Calc. Creatinine Clearance 0 mL/min (70-130); Calcium 9.3 mg/dL (7.8-10.44); Carbon Dioxide 28 mmol/L (23-31); Chloride 101 mmol/L (98-107); Estimated GFR-MDRD 30; Glucose 181 mg/dL (80-115); Potassium 4.4 mmol/L (3.5-5.1); Protein, Total 7.1 g/dL (5.8-8.1); Sodium 139 mmol/L (136-145)
[2019-07-12] MEDS ORDERED: Pantoprazole 40 MG VIAL ONE (10:13)
[2019-07-12 11:14] LABS: Bilirubin Negative (Negative); Blood, Urine Negative (Negative); Clarity Clear (Clear); Glucose, Urine (Dipstick) Greater than 1000 mg/dL (Negative); Leukocyte Negative Leu/uL (Negative); Nitrite Negative (Negative); Protein, Urine (Dipstick) Negative (Neg-Trace); Urobilinogen Normal mg/dL (Less than 2)
[2019-07-12 12:37] VITALS: BMI 43.3
[2019-07-12] MEDS ORDERED: Ondansetron PF 4 MG/2 ML Vial IVP PRN (12:40)
[2019-07-12] MEDS ORDERED: Ondansetron ODT 4 MG TAB SL PRN (12:40)
[2019-07-12] MEDS ORDERED: Sodium Chloride 0.9% 1,000 ML IV SCH ×2 (12:40→13:15)
[2019-07-12] MEDS ORDERED: Acetaminophen 325 MG TAB PO PRN (13:02)
[2019-07-12] MEDS ORDERED: Senokot S 8.6-50 MG TAB PO PRN (13:02)
[2019-07-12] MEDS ORDERED: PROVENTIL INHALER 6.7 G (200 INHALATIONS) INH PRN (13:04)
[2019-07-12] MEDS ORDERED: Ipratropium Oral Inhaler (200 INHALATIONS) INH PRN (13:12)
[2019-07-12] MEDS ORDERED: Dextrose 5% in Water 1,000 ML IV PRN (13:59)
[2019-07-12] MEDS ORDERED: HumaLOG 300 UNITS/3 ML VIAL SC PRN (13:59)
--- NOTE | 2019-07-12 16:34 | CON ---
DATE OF CONSULTATION: 07/12/2019 CHIEF COMPLAINT: Anemia and weakness. HISTORY OF PRESENT ILLNESS: Mr. Villatoro is a 68-year-old man with a history of iron deficiency anemia that was evaluated in the hospital by Dr. Perez back in September 2018 with EGD and colonoscopy. A bleeding source was not identified at that time. The patient has been on Eliquis chronically related to his cardiomyopathy. He was given blood transfusion, IV iron, and iron supplementation, and did well over the last few months until last week, he followed up with his primary care doctor and had blood work drawn. He was found to have severe anemia and was advised to come back to the hospital for further care. He was actually in the hospital, just admitted on 06/29/2019, at that time, admitted with shortness of breath related to his heart dysfunction. He was noted to have anemia then and was advised to follow up with Dr. Perez as an outpatient to complete the workup of the anemia. Previously, Dr. Perez had advised him to get a capsule endoscopy of the small bowel. However, he has not yet followed through with that procedure. He has had no abdominal pain. No nausea or vomiting. No diarrhea or blood in the stool. He has had a problem with chronic constipation. Lately, he has been taking senna two tablets daily and did have a formed bowel movement last night. His colonoscopy back in September had a poor prep. After extensive irrigation, he had a fair prep, but this exam would not have been adequate to identify flat lesions or vascular ectasias. PAST MEDICAL HISTORY: Diastolic dysfunction; diabetes mellitus, type 2; hyperlipidemia; and hypertension. PAST SURGICAL HISTORY: Knee surgery, ankle surgery. FAMILY HISTORY: Negative for GI malignancy. SOCIAL HISTORY: He has alcohol a couple of times per week. Quit smoking 10 years ago. No drugs. ALLERGIES: NO KNOWN DRUG ALLERGIES. MEDICATIONS: Prior to admission include; 1. Ventolin inhaler. 2. Amiodarone. 3. Anastrozole. 4. Eliquis 5 mg twice daily. 5. Invokana. 6. Coreg. 7. Zetia. 8. Insulin lispro and glargine. 9. Levothyroxine. 10. Liothyronine. 11. Magnesium oxide. 12. Metformin. 13. Livalo. 14. Lyrica. 15. Entresto. 16. Symbicort. 17. Terbutaline. 18. Spiriva. 19. Demadex. 20. Feosol. 21. Senokot two tablets daily. REVIEW OF SYSTEMS: Negative x10 systems reviewed except as stated in the history of present illness. LABORATORY DATA: White blood cell count 5.5, hemoglobin was 6.2 today. Platelets 251. Creatinine 2.20. Bilirubin 0.3, AST 43, ALT 42, alkaline phosphatase 72, and albumin 4.1. IMPRESSION: 1. Chronic iron deficiency anemia. His last iron studies are from September when his iron was 10 and TIBC 430. He does have a chronic renal insufficiency as well, which could contribute. More likely, the primary issue is the chronic anticoagulation and some mucosal gastrointestinal blood loss. There has been no overt bleeding. 2. Chronic constipation. RECOMMENDATIONS: 1. His last dose of Eliquis was this morning. We will hold this. 2. We will plan EGD and colonoscopy for Sunday. This will be 48 hours from the previous Eliquis dose. Also, this will allow more time to get a better bowel prep. 3. We will plan a 2-day bowel prep with 2 L of GoLYTELY this evening, then 2 L tomorrow afternoon, and 2 L tomorrow evening. He will remain on a clear liquid diet throughout that time including today as well. Job ID: [id number]
--- NOTE | 2019-07-12 16:39 | HP ---
PRIMARY CARE PHYSICIAN: [facility]. CHIEF COMPLAINT: Anemia. HISTORY OF PRESENT ILLNESS: Mr. Villatoro is a 68-year-old man, who reported to the emergency room today after he was told that his recent CBC had a decreased hemoglobin and he was sent to the emergency room for further evaluation. The patient has a past medical history pertinent for CHF, diabetes, and COPD. He is chronically on Eliquis. Dr. Perez saw in September and he took the patient to the OR for an upper and lower GI, the impression was poor colonic prep, converted to fair prep, still inadequate for the evaluation of the 5 mucosal lesions, small internal hemorrhoids, and hypertrophied anal papillae, no etiology seen for the iron deficiency anemia. He was seen here on 06/29/2019 until 07/01/2019, was noted to have symptomatic anemia at that time and was given 1 unit of packed red blood cells. Blood counts improved. The patient was discharged home. He was recommended to follow up with GI as an outpatient. The patient states that he had a difficult time with his insurance to tell him which GI specialist he was able to see with his current insurance, and he was not able to follow up with them as an outpatient. He does have a history of darker stools and his guaiac in the emergency room was positive for blood. The patient had a type and screen performed today in the emergency room and 2 units of reduced PRBCs were ordered, and he was admitted to the observation unit for further management. REVIEW OF SYSTEMS: The patient reports fatigue. Reports shortness of breath. All other systems are reviewed and are negative unless mentioned in HPI. PAST MEDICAL HISTORY: Congestive heart failure, diabetes type 2, hyperlipidemia, high cholesterol, hypertension, hydrocele, COPD, and hypothyroidism. PAST SURGICAL HISTORY: Appendectomy, left knee surgery, and left ankle surgery. PSYCHIATRIC HISTORY: None. SOCIAL HISTORY: Former tobacco smoker, quit more than 10 years ago. Drinks socially. Denies drug use. ALLERGIES: NONE. MEDICATIONS: 1. Ventolin HFA 1 to 2 puffs q.4 hours as needed. 2. Cordarone 200 mg p.o. b.i.d. 3. Anastrozole 1 mg p.o. q.a.m. 4. Eliquis 5 mg p.o. b.i.d. 5. Aspirin 81 mg p.o. daily. 6. Invokana 300 mg p.o. q.a.m. 7. Coreg 6.25 mg p.o. b.i.d. 8. Ezetimibe 10 mg p.o. q.a.m. 9. Glimepiride 2 mg p.o. q.a.m. 10. Lantus 40 units subcu daily. 11. Lispro (Humalog) 50/50 sliding scale as needed t.i.d. p.r.n. 12. Levothyroxine 200 mcg p.o. q.a.m. 13. Liothyronine 5 mcg p.o. q.a.m. 14. Metformin 750 mg p.o. b.i.d. 15. Lyrica 150 mg p.o. b.i.d. 16. Entresto 24/26 one tablet p.o. b.i.d. 17. Symbicort inhaler 2 puffs b.i.d. 18. Spiriva 2 puffs at bedtime. 19. Demadex 40 mg p.o. in a.m. and 20 mg p.o. 1200 hours daily. 20. Senokot-S 2 tablets p.o. daily. PHYSICAL EXAMINATION: VITAL SIGNS: Blood pressure is 124/76, pulse is 75, respirations 14, temperature is 98.2, pO2 sats 92% on room air. CONSTITUTIONAL: The patient appears nontoxic, alert and oriented to person, place and time. HEENT: Head is atraumatic and normocephalic. Eyes; eyelids are normal to inspection. Pupils are equally round and reactive to light. Conjunctivae are pale. ENT; mucous membranes are pale. Mouth exam is normal. Mucous membranes are moist. NECK: Normal range of motion. Trachea is midline. RESPIRATORY/CHEST: Breath sounds are clear. There are no findings of any respiratory distress. CARDIOVASCULAR: Heart rate regular rate and rhythm. Heart sounds are normal. ABDOMEN: No tenderness on palpation. Bowel sounds are heard. BACK: Normal inspection. Normal range of motion. No tenderness. EXTREMITIES: Upper extremities, normal range of motion, motor strength is normal, sensation intact, radial pulses equal bilaterally. Lower extremities, normal range of motion, motor strength is normal, sensation intact, pedal pulses are equal bilaterally. NEUROLOGIC: Oriented to person, place, and time. Speech is normal. Gait is normal. SKIN: Warm, dry, and normal in color. No rash. He is pale. PSYCHIATRIC: Normal affect. IMAGING STUDIES: EKG in the emergency room shows beats per minute 86 with a normal sinus rhythm. ST segments and T-waves are normal. Knott is normal. Low voltage QRS, cannot rule out anterior infarct, prolonged QT, and nonspecific EKG. ASSESSMENT AND PLAN: 1. Symptomatic anemia. Initial hemoglobin today is 6.2, 2 units, typed and crossed in the emergency room. By the time he got to the floor, almost he had received almost 1 unit. We will go ahead and give the second one. He will remain n.p.o. We will consult GI. We will hold the Eliquis and aspirin. Make n.p.o. for now. The patient reports that he had a small amount of breakfast at 7 a.m. We will trend hemoglobin every 6 hours, Protonix b.i.d. IV. 2. History of congestive heart failure, appears stable. We will restart home medications. 3. Diabetes. We will hold the Invokana, p.o. medications for now. Check before meals and at bedtime glucose. Add sliding scale coverage as needed. 4. Hyperlipidemia. We will restart home medications. 5. Hypertension. We will restart home medications. 6. Deep vein thrombosis prophylaxis will be started. Hospital course is dependent on clinical findings. Job ID: [id number]
[2019-07-12] MEDS: Carvedilol 6.25 MG TAB PO SCH (17:11)
[2019-07-12] MEDS ORDERED: GoLYTELY 4,000 ml Bottle PO SCH (18:00)
[2019-07-12] MEDS: Mometasone/Formoterol 120 PUFF INHALER INH SCH (18:29)
[2019-07-12 20:10] LABS: Hemoglobin 8.5 g/dL (14.0-18.0)
[2019-07-12] MEDS: Pregabalin 75 MG CAP PO SCH (21:32)
[2019-07-12] MEDS: Amiodarone 200 MG TAB PO SCH (21:34)
[2019-07-12] MEDS: Famotidine 20 MG TAB PO SCH (21:34)
[2019-07-12] MEDS: Pantoprazole 40 MG VIAL IVP SCH (21:41)
[2019-07-13] MEDS: Dextrose 50% Abboject 50 ML SYRINGE SLOW IVP PRN (01:21)
[2019-07-13 05:19] LABS: #Basophils 0.1 thou/uL (0.0-0.2); #Eosinphils 0.2 thou/uL (0.0-0.7); #Lymphocytes 1.2 thou/uL (1.20-3.40); #Monocytes 0.4 thou/uL (0.11-0.59); #Neutrophils 3.6 thou/uL (1.40-6.50); %Lymphocytes 21.6 % (21.0-51.0); %Monocytes 7.9 % (0.0-10.0); %Neutrophils 66.6 % (42.0-75.0); Mean Corpuscular HGB CONC 31.8 g/dL (32.0-36.0); Mean Corpuscular Hemoglobin 26.5 pg (27.0-31.0); Mean Corpuscular Volume 83.4 fL (78.0-98.0); Mean Platelet Volume 9.6 fL (7.4-10.4); Platelet Count 228 thou/uL (130-400); RBC Distribution Width 15.7 % (11.5-14.5); Red Blood Cell (RBC) Count 3.39 mill/uL (4.70-6.10); White Blood Cell (WBC) Count 5.3 thou/uL (4.8-10.8)
[2019-07-13 05:23] LABS: ALT (SGPT) 50 U/L (8-55); AST (SGOT) 56 U/L (5-34); Alkaline Phosphatase 74 U/L (40-150); Anion Gap 15 mmol/L (10-20); BUN (Urea Nitrogen) 28 mg/dL (8.4-25.7); Bilirubin, Total 0.3 mg/dL (0.2-1.2); Calc. Creatinine Clearance 67 mL/min (70-130); Calcium 8.2 mg/dL (7.8-10.44); Carbon Dioxide 27 mmol/L (23-31); Chloride 99 mmol/L (98-107); Estimated GFR-MDRD 37; Globulin 2.9 g/dL (2.4-3.5); Glucose 146 mg/dL (80-115); Iron 16 ug/dL (65-175); Iron Binding Capacity, Total 398 mcg/dL (261-462); Potassium 3.5 mmol/L (3.5-5.1); Protein, Total 6.9 g/dL (5.8-8.1); Sodium 137 mmol/L (136-145)
[2019-07-13 05:24] LABS: Iron 18 ug/dL (65-175); Iron Binding Capacity, Total 401 mcg/dL (261-462)
[2019-07-13] MEDS: Levothyroxine Sodium 100 MCG TAB PO SCH (06:43)
[2019-07-13] MEDS: Mometasone/Formoterol 120 PUFF INHALER INH SCH ×2 (07:14→18:30)
[2019-07-13] MEDS: Carvedilol 6.25 MG TAB PO SCH ×2 (07:25→15:11)
[2019-07-13] MEDS: Pregabalin 75 MG CAP PO SCH ×2 (08:17→20:03)
[2019-07-13] MEDS: Famotidine 20 MG TAB PO SCH ×2 (08:17→20:05)
[2019-07-13] MEDS: Torsemide 20 MG TAB PO SCH ×2 (08:17→11:24)
[2019-07-13] MEDS: Amiodarone 200 MG TAB PO SCH ×2 (08:17→20:05)
[2019-07-13] MEDS: Pantoprazole 40 MG VIAL IVP SCH (08:18)
[2019-07-13] MEDS: Insulin Glargine 40 UNITS in Pre-Filled Syringe 1 EACH SC SCH (08:18)
[2019-07-13] MEDS: Anastrozole 1 MG TAB PO SCH (08:18)
[2019-07-13] MEDS: Ezetimibe 10 MG TAB PO SCH (08:18)
[2019-07-13] MEDS: Senokot S 8.6-50 MG TAB PO SCH (08:19)
[2019-07-13] MEDS: Liothyronine Sodium 5 MCG TAB PO SCH ×2 (08:20→09:26)
[2019-07-13] MEDS ORDERED: INSULIN GLARGINE HUM REC ANLOG 40 UNIT SQ SCH (09:00)
--- NOTE | 2019-07-13 13:51 | PRG ---
DATE OF SERVICE: 07/13/2019 SUBJECTIVE: Mr. Villatoro has had no overt bleeding. No abdominal pain. No nausea or vomiting. He did have multiple bowel movements with the GoLYTELY last night. OBJECTIVE: VITAL SIGNS: Temperature 97.6, pulse 68, and blood pressure 121/61. GENERAL: He is in no acute distress. Alert and oriented x3. LUNGS: Clear to auscultation bilaterally. HEART: Regular rate and rhythm without murmur. ABDOMEN: Soft, nontender, and nondistended. Bowel sounds are present. EXTREMITIES: No lower extremity edema. LABORATORY DATA: Hemoglobin is 9.0. Creatinine 1.86. He has received 2 units of transfusion yesterday. IMPRESSION: 1. Chronic iron-deficiency anemia, on chronic anticoagulation. He has had no overt bleeding. 2. Chronic constipation. His bowel prep for his previous colonoscopy was inadequate. RECOMMENDATIONS: 1. His last dose of Eliquis was yesterday morning. 2. We will plan EGD and colonoscopy for tomorrow morning. 3. If the endoscopy is negative, then he will need to follow up with Dr. Perez to be evaluated for a capsule endoscopy. Job ID: [id number]
[2019-07-13] MEDS: GoLYTELY 4,000 ml Bottle PO SCH ×2 (15:11→20:03)
--- NOTE | 2019-07-13 15:42 | PDOC.HOSPP ---
- Subjective Encounter Date: 07/13/19 Encounter Time: 10:00 Subjective: Patient examined, denies complaints. - Objective Vital Signs & Weight: Vital Signs (12 hours) Temp Pulse Resp BP BP Pulse Ox 07/13/19 11:28 97.6 F 68 20 121/61 96 07/13/19 07:40 97.4 F L 66 20 130/65 95 07/13/19 07:14 71 12 07/13/19 05:30 97.5 F L 70 18 112/60 98 Weight Weight 121.818 kg I&O: 07/12/19 07/13/19 07/14/19 06:59 06:59 06:59 Intake Total 2080 Output Total 3300 1650 Balance -1220 -1650 Result Diagrams: 07/13/19 04:52 07/13/19 04:52 Additional Labs: Accuchecks 07/13/19 07/13/19 07/13/19 11:33 01:56 01:16 POC Glucose 180 H 160 H 48 L* 07/12/19 07/12/19 20:35 17:05 POC Glucose 125 H 126 H ROS - Review of Systems Gastrointestinal: reports: melena - Medication Medications: Active Medications Generic Name Dose Route Start Last Admin Trade Name Freq PRN Reason Stop Dose Admin Amiodarone HCl 200 mg 07/12/19 21:00 07/13/19 08:17 Cordarone PO 200 mg BID RA Administration Anastrozole 1 mg 07/13/19 09:00 07/13/19 08:18 Arimidex PO 1 mg QAM RA Administration Carvedilol 6.25 mg 07/12/19 17:00 07/13/19 15:11 Coreg PO Not Given BID-WM RA Dextrose/Water 25 gm 07/12/19 13:59 07/13/19 01:21 Dextrose 50% SLOW IVP 25 gm PRN PRN Administration Hypoglycemia Ezetimibe 10 mg 07/13/19 09:00 07/13/19 08:18 Zetia PO 10 mg QAM RA Administration Famotidine 20 mg 07/12/19 21:00 07/13/19 08:17 Pepcid PO 20 mg BID RA Administration Insulin Glargine 40 units/ 0.4 mls @ 0 mls/hr 07/13/19 09:00 07/13/19 08:18 Miscellaneous Medication SC Not Given DAILY RA Levothyroxine Sodium 200 mcg 07/13/19 06:00 07/13/19 06:43 Synthroid PO 200 mcg 0600 RA Administration Liothyronine Sodium 5 mcg 07/13/19 09:00 07/13/19 09:26 Cytomel PO 5 mcg QAM RA Administration Mometasone Furoate/Formoterol Fumar 2 puff 07/12/19 21:00 07/13/19 07:14 Dulera 100 Mcg/5 Mcg Inhaler INH 2 puff BID RA Administration Polyethylene Glycol/Electrolytes 2,000 ml 07/13/19 16:00 07/13/19 15:11 Golytely PO 07/13/19 23:59 2,000 ml 1600,2000 RA Administration Pregabalin 150 mg 07/12/19 21:00 07/13/19 08:17 Lyrica PO 150 mg BID RA Administration Sacubitril/Valsartan 1 tab 07/12/19 21:00 07/13/19 08:20 Entresto 24 Mg-26 Mg Tablet PO 1 tab BID RA Administration Senna/Docusate Sodium 2 tab 07/13/19 09:00 07/13/19 08:19 Senokot S PO Not Given DAILY RA Torsemide 40 mg 07/13/19 09:00 07/13/19 08:17 Demadex PO 40 mg DAILY RA Administration Torsemide 20 mg 07/13/19 12:00 07/13/19 11:24 Demadex PO 20 mg 1200 RA Administration - Exam Eye: PERRL ENT: moist mucosa Neck: supple, no lymphadenopathy Heart: RRR Respiratory: CTAB, no wheezes Gastrointestinal: soft, non-tender Extremities: no cyanosis Skin: normal turgor Neurological: CN's grossly intact Musculoskeletal: normal tone Psychiatric: normal affect, A&O x 3 Hosp A/P (1) Melena Code(s): K92.1 - MELENA Status: Acute (2) Anemia Code(s): D64.9 - ANEMIA, UNSPECIFIED Status: Acute (3) Afib Code(s): I48.91 - UNSPECIFIED ATRIAL FIBRILLATION Status: Acute (4) CHF (congestive heart failure) Code(s): I50.9 - HEART FAILURE, UNSPECIFIED Status: Chronic Qualifiers: Heart failure type: systolic (5) CKD (chronic kidney disease), stage III Code(s): N18.3 - CHRONIC KIDNEY DISEASE, STAGE 3 (MODERATE) Status: Chronic - Plan Patient appears less pale today, reports feeling less SOB with exertion Is getting a 2 day prep for lower GI endoscopy tomorrow Have continued home medications, Eliquis and ASA are held. Hgb up to 9 from 6.2 after 2 units of PRBCs Will recheck CBC in AM Will dc home once cleared from GI
[2019-07-13] MEDS: HumaLOG 300 UNITS/3 ML VIAL SC PRN (16:11)
[2019-07-13 22:36] LABS: Hemoglobin 8.8 g/dL (14.0-18.0); Platelet Count 244 thou/uL (130-400)
[2019-07-14] MEDS: Dextrose 50% Abboject 50 ML SYRINGE SLOW IVP PRN ×2 (03:03→06:25)
[2019-07-14 05:34] LABS: #Eosinphils 0.1 thou/uL (0.0-0.7); #Lymphocytes 0.9 thou/uL (1.20-3.40); #Monocytes 0.5 thou/uL (0.11-0.59); #Neutrophils 2.8 thou/uL (1.40-6.50); %Basophils 0.4 % (0.0-1.0); %Eosinophils 3.2 % (0.0-10.0); %Monocytes 11.9 % (0.0-10.0); %Neutrophils 64.4 % (42.0-75.0); Hemoglobin 8.1 g/dL (14.0-18.0); Mean Corpuscular HGB CONC 31.4 g/dL (32.0-36.0); Mean Corpuscular Hemoglobin 26.2 pg (27.0-31.0); Mean Corpuscular Volume 83.4 fL (78.0-98.0); Mean Platelet Volume 9.6 fL (7.4-10.4); Platelet Count 200 thou/uL (130-400); RBC Distribution Width 15.6 % (11.5-14.5); Red Blood Cell (RBC) Count 3.07 mill/uL (4.70-6.10); White Blood Cell (WBC) Count 4.4 thou/uL (4.8-10.8)
[2019-07-14] MEDS: Levothyroxine Sodium 100 MCG TAB PO SCH (05:47)
[2019-07-14 05:57] LABS: ALT (SGPT) 49 U/L (8-55); AST (SGOT) 61 U/L (5-34); Albumin 3.6 g/dL (3.4-4.8); Alkaline Phosphatase 67 U/L (40-150); Anion Gap 11 mmol/L (10-20); BUN (Urea Nitrogen) 17 mg/dL (8.4-25.7); Bilirubin, Total 0.3 mg/dL (0.2-1.2); Calc. Creatinine Clearance 80 mL/min (70-130); Calcium 7.5 mg/dL (7.8-10.44); Carbon Dioxide 32 mmol/L (23-31); Chloride 102 mmol/L (98-107); Estimated GFR-MDRD 44; Globulin 2.6 g/dL (2.4-3.5); Glucose 68 mg/dL (80-115); Protein, Total 6.2 g/dL (5.8-8.1); Sodium 142 mmol/L (136-145)
[2019-07-14] MEDS: Mometasone/Formoterol 120 PUFF INHALER INH SCH ×2 (07:17→22:50)
[2019-07-14] MEDS: Carvedilol 6.25 MG TAB PO SCH ×2 (07:21→17:02)
[2019-07-14] MEDS: Insulin Glargine 40 UNITS in Pre-Filled Syringe 1 EACH SC SCH (11:25)
[2019-07-14] MEDS: Ezetimibe 10 MG TAB PO SCH (11:44)
[2019-07-14] MEDS: Pregabalin 75 MG CAP PO SCH ×2 (11:44→20:18)
[2019-07-14] MEDS: Famotidine 20 MG TAB PO SCH ×2 (11:45→20:18)
[2019-07-14] MEDS: Amiodarone 200 MG TAB PO SCH ×2 (11:45→20:17)
[2019-07-14] MEDS: Anastrozole 1 MG TAB PO SCH (11:45)
[2019-07-14] MEDS: Liothyronine Sodium 5 MCG TAB PO SCH (11:45)
[2019-07-14] MEDS: Senokot S 8.6-50 MG TAB PO SCH (11:46)
[2019-07-14] MEDS: Torsemide 20 MG TAB PO SCH ×2 (11:46→13:11)
--- NOTE | 2019-07-14 11:53 | OP ---
DATE OF PROCEDURE: 07/14/2019 PROCEDURE PERFORMED: Esophagogastroduodenoscopy with biopsy and colonoscopy with snare polypectomy. PREOPERATIVE DIAGNOSIS: Recurrent iron deficiency anemia on chronic anticoagulation and chronic constipation. DESCRIPTION OF PROCEDURE: Informed consent was obtained from the patient. He was sedated with total intravenous anesthesia. The bite block was placed and the endoscope was advanced easily to the second portion of the duodenum and retroflexion was performed in the stomach. The esophagus had an irregular Z-line, but was otherwise normal. The stomach had patchy erosive erythematous gastritis in the body of the stomach. This did not appear to be a significant bleeding source. There were deep erosions or large erosions. Biopsies were obtained from this area. Previously, the biopsies from the similar findings from last September were unremarkable. The stomach was otherwise normal including retroflexed views. The pylorus and first and second portions of the duodenum were normal. The patient was turned around. Rectal exam was performed and was normal. The colonoscope was advanced to the terminal ileum without difficulty. The mucosa of the terminal ileum was normal. The preparation quality was good. The ileocecal valve and appendiceal orifice were clearly identified. A 4 mm pale polyp was removed from the cecum by cold snare polypectomy. The remainder of the colonic mucosa was normal throughout. Retroflex views in the rectum were unremarkable. IMPRESSION: 1. Erosive erythematous patchy gastritis in the body of the stomach. Biopsies obtained. I doubt this is a significant bleeding source. 2. Otherwise normal esophagogastroduodenoscopy. Irregular Z-line. 3. A 4 mm pale polyp was removed from the cecum by cold snare polypectomy. 4. Otherwise normal ileocolonoscopy. 5. The patient did have an episode of hematochezia this morning following his bowel prep, which was likely secondary to hemorrhoids. There was no stigmata of recent bleeding in the colon. 6. No source for iron deficiency anemia was identified by this exam. The patient is on chronic anticoagulation. RECOMMENDATIONS: 1. Scheduled MiraLAX daily for chronic constipation. 2. Await histopathology. 3. Follow up with Dr. Perez for outpatient capsule endoscopy. 4. I will sign off for now. Please call if GI can help. Job ID: [id number]
[2019-07-14] MEDS ORDERED: Potassium Chloride 20 MEQ TAB PO SCH (14:15)
[2019-07-14] MEDS: HumaLOG 300 UNITS/3 ML VIAL SC PRN (17:04)
--- NOTE | 2019-07-14 17:35 | PDOC.HOSPP ---
- Subjective Encounter Date: 07/14/19 Encounter Time: 17:33 Subjective: Patient lying in bed, no complaints at this time. No signs of bleeding, EGD and colonoscopy reviewed and GI found gastritis and removed a polyp. He denies chest pain or shortness of breath. - Objective Vital Signs & Weight: Vital Signs (12 hours) Temp Pulse Resp BP BP Pulse Ox 07/14/19 17:23 97.7 F 67 20 98/64 98 07/14/19 12:50 97.5 F L 68 20 111/66 99 07/14/19 12:17 98 07/14/19 07:19 98 07/14/19 07:17 67 16 97 07/14/19 07:15 97.7 F 60 16 112/62 100 Weight Weight 268 lb 9 oz I&O: 07/13/19 07/14/19 07/15/19 06:59 06:59 06:59 Intake Total 2080 4050 600 Output Total 3300 4350 Balance -1220 -300 600 Result Diagrams: 07/14/19 04:59 07/14/19 04:59 Additional Labs: Accuchecks 07/14/19 07/14/19 07/14/19 16:42 11:29 08:51 POC Glucose 292 H 82 114 H 07/14/19 07/14/19 07/14/19 05:58 03:53 02:59 POC Glucose 62 L 110 40 L* 07/13/19 20:54 POC Glucose 117 H Radiology Reviewed by me: Yes ROS - Review of Systems Constitutional: denies: fever, chills Eyes: denies: vision change, redness ENT: denies: nose discharge, nose congestion Respiratory: denies: cough, shortness of breath Cardiovascular: denies: chest pain, palpitations Gastrointestinal: denies: nausea, abdominal pain Genitourinary: denies: dysuria, frequency, retention Musculoskeletal: denies: shoulder pain, back pain, leg pain Skin: denies: rash, lesions Neurological: denies: weakness, numbness, change in speech All other systems reviewed; all pertinent +/- noted in HPI/Subj - Medication Medications: Active Medications Generic Name Dose Route Start Last Admin Trade Name Freq PRN Reason Stop Dose Admin Acetaminophen 650 mg 07/12/19 13:02 07/14/19 11:48 Tylenol PO 650 mg Q4H PRN Administration Headache/Fever/Mild Pain (1-3) Amiodarone HCl 200 mg 07/12/19 21:00 07/14/19 11:45 Cordarone PO 200 mg BID RA Administration Anastrozole 1 mg 07/13/19 09:00 07/14/19 11:45 Arimidex PO Not Given QAM RA Carvedilol 6.25 mg 07/12/19 17:00 07/14/19 17:02 Coreg PO Not Given BID-WM RA Dextrose/Water 25 gm 07/12/19 13:59 07/14/19 06:25 Dextrose 50% SLOW IVP 25 gm PRN PRN Administration Hypoglycemia Ezetimibe 10 mg 07/13/19 09:00 07/14/19 11:44 Zetia PO 10 mg QAM RA Administration Famotidine 20 mg 07/12/19 21:00 07/14/19 11:45 Pepcid PO 20 mg BID RA Administration Insulin Glargine 40 units/ 0.4 mls @ 0 mls/hr 07/13/19 09:00 07/14/19 11:25 Miscellaneous Medication SC Not Given DAILY [facility] Insulin Human Lispro 0 units 07/12/19 13:59 07/14/19 17:04 Humalog SC 4 unit .MILD SLIDING SCALE PRN Administration Mild Correctional Scale Levothyroxine Sodium 200 mcg 07/13/19 06:00 07/14/19 05:47 Synthroid PO 200 mcg 0600 RA Administration Liothyronine Sodium 5 mcg 07/13/19 09:00 07/14/19 11:45 Cytomel PO Not Given QAM [facility] Mometasone Furoate/Formoterol Fumar 2 puff 07/12/19 21:00 07/14/19 07:17 Dulera 100 Mcg/5 Mcg Inhaler INH 2 puff BID RA Administration Pantoprazole Sodium 40 mg 07/15/19 09:00 07/14/19 11:49 Protonix PO 40 mg DAILY RA Administration Pregabalin 150 mg 07/12/19 21:00 07/14/19 11:44 Lyrica PO 150 mg BID RA Administration Sacubitril/Valsartan 1 tab 07/12/19 21:00 07/14/19 11:47 Entresto 24 Mg-26 Mg Tablet PO Not Given BID [facility] Senna/Docusate Sodium 2 tab 07/13/19 09:00 07/14/19 11:46 Senokot S PO Not Given DAILY RA Torsemide 40 mg 07/13/19 09:00 07/14/19 11:46 Demadex PO Not Given DAILY RA Torsemide 20 mg 07/13/19 12:00 07/14/19 13:11 Demadex PO 20 mg 1200 RA Administration - Exam NAD, awake alert Eye: PERRL ENT: normocephalic atraumatic, moist mucosa Neck: supple, no JVD Heart: RRR, no murmur Respiratory: CTAB, no wheezes Gastrointestinal: soft, non-tender, normal bowel sounds Extremities: no cyanosis, no edema Skin: normal turgor Neurological: CN's grossly intact, normal sensation to touch, no focal deficits Musculoskeletal: normal tone, no muscle wasting Psychiatric: normal affect, A&O x 3 Hosp A/P (1) Anemia Code(s): D64.9 - ANEMIA, UNSPECIFIED Status: Acute (2) Melena Code(s): K92.1 - MELENA Status: Acute (3) Afib Code(s): I48.91 - UNSPECIFIED ATRIAL FIBRILLATION Status: Acute (4) Constipation Code(s): K59.00 - CONSTIPATION, UNSPECIFIED Status: Acute Qualifiers: Constipation type: slow transit constipation Qualified Code(s): K59.01 - Slow transit constipation (5) CHF (congestive heart failure) Code(s): I50.9 - HEART FAILURE, UNSPECIFIED Status: Chronic Qualifiers: Heart failure type: systolic (6) CKD (chronic kidney disease), stage III Code(s): N18.3 - CHRONIC KIDNEY DISEASE, STAGE 3 (MODERATE) Status: Chronic (7) DM II (diabetes mellitus, type II), controlled Code(s): E11.9 - TYPE 2 DIABETES MELLITUS WITHOUT COMPLICATIONS Status: Chronic (8) Hyperlipidemia Code(s): E78.5 - HYPERLIPIDEMIA, UNSPECIFIED Status: Chronic (9) Hypertension Code(s): I10 - ESSENTIAL (PRIMARY) HYPERTENSION Status: Chronic - Plan old records reviewed/req Potassium low this morning, replaced and recheck in the am Hold eliquis for now and monitor Hgb stable at 8.1, recheck cbc in am and transfuse as needed Continue to monitor and symptomatic care as needed Patient will likely follow up with GI as outpatient, appreciate recommendations
[2019-07-15] MEDS: Levothyroxine Sodium 100 MCG TAB PO SCH (05:42)
[2019-07-15] MEDS: Mometasone/Formoterol 120 PUFF INHALER INH SCH (06:55)
[2019-07-15 07:40] VITALS: TEMP 98.3
[2019-07-15] MEDS: Ezetimibe 10 MG TAB PO SCH (08:48)
[2019-07-15] MEDS: Amiodarone 200 MG TAB PO SCH (08:49)
[2019-07-15] MEDS: Pregabalin 75 MG CAP PO SCH (08:49)
[2019-07-15] MEDS: Carvedilol 6.25 MG TAB PO SCH (08:51)
[2019-07-15] MEDS: Senokot S 8.6-50 MG TAB PO SCH (08:51)
[2019-07-15] MEDS: Famotidine 20 MG TAB PO SCH (08:52)
[2019-07-15] MEDS: Torsemide 20 MG TAB PO SCH ×2 (08:52→11:46)
[2019-07-15] MEDS: Anastrozole 1 MG TAB PO SCH ×2 (08:53→08:57)
[2019-07-15] MEDS: Liothyronine Sodium 5 MCG TAB PO SCH (08:55)
[2019-07-15] MEDS: Insulin Glargine 40 UNITS in Pre-Filled Syringe 1 EACH SC SCH (09:01)
[2019-07-15 10:38] LABS: Hemoglobin 8.3 g/dL (14.0-18.0)
[2019-07-15] MEDS: HumaLOG 300 UNITS/3 ML VIAL SC PRN (11:46)
[2019-07-15 13:14] VITALS: BP 125/74
--- NOTE | 2019-07-16 02:30 | DIS ---
DATE OF ADMISSION: 07/12/2019 DATE OF DISCHARGE: 07/15/2019 PRIMARY CARE PHYSICIAN: Grecia Patrick. CONSULTANTS: GI. DISCHARGE DIAGNOSES: As of the followin. Anemia. 2. Melena. 3. Atrial fibrillation. History of AFib, currently in sinus rhythm, was on anticoagulation which has been stopped. 4. Constipation. 5. Chronic kidney disease. 6. Diabetes. HOSPITAL COURSE: The patient is a 68-year-old male, who initially presented to the hospital with low H and H. Please look at the H and P for further details. He has been chronically on Eliquis and also has some iron deficiency anemia. He was seen by GI back in September of 2018 and had upper and lower GI. He was found to have five mucosal lesions. No etiology for iron deficiency anemia was noted. He was seen here earlier since this month with symptomatic anemia and was given 1 unit of PRBC, which improved his blood counts and then he was discharged home. He was supposed to follow up with GI as an outpatient, however, he was having some difficult issues with insurance purposes to see a GI specialist. At this time, his CBC was checked and he was also found to have dark stools and he was admitted to the hospital after his outpatient workup. The patient in the ER received 2 units of PRBC. He was seen by GI and he did undergo an upper endoscopy and colonoscopy. His upper endoscopy indicated erosive erythematous patch of gastritis in the body of the stomach, otherwise it was a normal EGD. He also had a 4 mm pale polyp, which was removed from the cecum with cold snare and polypectomy. After this, the patient did have an episode of hematochezia in the morning of bowel prep. However, this was contributed most likely to hemorrhoids per GI notes. The patient's H and H have been stable. He will be discharged home. He is tolerating diet well. His vitals are stable and he has not been dizzy. He was asked to follow up with his primary and also GI in 2-3 weeks. I have kept him off his anticoagulation per GI's recommendations for 1-2 weeks. He will follow up with Cardiology. This has been put in his discharge instructions for when he should be started back on Eliquis. Given his history of possible iron deficiency anemia, may consider other workup including his small bowel follow-through, which he is supposed to have as an outpatient with GI. If negative, may consider other options including multiple myeloma workup that will be recommended or a bone marrow biopsy. HOME MEDICATIONS: He is going to be on: 1. MiraLAX 17 g daily. 2. Potassium chloride 10 mEq daily. 3. Invokana 300 mg q.a.m. 4. Glimepiride 2 mg q.a.m. 5. Levothyroxine 200 mcg daily. 6. Torsemide 20 in the morning and 40 at night. 7. Amiodarone 200 mg b.i.d. 8. Entresto 24/26 mg one p.o. b.i.d. PHYSICAL EXAMINATION: VITAL SIGNS: The patient's vitals on discharge were as of the following; temperature 98.3, 66, 20, 94% on room air, 125/74. GENERAL: He is awake, alert, and oriented x3. Does not appear in any distress. CV: S1, S2 present. No murmurs, rubs, or gallops. ABDOMEN: Soft and nontender. Bowel sounds are present x2. Again, he will be discharged home. He will follow up with his primary. Job ID: [id number]
== END 2019-07-15 15:11 | disposition home or self-care (01) | DRG 812 ==
LOC: ERS 08:24 → 2SW 10:24 → OBSVTOIN 10:24 → T4-B 07-14 08:16
PROVIDERS: ADMIT Internal Medicine; ATTEND Internal Medicine
PROC: 30233N1 Transfusion of Nonautologous Red Blood Cells into Peripheral Vein, Percutaneous Approach (ICD-10-PCS; 2019-07-12)
PROC: 0DB78ZX Excision of Stomach, Pylorus, Via Natural or Artificial Opening Endoscopic, Diagnostic (ICD-10-PCS; principal; 2019-07-14)
PROC: 0DBH8ZZ Excision of Cecum, Via Natural or Artificial Opening Endoscopic (ICD-10-PCS; 2019-07-14)
DX: D50.9 Iron deficiency anemia, unspecified (principal); I50.22 Chronic systolic (congestive) heart failure; I13.0 Hypertensive heart and chronic kidney disease with heart failure and stage 1 through stage 4 chronic kidney disease, or unspecified chronic kidney disease; E78.00 Pure hypercholesterolemia, unspecified; E03.9 Hypothyroidism, unspecified; J44.9 Chronic obstructive pulmonary disease, unspecified; K59.09 Other constipation; N18.3 Chronic kidney disease, stage 3 (moderate); E11.22 Type 2 diabetes mellitus with diabetic chronic kidney disease; K63.5 Polyp of colon; I48.91 Unspecified atrial fibrillation; D63.1 Anemia in chronic kidney disease; K64.9 Unspecified hemorrhoids; K29.60 Other gastritis without bleeding; K25.9 Gastric ulcer, unspecified as acute or chronic, without hemorrhage or perforation; Z90.49 Acquired absence of other specified parts of digestive tract; Z79.01 Long term (current) use of anticoagulants; Z79.4 Long term (current) use of insulin; Z79.899 Other long term (current) drug therapy; Z87.891 Personal history of nicotine dependence; Z79.51 Long term (current) use of inhaled steroids
CPT/HCPCS: 36415; 36416; 36430; 80053; 81003; 82274; 82728; 83540; 83550; 85014; 85018; 85025; 86850; 86900; 86901; 88305; 88312; 93005; 94760; 96374; C9113; J1610; J1815; P9016

== ENCOUNTER 2019-08-20 08:20 | Day surgery (SDC) | payer MEDICARE ==
[2019-08-20] MEDS ORDERED: Sodium Chloride 0.9% 20 ML ONE (08:45)
[2019-08-20 08:52] VITALS: BP 114/55; TEMP 97.6
[2019-08-20] MEDS ORDERED: Ferumoxytol (ERSD) 510 MG in Sodium Chloride 0.9% 250 ML 150 ML IVPB SCH (09:15)
== END 2019-08-20 10:22 | disposition home or self-care (01) ==
LOC: ONC/OP 08:20
PROVIDERS: ATTEND Internal Medicine
DX: D50.9 Iron deficiency anemia, unspecified (principal)
CPT/HCPCS: 96365; J7050; Q0139

== ENCOUNTER 2020-04-09 13:24 | Emergency (ER) | payer MEDICARE ==
--- NOTE | 2020-04-09 13:56 | RAD ---
Exam: XR Hand Rt 2 View HISTORY: Right hand pain and swelling. COMPARISON: None FINDINGS: Vascular calcifications are seen at the level of the wrist and distal forearm. No acute fracture, dislocation, or other acute osseous abnormality is identified. Mild subcutaneous soft tissue swelling is seen dorsal to the level of the metacarpal phalangeal joint s. IMPRESSION: No acute osseous abnormality is identified. Mild subcutaneous soft tissue swelling.
[2020-04-09] MEDS ORDERED: HYDROcodone/Acetaminophen 5/325 mg Tablet ONE (14:33)
[2020-04-09] MEDS ORDERED: diphenhydrAMINE 25 MG CAP ONE (14:34)
[2020-04-09] MEDS ORDERED: Ibuprofen 800 MG TAB ONE (14:34)
[2020-04-09] MEDS ORDERED: Lidocaine 1% (PF) 30 ML VIAL ONE (14:34)
[2020-04-09] MEDS ORDERED: Lidocaine Viscous Sol 2% 15 ml UD Cup ONE (14:44)
[2020-04-09 15:00] LABS: #Eosinphils 0.1 thou/uL (0.0-0.7); #Lymphocytes 1.1 thou/uL (1.20-3.40); #Monocytes 0.5 thou/uL (0.11-0.59); #Neutrophils 4.5 thou/uL (1.40-6.50); %Basophils 0.6 % (0.0-1.0); %Eosinophils 1.9 % (0.0-10.0); %Lymphocytes 18.2 % (21.0-51.0); %Monocytes 7.5 % (0.0-10.0); %Neutrophils 71.8 % (42.0-75.0); Hemoglobin 13.3 g/dL (14.0-18.0); Mean Corpuscular HGB CONC 32.5 g/dL (32.0-36.0); Mean Corpuscular Hemoglobin 32.1 pg (27.0-31.0); Mean Corpuscular Volume 98.9 fL (78.0-98.0); Mean Platelet Volume 8.4 fL (7.4-10.4); Platelet Count 241 thou/uL (130-400); RBC Distribution Width 13.7 % (11.5-14.5); Red Blood Cell (RBC) Count 4.13 mill/uL (4.70-6.10); White Blood Cell (WBC) Count 6.3 thou/uL (4.8-10.8)
[2020-04-09 15:20] LABS: ALT (SGPT) 15 U/L (8-55); AST (SGOT) 14 U/L (5-34); Albumin 3.8 g/dL (3.4-4.8); Alkaline Phosphatase 78 U/L (40-110); Anion Gap 14 mmol/L (10-20); BUN (Urea Nitrogen) 23 mg/dL (8.4-25.7); Bilirubin, Total 0.3 mg/dL (0.2-1.2); Calc. Creatinine Clearance 0 mL/min (70-130); Calcium 8.8 mg/dL (7.8-10.44); Carbon Dioxide 29 mmol/L (23-31); Chloride 97 mmol/L (98-107); Estimated GFR-MDRD 40; Globulin 3.2 g/dL (2.4-3.5); Glucose 449 mg/dL (80-115); Potassium 4.4 mmol/L (3.5-5.1); Sodium 136 mmol/L (136-145)
[2020-04-09] MEDS ORDERED: Morphine 2 MG/ML SYRINGE ONE (15:27)
[2020-04-09] MEDS ORDERED: Insulin Regular 300 UNITS/3 ML VIAL ONE (15:59)
[2020-04-09] MEDS ORDERED: Amoxicillin/Potassium Clav 875 MG TAB ONE (15:59)
== END 2020-04-09 16:54 | disposition home or self-care (01) ==
LOC: ERS 13:24
DX: S60.460A Insect bite (nonvenomous) of right index finger, initial encounter (principal); S60.462A Insect bite (nonvenomous) of right middle finger, initial encounter; E11.65 Type 2 diabetes mellitus with hyperglycemia; I11.0 Hypertensive heart disease with heart failure; I50.9 Heart failure, unspecified; E78.5 Hyperlipidemia, unspecified; E78.00 Pure hypercholesterolemia, unspecified; J44.9 Chronic obstructive pulmonary disease, unspecified; E03.9 Hypothyroidism, unspecified; Z87.891 Personal history of nicotine dependence; W57.XXXA Bitten or stung by nonvenomous insect and other nonvenomous arthropods, initial encounter; Y92.096 Garden or yard of other non-institutional residence as the place of occurrence of the external cause
CPT/HCPCS: 36415; 36416; 80053; 85025; J1815; J2001; J2270; Q0163

== ENCOUNTER 2022-10-26 06:18 | Day surgery (SDC) | payer OTHER ==
[2022-10-25 11:35] VITALS: BMI 39.1
[~2022-10-26 06:18] MED LIST changes: -Bupivacaine 0.25% HCL 30 ML VIAL ONE; +Fluorouracil 100 MG, Enoxaparin Sodium 25 MG, EPINEPHrine 0.3 MG in Ophthalmic Irrigati... IRR SCH
[2022-10-26] MEDS ORDERED: Phenylephrine 2.5% Ophth Soln 5 ML BOT ONE (06:56)
[2022-10-26] MEDS ORDERED: Cyclopentolate 1% Opth Drop 2 ML BOT ONE (06:56)
[2022-10-26] MEDS ORDERED: Midazolam HCl 2 mg/2 ml Vial ONE (06:59)
[2022-10-26] MEDS ORDERED: fentaNYL PF 100 MCG/2 ML SYRINGE ONE (07:00)
[2022-10-26] MEDS ORDERED: Lidocaine 4% PF 5 ML AMP ONE (07:59)
[2022-10-26] MEDS ORDERED: Maxitrol 0.1% Opth Oint 3.5 GM TUBE ONE (07:59)
[2022-10-26] MEDS ORDERED: Lidocaine 1% PF 5 ML VIAL ONE (07:59)
[2022-10-26] MEDS ORDERED: Enoxaparin Sodium 30 MG/0.3 ML SYRINGE ONE (07:59)
[2022-10-26] MEDS ORDERED: Bupivacaine 0.75% 10 ML VIAL ONE (07:59)
[2022-10-26] MEDS ORDERED: CEFAZOLIN 1 GM VIAL ONE (07:59)
[2022-10-26] MEDS ORDERED: PROPOFOL 200 MG/20 ML VIAL ONE (07:59)
[2022-10-26] MEDS ORDERED: Triamcinolone 40 MG/ML VIAL ONE (07:59)
== END 2022-10-26 09:30 | disposition home or self-care (01) ==
LOC: SDC 06:18
PROVIDERS: ATTEND Ophthalmology Retina Specialist
PROC: 08T43ZZ Resection of Right Vitreous, Percutaneous Approach (ICD-10-PCS; principal; 2022-10-26)
PROC: 08NE3ZZ Release Right Retina, Percutaneous Approach (ICD-10-PCS; 2022-10-26)
DX: H35.371 Puckering of macula, right eye (principal); E11.9 Type 2 diabetes mellitus without complications; I25.10 Atherosclerotic heart disease of native coronary artery without angina pectoris; Z79.4 Long term (current) use of insulin; Z79.890 Hormone replacement therapy; Z79.84 Long term (current) use of oral hypoglycemic drugs; Z79.899 Other long term (current) drug therapy
CPT/HCPCS: 36416; J0171; J0690; J1650; J2250; J2704; J3301; J3490; J9190

== ENCOUNTER 2023-09-06 08:29 | Day surgery (SDC) | payer OTHER ==
[2023-09-05 12:59] VITALS: BMI 39.1
[~2023-09-06 08:29] MED LIST changes: +EPINEPHrine 0.3 MG, Dextrose 50% 3 ML in Ophthalmic Irrigation Solution 500 ML IRR SCH; -Fluorouracil 100 MG, Enoxaparin Sodium 25 MG, EPINEPHrine 0.3 MG in Ophthalmic Irrigati... IRR SCH
[2023-09-06] MEDS ORDERED: Cyclopentolate 1% Opth Drop 2 ML BOT ONE (10:13)
[2023-09-06] MEDS ORDERED: PHENYLephrine 2.5% Ophth Soln 15 ml Bottle ONE (10:13)
[2023-09-06] MEDS ORDERED: fentaNYL 50 mcg/mL 1 mL Vial ONE (11:33)
[2023-09-06] MEDS ORDERED: Midazolam HCl 2 mg/2 ml Vial ONE (11:33)
[2023-09-06] MEDS ORDERED: Maxitrol 0.1% Opth Oint 3.5 GM TUBE ONE (11:48)
[2023-09-06] MEDS ORDERED: Bupivacaine 0.75% 10 ML VIAL ONE (11:48)
[2023-09-06] MEDS ORDERED: Lidocaine 4% PF 5 ML AMP ONE (11:48)
[2023-09-06] MEDS ORDERED: PROPOFOL 200 MG/20 ML VIAL ONE (11:48)
[2023-09-06] MEDS ORDERED: Dextrose 50% Abboject 50 ML SYRINGE ONE (11:48)
[2023-09-06] MEDS ORDERED: CEFAZOLIN 1 GM VIAL ONE (11:48)
[2023-09-06] MEDS ORDERED: Lidocaine 1% PF 5 ML VIAL ONE (11:48)
[2023-09-06] MEDS ORDERED: Triamcinolone 40 MG/ML VIAL ONE (11:48)
== END 2023-09-06 14:10 | disposition home or self-care (01) ==
LOC: SDC 08:29
PROVIDERS: ATTEND Ophthalmology Retina Specialist
PROC: 08T43ZZ Resection of Right Vitreous, Percutaneous Approach (ICD-10-PCS; principal; 2023-09-06)
PROC: 085E3ZZ Destruction of Right Retina, Percutaneous Approach (ICD-10-PCS; 2023-09-06)
DX: H40.51X4 Glaucoma secondary to other eye disorders, right eye, indeterminate stage (principal); E13.3 Other specified diabetes mellitus with ophthalmic complications
CPT/HCPCS: 66180; 67041; 82962; C1762; J3010; 36416; J0171; J0690; J2250; J2704; J3301; J3490; J7999